=== PATIENT | male | born 1965 | race Hispanic/Latino ===

== ENCOUNTER 2016-12-24 18:19 | Emergency (ER) | payer MEDICAID, OTHER ==
[2016-12-24 19:23] VITALS: BP 129/66; PULSE 84; RESP 18; TEMP 97.8; O2SAT 99
--- NOTE | 2016-12-24 19:33 | ED PDOC ---
Lower Extremity Pain/Injury Time Seen by Provider: 12/24/16 19:28 Chief Complaint (Nursing): Lower Extremity Problem/Injury Chief Complaint (Provider): Lower Extremity Problem/Injury History Per: Patient History/Exam Limitations: no limitations Onset/Duration Of Symptoms: Mins (prior to arrival) Current Symptoms Are (Timing): Still Present Additional Complaint(s): Hernesto Mauricio is a 51 year old male who presents to the emergency department for an evaluation after he fell down a set of stairs injuring right hip and knee. Patient denies dizziness or syncope prior to fall. He denies head injury or loss of consciousness. Patient is able to walk and bear weight but has pain when doing so. PMD: none provided Past Medical History Reviewed: Historical Data Vital Signs: Last Vital Signs Temp 97.8 F 12/24/16 19:20 Pulse 84 12/24/16 19:20 Resp 18 12/24/16 19:20 BP 129/66 12/24/16 19:20 Pulse Ox 99 12/24/16 19:20 - Medical History PMH: Hepatitis (C) Denies: Diabetes, HIV, HTN, Chronic Kidney Disease, Seizures, Sexually Transmitted Disease - Surgical History Surgical History: Hernia Repair - Family History Family History: States: No Known Family Hx - Living Arrangements Living Arrangements: With Family - Social History Current smoker - smoking cessation education provided: Yes Alcohol: Occasional Drugs: Opiates - Home Medications Home Medications: Ambulatory Orders Medication Instructions Recorded Cyclobenzaprine [Cyclobenzaprine 10 mg PO TID PRN #15 tab 12/24/16 HCl] Ibuprofen [Motrin] 600 mg PO Q6 PRN #15 tab 12/24/16 - Allergies Allergies/Adverse Reactions: Allergies Allergy/AdvReac Type Severity Reaction Status Date / Time No Known Allergies Allergy Verified 09/23/16 18:33 Wells Criteria for PE - Wells Criteria for Pulmonary Embolism Clinical Signs and Symptoms of DVT: No P.E is #1 Diagnosis, or Equally Likely: No Heart Rate >100: No Immobilization at least 3 days;Surgery previous 4 weeks: No Previous, objectively diagnosed PE or DVT: No Hemoptysis: No Malignancy w/treatment within 6 months, or palliative: No Total Score: 0 Review of Systems ROS Statement: Except As Marked, All Systems Reviewed And Found Negative Musculoskeletal: Positive for: Other (right hip pain and knee pain s/p fall) Neurological: Positive for: Other (denies head injury or LOC) Physical Exam - Reviewed Nursing Documentation Reviewed: Yes Vital Signs Reviewed: Yes - Physical Exam Appears: Positive for: Well, Non-toxic, No Acute Distress Head Exam: Positive for: ATRAUMATIC, NORMAL INSPECTION, NORMOCEPHALIC Skin: Negative for: Rash Eye Exam: Positive for: Normal appearance Cardiovascular/Chest: Positive for: Regular Rate, Rhythm Respiratory: Positive for: Normal Breath Sounds Gastrointestinal/Abdominal: Positive for: Soft. Negative for: Tenderness Back: Negative for: L CVA Tenderness, R CVA Tenderness, Vertebral Tenderness Extremity: Positive for: Other (Ecchymosis and tenderness to right lateral hip noted, full range of motion noted with pain, diffuse tenderness to right femur region and anterior right knee, full range of motion right knee, normal distal sensation right lower extremity) Neurologic/Psych: Positive for: Alert, Oriented - ECG O2 Sat by Pulse Oximetry: 99 (RA) Pulse Ox Interpretation: Normal - Other Rad Pelvis, right hip, femur and knee X-Ray: Interpreted by Me, Viewed By Me X-Ray Interpretation: no fx, no dis Medical Decision Making Medical Decision Making: Initial Impression: 51 year old with right leg injury s/p trip and fall Initial Plan: * Flexion 10mg PO * Toradol 30mg IM * Xray femur (right) * Xray hip with pelvis (right) * Xray knee (right) Patient reports improvement to pain s/p meds given in ED. Patient aware of x-ray results, crutches declined. Prescription given for Motrin and Flexeril. Patient was advised to follow up with orthopedist, referral provided. Scribe Attestation: Documented by Piper Banks, acting as a scribe for Josephine Desouza PA-C. Provider Scribe Attestation: All medical record entries made by the Scribe were at my direction and personally dictated by me. I have reviewed the chart and agree that the record accurately reflects my personal performance of the history, physical exam, medical decision making, and the department course for this patient. I have also personally directed, reviewed, and agree with the discharge instructions and disposition. Disposition - Clinical Impression Clinical Impression: Contusion, hip, Knee sprain - Patient ED Disposition Is Patient to be Admitted: No Counseled Patient/Family Regarding: Studies Performed, Diagnosis, Need For Followup, Rx Given - Disposition Referrals: Schuyler Kramer MD [Staff Provider] - Disposition: Routine/Home Disposition Time: 20:35 Condition: STABLE Additional Instructions: Ice, rest and elevate affected area. Take prescription meds as directed as needed for pain. Follow-up with orthopedist or primary doctor for any persistent symptoms. Prescriptions: Cyclobenzaprine [Cyclobenzaprine HCl] 10 mg PO TID PRN #15 tab PRN Reason: Muscle Pain Ibuprofen [Motrin] 600 mg PO Q6 PRN #15 tab PRN Reason: Pain, Moderate (4-7) Instructions: Hip Contusion (ED), Knee Sprain (ED)
--- NOTE | 2016-12-25 12:49 | RAD ---
PROCEDURE: Right Femur Radiographs. HISTORY: trauma COMPARISON: None. TECHNIQUE: AP and Lateral Radiographs of the right femur. FINDINGS: FEMUR: Normal. No fracture. SOFT TISSUES: Normal. OTHER FINDINGS: None. IMPRESSION: Unremarkable radiographs of the right femur.
--- NOTE | 2016-12-25 13:11 | RAD ---
PROCEDURE: Right Hip Radiographs. HISTORY: trauma COMPARISON: None. FINDINGS: BONES: Normal. No fracture. JOINTS: Normal. SOFT TISSUES: Normal. OTHER FINDINGS: None. IMPRESSION: Normal radiographs of right hip.
--- NOTE | 2016-12-25 13:20 | RAD ---
PROCEDURE: Right Knee Radiographs. HISTORY: trauma COMPARISON: None. FINDINGS: BONES: Normal. No fracture. JOINTS: Narrowed medial joint compartment consistent with osteoarthritis. Lateral and patellofemoral compartments are preserved. No articular erosion. JOINT EFFUSION: None. OTHER FINDINGS: None. IMPRESSION: Medial osteoarthritis. No acute fracture.
== END 2016-12-24 20:48 | disposition home or self-care (01) ==
LOC: H.ER 18:19
DX: S70.01XA Contusion of right hip, initial encounter (principal); S83.91XA Sprain of unspecified site of right knee, initial encounter; W10.9XXA Fall (on) (from) unspecified stairs and steps, initial encounter; Y92.89 Other specified places as the place of occurrence of the external cause; M17.11 Unilateral primary osteoarthritis, right knee
CPT/HCPCS: 73502; 73551; 73562; 96372; 99283; J1885

== ENCOUNTER 2017-01-06 20:19 | Emergency (ER) | payer SELFPAY ==
[2017-01-06 21:00] VITALS: BP 116/65; PULSE 89; RESP 17; TEMP 98.3; O2SAT 100
--- NOTE | 2017-01-06 22:55 | ED PDOC ---
Arrival/HPI - General Chief Complaint: Hip Pain Time Seen by Provider: 01/06/17 22:25 Past Medical History - Infectious Disease Hx of Infectious Diseases: None - Cardiac Hx Hypertension: No - Pulmonary Hx Tuberculosis: No - Neurological Hx Seizures: No - HEENT Hx HEENT Disorder: No - Renal Hx Renal Disorder: No - Endocrine/Metabolic Hx Endocrine Disorders: No - Hematological/Oncological Hx Cancer: No - Integumentary Hx Dermatological Disorder: No - Musculoskeletal/Rheumatological Hx Musculoskeletal Disorders: No Hx Falls: No - Gastrointestinal Hx Gastrointestinal Disorders: No - Genitourinary/Gynecological Hx Sexually Transmitted Diseases: No - Psychiatric Hx Psychophysiologic Disorder: Yes Hx Substance Use: Yes (IVDU Heroin) - Anesthesia Hx Anesthesia: Yes Hx Anesthesia Reactions: No Hx Malignant Hyperthermia: No Family/Social History Smoking Status: Heavy Smoker > 10 Cigarettes Daily Hx Alcohol Use: No Hx Substance Use: Yes (IVDU Heroin) Substance used: HEROIN AND COCAINE Allergies/Home Meds Allergies/Adverse Reactions: Allergies No Known Allergies Allergy (Verified 09/23/16 18:33) Physical Exam Vital Signs Temp Pulse Resp BP Pulse Ox 01/06/17 20:56 98.3 F 89 17 116/65 100 Medical Decision Making - Medication Orders Current Medication Orders: Discontinued Medications Ketorolac Tromethamine (Toradol) Confirm Administered Dose 15 mg .ROUTE .STK- MED ONE Stop: 01/06/17 22:52 Disposition/Present on Arrival - Present on Arrival History of DVT/PE: No History of Uncontrolled Diabetes: No Urinary Catheter: No History Surgical Site Infection Following: None - Disposition
--- NOTE | 2017-01-06 22:58 | ED PDOC ---
HPI: General Adult Time Seen by Provider: 01/06/17 22:25 Chief Complaint (Nursing): Hip Pain History Per: Patient Additional Complaint(s): Pt. states last week he was in ED s/p fall and injury to R hip. Pt. states he's been taking Motrin without any relief. Reports that he was informed that x-rays were normal. Denies new trauma, numbness, tingling, incontinence, dysuria, abdominal pain. Past Medical History Vital Signs: Last Vital Signs Temp 98.3 F 01/06/17 20:56 Pulse 89 01/06/17 20:56 Resp 17 01/06/17 20:56 BP 116/65 01/06/17 20:56 Pulse Ox 100 01/06/17 23:00 - Medical History PMH: Hepatitis (C) Denies: Diabetes, HIV, HTN, Chronic Kidney Disease, Seizures, Sexually Transmitted Disease - Surgical History Surgical History: Hernia Repair - Family History Family History: States: No Known Family Hx - Immunization History Hx Tetanus Toxoid Vaccination: No Hx Influenza Vaccination: No Hx Pneumococcal Vaccination: No - Home Medications Home Medications: Ambulatory Orders Medication Instructions Recorded Cyclobenzaprine [Cyclobenzaprine 10 mg PO TID PRN #15 tab 12/24/16 HCl] Ibuprofen [Motrin] 600 mg PO Q6 PRN #15 tab 12/24/16 - Allergies Allergies/Adverse Reactions: Allergies Allergy/AdvReac Type Severity Reaction Status Date / Time No Known Allergies Allergy Verified 09/23/16 18:33 Review of Systems ROS Statement: Except As Marked, All Systems Reviewed And Found Negative Physical Exam - Physical Exam Appears: Positive for: Well, Non-toxic, No Acute Distress Skin: Positive for: Normal Color, Warm. Negative for: Rash Extremity: Positive for: Other (Minimal R hip tenderness without deformity; no pelvic tenderness). Negative for: Calf Tenderness (b/l) Neurologic/Psych: Positive for: Alert, Oriented - ECG O2 Sat by Pulse Oximetry: 100 - Progress ED Course And Treament: Toradol 15mg IM given. CT pelvis w/o contrast: 1. Mild subcutaneous induration lateral to the right hip. 2. Question of minimal subcapital impaction fracture of the right femoral neck posteriorly. Case d/w Dr. Callahan who recommends ordering repeat CT to confirm fx as pt. has been walking on hip. CT R hip w/o contrast ordered. Disposition - Clinical Impression Clinical Impression: Hip injury - Patient ED Disposition Is Patient to be Admitted: Transfer of Care (Signed out to Karuna PULIDO pending CT ) - Disposition Disposition Time: 00:00 Condition: STABLE
--- NOTE | 2017-01-07 00:23 | ED PDOC ---
- ECG O2 Sat by Pulse Oximetry: 100 - Progress ED Course And Treament: Case endorsed to screenplay writer from Tika PULIDO pending CT hip without contrast EXAM: CT Right Lower Extremity Without Intravenous Contrast, Hip CLINICAL HISTORY: 51 years old, male; Injury or trauma; Fall; Initial encounter; Blunt trauma; Hip ; Right; Prior surgery; Surgery date: 6+ months; Surgery type: Rt hernia repair; Additional info: Attention r hip; S/P fall on 12/24/16 TECHNIQUE: Axial computed tomography images of the right hip without intravenous contrast. This CT exam was performed using one or more of the following dose reduction techniques: automated exposure control, adjustment of the mA and/or kV according to patient size, and/or use of iterative reconstruction technique. Coronal and sagittal reformatted images were created and reviewed. EXAM DATE/TIME: Exam ordered 01/06/2017 11:50 PM COMPARISON: CR - FEMUR 1 VIEW RT 12/24/2016 7:56:05 PM FINDINGS: Bones/joints: Minimal subcapital femoral neck fracture, greatest posteriorly and laterally. No dislocation. Soft tissues: Mild subcutaneous edema lateral to the right hip. IMPRESSION: 1. Mild subcutaneous induration lateral to the right hip. 2. Probable minimal subcapital femoral neck fracture, greatest posteriorly and laterally. MR may be of benefit for confirmation. Case discussed with Dr. Parmar, Ortho on-call; recommends admission to hospital for AM MRI and possible surgery. Patient educated on these findings, agreeable with admission and surgery but states he has something in the morning he has to attend to, or else he will face legal trouble. Patient advised he will need to sign out against medical advice, and risks of doing so. Patient demonstrates full understanding. Crutches given for nonweight bearing. Advised to return to ED in am. Dr. Wallace Maher aware of AMA. Disposition - Clinical Impression Clinical Impression: Hip fracture, Left against medical advice - POA Present On Arrival: Falls Or Trauma - Disposition Referrals: [facility] [Outside] Schuyler Kramer MD [Staff Provider] - Disposition: AGAINST MEDICAL ADVICE Disposition Time: 00:52 Condition: STABLE Instructions: Against Medical Advice (ED)
--- NOTE | 2017-01-07 10:38 | CT ---
PROCEDURE: CT Pelvis without contrast HISTORY: trauma COMPARISON: Right hip and pelvis x-ray 12/24/2016. TECHNIQUE: Contiguous axial images of the pelvis . No intravenous or oral contrast given. Coronal and sagittal reformats generated. Radiation dose: Total exam DLP = 391 mGy-cm. This CT exam was performed using one or more of the following dose reduction techniques: Automated exposure control, adjustment of the mA and/or kV according to patient size, and/or use of iterative reconstruction technique. FINDINGS: BLADDER: Decompressed but poorly evaluated turns of the wall thickness. Cystitis not completely excluded. REPRODUCTIVE ORGANS: Unremarkable. VISUALIZED BOWEL: Unremarkable. PERITONEUM: Unremarkable, as visualized. No free fluid. No free air. LYMPH NODES: Unremarkable. No enlarged lymph nodes. BONES: Cortical discontinuity seen in the right femoral neck at its junction with the head at the mid to posterior margins suspicious for impacted fracture though minimal. No dislocation subluxation appreciated. Degenerative cortical sclerosis appreciate the acetabulum. VASCULATURE: Unremarkable. OTHER FINDINGS: None. IMPRESSION: 1. An impacted fracture of the mid to posterior segment of the right femoral neck is in question. No dislocation. No suspicious lytic or blastic change. 2. Mild to moderate hip joint osteoarthritis.
--- NOTE | 2017-01-07 10:47 | CT ---
PROCEDURE: CT right hip HISTORY: attention R hip; s/p fall on 12/24/16 COMPARISON: Right hip radiographs 12/24/2016 TECHNIQUE: 2.5 mm contiguous axial sections were acquired through the right hip. Sagittal and coronal images were reformatted from the axial scan. FINDINGS: There is probable subtle subcapital fracture of the right hip. Thin sclerotic line traverses the subcapital portion of the right hip with minimal cortical offset seen posteromedially. Confirmation with magnetic resonance imaging should be considered. No other fracture is identified. The joint spaces and articular surfaces are preserved. No hematoma seen about the right hip. Minimal contusion of the subcutaneous soft tissues adjacent to greater trochanter. Incidentally noted small right inguinal hernia containing only mesenteric fat. This protrudes only into the proximal aspect of the inguinal canal. IMPRESSION: Possible nondisplaced subcapital fracture of the right proximal femur. Consider correlation with magnetic resonance imaging. Incidental small right inguinal hernia containing only mesenteric fat. No additional abnormality. Preliminary interpretation of this examination was reported by [facility] at 12:21 a.m. on 01/07/2017. There is concurrence of this report with the preliminary interpretation.
== END 2017-01-07 01:34 | disposition left against medical advice (07) ==
LOC: H.ER 20:19
DX: S72.001A Fracture of unspecified part of neck of right femur, initial encounter for closed fracture (principal); W19.XXXA Unspecified fall, initial encounter
CPT/HCPCS: 72192; 73700; 96372; 99284; J1885

== ENCOUNTER 2017-01-21 18:56 | Emergency (ER) | payer MEDICAID, OTHER ==
[2017-01-21 19:05] VITALS: BP 133/76; PULSE 96; RESP 16; TEMP 97.8; O2SAT 98
--- NOTE | 2017-01-21 19:47 | ED PDOC ---
Arrival/HPI - General Chief Complaint: Hip Pain Time Seen by Provider: 01/21/17 19:23 Past Medical History - Infectious Disease Hx of Infectious Diseases: None - Tetanus Immunization Tetanus Immunization: Unknown - Cardiac Hx Hypertension: No - Pulmonary Hx Tuberculosis: No - Neurological Hx Seizures: No - HEENT Hx HEENT Disorder: No - Renal Hx Renal Disorder: No - Endocrine/Metabolic Hx Endocrine Disorders: No - Hematological/Oncological Hx Blood Disorders: Yes Hx Hepatitis C: Yes - Integumentary Hx Dermatological Disorder: No - Musculoskeletal/Rheumatological Hx Fractures: Yes - Gastrointestinal Hx Gastrointestinal Disorders: No - Genitourinary/Gynecological Hx Sexually Transmitted Diseases: No - Psychiatric Hx Psychophysiologic Disorder: Yes Hx Substance Use: Yes (IVDU Heroin) - Anesthesia Hx Anesthesia: Yes Hx Anesthesia Reactions: No Hx Malignant Hyperthermia: No Family/Social History Smoking Status: Heavy Smoker > 10 Cigarettes Daily Hx Alcohol Use: No Hx Substance Use: Yes (IVDU Heroin) Substance used: HEROIN AND COCAINE Allergies/Home Meds Allergies/Adverse Reactions: Allergies No Known Allergies Allergy (Verified 09/23/16 18:33) Physical Exam Vital Signs Temp Pulse Resp BP Pulse Ox 01/21/17 19:00 97.8 F 96 H 16 133/76 98 Medical Decision Making - RAD Interpretation Radiology Orders: 01/21/17 19:29 Femur Right [FEMUR MIN 2 VIEWS RT] [RAD] Stat - Medication Orders Current Medication Orders: Discontinued Medications Ketorolac Tromethamine (Toradol) 30 mg IVP STAT STA Stop: 01/21/17 19:31 Disposition/Present on Arrival - Present on Arrival History of DVT/PE: No History of Uncontrolled Diabetes: No Urinary Catheter: No History Surgical Site Infection Following: None - Disposition Forms: [employer] (Hungarian)
[2017-01-21 20:01] LABS: BASO # 0.2 K/uL (0.0-0.2); BASO % 3.3 % (0.0-2.0); EOS % 0.2 % (0.0-4.0); HEMATOCRIT 31.1 % (35.0-51.0); LYMPH # 1.7 K/uL (1.0-4.3); MEAN CELL VOLUME 89.6 fl (80.0-94.0); MEAN CORPUSCULAR HEMOGLOBIN 30.2 pg (27.0-31.0); MEAN CORPUSCULAR HGB CONC 33.7 g/dL (33.0-37.0); MEAN PLATELET VOLUME 7.1 fl (7.2-11.7); MONO # 0.7 K/uL (0.0-0.8); MONO % 12.5 % (0.0-10.0); NEUT # 3.3 K/uL (1.8-7.0); NRBC % 0.1 % (0.0-0.0); PLATELET COUNT 184 K/uL (130-400); RED CELL DISTRIBUTION WIDTH 13.5 % (11.5-14.5)
--- NOTE | 2017-01-21 20:29 | ED PDOC ---
Lower Extremity Pain/Injury Time Seen by Provider: 01/21/17 19:23 Chief Complaint (Nursing): Hip Pain Chief Complaint (Provider): hip pain History Per: Patient History/Exam Limitations: no limitations Additional Complaint(s): 51yo M in ED for eval of hip pain-pt was d/c for hip surgery 01/12 (ORIF hip fracture) and to f.u with natty this week. states that he is having redness at staple site with increased redness denies drainage fever swelling. Past Medical History Reviewed: Historical Data, Nursing Documentation, Vital Signs Vital Signs: Last Vital Signs Temp 97.8 F 01/21/17 19:00 Pulse 96 H 01/21/17 19:00 Resp 16 01/21/17 19:00 BP 133/76 01/21/17 19:00 Pulse Ox 98 01/21/17 19:00 - Medical History PMH: Fractures, Hepatitis (C) Denies: Diabetes, HIV, HTN, Chronic Kidney Disease, Seizures, Sexually Transmitted Disease - Surgical History Surgical History: Hernia Repair - Family History Family History: States: Unknown Family Hx - Immunization History Hx Tetanus Toxoid Vaccination: No Hx Influenza Vaccination: No Hx Pneumococcal Vaccination: No - Home Medications Home Medications: Ambulatory Orders Medication Instructions Recorded Aspirin [Aspirin EC] 325 mg PO DAILY #14 ect 01/12/17 LORazepam [Ativan] 1 mg PO BID PRN #14 tab 01/12/17 oxyCODONE/Acetaminophen [Percocet 1 ea PO Q4 PRN #30 tab 01/12/17 5/325 mg Tab] Cephalexin [cephalexin] 500 mg PO BID #20 cap 01/21/17 - Allergies Allergies/Adverse Reactions: Allergies Allergy/AdvReac Type Severity Reaction Status Date / Time No Known Allergies Allergy Verified 09/23/16 18:33 Wells Criteria for PE - Wells Criteria for Pulmonary Embolism Clinical Signs and Symptoms of DVT: No P.E is #1 Diagnosis, or Equally Likely: No Heart Rate >100: No Immobilization at least 3 days;Surgery previous 4 weeks: No Previous, objectively diagnosed PE or DVT: No Hemoptysis: No Malignancy w/treatment within 6 months, or palliative: No Total Score: 0 Review of Systems ROS Statement: Except As Marked, All Systems Reviewed And Found Negative Constitutional: Negative for: Fever, Chills Musculoskeletal: Positive for: Leg Pain Physical Exam - Reviewed Nursing Documentation Reviewed: Yes Vital Signs Reviewed: Yes - Physical Exam Appears: Positive for: Well, Non-toxic, No Acute Distress Skin: Positive for: Normal Color, Warm, DRY Cardiovascular/Chest: Positive for: Regular Rate, Rhythm Respiratory: Positive for: CNT, Normal Breath Sounds Extremity: Positive for: Other (right leg: laterla side staple in place mild ertyhema noted around no induration no streaking no warmth FROM of leg. good pulses. no drainage. ) Neurologic/Psych: Positive for: Alert, Oriented - Laboratory Results Result Diagrams: 01/21/17 19:57 01/21/17 19:57 - ECG O2 Sat by Pulse Oximetry: 98 - Radiology X-Ray: Interpreted by Or X-Ray Interpretation: No Acute Disease - Progress ED Course And Treament: cbc/cmp/xray r/o infection Medical Decision Making Medical Decision Making: dx: cellulites tx with Rx for keflex and f.u with [facility] this week for staple removal. Disposition - Clinical Impression Clinical Impression: Cellulitis - Patient ED Disposition Is Patient to be Admitted: No Counseled Patient/Family Regarding: Studies Performed, Diagnosis, Need For Followup, Rx Given - Disposition Referrals: Schuyler Kramer MD [Staff Provider] - Disposition: Routine/Home Disposition Time: 20:27 Condition: STABLE Prescriptions: Cephalexin [cephalexin] 500 mg PO BID #20 cap Instructions: Cellulitis (ED) Forms: [employer] (Frisian)
[2017-01-21 20:32] LABS: ALB/GLOB RATIO 0.9 (1.0-2.1); BILIRUBIN,TOTAL 0.7 mg/dl (0.2-1.3); CALCIUM 9.2 mg/dL (8.4-10.2); POTASSIUM 4.9 MMOL/L (3.6-5.0); TOTAL PROTEIN 7.6 G/DL (6.3-8.2)
[2017-01-21 20:49] LABS: BASOPHIL 2 % (0-2); EOSINOPHIL 2 % (0-7); NEUTROPHIL 56 % (42-75); TOTAL CELLS COUNTED 100
--- NOTE | 2017-01-22 12:08 | RAD ---
PROCEDURE: Right femur HISTORY: hip pain COMPARISON: 01/10/2017. TECHNIQUE: Standard protocol for this study/examination. FINDINGS: Stable position of 3 partially fenestrated orthopedic screws. No evidence of hardware failure, loosening or migration. No abnormalities with respect to the remaining/distal femur. IMPRESSION: Stable satisfactory postoperative status.
== END 2017-01-21 20:36 | disposition home or self-care (01) ==
LOC: H.ER 18:56
DX: T81.4XXA Infection following a procedure, initial encounter (principal)
CPT/HCPCS: 73552; 80053; 85025; 87040; 96374; 99283; J1885

== ENCOUNTER 2017-01-23 11:27 | Emergency (ER) | payer OTHER ==
[2017-01-23 11:32] VITALS: BP 156/92; PULSE 78; RESP 20; TEMP 98.5; O2SAT 99
[2017-01-23] MEDS ORDERED: Oxycodone/Acetaminophen 5/325 mg Tab PO STA (11:53)
--- NOTE | 2017-01-23 11:53 | ED PDOC ---
Lower Extremity Pain/Injury Time Seen by Provider: 01/23/17 11:44 Chief Complaint (Nursing): Lower Extremity Problem/Injury Chief Complaint (Provider): Leg pain History Per: Patient Additional Complaint(s): Pt. is a 51 to male, PMH of hepatitis, presents to ED with complaints of "constant right hip pain worsened last night, ran out of Percocet since last week". Pt. admits right hip surgery done November [address] Parmar. Pt reports that he missed his appointment with Agata this week and was supposed to get maureen out. Past Medical History Reviewed: Nursing Documentation, Vital Signs Vital Signs: Last Vital Signs Temp 98.5 F 01/23/17 11:31 Pulse 78 01/23/17 11:31 Resp 20 01/23/17 11:31 BP 156/92 H 01/23/17 11:31 Pulse Ox 99 01/23/17 11:31 - Medical History PMH: Fractures, Hepatitis (C) Denies: Diabetes, HIV, HTN, Chronic Kidney Disease, Seizures, Sexually Transmitted Disease - Surgical History Surgical History: Hernia Repair - Family History Family History: States: Unknown Family Hx - Living Arrangements Living Arrangements: With Family - Social History Current smoker - smoking cessation education provided: No Alcohol: Social Drugs: Denies - Immunization History Hx Tetanus Toxoid Vaccination: No Hx Influenza Vaccination: No Hx Pneumococcal Vaccination: No - Home Medications Home Medications: Ambulatory Orders Medication Instructions Recorded Aspirin [Aspirin EC] 325 mg PO DAILY #14 ect 01/12/17 LORazepam [Ativan] 1 mg PO BID PRN #14 tab 01/12/17 oxyCODONE/Acetaminophen [Percocet 1 ea PO Q4 PRN #30 tab 01/12/17 5/325 mg Tab] Cephalexin [cephalexin] 500 mg PO BID #20 cap 01/21/17 - Allergies Allergies/Adverse Reactions: Allergies Allergy/AdvReac Type Severity Reaction Status Date / Time No Known Allergies Allergy Verified 09/23/16 18:33 Review of Systems ROS Statement: Except As Marked, All Systems Reviewed And Found Negative Physical Exam - Reviewed Nursing Documentation Reviewed: Yes Vital Signs Reviewed: Yes - Physical Exam Appears: Positive for: Well, Non-toxic, No Acute Distress Head Exam: Positive for: ATRAUMATIC, NORMAL INSPECTION, NORMOCEPHALIC Skin: Positive for: Normal Color, Warm, DRY Eye Exam: Positive for: EOMI, Normal appearance, PERRL ENT: Positive for: Normal ENT Inspection Neck: Positive for: Normal, Painless ROM Cardiovascular/Chest: Positive for: Regular Rate, Rhythm Respiratory: Positive for: CNT, Normal Breath Sounds Gastrointestinal/Abdominal: Positive for: Normal Exam, Bowel Sounds, Soft Back: Positive for: Normal Inspection Extremity: Positive for: Tenderness (over incision site, maureen intact, no surroung kim and erythema. no drianage ) Neurologic/Psych: Positive for: Alert, Oriented - ECG O2 Sat by Pulse Oximetry: 99 Medical Decision Making Medical Decision Making: Pt medicated with Percocet PO Case discussed with Dr. Parmar who advised Pt to follow up in office on Friday at 8 am. Do not remove maureen at this time Disposition - Clinical Impression Clinical Impression: Hip pain - Patient ED Disposition Is Patient to be Admitted: No - Disposition Disposition: Routine/Home Disposition Time: 13:38 Condition: STABLE Additional Instructions: Follow up with Dr. Parmar on Friday at 8am! Instructions: Hip Pain (ED) Forms: [facility] (Vietnamese)
[2017-01-23] MEDS ORDERED: Oxycodone/Acetaminophen 5/325 mg Tab ONE (12:02)
== END 2017-01-23 13:55 | disposition home or self-care (01) ==
LOC: H.ER 11:27
DX: M25.551 Pain in right hip (principal); Z98.890 Other specified postprocedural states

== ENCOUNTER 2017-03-20 17:42 | Emergency (ER) | payer OTHER ==
[2017-03-20 18:14] VITALS: BP 118/76; PULSE 76; RESP 16; TEMP 98.7; O2SAT 100
[2017-03-20] MEDS ORDERED: Oxycodone/Acetaminophen 5/325 mg Tab PO STA (18:49)
[2017-03-20] MEDS ORDERED: Oxycodone/Acetaminophen 5/325 mg Tab ONE (18:51)
--- NOTE | 2017-03-20 19:38 | ED PDOC ---
HPI: General Adult Time Seen by Provider: 03/20/17 18:24 Chief Complaint (Nursing): Groin Pain History Per: Patient Additional Complaint(s): Pt. states for the past week he's had atraumatic R groin pain and swelling. States swelling is intermittent and seems to arise when he is straining and he is able to reduce the swelling. Denies dysuria, hematuria, abdominal pain, fever , trauma, testicular pain. Past Medical History Reviewed: Historical Data, Nursing Documentation, Vital Signs Vital Signs: Last Vital Signs Temp 98.7 F 03/20/17 18:11 Pulse 76 03/20/17 18:11 Resp 16 03/20/17 18:11 BP 118/76 03/20/17 18:11 Pulse Ox 100 03/20/17 19:41 - Medical History PMH: Fractures, Hepatitis (C) Denies: Diabetes, HIV, HTN, Chronic Kidney Disease, Seizures, Sexually Transmitted Disease - Surgical History Surgical History: Hernia Repair Other surgeries: R hip fx - Family History Family History: States: No Known Family Hx - Immunization History Hx Tetanus Toxoid Vaccination: No Hx Influenza Vaccination: No Hx Pneumococcal Vaccination: No - Home Medications Home Medications: Ambulatory Orders Medication Instructions Recorded Aspirin [Aspirin EC] 325 mg PO DAILY #14 ect 01/12/17 LORazepam [Ativan] 1 mg PO BID PRN #14 tab 01/12/17 oxyCODONE/Acetaminophen [Percocet 1 ea PO Q4 PRN #30 tab 01/12/17 5/325 mg Tab] Cephalexin [cephalexin] 500 mg PO BID #20 cap 01/21/17 Naproxen [Naprosyn] 500 mg PO BID PRN #14 tab 03/20/17 - Allergies Allergies/Adverse Reactions: Allergies Allergy/AdvReac Type Severity Reaction Status Date / Time No Known Allergies Allergy Verified 03/20/17 18:11 Review of Systems ROS Statement: Except As Marked, All Systems Reviewed And Found Negative Physical Exam - Physical Exam Appears: Positive for: Well, Non-toxic, No Acute Distress Skin: Positive for: Normal Color, Warm. Negative for: Rash Pulses-Dorsalis Pedis (L): 2+ Pulses-Dorsalis Pedis (R): 2+ Gastrointestinal/Abdominal: Positive for: Normal Exam, Soft, Hernia (R sided small reducible inguinal hernia), Other. Negative for: Tenderness, Mass Male Genital Exam: Positive for: normal genitalia. Negative for: scrotum tenderness (R), scrotum tenderness (L), testicular tenderness (R), testicular tenderness (L) Back: Positive for: Normal Inspection. Negative for: L CVA Tenderness, R CVA Tenderness Extremity: Positive for: Normal ROM. Negative for: Deformity (b/l hip) Neurologic/Psych: Positive for: Alert, Oriented, Gait (steady, unassisted) - ECG O2 Sat by Pulse Oximetry: 100 - Radiology X-Ray: Interpreted by Me (R hip x-rays) X-Ray Interpretation: No Acute Disease - Progress ED Course And Treament: Advised to f/u with Dr. Haq, surgery, for further evaluation and to return to ED if he pain becomes worse. Disposition - Clinical Impression Clinical Impression: Inguinal hernia - Patient ED Disposition Is Patient to be Admitted: No - Disposition Referrals: Wesley Haq MD [Staff Provider] - [facility] [Outside] Disposition: Routine/Home Disposition Time: 19:41 Condition: STABLE Prescriptions: Naproxen [Naprosyn] 500 mg PO BID PRN #14 tab PRN Reason: Pain Instructions: Inguinal Hernia (ED) Forms: [facility] (Latvian)
--- NOTE | 2017-03-21 19:49 | RAD ---
PROCEDURE: Right Hip Radiographs. HISTORY: Comparison made with prior radiographs dated 02/02/2017 COMPARISON: None. FINDINGS: BONES: Current study re- demonstrates 3 in situ partially threaded cannulated fixation screw traversing the right femoral neck and head. Hardware appears intact without evidence of loosening or infection. No evidence of acute displaced fracture nor dislocation Right femoral head is appropriately located within the right acetabulum. JOINTS: Joint spaces preserved as above. SOFT TISSUES: Grossly unremarkable aside from calcified pelvic phleboliths. OTHER FINDINGS: None. IMPRESSION: No evidence of acute displaced fracture nor dislocation. Three partially threaded cannulated fixation screws traversing the right femoral neck and head unchanged. No evidence of hardware failure.
== END 2017-03-20 19:50 | disposition home or self-care (01) ==
LOC: H.ER 17:42
DX: K40.90 Unilateral inguinal hernia, without obstruction or gangrene, not specified as recurrent (principal)

== ENCOUNTER 2017-04-10 13:32 | Emergency (ER) | payer MEDICAID, OTHER, SELFPAY ==
[2017-04-10 13:39] VITALS: BP 138/89; PULSE 70; RESP 20; TEMP 97; O2SAT 98
[2017-04-10] MEDS ORDERED: Sodium Chloride 0.9% 1,000 ML IV STA (13:47)
[2017-04-10] MEDS ORDERED: Iohexol 240 (50 ml) PO ONE (13:49)
--- NOTE | 2017-04-10 14:36 | ED PDOC ---
HPI: Male Pain Time Seen by Provider: 04/10/17 13:42 Chief Complaint (Nursing): Male Genitourinary Chief Complaint (Provider): Right Groin Pain History Per: Patient History/Exam Limitations: no limitations Onset/Duration Of Symptoms: Days Current Symptoms Are (Timing): Still Present Additional Complaint(s): Hernesto Mauricio is a 52 year old male that presents to the ED with a chief complaint of right groin pain that he states has been ongoing and worsening for the past several days. Patient reports that prior to his constant pain he had experienced intermittent pain in the area for several weeks. Patient was sent to ED by clinic for incarcerated right inguinal hernia. He denies any vomiting or diarrhea. Of Note: Patient admits to having hernia repair in the same area many years ago. Past Medical History Reviewed: Historical Data, Nursing Documentation, Vital Signs Vital Signs: Last Vital Signs Temp 97 F L 04/10/17 13:35 Pulse 70 04/10/17 13:35 Resp 20 04/10/17 13:35 BP 138/89 04/10/17 13:35 Pulse Ox 98 04/10/17 13:35 - Medical History PMH: Fractures, Hepatitis (C) Denies: Diabetes, HIV, HTN, Chronic Kidney Disease, Seizures, Sexually Transmitted Disease - Surgical History Surgical History: Hernia Repair Other surgeries: Right hip surgery - Family History Family History: States: Unknown Family Hx - Social History Current smoker - smoking cessation education provided: Yes - Immunization History Hx Tetanus Toxoid Vaccination: No Hx Influenza Vaccination: No Hx Pneumococcal Vaccination: No - Home Medications Home Medications: Ambulatory Orders Medication Instructions Recorded oxyCODONE/Acetaminophen [Percocet 1 ea PO BID PRN #6 tab 04/10/17 5/325 mg Tab] - Allergies Allergies/Adverse Reactions: Allergies Allergy/AdvReac Type Severity Reaction Status Date / Time No Known Allergies Allergy Verified 04/14/17 23:15 Review of Systems Gastrointestinal: Positive for: Abdominal Pain. Negative for: Vomiting, Diarrhea Genitourinary Male: Positive for: Other (Groin pain) Physical Exam - Reviewed Nursing Documentation Reviewed: Yes Vital Signs Reviewed: Yes - Physical Exam Appears: Positive for: Non-toxic, No Acute Distress Head Exam: Positive for: ATRAUMATIC, NORMOCEPHALIC Skin: Positive for: Normal Color, Warm Eye Exam: Positive for: EOMI, Normal appearance, PERRL Cardiovascular/Chest: Positive for: Regular Rate, Rhythm. Negative for: Murmur Respiratory: Positive for: Normal Breath Sounds. Negative for: Wheezing Gastrointestinal/Abdominal: Positive for: Tenderness (TTP right inguinal canal) , Guarding (Right inguinal canal). Negative for: Normal Exam Male Genital Exam: Positive for: other (Bulge into superior scrotum) Back: Positive for: Normal Inspection. Negative for: L CVA Tenderness, R CVA Tenderness Extremity: Positive for: Normal ROM. Negative for: Pedal Edema, Deformity Neurologic/Psych: Positive for: Alert, Oriented. Negative for: Motor/Sensory Deficits - Laboratory Results Result Diagrams: 04/10/17 14:35 04/10/17 14:35 - ECG O2 Sat by Pulse Oximetry: 98 (RA) Pulse Ox Interpretation: Normal Medical Decision Making Medical Decision Making: Impression: Incarcerated Hernia Plan: * CT Abd/Pelvis * VBG * CMP * CBC * PTT * PT * Urinalysis * Urine Drug Screen * Diluadid 0.5 mg IV * Iohexol 50 mL PO * NaCl 1000 mLs at 1000 mLs/hr * Reevaluation 14:00 Surgery consulted, discussed case with resident. 17:20 Surgery examined patient in ED, able to reduce hernia, imaging report reviewed and labs reviewed, per surgery can be discharged to followup with Dr Chan for scheduling of hernia repair in next week. Patient understood plan, need for followup and indications for return to ER if symptoms return. Scribe Attestation: Documented by Palak Tracy, acting as a scribe for Jerry Blankenship III, DO. Provider Scribe Attestation: All medical record entries made by the Scribe were at my direction and personally dictated by me. I have reviewed the chart and agree that the record accurately reflects my personal performance of the history, physical exam, medical decision making, and the department course for this patient. I have also personally directed, reviewed, and agree with the discharge instructions and disposition. Disposition - Clinical Impression Clinical Impression: Inguinal hernia - Patient ED Disposition Is Patient to be Admitted: No Counseled Patient/Family Regarding: Studies Performed, Diagnosis, Need For Followup, Rx Given - Disposition Referrals: Candelario Chan MD [Staff Provider] - Disposition: Routine/Home Disposition Time: 17:40 Condition: STABLE Additional Instructions: Followup with surgeon to have scheduling of your hernia repair Return to ER for any return of pain, vomiting, diarrhea or any concern. Prescriptions: oxyCODONE/Acetaminophen [Percocet 5/325 mg Tab] 1 ea PO BID PRN #6 tab PRN Reason: Pain, Severe (8-10) Instructions: Inguinal Hernia (ED) Forms: [facility] (Puerto Rican)
[2017-04-10 14:39] LABS: VENOUS BLOOD GAS BASE EXCESS 3.4 mmol/L (0.0-2.0); VENOUS BLOOD GAS PCO2 50 mmHg (40-60); VENOUS BLOOD PH 7.38 (7.32-7.43)
[2017-04-10] MEDS ORDERED: HYDROmorphone 0.5 mg/0.5 ml ISec ONE (14:43)
[2017-04-10] MEDS ORDERED: Iohexol 240 (50 ml) ONE (14:43)
[2017-04-10 15:13] LABS: ALB/GLOB RATIO 0.9 (1.0-2.1); ALKALINE PHOSPHATASE 69 U/L (38-126); ALT/SGPT 122 U/L (21-72); AST/SGOT 99 U/L (17-59); BILIRUBIN,TOTAL 0.5 mg/dl (0.2-1.3); BLOOD UREA NITROGEN 27 mg/dl (9-20); CALCIUM 8.9 mg/dL (8.4-10.2); CARBON DIOXIDE 27 mmol/L (22-30); CHLORIDE 105 mmol/L (98-107); GFR AFRICAN-AMERICAN > 60; GLUCOSE,RANDOM 129 mg/dL (75-110); SODIUM 142 mmol/l (132-148); TOTAL PROTEIN 7.2 G/DL (6.3-8.2)
[2017-04-10 15:18] LABS: BASO % 0.5 % (0.0-2.0); EOS % 0.4 % (0.0-4.0); HEMATOCRIT 33.3 % (35.0-51.0); LYMPH # 0.6 K/uL (1.0-4.3); LYMPH % 12.7 % (20.0-40.0); MEAN CELL VOLUME 86.7 fl (80.0-94.0); MEAN CORPUSCULAR HEMOGLOBIN 29.1 pg (27.0-31.0); MEAN CORPUSCULAR HGB CONC 33.6 g/dL (33.0-37.0); MEAN PLATELET VOLUME 8.1 fl (7.2-11.7); MONO # 0.3 K/uL (0.0-0.8); NEUT # 3.9 K/uL (1.8-7.0); NEUT % 80.4 % (50.0-75.0); RED CELL DISTRIBUTION WIDTH 14.2 % (11.5-14.5); WHITE BLOOD COUNT 4.9 K/uL (4.8-10.8)
[2017-04-10 15:25] LABS: PARTIAL THROMBOPLASTIN TIME 34.5 Seconds (25.6-37.1)
[2017-04-10 16:02] LABS: RBC URINE 1 /hpf (0-3); URINE BILIRUBIN NEGATIVE (NEGATIVE); URINE BLOOD NEGATIVE (NEGATIVE); URINE COLOR YELLOW (YELLOW); URINE GLUCOSE (UA) NEG (Normal); URINE KETONE NEGATIVE (NEGATIVE); URINE LEUKOCYTE ESTERASE NEG Leu/uL (Negative); URINE PROTEIN 30 mg/dL (NEGATIVE); URINE UROBILINOGEN 0.2-1.0 mg/dL (0.2-1.0); WBC URINE 2 /hpf (0-5)
[2017-04-10 16:04] LABS: GRANULAR CAST 1 /lpf (0-1); URINE BACTERIA OCC (<OCC)
[2017-04-10] MEDS ORDERED: Iohexol 300 100 ML IJ ONE (16:26)
[2017-04-10] MEDS ORDERED: Sodium Chloride 0.9% 50 ML IV ONE (16:26)
--- NOTE | 2017-04-10 17:26 | CT ---
PROCEDURE: CT Abdomen and Pelvis with contrast HISTORY: R groin pain hernia r/o strangulated hernia COMPARISON: None. TECHNIQUE: Contrast dose: 95 mL Omnipaque 300. Axial and reformatted coronal and sagittal CT images of the abdomen and pelvis were obtained after IV and oral contrast administration. Radiation dose: Total exam DLP = 747.96 mGy-cm. This CT exam was performed using one or more of the following dose reduction techniques: Automated exposure control, adjustment of the mA and/or kV according to patient size, and/or use of iterative reconstruction technique. FINDINGS: LOWER THORAX: No evidence of pneumonia or pleural effusion. LIVER: Hepatomegaly is noted. There is periportal edema noted of uncertain etiology. GALLBLADDER AND BILE DUCTS: The gallbladder is contracted. PANCREAS: Unremarkable. No gross lesion or ductal dilatation. SPLEEN: The spleen is mildly enlarged measures up to 15 centimeter in the longitudinal diameter. ADRENALS: Unremarkable. No mass. KIDNEYS AND URETERS: Mildly dilated bilateral renal pelvic noted. The ureters are not dilated. The kidneys enhance symmetrically. No CT evidence of obstructing stone. VASCULATURE: Unremarkable. No aortic aneurysm. BOWEL: The stomach is mildly to moderately distended demonstrate mild to moderate diffuse wall thickening. There is diffuse small bowel wall thickening suspicious for enteritis. No evidence of bowel obstruction dilated large bowel loops and mild constipation noted. The sigmoid and rectal wall thickening versus incomplete distention noted. APPENDIX: No evidence of appendicitis. PERITONEUM: Unremarkable. No free fluid. No free air. LYMPH NODES: Unremarkable. No enlarged lymph nodes. BLADDER: Mild urinary bladder wall thickening is noted. REPRODUCTIVE: The prostate is mildly enlarged. BONES: No acute fracture. Fixation screws are noted at the right femoral neck. OTHER FINDINGS: There is small fat containing right inguinal hernia. No evidence of herniated bowel or incarcerated bowel at this region. IMPRESSION: No evidence of high-grade bowel obstruction. Diffuse gastric and small bowel wall thickening. Correlate clinically for gastritis enteritis. Mild splenomegaly of uncertain etiology. Mild periportal edema seen in the liver. Mild constipation. Sigmoid and rectal wall thickening versus incomplete distention. Small fat containing right inguinal hernia.
--- NOTE | 2017-04-10 17:36 | CP.PCM.CON ---
History of Present Illness - History of Present Illness History of Present Illness: General Surgery consult for Dr. Chan Consulted for: 52M with PMH of right undescended testicle and BL inguinal hernias as a child, s /p right orchiopexy and BL inguinal hernia repair >40 years ago. He was referred from the clinic with a non-reducible right inguinal hernia. Patient states that 2 months ago he noticed swelling and tenderness in his right groin that has been worsening in frequency over the past two weeks. It was worse with coughing, auto-reduced at night while lying down. Patient went to the medical clinic today and was referred to the ER because he hernia was tender and non- reducible. Patient also reports a few episodes of nausea and vomiting over the past 2 months with one episode of vomiting non-bloody, non-bilious emesis yesterday. No nausea or vomiting today. Denies any swelling in his testicle, dysuria, hematuria, diarrhea, constipation, melena, hematochezia, fevers, chills , Review of Systems - Review of Systems Review of Systems: 12 point ROS taken, no other contributory findings in addition to the HPI - Constitutional Constitutional: As Per HPI Past Patient History - Infectious Disease Hx of Infectious Diseases: None - Tetanus Immunizations Tetanus Immunization: Unknown - Past Medical History & Family History Past Medical History?: No - Past Social History Smoking Status: Heavy Smoker > 10 Cigarettes Daily Alcohol: Other (former heavy drinker, quit 15 years ago) Drugs: Cocaine, Opiates Home Situation {Lives}: Homeless - CARDIAC Hx Hypertension: No - PULMONARY Hx Tuberculosis: No - NEUROLOGICAL Hx Seizures: No - HEENT Hx HEENT Problems: No - RENAL Hx Chronic Kidney Disease: No - ENDOCRINE/METABOLIC Hx Endocrine Disorders: No - HEMATOLOGICAL/ONCOLOGICAL Hx Hepatitis C: Yes Hx Human Immunodeficiency Virus (HIV): No - INTEGUMENTARY Hx Dermatological Problems: No - MUSCULOSKELETAL/RHEUMATOLOGICAL Hx Fractures: Yes (right hip) - GASTROINTESTINAL Hx Gastrointestinal Disorders: Yes Hx Hemorrhoids: Yes Other/Comment: HERNIA - GENITOURINARY/GYNECOLOGICAL Hx Incontinence: Yes Hx Sexually Transmitted Disorders: No - PSYCHIATRIC Hx Psychophysiologic Disorder: Yes Hx Substance Use: Yes (IVDU Heroin, inhaled cocaine) - SURGICAL HISTORY Hx Surgeries: Yes Hx Herniorrhaphy: Yes (khushi inguinal hernia repair) Other/Comment: Right Hip (srews placed due to fracture s/p fall) -November 2016, right orchiopexy for undescended testicle - ANESTHESIA Hx Anesthesia: Yes Hx Anesthesia Reactions: No Hx Malignant Hyperthermia: No Meds Allergies/Adverse Reactions: Allergies Allergy/AdvReac Type Severity Reaction Status Date / Time No Known Allergies Allergy Verified 03/20/17 18:11 Physical Exam - Constitutional Appears: Non-toxic, No Acute Distress, Unkempt, Older Than Stated Age - Head Exam Head Exam: ATRAUMATIC, NORMOCEPHALIC - Eye Exam Eye Exam: Normal appearance. absent: Conjunctival injection, Scleral icterus - ENT Exam ENT Exam: Mucous Membranes Moist, Normal Oropharynx - Respiratory Exam Respiratory Exam: NORMAL BREATHING PATTERN. absent: Accessory Muscle Use, Respiratory Distress - Cardiovascular Exam Cardiovascular Exam: RRR - GI/Abdominal Exam GI & Abdominal Exam: Soft, Tenderness (moder RLQ nd LUQ tenderness). absent: Distended, Rebound, Rigid - Extremities Exam Extremities exam: Positive for: pedal pulses present. Negative for: calf tenderness, pedal edema - Back Exam Back exam: CVA tenderness (R). absent: CVA tenderness (L) - Neurological Exam Neurological exam: Alert, Oriented x3 - Psychiatric Exam Psychiatric exam: Normal Affect, Normal Mood - Skin Skin Exam: Dry, Normal Color, Warm - Additional Findings Additional findings: right inguinal canal palpated with no hernia present, moderate tenderness to palpation in the canal, moderate tenderness in the right testicle without testicular mass or swelling. Results - Vital Signs Recent Vital Signs: Last Vital Signs Temp 97 F L 04/10/17 13:35 Pulse 70 04/10/17 13:35 Resp 20 04/10/17 13:35 BP 138/89 04/10/17 13:35 Pulse Ox 98 04/10/17 14:58 - Labs Result Diagrams: 04/10/17 14:35 04/10/17 14:35 Labs: Laboratory Results - last 24 hr 04/10/17 04/10/17 04/10/17 14:33 14:35 14:35 WBC 4.9 RBC 3.84 L Hgb 11.2 L Hct 33.3 L MCV 86.7 D MCH 29.1 MCHC 33.6 RDW 14.2 Plt Count 109 L D MPV 8.1 Neut % (Auto) 80.4 H Lymph % (Auto) 12.7 L Waldo % (Auto) 6.0 Eos % (Auto) 0.4 Baso % (Auto) 0.5 Neut # 3.9 Lymph # 0.6 L Waldo # 0.3 Eos # 0.0 Baso # 0.0 PT INR APTT pO2 29 L VBG pH 7.38 VBG pCO2 50 VBG HCO3 26.4 VBG Total CO2 31.1 H VBG O2 Sat (Calc) 71.7 H VBG Base Excess 3.4 H VBG Potassium 4.0 Sodium 138.0 142 Chloride 107.0 105 Glucose 136 H Lactate 1.3 FiO2 21.0 Potassium 4.0 Carbon Dioxide 27 Anion Gap 14 BUN 27 H Creatinine 1.2 Est GFR ( Amer) > 60 Est GFR (Non-Af Amer) > 60 Random Glucose 129 H Calcium 8.9 Total Bilirubin 0.5 AST 99 H ALT 122 H Alkaline Phosphatase 69 Total Protein 7.2 Albumin 3.4 L Globulin 3.9 Albumin/Globulin Ratio 0.9 L Venous Blood Potassium 4.0 Urine Color Urine Clarity Urine pH Ur Specific Pattison Urine Protein Urine Glucose (UA) Urine Ketones Urine Blood Urine Nitrate Urine Bilirubin Urine Urobilinogen Ur Leukocyte Esterase Urine RBC (Auto) Urine Microscopic WBC Ur Squamous Epith Cells Urine Bacteria Granular Casts (Auto) Urine Opiates Screen Urine Methadone Screen Ur Barbiturates Screen Ur Phencyclidine Scrn Ur Amphetamines Screen U Benzodiazepines Scrn U Oth Cocaine Metabols U Cannabinoids Screen 04/10/17 04/10/17 04/10/17 14:35 15:15 15:15 WBC RBC Hgb Hct MCV MCH MCHC RDW Plt Count MPV Neut % (Auto) Lymph % (Auto) Waldo % (Auto) Eos % (Auto) Baso % (Auto) Neut # Lymph # Waldo # Eos # Baso # PT 12.9 INR 1.1 APTT 34.5 pO2 VBG pH VBG pCO2 VBG HCO3 VBG Total CO2 VBG O2 Sat (Calc) VBG Base Excess VBG Potassium Sodium Chloride Glucose Lactate FiO2 Potassium Carbon Dioxide Anion Gap BUN Creatinine Est GFR ( Amer) Est GFR (Non-Af Amer) Random Glucose Calcium Total Bilirubin AST ALT Alkaline Phosphatase Total Protein Albumin Globulin Albumin/Globulin Ratio Venous Blood Potassium Urine Color Yellow Urine Clarity Clear Urine pH 5.0 Ur Specific Pattison 1.020 Urine Protein 30 Urine Glucose (UA) Neg Urine Ketones Negative Urine Blood Negative Urine Nitrate Negative Urine Bilirubin Negative Urine Urobilinogen 0.2-1.0 Ur Leukocyte Esterase Neg Urine RBC (Auto) 1 Urine Microscopic WBC 2 Ur Squamous Epith Cells 2 Urine Bacteria Occ H Granular Casts (Auto) 1 Urine Opiates Screen Positive H Urine Methadone Screen Negative Ur Barbiturates Screen Negative Ur Phencyclidine Scrn Negative Ur Amphetamines Screen Negative U Benzodiazepines Scrn Negative U Oth Cocaine Metabols Positive H U Cannabinoids Screen Positive H Assessment & Plan - Assessment and Plan (Free Text) Assessment: 52M with reducible right inguinal hernia. Plan: -Patient's hernia was reduced, CT showed a right inguinal hernia without bowel contents and no sign of ischemic injury to the bowel. Temperature, WBC, and lactate are within normal limits. He should follow up with Dr. Chan in his office in 1-2 weeks for elective surgery planning, or earlier if symptoms recur -Would also recommend a daily stool softener for constipation (noted on CT scan ) to prevent straining during bowel movements -Counseled patient to quit smoking and ingesting illicit substances. Thank you for involving us in the care of this patient Discussed with Dr. Dustin Jordan PGY2
== END 2017-04-10 18:03 | disposition home or self-care (01) ==
LOC: H.ER 13:32
DX: K40.90 Unilateral inguinal hernia, without obstruction or gangrene, not specified as recurrent (principal); B19.20 Unspecified viral hepatitis C without hepatic coma; Z59.0 Homelessness; F17.210 Nicotine dependence, cigarettes, uncomplicated
CPT/HCPCS: 74177; 80053; 80324; 80345; 80346; 80349; 80353; 80358; 80361; 81003; 82803; 83992; 85025; 85610; 85730; 96365; 99283; J1170; J7040; Q9966; Q9967

== ENCOUNTER 2017-04-14 23:13 | Emergency (ER) | payer OTHER ==
[2017-04-14 23:17] VITALS: BP 114/75; PULSE 85; RESP 16; TEMP 98.5; O2SAT 100
[2017-04-15] MEDS ORDERED: Albuterol 0.083% Inhal Sol (2.5 mg/3 mL) UD INH ONE (00:43)
--- NOTE | 2017-04-15 00:46 | ED PDOC ---
HPI: Male Pain Time Seen by Provider: 04/14/17 23:15 Chief Complaint (Nursing): Groin Pain Chief Complaint (Provider): Hernia History Per: Patient History/Exam Limitations: no limitations Onset/Duration Of Symptoms: Persistent (persistent since December 2016) Current Symptoms Are (Timing): Still Present Additional Complaint(s): 52 year old male presents to ED with complaints of a hernia status post hip surgery in December 2016 and has a past medical history of chronic hernias. Patient states that he feels it "popping in and out". Notes that he presented to [facility] x5 days ago for the same complaint and had an outpatient follow up with Dr. Haq (surgeon) the following day. Confirms he has an appointment with her tomorrow/ PCP: Clinic Past Medical History Reviewed: Historical Data, Nursing Documentation, Vital Signs Vital Signs: Last Vital Signs Temp 98.5 F 04/14/17 23:15 Pulse 85 04/14/17 23:15 Resp 16 04/14/17 23:15 BP 114/75 04/14/17 23:15 Pulse Ox 100 04/14/17 23:15 - Medical History PMH: Fractures (right hip), Hepatitis (C) Denies: Diabetes, HIV, HTN, Chronic Kidney Disease, Seizures, Sexually Transmitted Disease - Surgical History Surgical History: Hernia Repair - Family History Family History: States: Unknown Family Hx - Social History Current smoker - smoking cessation education provided: Yes SMOKER/PACKS PER DAY:: 1 Ex-Smoker (has not smoked in the last 12 months): No Alcohol: Occasional Drugs: Opiates (Heroin QD) - Immunization History Hx Tetanus Toxoid Vaccination: No Hx Influenza Vaccination: No Hx Pneumococcal Vaccination: No - Home Medications Home Medications: Ambulatory Orders Medication Instructions Recorded oxyCODONE/Acetaminophen [Percocet 1 ea PO BID PRN #6 tab 04/10/17 5/325 mg Tab] - Allergies Allergies/Adverse Reactions: Allergies Allergy/AdvReac Type Severity Reaction Status Date / Time No Known Allergies Allergy Verified 04/14/17 23:15 Review of Systems ROS Statement: Except As Marked, All Systems Reviewed And Found Negative Respiratory: Positive for: Shortness of Breath Genitourinary Male: Positive for: Other ((+) hernia) Physical Exam - Reviewed Nursing Documentation Reviewed: Yes Vital Signs Reviewed: Yes - Physical Exam Appears: Positive for: Non-toxic, No Acute Distress Skin: Positive for: Normal Color, Warm, Dry Cardiovascular/Chest: Positive for: Regular Rate, Rhythm. Negative for: Bradycardia Respiratory: Positive for: Rhonchi (slight rhonchi). Negative for: Normal Breath Sounds, Respiratory Distress Gastrointestinal/Abdominal: Positive for: Soft. Negative for: Tenderness Male Genital Exam: Positive for: normal genitalia, no hernia (no swelling or tenderness), other (bilateral old surgical scars on groin. Chaperoned by Debra Jones (Scribe)) Extremity: Positive for: Normal ROM. Negative for: Deformity Neurologic/Psych: Positive for: Alert, Oriented. Negative for: Motor/Sensory Deficits - ECG O2 Sat by Pulse Oximetry: 100 (NC) Pulse Ox Interpretation: Normal Medical Decision Making Medical Decision Makin Initial impression: chronic hernia Initial plan: * Albuterol 0.083% 2.5mg INH * Ibuprofen 600mg PO * Peak flow pre/post Tx * Re-eval 0220 Upon re-evaluation, patient is feeling much better. Patient already has a follow up appointment with Dr. Haq tomorrow for hernia. Patient is stable for discharge home. Scribe Attestation: Documented by Debra Jones acting as a scribe for Baltazar Braun MD. Scribe Attestation: All medical record entries made by the Scribe were at my direction and personally dictated by me. I have reviewed the chart and agree that the record accurately reflects my personal performance of the history, physical exam, medical decision making, and the department course for this patient. I have also personally directed, reviewed, and agree with the discharge instructions and disposition. Disposition - Clinical Impression Clinical Impression: Inguinal hernia - Patient ED Disposition Is Patient to be Admitted: No Counseled Patient/Family Regarding: Studies Performed, Diagnosis, Need For Followup - Disposition Disposition: Routine/Home Disposition Time: 02:20 Condition: STABLE Additional Instructions: follow up with Dr Haq tomorrow as scheduled return to the ED with any worsening or concerning symptoms Instructions: Inguinal Hernia (ED) Forms: [employer] (Kinyarwanda)
[2017-04-15] MEDS ORDERED: Albuterol 0.083% Inhal Sol (2.5 mg/3 mL) UD ONE (00:50)
== END 2017-04-15 02:49 | disposition home or self-care (01) ==
LOC: H.ER 23:13
DX: K40.90 Unilateral inguinal hernia, without obstruction or gangrene, not specified as recurrent (principal)

== ENCOUNTER 2017-05-16 10:46 | Emergency (ER) | payer OTHER, SELFPAY ==
[2017-05-16 11:12] VITALS: RESP 18; O2SAT 97
--- NOTE | 2017-05-16 11:33 | ED PDOC ---
HPI: Abdomen Time Seen by Provider: 05/16/17 11:07 Chief Complaint (Nursing): Groin Pain Chief Complaint (Provider): right sided groin pain History Per: Patient History/Exam Limitations: no limitations Onset/Duration Of Symptoms: Days Outside of [place] travel?: No Current Symptoms Are (Timing): Still Present Additional Complaint(s): 52yo male, history of right inguinal hernia, presents to ED for evaluation of right groin pain, present for the past 2 days. Patient states he had a bowel movement yesterday but there was a decreased amount of stool. He states he has not been able to follow up with his PMD Dr. Haq due to insurance issues. He has no other medical complaints. Against Medical Advice - AMA Patient Left Against Medical Advice: The patient declines admission to the hospital and wishes to leave the Emergency Department. This action is against my medical advice. This decision was made with informed refusal. The patient was told that admission to the hospital is necessary. Explanation of the reasons why were discussed. The risks of leaving were explained to the patient and include, but are not limited to, worsening of known or currently unknown conditions, permanent disability and from undiagnosed or untreated conditions. The patient has the capacity to make this informed decision and understands my explanation of the current medical problem and risks of leaving. The patient voluntarily accepts these risks and signed an AMA form documenting our conversation. The patient was given the opportunity to ask questions and reconsider. The patient was encouraged to return to the Emergency Department at any time for further care. Past Medical History Reviewed: Historical Data, Nursing Documentation, Vital Signs Vital Signs: Last Vital Signs Temp 98.4 F 05/16/17 13:58 Pulse 78 05/16/17 13:58 Resp 18 05/16/17 13:58 BP 128/78 05/16/17 13:58 Pulse Ox 97 05/16/17 13:58 - Medical History PMH: Fractures (right hip), Hepatitis (C) Denies: Diabetes, HIV, HTN, Chronic Kidney Disease, Seizures, Sexually Transmitted Disease - Surgical History Surgical History: Hernia Repair - Family History Family History: States: No Known Family Hx, Unknown Family Hx - Immunization History Hx Tetanus Toxoid Vaccination: No Hx Influenza Vaccination: No Hx Pneumococcal Vaccination: No - Home Medications Home Medications: Ambulatory Orders Medication Instructions Recorded oxyCODONE/Acetaminophen [Percocet 1 ea PO BID PRN #6 tab 10/26/17 5/325 mg Tab] - Allergies Allergies/Adverse Reactions: Allergies Allergy/AdvReac Type Severity Reaction Status Date / Time No Known Allergies Allergy Verified 04/14/17 23:15 Review of Systems ROS Statement: Except As Marked, All Systems Reviewed And Found Negative Genitourinary Male: Positive for: Other (right groin pain) Physical Exam - Reviewed Nursing Documentation Reviewed: Yes Vital Signs Reviewed: Yes - Physical Exam Appears: Positive for: Non-toxic, Uncomfortable Head Exam: Positive for: ATRAUMATIC, NORMAL INSPECTION, NORMOCEPHALIC Skin: Positive for: Normal Color Eye Exam: Positive for: Normal appearance Cardiovascular/Chest: Positive for: Regular Rate, Rhythm Respiratory: Positive for: Normal Breath Sounds. Negative for: Respiratory Distress Male Genital Exam: Positive for: inguinal tenderness (right sided inguinal mass with tenderness to palpation) - Laboratory Results Result Diagrams: 05/16/17 11:39 05/16/17 11:39 - ECG O2 Sat by Pulse Oximetry: 97 (RA) Pulse Ox Interpretation: Normal Medical Decision Making Medical Decision Making: Time: 1127 Impression: Inguinal hernia, incarcerated hernia Plan: -- CT Abdomen/Pelvis -- Labs -- Morphine 2mg IV Reassess Time: 1320 CT Abdomen FINDINGS: LOWER THORAX: Unremarkable. LIVER: Unremarkable. No gross lesion. Stable mild central ductal dilatation. GALLBLADDER AND BILE DUCTS: Collapsed. PANCREAS: Unremarkable. No gross lesion. Mild ductal prominence. SPLEEN: Stably enlarged. ADRENALS: Unremarkable. No mass. KIDNEYS AND URETERS: Unremarkable. Bilateral extrarenal pelvises. No hydronephrosis. No solid mass. VASCULATURE: Unremarkable. No aortic aneurysm. BOWEL: Marked gastric and proximal duodenal dilatation with abrupt caliber change where there is irregular wall thickening of the 2nd portion of the duodenum. Relatively collapsed small bowel distally to mild rectal wall thickening, nonspecific colonic diverticulosis without diverticulitis. APPENDIX: Normal appendix. PERITONEUM: Stable nonspecific hazy change involving the mesentery and omentum. Bilateral fat containing inguinal hernias. No free fluid. No free air. LYMPH NODES: Unremarkable. No enlarged lymph nodes. BLADDER: Unremarkable. REPRODUCTIVE: Unremarkable. BONES: Right femoral hardware intact. Spinal degenerative changes. No acute fracture. OTHER FINDINGS: None. IMPRESSION: Irregular wall thickening of the 2nd portion the duodenum suspicious for malignancy. This causes secondary gastric outlet obstruction with marked did gastric and proximal duodenal dilatation. Direct endoscopic visualization is recommended. Nonspecific hazy change involving the mesentery and omentum. Bilateral fat containing inguinal hernias. Additional stable findings as above. Time: 1357 Patient has elected to sign out AMA at this time. Risks of leaving AMA discussed with patient who expresses understanding and is still electing to leave AMA. Scribe Attestation: Documented by Uzma Rod acting as a scribe for Marie Newsome MD. Provider Attestation: All medical record entries made by the Scribe were at my direction and personally dictated by me. I have reviewed the chart and agree that the record accurately reflects my personal performance of the history, physical exam, medical decision making, and the department course for this patient. I have also personally directed, reviewed, and agree with the discharge instructions and disposition. Disposition - Clinical Impression Clinical Impression: Gastric outlet obstruction, Duodenal mass - Disposition Disposition: Against Medical Advice Disposition Time: 13:58 Condition: UNKNOWN Forms: [employer] (Chinese)
[2017-05-16] MEDS ORDERED: Morphine 4 MG/ML VIAL ONE (11:43)
[2017-05-16 11:46] LABS: BASO # 0.1 K/uL (0.0-0.2); BASO % 1.2 % (0.0-2.0); EOS # 0.1 K/uL (0.0-0.7); EOS % 1.7 % (0.0-4.0); HEMATOCRIT 37.6 % (35.0-51.0); LYMPH # 1.3 K/uL (1.0-4.3); LYMPH % 20.9 % (20.0-40.0); MEAN CELL VOLUME 86.6 fl (80.0-94.0); MEAN CORPUSCULAR HGB CONC 32.3 g/dL (33.0-37.0); MONO # 0.6 K/uL (0.0-0.8); MONO % 9.6 % (0.0-10.0); NEUT # 4.2 K/uL (1.8-7.0); NEUT % 66.6 % (50.0-75.0); RED CELL DISTRIBUTION WIDTH 14.8 % (11.5-14.5); WHITE BLOOD COUNT 6.3 K/uL (4.8-10.8)
[2017-05-16 11:54] LABS: ALKALINE PHOSPHATASE 77 U/L (38-126); ALT/SGPT 105 U/L (21-72); AST/SGOT 85 U/L (17-59); BILIRUBIN,TOTAL 0.6 mg/dl (0.2-1.3); BLOOD UREA NITROGEN 29 mg/dl (9-20); CALCIUM 8.9 mg/dL (8.4-10.2); CARBON DIOXIDE 28 mmol/L (22-30); CHLORIDE 106 mmol/L (98-107); GFR AFRICAN-AMERICAN > 60; GLUCOSE,RANDOM 134 mg/dL (75-110); POTASSIUM 4.5 MMOL/L (3.6-5.0); SODIUM 143 mmol/l (132-148); TOTAL PROTEIN 8.1 G/DL (6.3-8.2)
[2017-05-16 12:00] LABS: PARTIAL THROMBOPLASTIN TIME 34.8 Seconds (25.6-37.1)
[2017-05-16 12:24] LABS: RBC URINE 4 /hpf (0-3); URINE BILIRUBIN NEGATIVE (NEGATIVE); URINE BLOOD NEGATIVE (NEGATIVE); URINE COLOR YELLOW (YELLOW); URINE GLUCOSE (UA) NEG (Normal); URINE KETONE NEGATIVE (NEGATIVE); URINE LEUKOCYTE ESTERASE NEG Leu/uL (Negative); URINE PROTEIN NEGATIVE (NEGATIVE); URINE UROBILINOGEN 0.2-1.0 mg/dL (0.2-1.0); WBC URINE < 1 /hpf (0-5)
[2017-05-16] MEDS ORDERED: Iohexol 300 100 ML IJ ONE (12:24)
[2017-05-16] MEDS ORDERED: Sodium Chloride 0.9% 50 ML IV ONE (12:25)
--- NOTE | 2017-05-16 13:26 | CT ---
PROCEDURE: CT Abdomen and Pelvis with contrast HISTORY: R inguinal hernia COMPARISON: None. TECHNIQUE: Contrast dose: 95 mL Omnipaque 300 Radiation dose: Total exam DLP = 844.5 mGy-cm. This CT exam was performed using one or more of the following dose reduction techniques: Automated exposure control, adjustment of the mA and/or kV according to patient size, and/or use of iterative reconstruction technique. FINDINGS: LOWER THORAX: Unremarkable. LIVER: Unremarkable. No gross lesion. Stable mild central ductal dilatation. GALLBLADDER AND BILE DUCTS: Collapsed. PANCREAS: Unremarkable. No gross lesion. Mild ductal prominence. SPLEEN: Stably enlarged. ADRENALS: Unremarkable. No mass. KIDNEYS AND URETERS: Unremarkable. Bilateral extrarenal pelvises. No hydronephrosis. No solid mass. VASCULATURE: Unremarkable. No aortic aneurysm. BOWEL: Marked gastric and proximal duodenal dilatation with abrupt caliber change where there is irregular wall thickening of the 2nd portion of the duodenum. Relatively collapsed small bowel distally to mild rectal wall thickening, nonspecific colonic diverticulosis without diverticulitis. APPENDIX: Normal appendix. PERITONEUM: Stable nonspecific hazy change involving the mesentery and omentum. Bilateral fat containing inguinal hernias. No free fluid. No free air. LYMPH NODES: Unremarkable. No enlarged lymph nodes. BLADDER: Unremarkable. REPRODUCTIVE: Unremarkable. BONES: Right femoral hardware intact. Spinal degenerative changes. No acute fracture. OTHER FINDINGS: None. IMPRESSION: Irregular wall thickening of the 2nd portion the duodenum suspicious for malignancy. This causes secondary gastric outlet obstruction with marked did gastric and proximal duodenal dilatation. Direct endoscopic visualization is recommended. Nonspecific hazy change involving the mesentery and omentum. Bilateral fat containing inguinal hernias. Additional stable findings as above. Findings conveyed to Dr. Newsome by Dr. Martínez at 1:20 p.m. on 05/16/2017.
[2017-05-16 14:07] VITALS: BP 128/78; PULSE 78; TEMP 98.4
== END 2017-05-16 14:08 | disposition left against medical advice (07) ==
LOC: H.ER 10:46
DX: K31.1 Adult hypertrophic pyloric stenosis (principal); K40.20 Bilateral inguinal hernia, without obstruction or gangrene, not specified as recurrent; K31.89 Other diseases of stomach and duodenum
CPT/HCPCS: 74177; 80053; 81003; 85025; 85610; 85730; 99284; J2270; Q9967

== ENCOUNTER 2017-05-16 18:31 | Inpatient (IN) | payer MEDICAID, SELFPAY ==
--- NOTE | 2017-05-16 18:46 | ED PDOC ---
HPI: Abdomen Time Seen by Provider: 05/16/17 18:38 Chief Complaint (Nursing): Abdominal Pain Chief Complaint (Provider): Abdominal Pain History Per: Patient Additional Complaint(s): Patient was previously seen today. He is aware of results, but left against medical advice. 52yo male, history of right inguinal hernia, presents to ED for evaluation of right groin pain, present for the past 2 days. Patient states he had a bowel movement yesterday but there was a decreased amount of stool. He states he has not been able to follow up with his PMD Dr. Haq due to insurance issues. Past Medical History Reviewed: Historical Data, Nursing Documentation, Vital Signs Vital Signs: Last Vital Signs Temp 97.8 F 05/20/17 08:28 Pulse 72 05/20/17 08:28 Resp 18 05/20/17 08:28 BP 108/65 05/20/17 08:28 Pulse Ox 98 05/20/17 08:28 - Medical History PMH: Fractures (right hip), Hepatitis (C) Denies: Diabetes, HIV, HTN, Chronic Kidney Disease, Seizures, Sexually Transmitted Disease - Surgical History Surgical History: Hernia Repair - Family History Family History: States: Unknown Family Hx - Immunization History Hx Tetanus Toxoid Vaccination: No Hx Influenza Vaccination: No Hx Pneumococcal Vaccination: No - Home Medications Home Medications: Ambulatory Orders Medication Instructions Recorded No Known Home Med 05/16/17 - Allergies Allergies/Adverse Reactions: Allergies Allergy/AdvReac Type Severity Reaction Status Date / Time No Known Allergies Allergy Verified 04/14/17 23:15 Review of Systems ROS Statement: Except As Marked, All Systems Reviewed And Found Negative Physical Exam - Reviewed Nursing Documentation Reviewed: Yes Vital Signs Reviewed: Yes - Physical Exam Appears: Positive for: Non-toxic, No Acute Distress Head Exam: Positive for: ATRAUMATIC, NORMAL INSPECTION, NORMOCEPHALIC Skin: Positive for: Normal Color, Warm, DRY Eye Exam: Positive for: Normal appearance, PERRL Male Genital Exam: Positive for: inguinal tenderness (right sided inguinal mass with tenderness to palpation) Neurologic/Psych: Positive for: Alert, Oriented - Laboratory Results Result Diagrams: 05/20/17 05:40 05/20/17 05:40 - ECG O2 Sat by Pulse Oximetry: 98 (RA) Pulse Ox Interpretation: Normal Medical Decision Making Medical Decision Making: Patient was seen and diagnosed before leaving against medical advice. Findings from imaging done earlier today are listed below. Time: 13:20 CT Abdomen FINDINGS: LOWER THORAX: Unremarkable. LIVER: Unremarkable. No gross lesion. Stable mild central ductal dilatation. GALLBLADDER AND BILE DUCTS: Collapsed. PANCREAS: Unremarkable. No gross lesion. Mild ductal prominence. SPLEEN: Stably enlarged. ADRENALS: Unremarkable. No mass. KIDNEYS AND URETERS: Unremarkable. Bilateral extrarenal pelvises. No hydronephrosis. No solid mass. VASCULATURE: Unremarkable. No aortic aneurysm. BOWEL: Marked gastric and proximal duodenal dilatation with abrupt caliber change where there is irregular wall thickening of the 2nd portion of the duodenum. Relatively collapsed small bowel distally to mild rectal wall thickening, nonspecific colonic diverticulosis without diverticulitis. APPENDIX: Normal appendix. PERITONEUM: Stable nonspecific hazy change involving the mesentery and omentum. Bilateral fat containing inguinal hernias. No free fluid. No free air. LYMPH NODES: Unremarkable. No enlarged lymph nodes. BLADDER: Unremarkable. REPRODUCTIVE: Unremarkable. BONES: Right femoral hardware intact. Spinal degenerative changes. No acute fracture. OTHER FINDINGS: None. IMPRESSION: Irregular wall thickening of the 2nd portion the duodenum suspicious for malignancy. This causes secondary gastric outlet obstruction with marked did gastric and proximal duodenal dilatation. Direct endoscopic visualization is recommended. Nonspecific hazy change involving the mesentery and omentum. Bilateral fat containing inguinal hernias. Additional stable findings as above. Scribe Attestation: Documented by Teagan Le, acting as a scribe for Marie Newsome MD. Provider Scribe Attestation: All medical record entries made by the Scribe were at my direction and personally dictated by me. I have reviewed the chart and agree that the record accurately reflects my personal performance of the history, physical exam, medical decision making, and the department course for this patient. I have also personally directed, reviewed, and agree with the discharge instructions and disposition. Disposition - Clinical Impression Clinical Impression: Gastric outlet obstruction, Duodenal mass - Patient ED Disposition Is Patient to be Admitted: Yes - Disposition Disposition Time: 18:39 Condition: STABLE - Pt Status Changed To: Hospital Disposition Of: Inpatient - Admit Certification Admit to Inpatient:: After my assessment, the patient will require hospitalization for at least two midnights. This is because of the severity of symptoms shown, intensity of services needed, and/or the medical risk in this patient being treated as an outpatient. - POA Present On Arrival: None
[2017-05-16] MEDS ORDERED: Morphine 4 MG/ML VIAL ONE (20:41)
[2017-05-16] MEDS ORDERED: Morphine 4 MG/ML VIAL IVP PRN (21:15)
[2017-05-16] MEDS: Lactated Ringer's 1,000 ML IV SCH (21:25)
--- NOTE | 2017-05-16 21:26 | RAD ---
EXAM: XR Chest, 1 View CLINICAL HISTORY: 52 years old, male; Signs and symptoms; Other: Ng tube placement TECHNIQUE: Frontal view of the chest. COMPARISON: No relevant prior studies available. FINDINGS: A single frontal view of the lower chest and upper abdomen was performed. A nasogastric tube extends to the level of the ailyn. Soft tissue acquisition technique precludes further evaluation, regardless of windowing. IMPRESSION: Nasogastric tube likely within the mid esophagus. Repeat examination to highlight the tube placement is recommended for further evaluation.
[2017-05-17] MEDS ORDERED: HYDROmorphone 0.5 mg/0.5 ml ISec IVP PRN (00:32)
--- NOTE | 2017-05-17 00:35 | CP.PCM.HP ---
History of Present Illness - History of Present Illness History of Present Illness: 52 year old male presented with 2 week history of worsening right groin pain and bulging. He reports intermittent bulging of area exacerbated by standing, alleviated by lying supine. There is associated nausea with this pain, he self medicates with heroin but the pain was still too much. No testicular or penile pain, no dysuria. No new sexual partners. He has been having difficulty with erections lately, as well as nocturia and urinary dribbling. Long hx of constipation, typically moves bowels ever 2-3 days, recently its been every 3-4, with straining. He sustained right hip impacted subcapital femoral neck fracture after fall in December 2016, s/p closed reduction and internal fixation with 3 screws 01/10/17. He had right side orchipexy as a child. Unsure why he has scars on bilateral inguinal regions. Feeling mildly dyspneic while talking to the commercial lines underwriter, otherwise no complaints. He is 1/2 pack to 1 pack per day smoker. No history of COPD or Asthma. He uses 'a lot' of heroin and is scared of going through withdrawals. He last used around 12:00. PMD: [facility] PMH: Hepatitis C, polysubstance abuse Medications: none Allergies: NKDA Social: heroin use, tobacco use Surgical: right orchipexy, right hip closed reduction and internal fixation 01/10 Present on Admission - Present on Admission Any Indicators Present on Admission: No Review of Systems - Constitutional Constitutional: absent: Fever - EENT Eyes: absent: Blurred Vision, Discharge Nose/Mouth/Throat: absent: Nasal Congestion, Neck Pain - Cardiovascular Cardiovascular: absent: Chest Pain, Leg Edema, Palpitations - Respiratory Respiratory: absent: Cough, Dyspnea on Exertion - Gastrointestinal Gastrointestinal: Abdominal Pain, Constipation, Nausea. absent: Diarrhea, Vomiting - Genitourinary Genitourinary: Nocturia. absent: Change in Urinary Stream, Dysuria - Musculoskeletal Musculoskeletal: absent: Myalgias Past Patient History - Infectious Disease Hx of Infectious Diseases: None - Tetanus Immunizations Tetanus Immunization: Unknown - Past Medical History & Family History Past Medical History?: No - Past Social History Smoking Status: Heavy Smoker > 10 Cigarettes Daily Drugs: Opiates Home Situation {Lives}: Homeless - CARDIAC Hx Hypertension: No - PULMONARY Hx Tuberculosis: No - NEUROLOGICAL Hx Seizures: No - HEENT Hx HEENT Problems: No - RENAL Hx Chronic Kidney Disease: Yes (Renal Insufficiency) - ENDOCRINE/METABOLIC Hx Endocrine Disorders: No - HEMATOLOGICAL/ONCOLOGICAL Hx Blood Disorders: Yes (Hep C) - INTEGUMENTARY Hx Dermatological Problems: No - MUSCULOSKELETAL/RHEUMATOLOGICAL Hx Fractures: Yes (right hip) - GASTROINTESTINAL Hx Gastrointestinal Disorders: Yes Hx Hemorrhoids: Yes Other/Comment: HERNIA - GENITOURINARY/GYNECOLOGICAL Hx Sexually Transmitted Disorders: No - PSYCHIATRIC Hx Psychophysiologic Disorder: Yes (Heroine abuse) - SURGICAL HISTORY Hx Surgeries: Yes Hx Herniorrhaphy: Yes (khushi inguinal hernia repair) Other/Comment: Right Hip (srews placed due to fracture s/p fall) -November 2016, right orchiopexy for undescended testicle - ANESTHESIA Hx Anesthesia: Yes Hx Anesthesia Reactions: No Hx Malignant Hyperthermia: No Meds Allergies/Adverse Reactions: Allergies Allergy/AdvReac Type Severity Reaction Status Date / Time No Known Allergies Allergy Verified 04/14/17 23:15 Physical Exam - Constitutional Appears: Non-toxic (appears uncomfortable) - Head Exam Head Exam: NORMOCEPHALIC - Eye Exam Eye Exam: Normal appearance - ENT Exam ENT Exam: Mucous Membranes Moist - Respiratory Exam Respiratory Exam: Decreased Breath Sounds, Clear to Auscultation Bilateral, NORMAL BREATHING PATTERN. absent: Rales, Rhonchi, Wheezes, Respiratory Distress - Cardiovascular Exam Cardiovascular Exam: REGULAR RHYTHM, +S1, +S2. absent: Bradycardia, Tachycardia - GI/Abdominal Exam GI & Abdominal Exam: Diminished Bowel Sounds, Hernia (right inguinal bulge, tender), Soft. absent: Distended - Rectal Exam Rectal Exam: Deferred - Extremities Exam Extremities exam: Positive for: normal inspection. Negative for: pedal edema - Neurological Exam Neurological exam: Alert, CN II-XII Intact, Oriented x3 - Psychiatric Exam Psychiatric exam: Normal Affect, Normal Mood - Skin Skin Exam: Dry, Intact, Normal Color, Warm Results - Vital Signs Recent Vital Signs: Last Vital Signs Temp 97.9 F 05/16/17 21:45 Pulse 66 05/16/17 21:45 Resp 20 05/16/17 21:45 BP 132/87 05/16/17 21:45 Pulse Ox 96 05/16/17 21:45 - Imaging and Cardiology CT scan - abdomen Status: Report reviewed by me Additional comment: FINDINGS: LOWER THORAX: Unremarkable. LIVER: Unremarkable. No gross lesion. Stable mild central ductal dilatation. GALLBLADDER AND BILE DUCTS: Collapsed. PANCREAS: Unremarkable. No gross lesion. Mild ductal prominence. SPLEEN: Stably enlarged. ADRENALS: Unremarkable. No mass. KIDNEYS AND URETERS: Unremarkable. Bilateral extrarenal pelvises. No hydronephrosis. No solid mass. VASCULATURE: Unremarkable. No aortic aneurysm. BOWEL: Marked gastric and proximal duodenal dilatation with abrupt caliber change where there is irregular wall thickening of the 2nd portion of the duodenum. Relatively collapsed small bowel distally to mild rectal wall thickening, nonspecific colonic diverticulosis without diverticulitis. APPENDIX: Normal appendix. PERITONEUM: Stable nonspecific hazy change involving the mesentery and omentum. Bilateral fat containing inguinal hernias. No free fluid. No free air. LYMPH NODES: Unremarkable. No enlarged lymph nodes. BLADDER: Unremarkable. REPRODUCTIVE: Unremarkable. BONES: Right femoral hardware intact. Spinal degenerative changes. No acute fracture. OTHER FINDINGS: None. IMPRESSION: Irregular wall thickening of the 2nd portion the duodenum suspicious for malignancy. This causes secondary gastric outlet obstruction with marked did gastric and proximal duodenal dilatation. Direct endoscopic visualization is recommended. Nonspecific hazy change involving the mesentery and omentum. Bilateral fat containing inguinal hernias. Additional stable findings as above Assessment & Plan (1) Gastric outlet obstruction Assessment and Plan: 52 year old male with hx of heroin use, presented with complaint of right sided groin pain, admitted for gastric outlet obstruction, imaging concerning for mass or malignancy. Patient made NPO. He had NG tube placed in ED. CXR report revealed NG tube terminated in mid esophagus. Tube was advanced by the commercial lines underwriter, +sounds in midepigastrium. Repeat CXR reviewed by me: NG tube appears to terminate in the stomach, final report pending. He has symptomatic right inguinal hernia, no evidence of bowel protrusion through hernia, will need surgical evaluation outpatient. Patient started on dilaudid for pain he declined ativan for withdrawal prevention as ativan, 'makes him sick' He is NPO therefore protocol for opiate withdrawal was not ordered, will continue to monitor for signs of withdrawal. Status: Acute (2) Transaminitis Assessment and Plan: likely secondary to hepatitis C he has not been treated but is aware of his diagnosis last hepatitis B screen was 02/2016 and was negative at that time Status: Chronic (3) Right inguinal hernia Assessment and Plan: present in imaging from december 2016 Status: Chronic (4) Hepatitis C antibody test positive Status: Chronic (5) Heroin use Assessment and Plan: admits hx of heroin use. after chart review has had utox+ for cocaine and cannabis in the past Status: Chronic (6) DVT prophylaxis Assessment and Plan: lovenox Status: Acute
[2017-05-17] MEDS ORDERED: HYDROmorphone 0.5 mg/0.5 ml ISec IVP SCH (01:00)
[2017-05-17] MEDS: Lactated Ringer's 1,000 ML IV SCH ×2 (05:39→20:14)
[2017-05-17 07:12] LABS: POTASSIUM 3.8 MMOL/L (3.6-5.0)
[2017-05-17 07:15] LABS: HEMATOCRIT 33.9 % (35.0-51.0); MEAN CELL VOLUME 87.7 fl (80.0-94.0); MEAN CORPUSCULAR HEMOGLOBIN 28.6 pg (27.0-31.0); MEAN CORPUSCULAR HGB CONC 32.6 g/dL (33.0-37.0); RED CELL DISTRIBUTION WIDTH 15.1 % (11.5-14.5); WHITE BLOOD COUNT 4.2 K/uL (4.8-10.8)
[2017-05-17 07:21] LABS: ALB/GLOB RATIO 0.9 (1.0-2.1); ALKALINE PHOSPHATASE 70 U/L (38-126); ALT/SGPT 100 U/L (21-72); AST/SGOT 85 U/L (17-59); BILIRUBIN,TOTAL 0.6 mg/dl (0.2-1.3); BLOOD UREA NITROGEN 21 mg/dl (9-20); CALCIUM 8.6 mg/dL (8.4-10.2); CARBON DIOXIDE 26 mmol/L (22-30); CHLORIDE 107 mmol/L (98-107); GFR AFRICAN-AMERICAN > 60; GLUCOSE,RANDOM 89 mg/dL (75-110); SODIUM 140 mmol/l (132-148); TOTAL PROTEIN 7.3 G/DL (6.3-8.2)
[2017-05-17] MEDS: Enoxaparin 40 mg Syringe SC SCH (09:15)
--- NOTE | 2017-05-17 12:14 | RAD ---
PROCEDURE: CHEST RADIOGRAPH, 1 VIEW HISTORY: NGT placement COMPARISON: Comparison chest dated the 05/16/2017. FINDINGS: NGT tip overlies left upper quadrant of the abdomen, expected location in the region of the fundus of the stomach. LUNGS: No focal consolidation. PLEURA: No pneumothorax or pleural fluid seen. CARDIOVASCULAR: Normal. OSSEOUS STRUCTURES: No significant abnormalities. VISUALIZED UPPER ABDOMEN: Normal. OTHER FINDINGS: None. IMPRESSION: NGT tip lies overlies left upper quadrant of the abdomen. No acute infiltrates.
--- NOTE | 2017-05-17 15:51 | CP.PCM.PN ---
Subjective - Date & Time of Evaluation Date of Evaluation: 05/17/17 Time of Evaluation: 08:00 - Subjective Subjective: - Patient was seen at bedside this morning resting comfortably. States he is hungry and NG tube is uncomfortable. - Surgery and GI was consulted. Surgery states, they do not believe NG tube is needed, will remove it and have advanced patient to liquid diet. - Patient otherwise is doing well. Has no complaints currently. Objective - Vital Signs/Intake and Output Vital Signs (last 24 hours): Temp Pulse Resp BP Pulse Ox 98.2 F 66 20 153/87 H 98 05/17/17 08:17 05/17/17 08:17 05/17/17 08:17 05/17/17 08:17 05/17/17 08:17 - Medications Medications: Current Medications Docusate Sodium (Colace) 100 mg PO BID [facility] Enoxaparin Sodium (Lovenox) 40 mg SC DAILY [facility] PRN Reason: Protocol Last Admin: 05/17/17 09:15 Dose: 40 mg Famotidine (Pepcid) 20 mg IVP Q12 [facility] Last Admin: 05/17/17 09:13 Dose: 20 mg Hydromorphone HCl (Dilaudid) 1 mg IVP Q4 PRN PRN Reason: Pain, severe (8-10) Last Admin: 05/17/17 11:39 Dose: 1 mg Hydromorphone HCl (Dilaudid) 0.5 mg IVP Q4 PRN PRN Reason: Pain, moderate (4-7) Stop: 05/18/17 23:03 Lactated Ringer's (Lactated Ringer's) 1,000 mls @ 125 mls/hr IV .Q8H [facility] Last Admin: 05/17/17 05:39 Dose: 125 mls/hr Ciprofloxacin (Cipro 400mg/200ml Dsw) 400 mg in 200 mls @ 200 mls/hr IVPB Q8 [facility] PRN Reason: Protocol Metronidazole (Flagyl 500mg/100ml Ns) 100 mls @ 100 mls/hr IVPB Q8 [facility] PRN Reason: Protocol Nicotine (Nicoderm Cq) 1 patch TD DAILY [facility] Last Admin: 05/17/17 09:15 Dose: 1 patch Ondansetron HCl (Zofran Inj) 4 mg IVP Q6 PRN PRN Reason: Nausea/Vomiting - Labs Labs: 12/02/17 05:25 05/17/17 05:25 - Constitutional Appears: No Acute Distress - Head Exam Head Exam: NORMAL INSPECTION - Respiratory Exam Respiratory Exam: Clear to Ausculation Bilateral. absent: Rhonchi, Wheezes - Cardiovascular Exam Cardiovascular Exam: REGULAR RHYTHM, +S1, +S2 - GI/Abdominal Exam GI & Abdominal Exam: Soft, Hernia ( Right inguinal bulge, tender. ). absent: Tenderness, Normal Bowel Sounds (decreased bowl sounds. ) - Extremities Exam Extremities Exam: Normal Inspection - Neurological Exam Neurological Exam: Alert, CN II-XII Intact, Oriented x3 - Skin Skin Exam: Normal Color, Warm Assessment and Plan - Assessment and Plan (Free Text) Assessment: (1) Gastric outlet obstruction - admitted for gastric outlet obstruction, imaging concerning for mass or malignancy. - Patient was initially made NPO and had NG tube placed in the ER. After being evaluated by surgery, NG tube was removed, and liquid diet was started - GI consulted - Surgery Consulted - Dilaudid for pain - Will discuss with GI. As per CT results: Endoscopy is recommended to rule out malignancy. - Abd CT: Irregular wall thickening of the 2nd portion the duodenum suspicious for malignancy. This causes secondary gastric outlet obstruction with marked did gastric and proximal duodenal dilatation. Direct endoscopic visualization is recommended. (2) Transaminitis Assessment and Plan: likely secondary to hepatitis C he has not been treated but is aware of his diagnosis last hepatitis B screen was 02/2016 and was negative at that time (3) Right inguinal hernia Assessment and Plan: present in imaging from december 2016 Status: Chronic (4) Hepatitis C antibody test positive Status: Chronic (5) Heroin use Assessment and Plan: admits hx of heroin use. after chart review has had utox+ for cocaine and cannabis in the past Status: Chronic (6) DVT prophylaxis Assessment and Plan: lovenox Status: Acute
[2017-05-17] MEDS: metroNIDAZOLE 500mg/100ml NS 100 ML IVPB SCH (16:46)
[2017-05-17] MEDS ORDERED: Ciprofloxacin 400mg/200ml D5W 400 MG/200 ML BAG IVPB SCH (17:00)
--- NOTE | 2017-05-17 19:21 | CP.PCM.CON ---
<Jon Stone - Last Filed: 05/18/17 01:42> History of Present Illness - History of Present Illness History of Present Illness: General Surgery Consult note. Dr. Goldberg 52yo M with PMHx of Hep C, polysubstance abuse here for evaluation of abdominal pain. Pain is located in the right groin, has been waxing and waning for the past 2 months, worse over the past 2 weeks. States that he has been feeling a buldge at the right groin which spontaneously reduces when he sits down or lays down, worse when he stands up. Denies any Nausea, no vomiting. No diarrhea. Denies any fevers or chills. No headaches. no CP/SOB. CT scan in the ED shows possible gastric outlet obstruction and duodenal thickening. PMHx: Hepatitis C, Drug abuse PSHx: Right Hip ORIF, Bilateral inguinal hernia repair as child/adolescent ("2 inguinal hernia repairs on right, 1 inguinal hernia repair on left") Social Hx: Admits to current daily heroin use, weekly cocaine use. Denies ETOH, does report previous ETOH dependence, sober for 13 years. Current 1 pack / 2days tobacco use for 40 years. Currently homeless and lives in long-term NKDA Review of Systems - Review of Systems All systems: reviewed and no additional remarkable complaints except - Constitutional Constitutional: absent: Chills, Fever - Cardiovascular Cardiovascular: absent: Chest Pain, Dyspnea - Gastrointestinal Gastrointestinal: As Per HPI Past Patient History - Infectious Disease Hx of Infectious Diseases: None - Tetanus Immunizations Tetanus Immunization: Unknown - Past Medical History & Family History Past Medical History?: No - Past Social History Smoking Status: Heavy Smoker > 10 Cigarettes Daily Drugs: Opiates Home Situation {Lives}: Homeless - CARDIAC Hx Hypertension: No - PULMONARY Hx Tuberculosis: No - NEUROLOGICAL Hx Seizures: No - HEENT Hx HEENT Problems: No - RENAL Hx Chronic Kidney Disease: Yes (Renal Insufficiency) - ENDOCRINE/METABOLIC Hx Endocrine Disorders: No - HEMATOLOGICAL/ONCOLOGICAL Hx Blood Disorders: Yes (Hep C) - INTEGUMENTARY Hx Dermatological Problems: No - MUSCULOSKELETAL/RHEUMATOLOGICAL Hx Fractures: Yes (right hip) - GASTROINTESTINAL Hx Gastrointestinal Disorders: Yes Hx Hemorrhoids: Yes Other/Comment: HERNIA - GENITOURINARY/GYNECOLOGICAL Hx Sexually Transmitted Disorders: No - PSYCHIATRIC Hx Psychophysiologic Disorder: Yes (Heroine abuse) - SURGICAL HISTORY Hx Surgeries: Yes Hx Herniorrhaphy: Yes (khushi inguinal hernia repair) Other/Comment: Right Hip (srews placed due to fracture s/p fall) -November 2016, right orchiopexy for undescended testicle - ANESTHESIA Hx Anesthesia: Yes Hx Anesthesia Reactions: No Hx Malignant Hyperthermia: No Meds Allergies/Adverse Reactions: Allergies Allergy/AdvReac Type Severity Reaction Status Date / Time No Known Allergies Allergy Verified 04/14/17 23:15 - Medications Medications: Current Medications Docusate Sodium (Colace) 100 mg PO BID [facility] Enoxaparin Sodium (Lovenox) 40 mg SC DAILY [facility] PRN Reason: Protocol Last Admin: 05/17/17 09:15 Dose: 40 mg Famotidine (Pepcid) 20 mg IVP Q12 [facility] Last Admin: 05/17/17 09:13 Dose: 20 mg Hydromorphone HCl (Dilaudid) 1 mg IVP Q4 PRN PRN Reason: Pain, severe (8-10) Last Admin: 05/17/17 16:15 Dose: 1 mg Hydromorphone HCl (Dilaudid) 0.5 mg IVP Q4 PRN PRN Reason: Pain, moderate (4-7) Stop: 05/18/17 23:03 Lactated Ringer's (Lactated Ringer's) 1,000 mls @ 125 mls/hr IV .Q8H [facility] Last Admin: 05/17/17 05:39 Dose: 125 mls/hr Metronidazole (Flagyl 500mg/100ml Ns) 100 mls @ 100 mls/hr IVPB Q8 [facility] PRN Reason: Protocol Last Admin: 05/17/17 16:46 Dose: 100 mls/hr Ciprofloxacin (Cipro 400mg/200ml Dsw) 400 mg in 200 mls @ 200 mls/hr IVPB Q12 [facility] PRN Reason: Protocol Nicotine (Nicoderm Cq) 1 patch TD DAILY [facility] Last Admin: 05/17/17 09:15 Dose: 1 patch Ondansetron HCl (Zofran Inj) 4 mg IVP Q6 PRN PRN Reason: Nausea/Vomiting Physical Exam - Constitutional Appears: Well, Non-toxic, No Acute Distress, Unkempt - Head Exam Head Exam: ATRAUMATIC, NORMAL INSPECTION, NORMOCEPHALIC - Eye Exam Eye Exam: EOMI, Normal appearance - ENT Exam ENT Exam: Mucous Membranes Moist - Cardiovascular Exam Cardiovascular Exam: RRR, +S1, +S2. absent: JVD - GI/Abdominal Exam GI & Abdominal Exam: Soft. absent: Distended, Firm, Guarding, Mass, Rigid Additional comments: right inguinal hernia, easily reducible. Tender to palpation at the right inguinal fold. - Extremities Exam Extremities exam: Positive for: normal inspection. Negative for: calf tenderness - Neurological Exam Neurological exam: Alert, Normal Gait, Oriented x3 - Psychiatric Exam Psychiatric exam: Normal Affect, Normal Mood - Skin Skin Exam: Dry, Intact, Normal Color, Warm Results - Vital Signs Recent Vital Signs: Last Vital Signs Temp 98.1 F 05/17/17 16:07 Pulse 59 L 05/17/17 16:07 Resp 20 05/17/17 16:07 BP 136/81 05/17/17 16:07 Pulse Ox 98 05/17/17 16:07 - Labs Result Diagrams: 05/17/17 05:25 05/17/17 05:25 Labs: Laboratory Results - last 24 hr 05/17/17 05/17/17 05:25 05:25 WBC 4.2 L RBC 3.86 L Hgb 11.1 L Hct 33.9 L MCV 87.7 MCH 28.6 MCHC 32.6 L RDW 15.1 H Plt Count 128 L Sodium 140 Potassium 3.8 Chloride 107 Carbon Dioxide 26 Anion Gap 11 BUN 21 H Creatinine 1.1 Est GFR ( Amer) > 60 Est GFR (Non-Af Amer) > 60 Random Glucose 89 Calcium 8.6 Total Bilirubin 0.6 AST 85 H ALT 100 H Alkaline Phosphatase 70 Total Protein 7.3 Albumin 3.4 L Globulin 3.9 Albumin/Globulin Ratio 0.9 L Assessment & Plan - Assessment and Plan (Free Text) Assessment: 52yo M with reducible right inguinal hernia. - CT A/P - questionable gastric outlet obstruction, duodenal thickening - low suspicion for gastric outlet obstruction - OK to discontinue NG tube - Recommend GI consult for possible EGD - IV abx - IVF - Pain control - will eval for right inguinal hernia repair after GI clearance Further recs as per Dr. Yusuf Stone PGY1 surgery pager: [phone] <David Goldberg - Last Filed: 05/18/17 22:27> Meds - Medications Medications: Current Medications Diphenhydramine HCl (Benadryl) 25 mg PO HS PRN PRN Reason: Insomnia Docusate Sodium (Colace) 100 mg PO BID [facility] Last Admin: 05/18/17 16:53 Dose: Not Given Enoxaparin Sodium (Lovenox) 40 mg SC DAILY [facility] PRN Reason: Protocol Last Admin: 05/18/17 09:28 Dose: 40 mg Famotidine (Pepcid) 20 mg IVP Q12 [facility] Last Admin: 05/18/17 21:31 Dose: 20 mg Hydromorphone HCl (Dilaudid) 1 mg IVP Q4 PRN PRN Reason: Pain, severe (8-10) Last Admin: 05/18/17 19:18 Dose: 1 mg Hydromorphone HCl (Dilaudid) 0.5 mg IVP Q4 PRN PRN Reason: Pain, moderate (4-7) Stop: 05/18/17 23:03 Lactated Ringer's (Lactated Ringer's) 1,000 mls @ 125 mls/hr IV .Q8H [facility] Last Admin: 05/18/17 21:37 Dose: 125 mls/hr Metronidazole (Flagyl 500mg/100ml Ns) 100 mls @ 100 mls/hr IVPB Q8 [facility] PRN Reason: Protocol Last Admin: 05/18/17 16:54 Dose: 100 mls/hr Ciprofloxacin (Cipro 400mg/200ml Dsw) 400 mg in 200 mls @ 200 mls/hr IVPB Q12 [facility] PRN Reason: Protocol Last Admin: 05/18/17 21:31 Dose: 200 mls/hr Nicotine (Nicoderm Cq) 1 patch TD DAILY [facility] Last Admin: 05/18/17 09:29 Dose: 1 patch Ondansetron HCl (Zofran Inj) 4 mg IVP Q6 PRN PRN Reason: Nausea/Vomiting Results - Vital Signs Recent Vital Signs: Last Vital Signs Temp 98.5 F 05/18/17 16:50 Pulse 81 05/18/17 16:50 Resp 20 05/18/17 16:50 BP 114/72 05/18/17 16:50 Pulse Ox 97 05/18/17 16:50 - Labs Result Diagrams: 05/17/17 05:25 05/17/17 05:25 Labs: Laboratory Results - last 24 hr 05/18/17 10:40 PT 12.0 INR 1.1 APTT 40.4 H D Attending/Attestation - Attestation I have personally seen and examined this patient.: Yes I have fully participated in the care of the patient.: Yes I have reviewed all pertinent clinical information: Yes Notes (Text): Pt was seen and examined at bedside Agree with above note and assessment Pt with Right inguinal region pain and CT scan finding of GOO No c/o upper abdominal pain Tenderness present in inguinal region Labs and radiology reviewed. Clinically less likely Gastric Outlet obstruction. GI consult for EGD IV antibiotics DC NG tube Clear liquid diet. c.w current mx Plan d.w pt in detail. Risk and benefit explained in detail.
[2017-05-17] MEDS: Ciprofloxacin 400mg/200ml D5W 400 MG/200 ML BAG IVPB SCH (20:14)
--- NOTE | 2017-05-17 23:15 | CP.PCM.CON ---
History of Present Illness - History of Present Illness History of Present Illness: 52 yo male presenting to the ER for right groin pain and nausea. Had CT abdomen showing gastric outlet obstruction and thickening of the duodenal wall. Has h/o HCv. Current user of heroin. Review of Systems - Constitutional Constitutional: absent: Chills - EENT Eyes: absent: Blurred Vision Ears: absent: Decreased Hearing Nose/Mouth/Throat: absent: Epistaxis - Cardiovascular Cardiovascular: absent: Chest Pain - Respiratory Respiratory: absent: Cough - Gastrointestinal Gastrointestinal: As Per HPI - Musculoskeletal Musculoskeletal: absent: Back Pain Past Patient History - Infectious Disease Hx of Infectious Diseases: None - Tetanus Immunizations Tetanus Immunization: Unknown - Past Medical History & Family History Past Medical History?: No - Past Social History Smoking Status: Heavy Smoker > 10 Cigarettes Daily Drugs: Opiates Home Situation {Lives}: Homeless - CARDIAC Hx Hypertension: No - PULMONARY Hx Tuberculosis: No - NEUROLOGICAL Hx Seizures: No - HEENT Hx HEENT Problems: No - RENAL Hx Chronic Kidney Disease: Yes (Renal Insufficiency) - ENDOCRINE/METABOLIC Hx Endocrine Disorders: No - HEMATOLOGICAL/ONCOLOGICAL Hx Blood Disorders: Yes (Hep C) - INTEGUMENTARY Hx Dermatological Problems: No - MUSCULOSKELETAL/RHEUMATOLOGICAL Hx Fractures: Yes (right hip) - GASTROINTESTINAL Hx Gastrointestinal Disorders: Yes Hx Hemorrhoids: Yes Other/Comment: HERNIA - GENITOURINARY/GYNECOLOGICAL Hx Sexually Transmitted Disorders: No - PSYCHIATRIC Hx Psychophysiologic Disorder: Yes (Heroine abuse) - SURGICAL HISTORY Hx Surgeries: Yes Hx Herniorrhaphy: Yes (khushi inguinal hernia repair) Other/Comment: Right Hip (srews placed due to fracture s/p fall) -November 2016, right orchiopexy for undescended testicle - ANESTHESIA Hx Anesthesia: Yes Hx Anesthesia Reactions: No Hx Malignant Hyperthermia: No Meds Allergies/Adverse Reactions: Allergies Allergy/AdvReac Type Severity Reaction Status Date / Time No Known Allergies Allergy Verified 04/14/17 23:15 - Medications Medications: Current Medications Diphenhydramine HCl (Benadryl) 25 mg PO HS PRN PRN Reason: Insomnia Docusate Sodium (Colace) 100 mg PO BID [facility] Last Admin: 05/17/17 19:21 Dose: 100 mg Enoxaparin Sodium (Lovenox) 40 mg SC DAILY [facility] PRN Reason: Protocol Last Admin: 05/17/17 09:15 Dose: 40 mg Famotidine (Pepcid) 20 mg IVP Q12 [facility] Last Admin: 05/17/17 20:20 Dose: 20 mg Hydromorphone HCl (Dilaudid) 1 mg IVP Q4 PRN PRN Reason: Pain, severe (8-10) Last Admin: 05/17/17 20:13 Dose: 1 mg Hydromorphone HCl (Dilaudid) 0.5 mg IVP Q4 PRN PRN Reason: Pain, moderate (4-7) Stop: 05/18/17 23:03 Lactated Ringer's (Lactated Ringer's) 1,000 mls @ 125 mls/hr IV .Q8H [facility] Last Admin: 05/17/17 20:14 Dose: 125 mls/hr Metronidazole (Flagyl 500mg/100ml Ns) 100 mls @ 100 mls/hr IVPB Q8 [facility] PRN Reason: Protocol Last Admin: 05/17/17 16:46 Dose: 100 mls/hr Ciprofloxacin (Cipro 400mg/200ml Dsw) 400 mg in 200 mls @ 200 mls/hr IVPB Q12 [facility] PRN Reason: Protocol Last Admin: 05/17/17 20:14 Dose: 200 mls/hr Nicotine (Nicoderm Cq) 1 patch TD DAILY [facility] Last Admin: 05/17/17 09:15 Dose: 1 patch Ondansetron HCl (Zofran Inj) 4 mg IVP Q6 PRN PRN Reason: Nausea/Vomiting Physical Exam - Head Exam Head Exam: NORMAL INSPECTION - Eye Exam Eye Exam: Normal appearance - ENT Exam ENT Exam: Normal Exam - Neck Exam Neck exam: Positive for: Normal Inspection - Respiratory Exam Respiratory Exam: Clear to Auscultation Bilateral - Cardiovascular Exam Cardiovascular Exam: REGULAR RHYTHM, +S1, +S2 - GI/Abdominal Exam GI & Abdominal Exam: Normal Bowel Sounds, Soft. absent: Tenderness Results - Vital Signs Recent Vital Signs: Last Vital Signs Temp 98.1 F 05/17/17 16:07 Pulse 59 L 05/17/17 16:07 Resp 20 05/17/17 16:07 BP 136/81 05/17/17 16:07 Pulse Ox 98 05/17/17 16:07 - Labs Result Diagrams: 05/17/17 05:25 05/17/17 05:25 Labs: Laboratory Results - last 24 hr 05/17/17 05/17/17 05:25 05:25 WBC 4.2 L RBC 3.86 L Hgb 11.1 L Hct 33.9 L MCV 87.7 MCH 28.6 MCHC 32.6 L RDW 15.1 H Plt Count 128 L Sodium 140 Potassium 3.8 Chloride 107 Carbon Dioxide 26 Anion Gap 11 BUN 21 H Creatinine 1.1 Est GFR ( Amer) > 60 Est GFR (Non-Af Amer) > 60 Random Glucose 89 Calcium 8.6 Total Bilirubin 0.6 AST 85 H ALT 100 H Alkaline Phosphatase 70 Total Protein 7.3 Albumin 3.4 L Globulin 3.9 Albumin/Globulin Ratio 0.9 L - Imaging and Cardiology CT scan - abdomen Status: Report reviewed by me Assessment & Plan (1) Abdominal pain Assessment and Plan: CT shows marked gastric and duodenal dilation with abnormal wall thickening of wall 2nd portion of duodenum. Will do upper endoscopy Friday to rule out malignancy. NG tube has been removed and so far he is doing well. Status: Acute
[2017-05-18] MEDS: metroNIDAZOLE 500mg/100ml NS 100 ML IVPB SCH ×3 (00:35→16:54)
[2017-05-18] MEDS: Lactated Ringer's 1,000 ML IV SCH ×2 (04:53→21:37)
[2017-05-18] MEDS: Ciprofloxacin 400mg/200ml D5W 400 MG/200 ML BAG IVPB SCH ×2 (09:27→21:31)
[2017-05-18] MEDS: Enoxaparin 40 mg Syringe SC SCH (09:28)
--- NOTE | 2017-05-18 10:26 | CP.PCM.PN ---
Subjective - Date & Time of Evaluation Date of Evaluation: 05/18/17 Time of Evaluation: 09:24 - Subjective Subjective: Patient was seen at bedside this morning resting comfortably. NG tube removed yesterday. Patient has been tolerating liquid diet without complaints. Normal BM. States he is hungry and requests increase in diet. Denies pain at this time. Surgery and GI following. Patient scheduled for EGD friday. To be NPO after midnight tonight. Has no other complaints currently. Objective - Vital Signs/Intake and Output Vital Signs (last 24 hours): Temp Pulse Resp BP Pulse Ox 98.2 F 55 L 20 150/90 100 05/18/17 08:26 05/18/17 08:26 05/18/17 08:26 05/18/17 08:26 05/18/17 08:26 - Medications Medications: Current Medications Diphenhydramine HCl (Benadryl) 25 mg PO HS PRN PRN Reason: Insomnia Docusate Sodium (Colace) 100 mg PO BID [facility] Last Admin: 05/18/17 09:27 Dose: 100 mg Enoxaparin Sodium (Lovenox) 40 mg SC DAILY [facility] PRN Reason: Protocol Last Admin: 05/18/17 09:28 Dose: 40 mg Famotidine (Pepcid) 20 mg IVP Q12 [facility] Last Admin: 05/18/17 09:29 Dose: 20 mg Hydromorphone HCl (Dilaudid) 1 mg IVP Q4 PRN PRN Reason: Pain, severe (8-10) Last Admin: 05/18/17 09:25 Dose: 1 mg Hydromorphone HCl (Dilaudid) 0.5 mg IVP Q4 PRN PRN Reason: Pain, moderate (4-7) Stop: 05/18/17 23:03 Lactated Ringer's (Lactated Ringer's) 1,000 mls @ 125 mls/hr IV .Q8H [facility] Last Admin: 05/18/17 04:53 Dose: Not Given Metronidazole (Flagyl 500mg/100ml Ns) 100 mls @ 100 mls/hr IVPB Q8 [facility] PRN Reason: Protocol Last Admin: 05/18/17 09:28 Dose: 100 mls/hr Ciprofloxacin (Cipro 400mg/200ml Dsw) 400 mg in 200 mls @ 200 mls/hr IVPB Q12 [facility] PRN Reason: Protocol Last Admin: 05/18/17 09:27 Dose: 200 mls/hr Nicotine (Nicoderm Cq) 1 patch TD DAILY [facility] Last Admin: 05/18/17 09:29 Dose: 1 patch Ondansetron HCl (Zofran Inj) 4 mg IVP Q6 PRN PRN Reason: Nausea/Vomiting - Labs Labs: 05/17/17 05:25 05/17/17 05:25 - Constitutional Appears: Well, Non-toxic, No Acute Distress - Head Exam Head Exam: ATRAUMATIC, NORMAL INSPECTION, NORMOCEPHALIC - Eye Exam Eye Exam: Normal appearance - Neck Exam Neck Exam: Normal Inspection - Respiratory Exam Respiratory Exam: Clear to Ausculation Bilateral, NORMAL BREATHING PATTERN - Cardiovascular Exam Cardiovascular Exam: REGULAR RHYTHM, +S1, +S2. absent: Murmur - GI/Abdominal Exam GI & Abdominal Exam: Soft, Normal Bowel Sounds. absent: Tenderness - Extremities Exam Extremities Exam: Full ROM, Normal Inspection - Back Exam Back Exam: NORMAL INSPECTION - Neurological Exam Neurological Exam: Alert, Awake - Psychiatric Exam Psychiatric exam: Normal Affect, Normal Mood - Skin Skin Exam: Dry, Intact, Normal Color, Warm Assessment and Plan - Assessment and Plan (Free Text) Assessment: (1) Gastric outlet obstruction - admitted for gastric outlet obstruction, imaging concerning for mass or malignancy. - Patient was initially made NPO and had NG tube placed in the ER. After being evaluated by surgery, NG tube was removed, and liquid diet was started - Increase diet to regular diet today - GI consulted, will do EGD tomorrow morning, NPO after midnight - Surgery Consulted - Dilaudid for pain - Abd CT: Irregular wall thickening of the 2nd portion the duodenum suspicious for malignancy. This causes secondary gastric outlet obstruction with marked did gastric and proximal duodenal dilatation. Direct endoscopic visualization is recommended. (2) Transaminitis - likely secondary to hepatitis C - he has not been treated but is aware of his diagnosis - last hepatitis B screen was 02/2016 and was negative at that time (3) Right inguinal hernia - present in imaging from december 2016 (4) Heroin use - admits hx of heroin use. after chart review has had utox+ for cocaine and cannabis in the past - No withdrawal symptoms/signs at this time. (5) DVT prophylaxis - lovenox
[2017-05-18 11:20] LABS: PARTIAL THROMBOPLASTIN TIME 40.4 Seconds (25.6-37.1)
--- NOTE | 2017-05-18 12:31 | CP.PCM.PN ---
<Guillermo Vargas - Last Filed: 05/18/17 14:08> Subjective - Date & Time of Evaluation Date of Evaluation: 05/18/17 Time of Evaluation: 12:30 - Subjective Subjective: General Surgery Progress Note for Dr. Goldberg This patient was seen and examined this AM at bedside no acute events overnight. The patient reports pain is more well controlled. He is requesting a diet denies any abdominal pain fevers chills chest pain nausea vomiting or diarrhea. Objective - Vital Signs/Intake and Output Vital Signs (last 24 hours): Temp Pulse Resp BP Pulse Ox 98.2 F 55 L 20 150/90 100 05/18/17 08:26 05/18/17 08:26 05/18/17 08:26 05/18/17 08:26 05/18/17 08:26 - Medications Medications: Current Medications Diphenhydramine HCl (Benadryl) 25 mg PO HS PRN PRN Reason: Insomnia Docusate Sodium (Colace) 100 mg PO BID [facility] Last Admin: 05/18/17 09:27 Dose: 100 mg Enoxaparin Sodium (Lovenox) 40 mg SC DAILY [facility] PRN Reason: Protocol Last Admin: 05/18/17 09:28 Dose: 40 mg Famotidine (Pepcid) 20 mg IVP Q12 [facility] Last Admin: 05/18/17 09:29 Dose: 20 mg Hydromorphone HCl (Dilaudid) 1 mg IVP Q4 PRN PRN Reason: Pain, severe (8-10) Last Admin: 05/18/17 09:25 Dose: 1 mg Hydromorphone HCl (Dilaudid) 0.5 mg IVP Q4 PRN PRN Reason: Pain, moderate (4-7) Stop: 05/18/17 23:03 Lactated Ringer's (Lactated Ringer's) 1,000 mls @ 125 mls/hr IV .Q8H [facility] Last Admin: 05/18/17 04:53 Dose: Not Given Metronidazole (Flagyl 500mg/100ml Ns) 100 mls @ 100 mls/hr IVPB Q8 [facility] PRN Reason: Protocol Last Admin: 05/18/17 09:28 Dose: 100 mls/hr Ciprofloxacin (Cipro 400mg/200ml Dsw) 400 mg in 200 mls @ 200 mls/hr IVPB Q12 [facility] PRN Reason: Protocol Last Admin: 05/18/17 09:27 Dose: 200 mls/hr Nicotine (Nicoderm Cq) 1 patch TD DAILY [facility] Last Admin: 05/18/17 09:29 Dose: 1 patch Ondansetron HCl (Zofran Inj) 4 mg IVP Q6 PRN PRN Reason: Nausea/Vomiting - Labs Labs: 05/17/17 05:25 05/17/17 05:25 PT 12.0 Seconds (9.8-13.1) 05/18/17 10:40 INR 1.1 (0.9-1.2) 05/18/17 10:40 APTT 40.4 Seconds (25.6-37.1) H D 05/18/17 10:40 - Constitutional Appears: Non-toxic, No Acute Distress - Head Exam Head Exam: ATRAUMATIC, NORMOCEPHALIC - Eye Exam Eye Exam: EOMI - ENT Exam ENT Exam: Mucous Membranes Moist - Respiratory Exam Respiratory Exam: NORMAL BREATHING PATTERN - Cardiovascular Exam Cardiovascular Exam: REGULAR RHYTHM - GI/Abdominal Exam GI & Abdominal Exam: Soft. absent: Distended, Firm, Guarding, Rigid Additional comments: Tender RLQ proximal to previous hernia scar - Neurological Exam Neurological Exam: Alert, Awake - Psychiatric Exam Psychiatric exam: Normal Affect, Normal Mood - Skin Skin Exam: Dry, Intact Assessment and Plan - Assessment and Plan (Free Text) Assessment: This is a 52M witha reccurent right inguinal hernia andenteritis Followup EGD Possible definitive hernia repair this admission possible outpatient monitor abdominal exam Discuss with Dr. Yusuf Vargas PGY2 <David Goldberg - Last Filed: 05/18/17 22:32> Objective - Vital Signs/Intake and Output Vital Signs (last 24 hours): Temp Pulse Resp BP Pulse Ox 98.5 F 81 20 114/72 97 05/18/17 16:50 05/18/17 16:50 05/18/17 16:50 05/18/17 16:50 05/18/17 16:50 - Medications Medications: Current Medications Diphenhydramine HCl (Benadryl) 25 mg PO HS PRN PRN Reason: Insomnia Docusate Sodium (Colace) 100 mg PO BID [facility] Last Admin: 05/18/17 16:53 Dose: Not Given Enoxaparin Sodium (Lovenox) 40 mg SC DAILY [facility] PRN Reason: Protocol Last Admin: 05/18/17 09:28 Dose: 40 mg Famotidine (Pepcid) 20 mg IVP Q12 [facility] Last Admin: 05/18/17 21:31 Dose: 20 mg Hydromorphone HCl (Dilaudid) 1 mg IVP Q4 PRN PRN Reason: Pain, severe (8-10) Last Admin: 05/18/17 19:18 Dose: 1 mg Hydromorphone HCl (Dilaudid) 0.5 mg IVP Q4 PRN PRN Reason: Pain, moderate (4-7) Stop: 05/18/17 23:03 Lactated Ringer's (Lactated Ringer's) 1,000 mls @ 125 mls/hr IV .Q8H [facility] Last Admin: 05/18/17 21:37 Dose: 125 mls/hr Metronidazole (Flagyl 500mg/100ml Ns) 100 mls @ 100 mls/hr IVPB Q8 [facility] PRN Reason: Protocol Last Admin: 05/18/17 16:54 Dose: 100 mls/hr Ciprofloxacin (Cipro 400mg/200ml Dsw) 400 mg in 200 mls @ 200 mls/hr IVPB Q12 [facility] PRN Reason: Protocol Last Admin: 05/18/17 21:31 Dose: 200 mls/hr Nicotine (Nicoderm Cq) 1 patch TD DAILY [facility] Last Admin: 05/18/17 09:29 Dose: 1 patch Ondansetron HCl (Zofran Inj) 4 mg IVP Q6 PRN PRN Reason: Nausea/Vomiting - Labs Labs: 05/17/17 05:25 05/17/17 05:25 PT 12.0 Seconds (9.8-13.1) 05/18/17 10:40 INR 1.1 (0.9-1.2) 05/18/17 10:40 APTT 40.4 Seconds (25.6-37.1) H D 05/18/17 10:40 Attending/Attestation - Attestation I have personally seen and examined this patient.: Yes I have fully participated in the care of the patient.: Yes I have reviewed all pertinent clinical information, including history, physical exam and plan: Yes Notes (Text): Pt was seen and examined at bedside Agree with above note and assessment Pt with Right inguinal hernia Clinically less likely Gastric Outlet obstruction. EGD tomorrow C/w IV antibiotics Clear liquid diet. c.w current mx Plan d.w pt in detail. Risk and benefit explained in detail.
[2017-05-19] MEDS: metroNIDAZOLE 500mg/100ml NS 100 ML IVPB SCH ×3 (00:04→17:01)
[2017-05-19] MEDS: Lactated Ringer's 1,000 ML IV SCH ×3 (05:16→23:17)
[2017-05-19 06:15] LABS: HEMATOCRIT 37.4 % (35.0-51.0); MEAN CELL VOLUME 87.1 fl (80.0-94.0); MEAN CORPUSCULAR HEMOGLOBIN 28.3 pg (27.0-31.0); MEAN CORPUSCULAR HGB CONC 32.5 g/dL (33.0-37.0); WHITE BLOOD COUNT 4.9 K/uL (4.8-10.8)
[2017-05-19 06:20] LABS: CALCIUM 8.6 mg/dL (8.4-10.2); POTASSIUM 3.8 MMOL/L (3.6-5.0)
--- NOTE | 2017-05-19 08:30 | CP.PCM.PN ---
<Dorota Chan - Last Filed: 05/19/17 09:22> Subjective - Date & Time of Evaluation Date of Evaluation: 05/19/17 Time of Evaluation: 08:28 - Subjective Subjective: General surgery progress note for Dr. Goldberg-Dorota Chan, PGY-1 Pt S & E at bedside. Pt reports continued pain with palpation over right groin area. Reports flatus , BM x 2 yesterday-tolerated regular diet. For EGD today. Denies N & V, F & C , other complaints. Objective - Vital Signs/Intake and Output Vital Signs (last 24 hours): Temp Pulse Resp BP Pulse Ox 97.8 F 67 20 123/83 98 05/19/17 08:05 05/19/17 08:05 05/19/17 08:05 05/19/17 08:05 05/19/17 08:05 - Medications Medications: Current Medications Diphenhydramine HCl (Benadryl) 25 mg PO HS PRN PRN Reason: Insomnia Docusate Sodium (Colace) 100 mg PO BID [facility] Last Admin: 05/18/17 16:53 Dose: Not Given Enoxaparin Sodium (Lovenox) 40 mg SC DAILY [facility] PRN Reason: Protocol Last Admin: 05/18/17 09:28 Dose: 40 mg Famotidine (Pepcid) 20 mg IVP Q12 [facility] Last Admin: 05/18/17 21:31 Dose: 20 mg Hydromorphone HCl (Dilaudid) 1 mg IVP Q4 PRN PRN Reason: Pain, severe (8-10) Last Admin: 05/19/17 04:17 Dose: 1 mg Lactated Ringer's (Lactated Ringer's) 1,000 mls @ 125 mls/hr IV .Q8H [facility] Last Admin: 05/19/17 05:16 Dose: Not Given Metronidazole (Flagyl 500mg/100ml Ns) 100 mls @ 100 mls/hr IVPB Q8 [facility] PRN Reason: Protocol Last Admin: 05/19/17 00:04 Dose: 100 mls/hr Ciprofloxacin (Cipro 400mg/200ml Dsw) 400 mg in 200 mls @ 200 mls/hr IVPB Q12 [facility] PRN Reason: Protocol Last Admin: 05/18/17 21:31 Dose: 200 mls/hr Nicotine (Nicoderm Cq) 1 patch TD DAILY [facility] Last Admin: 05/18/17 09:29 Dose: 1 patch Ondansetron HCl (Zofran Inj) 4 mg IVP Q6 PRN PRN Reason: Nausea/Vomiting - Labs Labs: 05/19/17 05:40 05/19/17 05:40 PT 12.0 Seconds (9.8-13.1) 05/18/17 10:40 INR 1.1 (0.9-1.2) 05/18/17 10:40 APTT 40.4 Seconds (25.6-37.1) H D 05/18/17 10:40 - Constitutional Appears: Non-toxic, No Acute Distress - Head Exam Head Exam: ATRAUMATIC, NORMAL INSPECTION, NORMOCEPHALIC - Eye Exam Eye Exam: EOMI, Normal appearance - ENT Exam ENT Exam: Mucous Membranes Moist, Normal Exam - Neck Exam Neck Exam: Full ROM, Normal Inspection - Respiratory Exam Respiratory Exam: Clear to Ausculation Bilateral, NORMAL BREATHING PATTERN - Cardiovascular Exam Cardiovascular Exam: REGULAR RHYTHM, +S1, +S2 - GI/Abdominal Exam GI & Abdominal Exam: Soft, Hernia (Right inguinal hernia with tenderness upon palpation- reducible), Normal Bowel Sounds. absent: Distended, Firm, Guarding, Rigid, Tenderness, Mass - Extremities Exam Extremities Exam: Normal Inspection. absent: Pedal Edema - Neurological Exam Neurological Exam: Alert, Awake, CN II-XII Intact, Oriented x3 - Psychiatric Exam Psychiatric exam: Normal Affect, Normal Mood - Skin Skin Exam: Dry, Intact, Normal Color, Warm Additional comments: Bilateral linear well healed scars over inguinal areas Assessment and Plan - Assessment and Plan (Free Text) Assessment: 52M w/recurrent R inguinal hernia Plan: FU EGD Cont pain control Plan for OR Wed Consent in chart DW attending Rocio, PGY-1 <David Goldberg B - Last Filed: 05/20/17 16:31> Objective - Vital Signs/Intake and Output Vital Signs (last 24 hours): Temp Pulse Resp BP Pulse Ox 97.8 F 72 18 108/65 98 05/20/17 08:28 05/20/17 08:28 05/20/17 08:28 05/20/17 08:28 05/20/17 14:54 - Medications Medications: Current Medications Acetaminophen (Tylenol 325mg Tab) 650 mg PO Q4 PRN PRN Reason: Pain, Mild (1-3) Diphenhydramine HCl (Benadryl) 50 mg PO HS PRN PRN Reason: Insomnia Last Admin: 05/19/17 22:00 Dose: 50 mg Docusate Sodium (Colace) 100 mg PO BID [facility] Last Admin: 05/20/17 08:55 Dose: 100 mg Enoxaparin Sodium (Lovenox) 40 mg SC DAILY [facility] PRN Reason: Protocol Last Admin: 05/18/17 09:28 Dose: 40 mg Famotidine (Pepcid) 20 mg IVP Q12 [facility] Last Admin: 05/20/17 08:54 Dose: Not Given Hydromorphone HCl (Dilaudid) 1 mg IVP Q4 PRN PRN Reason: Pain, severe (8-10) Last Admin: 05/20/17 15:27 Dose: 1 mg Lactated Ringer's (Lactated Ringer's) 1,000 mls @ 125 mls/hr IV .Q8H [facility] Last Admin: 05/20/17 13:43 Dose: 125 mls/hr Metronidazole (Flagyl 500mg/100ml Ns) 100 mls @ 100 mls/hr IVPB Q8 [facility] PRN Reason: Protocol Last Admin: 05/20/17 09:01 Dose: 100 mls/hr Ciprofloxacin (Cipro 400mg/200ml Dsw) 400 mg in 200 mls @ 200 mls/hr IVPB Q12 [facility] PRN Reason: Protocol Last Admin: 05/20/17 09:00 Dose: 200 mls/hr Nicotine (Nicoderm Cq) 1 patch TD DAILY [facility] Last Admin: 05/20/17 09:01 Dose: 1 patch Ondansetron HCl (Zofran Inj) 4 mg IVP Q6 PRN PRN Reason: Nausea/Vomiting Oxycodone HCl (Oxycodone Immediate Release Tab) 5 mg PO Q6 PRN PRN Reason: Pain, moderate (4-7) - Labs Labs: 05/20/17 05:40 05/20/17 05:40 PT 11.7 Seconds (9.8-13.1) 05/20/17 05:40 INR 1.1 (0.9-1.2) 05/20/17 05:40 APTT 40.4 Seconds (25.6-37.1) H D 05/18/17 10:40 Attending/Attestation - Attestation I have personally seen and examined this patient.: Yes I have fully participated in the care of the patient.: Yes I have reviewed all pertinent clinical information, including history, physical exam and plan: Yes Notes (Text): Pt was seen and examined at bedside Agree with above note and assessment Pt with GOO and Right inguinal hernia EGD with dilatation done today C/w Mild abdominal pain, tenderness c/w IV antibiotics c.w current mx Plan d.w pt in detail Risk and benefit explained in detail
[2017-05-19] MEDS: Ciprofloxacin 400mg/200ml D5W 400 MG/200 ML BAG IVPB SCH ×2 (08:36→21:13)
--- NOTE | 2017-05-19 10:20 | CP.PCM.PN ---
Subjective - Date & Time of Evaluation Date of Evaluation: 05/19/17 Time of Evaluation: 07:20 - Subjective Subjective: - Patient is seen and examined at bedside. Appears to be doing well. Pain is controlled with medication. Patient denies any overnight activities. - EGD was done today. Patient tolerated it well. No concerning abnormalities were noted. Objective - Vital Signs/Intake and Output Vital Signs (last 24 hours): Temp Pulse Resp BP Pulse Ox 97.8 F 67 20 123/83 98 05/19/17 08:05 05/19/17 08:05 05/19/17 08:05 05/19/17 08:05 05/19/17 08:05 - Medications Medications: Current Medications Acetaminophen (Tylenol 325mg Tab) 650 mg PO Q4 PRN PRN Reason: Pain, Mild (1-3) Diphenhydramine HCl (Benadryl) 25 mg PO HS PRN PRN Reason: Insomnia Docusate Sodium (Colace) 100 mg PO BID [facility] Last Admin: 05/19/17 08:36 Dose: Not Given Enoxaparin Sodium (Lovenox) 40 mg SC DAILY [facility] PRN Reason: Protocol Last Admin: 05/18/17 09:28 Dose: 40 mg Famotidine (Pepcid) 20 mg IVP Q12 [facility] Last Admin: 05/19/17 10:13 Dose: Not Given Hydromorphone HCl (Dilaudid) 1 mg IVP Q4 PRN PRN Reason: Pain, severe (8-10) Last Admin: 05/19/17 08:39 Dose: 1 mg Lactated Ringer's (Lactated Ringer's) 1,000 mls @ 125 mls/hr IV .Q8H [facility] Last Admin: 05/19/17 05:16 Dose: Not Given Metronidazole (Flagyl 500mg/100ml Ns) 100 mls @ 100 mls/hr IVPB Q8 [facility] PRN Reason: Protocol Last Admin: 05/19/17 08:37 Dose: 100 mls/hr Ciprofloxacin (Cipro 400mg/200ml Dsw) 400 mg in 200 mls @ 200 mls/hr IVPB Q12 [facility] PRN Reason: Protocol Last Admin: 05/19/17 08:36 Dose: 200 mls/hr Morphine Sulfate (Morphine) 4 mg IVP Q4 PRN PRN Reason: Pain, moderate (4-7) Nicotine (Nicoderm Cq) 1 patch TD DAILY [facility] Last Admin: 05/19/17 08:37 Dose: 1 patch Ondansetron HCl (Zofran Inj) 4 mg IVP Q6 PRN PRN Reason: Nausea/Vomiting - Labs Labs: 05/19/17 05:40 05/19/17 05:40 PT 12.0 Seconds (9.8-13.1) 05/18/17 10:40 INR 1.1 (0.9-1.2) 05/18/17 10:40 APTT 40.4 Seconds (25.6-37.1) H D 05/18/17 10:40 - Constitutional Appears: No Acute Distress - Head Exam Head Exam: NORMAL INSPECTION - Respiratory Exam Respiratory Exam: Clear to Ausculation Bilateral, NORMAL BREATHING PATTERN. absent: Rhonchi, Wheezes - Cardiovascular Exam Cardiovascular Exam: REGULAR RHYTHM, +S1, +S2 - GI/Abdominal Exam GI & Abdominal Exam: Soft, Normal Bowel Sounds - Extremities Exam Extremities Exam: Normal Inspection. absent: Calf Tenderness - Neurological Exam Neurological Exam: Alert, Awake, CN II-XII Intact, Oriented x3 - Skin Skin Exam: Normal Color, Warm Assessment and Plan - Assessment and Plan (Free Text) Assessment: (1) Gastric outlet obstruction - admitted for gastric outlet obstruction, imaging concerning for mass or malignancy. - Increase diet to regular diet today - GI consulted appreciated - Surgery Consulted - Dilaudid for pain - Abd CT: Irregular wall thickening of the 2nd portion the duodenum suspicious for malignancy. This causes secondary gastric outlet obstruction with marked did gastric and proximal duodenal dilatation. Direct endoscopic visualization is recommended. - Patient had an EGD today: A deformity was found at the pylorus. No specimens were collected. No acute concerning abnormality noted. (2) Transaminitis - likely secondary to hepatitis C - he has not been treated but is aware of his diagnosis - last hepatitis B screen was 02/2016 and was negative at that time (3) Right inguinal hernia - present in imaging from december 2016 - Surgery is scheduled for Friday - Pre op labs ordered for AM (4) Heroin use - admits hx of heroin use. after chart review has had utox+ for cocaine and cannabis in the past - No withdrawal symptoms/signs at this time. (5) DVT prophylaxis - lovenox
[2017-05-19] MEDS ORDERED: Lactated Ringer's 1,000 ML IV ONE ×2 (11:28→11:59)
[2017-05-19] MEDS ORDERED: Propofol 10 mg/ml Inj (20 ML) ONE ×2 (12:08→12:36)
[2017-05-19] MEDS ORDERED: Lidocaine 2% MPF (5 ml) Inj ONE (12:08)
--- NOTE | 2017-05-19 13:35 | CARD ---
APPROVED REPORT EKG Measurement Heart [id number] <Conclusion> Sinus bradycardia Otherwise normal ECG
[2017-05-20] MEDS: metroNIDAZOLE 500mg/100ml NS 100 ML IVPB SCH ×3 (01:06→17:07)
[2017-05-20 03:31] LABS: TOTAL PROTEIN, SERUM 6.8 g/dL (6.1-8.1)
[2017-05-20] MEDS: Lactated Ringer's 1,000 ML IV SCH ×3 (05:20→13:43)
[2017-05-20 06:11] LABS: EOS # 0.1 K/uL (0.0-0.7); EOS % 3.3 % (0.0-4.0); HEMATOCRIT 36.9 % (35.0-51.0); LYMPH # 1.6 K/uL (1.0-4.3); LYMPH % 36.9 % (20.0-40.0); MEAN CELL VOLUME 86.6 fl (80.0-94.0); MEAN CORPUSCULAR HEMOGLOBIN 28.1 pg (27.0-31.0); MEAN CORPUSCULAR HGB CONC 32.5 g/dL (33.0-37.0); MEAN PLATELET VOLUME 8.1 fl (7.2-11.7); MONO # 0.6 K/uL (0.0-0.8); MONO % 13.8 % (0.0-10.0); NEUT # 1.9 K/uL (1.8-7.0); NRBC % 0.1 % (0.0-0.0); RED CELL DISTRIBUTION WIDTH 15.5 % (11.5-14.5); WHITE BLOOD COUNT 4.3 K/uL (4.8-10.8)
[2017-05-20 06:19] LABS: ALB/GLOB RATIO 0.9 (1.0-2.1); BILIRUBIN,TOTAL 0.3 mg/dl (0.2-1.3); CALCIUM 8.4 mg/dL (8.4-10.2); POTASSIUM 4.1 MMOL/L (3.6-5.0); TOTAL PROTEIN 6.8 G/DL (6.3-8.2)
[2017-05-20 06:21] LABS: RBC URINE 1 /hpf (0-3); URINE BACTERIA RARE (<OCC); URINE BILIRUBIN NEGATIVE (NEGATIVE); URINE BLOOD NEGATIVE (NEGATIVE); URINE COLOR YELLOW (YELLOW); URINE GLUCOSE (UA) NEG (Normal); URINE KETONE NEGATIVE (NEGATIVE); URINE LEUKOCYTE ESTERASE NEG Leu/uL (Negative); URINE PROTEIN NEGATIVE (NEGATIVE); URINE UROBILINOGEN 0.2-1.0 mg/dL (0.2-1.0); WBC URINE < 1 /hpf (0-5)
--- NOTE | 2017-05-20 08:49 | CP.PCM.PN ---
Subjective - Date & Time of Evaluation Date of Evaluation: 05/20/17 Time of Evaluation: 08:46 - Subjective Subjective: Family Medicine Progress Note - Dr. Bowden 52 y/o male admitted for gastric outlet obstruction and painful inguinal hernia seen at bedside this morning sitting comfortably in bed. Pt is 1 day s/p EGD. Pt is tolerating PO diet well at this time. Pt reports having regular bowel movements and passing gas. Pt denies F/C/N/V/CP/SOB. Pt denies any pain or discomfort in his stomach. Pt states his only complaint is the persistent pain in his hernia. Pt admits it is painful to lie flat or on his side, so he has slept slightly upright. Pt reports he is able to walk despite the pain and has been ambulating on the hospital floors. Pt is aware that he will be going for surgery to repair his hernia tomorrow. Objective - Vital Signs/Intake and Output Vital Signs (last 24 hours): Temp Pulse Resp BP Pulse Ox 97.8 F 72 18 108/65 98 05/20/17 08:28 05/20/17 08:28 05/20/17 08:28 05/20/17 08:28 05/20/17 08:28 - Medications Medications: Current Medications Acetaminophen (Tylenol 325mg Tab) 650 mg PO Q4 PRN PRN Reason: Pain, Mild (1-3) Diphenhydramine HCl (Benadryl) 50 mg PO HS PRN PRN Reason: Insomnia Last Admin: 05/19/17 22:00 Dose: 50 mg Docusate Sodium (Colace) 100 mg PO BID [facility] Last Admin: 05/19/17 17:01 Dose: 100 mg Enoxaparin Sodium (Lovenox) 40 mg SC DAILY [facility] PRN Reason: Protocol Last Admin: 05/18/17 09:28 Dose: 40 mg Famotidine (Pepcid) 20 mg IVP Q12 [facility] Last Admin: 05/19/17 21:13 Dose: 20 mg Hydromorphone HCl (Dilaudid) 1 mg IVP Q4 PRN PRN Reason: Pain, severe (8-10) Last Admin: 05/20/17 06:31 Dose: 1 mg Lactated Ringer's (Lactated Ringer's) 1,000 mls @ 125 mls/hr IV .Q8H [facility] Last Admin: 05/20/17 05:20 Dose: Not Given Metronidazole (Flagyl 500mg/100ml Ns) 100 mls @ 100 mls/hr IVPB Q8 [facility] PRN Reason: Protocol Last Admin: 05/20/17 01:06 Dose: 100 mls/hr Ciprofloxacin (Cipro 400mg/200ml Dsw) 400 mg in 200 mls @ 200 mls/hr IVPB Q12 [facility] PRN Reason: Protocol Last Admin: 05/19/17 21:13 Dose: 200 mls/hr Morphine Sulfate (Morphine) 4 mg IVP Q4 PRN PRN Reason: Pain, moderate (4-7) Nicotine (Nicoderm Cq) 1 patch TD DAILY [facility] Last Admin: 05/19/17 08:37 Dose: 1 patch Ondansetron HCl (Zofran Inj) 4 mg IVP Q6 PRN PRN Reason: Nausea/Vomiting - Labs Labs: 05/20/17 05:40 05/20/17 05:40 PT 11.7 Seconds (9.8-13.1) 05/20/17 05:40 INR 1.1 (0.9-1.2) 05/20/17 05:40 APTT 40.4 Seconds (25.6-37.1) H D 05/18/17 10:40 - Constitutional Appears: Well, Non-toxic, No Acute Distress - Head Exam Head Exam: ATRAUMATIC, NORMOCEPHALIC - Eye Exam Eye Exam: EOMI, Normal appearance Pupil Exam: NORMAL ACCOMODATION, PERRL - Neck Exam Neck Exam: Full ROM, Normal Inspection - Respiratory Exam Respiratory Exam: Clear to Ausculation Bilateral, NORMAL BREATHING PATTERN. absent: Rhonchi, Wheezes - Cardiovascular Exam Cardiovascular Exam: REGULAR RHYTHM, +S1, +S2. absent: Gallop, JVD - GI/Abdominal Exam GI & Abdominal Exam: Soft, Normal Bowel Sounds Additional comments: tenderness to palpation of RLQ near hernia site - Rectal Exam Rectal Exam: Deferred - Extremities Exam Extremities Exam: Full ROM, Normal Capillary Refill, Normal Inspection. absent : Calf Tenderness - Neurological Exam Neurological Exam: Alert, Awake, Oriented x3 - Psychiatric Exam Psychiatric exam: Normal Affect, Normal Mood - Skin Skin Exam: Dry, Intact, Normal Color, Warm Assessment and Plan - Assessment and Plan (Free Text) Assessment: 52 y/o male with PMHx of Hepatitis C and polysubstance abuse 1 day s/p EGD with right sided inguinal hernia, to go to OR tomorrow for inguinal hernia repair Plan: (1) Gastric outlet obstruction - admitted for gastric outlet obstruction, imaging concerning for mass or malignancy. - Continue PO diet - Currently on IV Flagyl and Ciprofloxacin - GI consult appreciated - Surgery on consult - Abd CT: Irregular wall thickening of the 2nd portion the duodenum suspicious for malignancy. This causes secondary gastric outlet obstruction with marked did gastric and proximal duodenal dilatation. Direct endoscopic visualization is recommended. - Patient is 1 day s/p EGD - deformity was found at the pylorus. No specimens were collected. No acute concerning abnormality noted - Continue Dilaudid for pain control (2) Transaminitis - likely secondary to hepatitis C - he has not been treated but is aware of his diagnosis - last hepatitis B screen was 02/2016 and was negative at that time (3) Right inguinal hernia - Seen in previous imaging from December 2016 - Pt to go to OR tomorrow for laparascopic inguinal hernia repair - Patient is medically optimized for surgery - Pre op labs in chart - NPO order in place (4) Heroin use - Admits hx of heroin use - review of chart shows utox+ for cocaine and cannabis in previous visits - No withdrawal symptoms/signs at this time (5) DVT prophylaxis - Lovenox held at this time prior to surgery tomorrow - Continue ambulation (6) Code status -full code
[2017-05-20] MEDS: Ciprofloxacin 400mg/200ml D5W 400 MG/200 ML BAG IVPB SCH ×2 (09:00→20:54)
--- NOTE | 2017-05-20 09:19 | CP.PCM.PN ---
<Guillermo Vargas - Last Filed: 05/20/17 09:25> Subjective - Date & Time of Evaluation Date of Evaluation: 05/20/17 Time of Evaluation: 09:15 - Subjective Subjective: General Surgery Progress Note for Dr. Goldberg This patient was seen and examined this AM at bedside. He reports no acute events overnight however he does report continued pain at his hernia site. He denies nausea vomiting chest pain diarrhea. Objective - Vital Signs/Intake and Output Vital Signs (last 24 hours): Temp Pulse Resp BP Pulse Ox 97.8 F 72 18 108/65 98 05/20/17 08:28 05/20/17 08:28 05/20/17 08:28 05/20/17 08:28 05/20/17 08:28 - Medications Medications: Current Medications Acetaminophen (Tylenol 325mg Tab) 650 mg PO Q4 PRN PRN Reason: Pain, Mild (1-3) Diphenhydramine HCl (Benadryl) 50 mg PO HS PRN PRN Reason: Insomnia Last Admin: 05/19/17 22:00 Dose: 50 mg Docusate Sodium (Colace) 100 mg PO BID [facility] Last Admin: 05/20/17 08:55 Dose: 100 mg Enoxaparin Sodium (Lovenox) 40 mg SC DAILY [facility] PRN Reason: Protocol Last Admin: 05/18/17 09:28 Dose: 40 mg Famotidine (Pepcid) 20 mg IVP Q12 [facility] Last Admin: 05/20/17 08:54 Dose: Not Given Hydromorphone HCl (Dilaudid) 1 mg IVP Q4 PRN PRN Reason: Pain, severe (8-10) Last Admin: 05/20/17 06:31 Dose: 1 mg Lactated Ringer's (Lactated Ringer's) 1,000 mls @ 125 mls/hr IV .Q8H [facility] Last Admin: 05/20/17 09:01 Dose: 125 mls/hr Metronidazole (Flagyl 500mg/100ml Ns) 100 mls @ 100 mls/hr IVPB Q8 [facility] PRN Reason: Protocol Last Admin: 05/20/17 09:01 Dose: 100 mls/hr Ciprofloxacin (Cipro 400mg/200ml Dsw) 400 mg in 200 mls @ 200 mls/hr IVPB Q12 [facility] PRN Reason: Protocol Last Admin: 05/20/17 09:00 Dose: 200 mls/hr Morphine Sulfate (Morphine) 4 mg IVP Q4 PRN PRN Reason: Pain, moderate (4-7) Nicotine (Nicoderm Cq) 1 patch TD DAILY [facility] Last Admin: 05/20/17 09:01 Dose: 1 patch Ondansetron HCl (Zofran Inj) 4 mg IVP Q6 PRN PRN Reason: Nausea/Vomiting - Labs Labs: 05/20/17 05:40 05/20/17 05:40 PT 11.7 Seconds (9.8-13.1) 05/20/17 05:40 INR 1.1 (0.9-1.2) 05/20/17 05:40 APTT 40.4 Seconds (25.6-37.1) H D 05/18/17 10:40 - Constitutional Appears: Non-toxic, No Acute Distress - Head Exam Head Exam: ATRAUMATIC, NORMOCEPHALIC - Eye Exam Eye Exam: EOMI - ENT Exam ENT Exam: Mucous Membranes Moist - Respiratory Exam Respiratory Exam: NORMAL BREATHING PATTERN - Cardiovascular Exam Cardiovascular Exam: REGULAR RHYTHM, +S1, +S2 - GI/Abdominal Exam GI & Abdominal Exam: Soft, Tenderness. absent: Guarding, Rigid Additional comments: Abdomen globallly non tender however tenderness noted over the hernia - Neurological Exam Neurological Exam: Alert, Awake - Psychiatric Exam Psychiatric exam: Normal Affect, Normal Mood - Skin Skin Exam: Dry, Intact Assessment and Plan - Assessment and Plan (Free Text) Assessment: This is a 52M with a PMH of HCV, and polysubstance abuse with a reccurent inguinal hernia Plan: NPO past midnight AM CBC, BMP OR tomorrow for lap inguinal hernia repair Continue ABX Continue pain control D/W Dr. Yusuf Vargas PGY2 <David Goldberg - Last Filed: 05/20/17 17:07> Objective - Vital Signs/Intake and Output Vital Signs (last 24 hours): Temp Pulse Resp BP Pulse Ox 98.6 F 62 20 124/74 98 05/20/17 16:35 05/20/17 16:35 05/20/17 16:35 05/20/17 16:35 05/20/17 16:35 - Medications Medications: Current Medications Acetaminophen (Tylenol 325mg Tab) 650 mg PO Q4 PRN PRN Reason: Pain, Mild (1-3) Diphenhydramine HCl (Benadryl) 50 mg PO HS PRN PRN Reason: Insomnia Last Admin: 05/19/17 22:00 Dose: 50 mg Docusate Sodium (Colace) 100 mg PO BID [facility] Last Admin: 05/20/17 08:55 Dose: 100 mg Enoxaparin Sodium (Lovenox) 40 mg SC DAILY [facility] PRN Reason: Protocol Last Admin: 05/18/17 09:28 Dose: 40 mg Famotidine (Pepcid) 20 mg IVP Q12 [facility] Last Admin: 05/20/17 08:54 Dose: Not Given Hydromorphone HCl (Dilaudid) 1 mg IVP Q4 PRN PRN Reason: Pain, severe (8-10) Last Admin: 05/20/17 15:27 Dose: 1 mg Lactated Ringer's (Lactated Ringer's) 1,000 mls @ 125 mls/hr IV .Q8H [facility] Last Admin: 05/20/17 13:43 Dose: 125 mls/hr Metronidazole (Flagyl 500mg/100ml Ns) 100 mls @ 100 mls/hr IVPB Q8 [facility] PRN Reason: Protocol Last Admin: 05/20/17 09:01 Dose: 100 mls/hr Ciprofloxacin (Cipro 400mg/200ml Dsw) 400 mg in 200 mls @ 200 mls/hr IVPB Q12 [facility] PRN Reason: Protocol Last Admin: 05/20/17 09:00 Dose: 200 mls/hr Nicotine (Nicoderm Cq) 1 patch TD DAILY [facility] Last Admin: 05/20/17 09:01 Dose: 1 patch Ondansetron HCl (Zofran Inj) 4 mg IVP Q6 PRN PRN Reason: Nausea/Vomiting Oxycodone HCl (Oxycodone Immediate Release Tab) 5 mg PO Q6 PRN PRN Reason: Pain, moderate (4-7) - Labs Labs: 05/20/17 05:40 05/20/17 05:40 PT 11.7 Seconds (9.8-13.1) 05/20/17 05:40 INR 1.1 (0.9-1.2) 05/20/17 05:40 APTT 40.4 Seconds (25.6-37.1) H D 05/18/17 10:40 Attending/Attestation - Attestation I have personally seen and examined this patient.: Yes I have fully participated in the care of the patient.: Yes I have reviewed all pertinent clinical information, including history, physical exam and plan: Yes Notes (Text): Pt was seen and examined at bedside Agree with above note and assessment Pt with GOO and right inguinal hernia Pt is tolerating liquid diet OR tomorrow for Lap inguinal hernia NPO, IVF consent c/w IV antibiotics c.w current mx Plan d.w pt in detail Risk and benefit explained in detail.
[2017-05-20] MEDS ORDERED: oxyCODONE 5 mg Immediate Release Tab PO PRN (09:33)
[2017-05-20 11:49] LABS: BETA 1 GLOBULIN 0.4 g/dL (0.4-0.6); BETA 2 GLOBULIN 0.4 g/dL (0.2-0.5); GAMMA GLOBULIN 1.9 g/dL (0.8-1.7)
[2017-05-21] MEDS: metroNIDAZOLE 500mg/100ml NS 100 ML IVPB SCH ×2 (00:13→08:04)
[2017-05-21 00:36] VITALS: TEMP 98
[2017-05-21] MEDS: Lactated Ringer's 1,000 ML IV SCH (04:45)
[2017-05-21 07:34] LABS: HEMATOCRIT 38.8 % (35.0-51.0); MEAN CELL VOLUME 88.8 fl (80.0-94.0); MEAN CORPUSCULAR HEMOGLOBIN 28.3 pg (27.0-31.0); MEAN CORPUSCULAR HGB CONC 31.9 g/dL (33.0-37.0); RED CELL DISTRIBUTION WIDTH 15.5 % (11.5-14.5); WHITE BLOOD COUNT 5.5 K/uL (4.8-10.8)
[2017-05-21 07:51] LABS: ALB/GLOB RATIO 0.9 (1.0-2.1); ALKALINE PHOSPHATASE 75 U/L (38-126); ALT/SGPT 130 U/L (21-72); AST/SGOT 123 U/L (17-59); BILIRUBIN,TOTAL 0.5 mg/dl (0.2-1.3); BLOOD UREA NITROGEN 26 mg/dl (9-20); CALCIUM 8.9 mg/dL (8.4-10.2); CARBON DIOXIDE 24 mmol/L (22-30); CHLORIDE 108 mmol/L (98-107); GFR AFRICAN-AMERICAN > 60; GLUCOSE,RANDOM 89 mg/dL (75-110); PARTIAL THROMBOPLASTIN TIME 33.6 Seconds (25.6-37.1); POTASSIUM 4.5 MMOL/L (3.6-5.0); SODIUM 142 mmol/l (132-148); TOTAL PROTEIN 7.5 G/DL (6.3-8.2)
[2017-05-21] MEDS: Ciprofloxacin 400mg/200ml D5W 400 MG/200 ML BAG IVPB SCH (08:04)
[2017-05-21 08:39] VITALS: BP 130/82; PULSE 58; RESP 18; O2SAT 97
--- NOTE | 2017-05-21 09:49 | CP.PCM.PN ---
Subjective - Date & Time of Evaluation Date of Evaluation: 05/21/17 Time of Evaluation: 09:47 - Subjective Subjective: Family Medicine Progress Note - Dr. Bowden 52 y/o male seen at bedside this morning prior to laparascopic inguinal hernia repair with general surgery (Dr. Goldberg). Patient confirms NPO status after midnight last night. Patient says he feels a general soreness overall, mainly at the site of his previous hip fracture and in his hernia. Patient is curious to know when he will go home and if he will get pain medication. Patient denies any abdominal pain, diarrhea or constipation, and reports normal and regular bowel movements with normal flatus. Patient denies F/C/N/V/CP/SOB. Objective - Vital Signs/Intake and Output Vital Signs (last 24 hours): Temp Pulse Resp BP Pulse Ox 98 F 58 L 18 130/82 97 05/21/17 08:38 05/21/17 08:38 05/21/17 08:38 05/21/17 08:38 05/21/17 08:38 - Medications Medications: Current Medications Acetaminophen (Tylenol 325mg Tab) 650 mg PO Q4 PRN PRN Reason: Pain, Mild (1-3) Diphenhydramine HCl (Benadryl) 50 mg PO HS PRN PRN Reason: Insomnia Last Admin: 05/20/17 23:06 Dose: 50 mg Docusate Sodium (Colace) 100 mg PO BID [facility] Last Admin: 05/21/17 08:14 Dose: Not Given Enoxaparin Sodium (Lovenox) 40 mg SC DAILY [facility] PRN Reason: Protocol Last Admin: 05/18/17 09:28 Dose: 40 mg Famotidine (Pepcid) 20 mg IVP Q12 [facility] Last Admin: 05/21/17 08:13 Dose: 20 mg Hydromorphone HCl (Dilaudid) 1 mg IVP Q4 PRN PRN Reason: Pain, severe (8-10) Last Admin: 05/21/17 08:00 Dose: 1 mg Lactated Ringer's (Lactated Ringer's) 1,000 mls @ 125 mls/hr IV .Q8H [facility] Last Admin: 05/21/17 04:45 Dose: Not Given Metronidazole (Flagyl 500mg/100ml Ns) 100 mls @ 100 mls/hr IVPB Q8 [facility] PRN Reason: Protocol Last Admin: 05/21/17 08:04 Dose: 100 mls/hr Ciprofloxacin (Cipro 400mg/200ml Dsw) 400 mg in 200 mls @ 200 mls/hr IVPB Q12 [facility] PRN Reason: Protocol Last Admin: 05/21/17 08:04 Dose: 200 mls/hr Nicotine (Nicoderm Cq) 1 patch TD DAILY [facility] Last Admin: 05/21/17 08:12 Dose: 1 patch Ondansetron HCl (Zofran Inj) 4 mg IVP Q6 PRN PRN Reason: Nausea/Vomiting Oxycodone HCl (Oxycodone Immediate Release Tab) 5 mg PO Q6 PRN PRN Reason: Pain, moderate (4-7) - Labs Labs: 05/21/17 07:00 05/21/17 07:00 PT 11.9 Seconds (9.8-13.1) 05/21/17 07:00 INR 1.1 (0.9-1.2) 05/21/17 07:00 APTT 33.6 Seconds (25.6-37.1) D 05/21/17 07:00 - Constitutional Appears: Well, Non-toxic, No Acute Distress - Head Exam Head Exam: ATRAUMATIC, NORMOCEPHALIC - Eye Exam Eye Exam: EOMI, Normal appearance Pupil Exam: PERRL - ENT Exam ENT Exam: Mucous Membranes Moist, Normal Exam - Neck Exam Neck Exam: Full ROM, Normal Inspection. absent: Lymphadenopathy, Tenderness - Respiratory Exam Respiratory Exam: Clear to Ausculation Bilateral, NORMAL BREATHING PATTERN - Cardiovascular Exam Cardiovascular Exam: REGULAR RHYTHM, +S1, +S2 - GI/Abdominal Exam GI & Abdominal Exam: Soft, Hernia, Normal Bowel Sounds. absent: Distended Additional comments: tenderness to palpation of RLQ at hernia site - Rectal Exam Rectal Exam: Deferred - Extremities Exam Extremities Exam: Normal Capillary Refill, Normal Inspection. absent: Calf Tenderness, Pedal Edema - Neurological Exam Neurological Exam: Alert, Awake, Oriented x3 - Psychiatric Exam Psychiatric exam: Normal Affect, Normal Mood Assessment and Plan - Assessment and Plan (Free Text) Assessment: 52 y/o male with PMHx of Hepatitis C and polysubstance abuse with right side inguinal hernia, to go to OR today for laparoscopic hernia repair Plan: (1) Right inguinal hernia - Pt to go to OR today at 12:30pm for laparascopic inguinal hernia repair - Patient is medically optimized for surgery - Pre op labs in chart - NPO order in place, confirmed NPO status with patient after midnight - Continue Dilaudid for pain control (2) Transaminitis - likely secondary to hepatitis C - AST/ALT enzymes increasing since admission - per chart review, levels fall within normal range for patient - patient confirms he has not been treated but is aware of his diagnosis - last hepatitis B screen was 02/2016 and was negative at that time (3) Gastric outlet obstruction, resolved - admitted for gastric outlet obstruction, imaging concerning for mass or malignancy - Currently on IV Flagyl and Ciprofloxacin - GI consult appreciated - Surgery on consult - Abd CT: Irregular wall thickening of the 2nd portion the duodenum suspicious for malignancy. This causes secondary gastric outlet obstruction with marked did gastric and proximal duodenal dilatation. Direct endoscopic visualization is recommended. - 2 days s/p EGD - deformity was found at the pylorus. No specimens were collected. No acute concerning abnormality noted - tolerating PO diet (4) Heroin use - Admits hx of heroin use - review of chart shows utox+ for cocaine and cannabis in previous visits - No withdrawal symptoms/signs at this time (5) DVT prophylaxis - Lovenox held at this time prior to surgery - Continue ambulation (6) Code status -full code
--- NOTE | 2017-05-21 12:47 | CP.PCM.DIS ---
Provider - Provider Date of Admission: 05/16/17 18:39 Attending physician: Arlene Bowden MD Time Spent in preparation of Discharge (in minutes): 30 Diagnosis - Discharge Diagnosis (1) Gastric outlet obstruction Status: Acute Priority: Medium Comment: resolved (2) Right inguinal hernia Status: Chronic Comment: pain decreased. f/u Dr. Goldberg to schedule outpatient surgery Hospital Course - Lab Results Lab Results: Most Recent Lab Values WBC 5.5 K/uL (4.8-10.8) 05/21/17 07:00 RBC 4.37 Mil/uL (4.40-5.90) L 05/21/17 07:00 Hgb 12.4 g/dL (12.0-18.0) 05/21/17 07:00 Hct 38.8 % (35.0-51.0) 05/21/17 07:00 MCV 88.8 fl (80.0-94.0) D 05/21/17 07:00 MCH 28.3 pg (27.0-31.0) 05/21/17 07:00 MCHC 31.9 g/dL (33.0-37.0) L 05/21/17 07:00 RDW 15.5 % (11.5-14.5) H 05/21/17 07:00 Plt Count 142 K/uL (130-400) 05/21/17 07:00 MPV 8.1 fl (7.2-11.7) 05/20/17 05:40 Neut % (Auto) 45.0 % (50.0-75.0) L 05/20/17 05:40 Lymph % (Auto) 36.9 % (20.0-40.0) 05/20/17 05:40 [place] % (Auto) 13.8 % (0.0-10.0) H 05/20/17 05:40 Eos % (Auto) 3.3 % (0.0-4.0) 05/20/17 05:40 Baso % (Auto) 1.0 % (0.0-2.0) 05/20/17 05:40 Neut # 1.9 K/uL (1.8-7.0) 05/20/17 05:40 Lymph # 1.6 K/uL (1.0-4.3) 05/20/17 05:40 [place] # 0.6 K/uL (0.0-0.8) 05/20/17 05:40 Eos # 0.1 K/uL (0.0-0.7) 05/20/17 05:40 Baso # 0.0 K/uL (0.0-0.2) 05/20/17 05:40 PT 11.9 Seconds (9.8-13.1) 05/21/17 07:00 INR 1.1 (0.9-1.2) 05/21/17 07:00 APTT 33.6 Seconds (25.6-37.1) D 05/21/17 07:00 Sodium 142 mmol/l (132-148) 05/21/17 07:00 Potassium 4.5 MMOL/L (3.6-5.0) 05/21/17 07:00 Chloride 108 mmol/L (98-107) H 05/21/17 07:00 Carbon Dioxide 24 mmol/L (22-30) 05/21/17 07:00 Anion Gap 15 (10-20) 05/21/17 07:00 BUN 26 mg/dl (9-20) H 05/21/17 07:00 Creatinine 1.3 mg/dl (0.8-1.5) 05/21/17 07:00 Est GFR ( Amer) > 60 05/21/17 07:00 Est GFR (Non-Af Amer) 58 05/21/17 07:00 Random Glucose 89 mg/dL (75-110) 05/21/17 07:00 Calcium 8.9 mg/dL (8.4-10.2) 05/21/17 07:00 Total Bilirubin 0.5 mg/dl (0.2-1.3) 05/21/17 07:00 AST 123 U/L (17-59) H D 05/21/17 07:00 ALT 130 U/L (21-72) H 05/21/17 07:00 Alkaline Phosphatase 75 U/L (38-126) 05/21/17 07:00 Ammonia < 9 umo/L (16-60) L 05/20/17 05:40 Total Protein 7.5 G/DL (6.3-8.2) 05/21/17 07:00 Total Protein (PEP) 6.8 g/dL (6.1-8.1) 05/19/17 14:13 Albumin 3.6 g/dL (3.5-5.0) 05/21/17 07:00 Albumin (PEP) 3.1 g/dL (3.8-4.8) L 05/19/17 14:13 Globulin 3.9 gm/dL (2.2-3.9) 05/21/17 07:00 Albumin/Globulin Ratio 0.9 (1.0-2.1) L 05/21/17 07:00 Hmxph-6-Bomgzqylj 0.2 g/dL (0.2-0.3) 05/19/17 14:13 Djjwb-6-Oogtwjbae 0.7 g/dL (0.5-0.9) 05/19/17 14:13 Ztnq-2-Iiapqfjk 0.4 g/dL (0.4-0.6) 05/19/17 14:13 Djow-8-Tqwbqopi 0.4 g/dL (0.2-0.5) 05/19/17 14:13 Gamma Globulins 1.9 g/dL (0.8-1.7) H 05/19/17 14:13 Abnorm Protein Band 1 TEST NOT PERFORMED 05/19/17 14:13 Abnorm Protein Band 2 TEST NOT PERFORMED 05/19/17 14:13 Abnorm Protein Band 3 TEST NOT PERFORMED 05/19/17 14:13 Alpha Fetoprotein 1.7 IU/mL (0.0-7.22) 05/20/17 05:40 Urine Color Yellow (YELLOW) 05/20/17 06:10 Urine Clarity Clear (Clear) 05/20/17 06:10 Urine pH 7.0 (5.0-8.0) 05/20/17 06:10 Ur Specific [place] 1.011 (1.003-1.030) 05/20/17 06:10 Urine Protein Negative mg/dL (NEGATIVE) 05/20/17 06:10 Urine Glucose (UA) Neg mg/dL (Normal) 05/20/17 06:10 Urine Ketones Negative mg/dL (NEGATIVE) 05/20/17 06:10 Urine Blood Negative (NEGATIVE) 05/20/17 06:10 Urine Nitrate Negative (NEGATIVE) 05/20/17 06:10 Urine Bilirubin Negative (NEGATIVE) 05/20/17 06:10 Urine Urobilinogen 0.2-1.0 mg/dL (0.2-1.0) 05/20/17 06:10 Ur Leukocyte Esterase Neg Day/uL (Negative) 05/20/17 06:10 Urine RBC (Auto) 1 /hpf (0-3) 05/20/17 06:10 Urine Microscopic WBC < 1 /hpf (0-5) 05/20/17 06:10 Urine Bacteria Rare (<OCC) 05/20/17 06:10 JAKE & SPEP Interp See note 05/19/17 14:13 HIV-1 Ab Rapid Screen Non reactive (NON REAC) 05/19/17 14:13 - Hospital Course Hospital Course: 52 y/o male with PMHx of Hepatitis C and polysubstance abuse admitted for lower adbominal pain and gastric outlet obstruction. Patient was given an NGT and evaluated by GI and general surgery. Patient was treated empirically with Ciprofloxacin and Flagyl and had an EGD performed. Patient resumed regular bowel movements and flatus while in house. Patient's abdominal pain was well- controlled with Dilaudid and his hernia remains reducible. Patient will be discharged in stable condition and is to follow up as outpatient with Dr. Goldberg to address his inguinal hernia. Discharge Exam - Head Exam Head Exam: ATRAUMATIC, NORMOCEPHALIC - Eye Exam Eye Exam: EOMI, Normal appearance Pupil Exam: NORMAL ACCOMODATION, PERRL - ENT Exam ENT Exam: Mucous Membranes Moist, Normal Exam - Neck Exam Neck exam: Full Rom, Normal Inspection - Respiratory Exam Respiratory Exam: NORMAL BREATHING PATTERN, UNREMARKABLE. absent: Rales, Wheezes - Cardiovascular Exam Cardiovascular Exam: REGULAR RHYTHM, +S1, +S2. absent: JVD - GI/Abdominal Exam GI & Abdominal Exam: Hernia, Normal Bowel Sounds, Tenderness Additional comments: tenderness to palpation of RLQ at hernia site - Rectal Exam Rectal Exam: Deferred - Extremities Exam Extremities exam: normal capillary refill, normal inspection, pedal pulses present - Neurological Exam Neurological exam: Alert, Oriented x3 - Psychiatric Exam Psychiatric exam: Normal Affect, Normal Mood - Skin Skin Exam: Dry, Intact, Normal Color, Warm Discharge Plan - Discharge Medications Prescriptions: Ciprofloxacin [Cipro] 500 mg PO Q12 4 Days #8 tab Metronidazole [Flagyl] 500 mg PO Q8 4 Days #12 tab - Follow Up Plan Condition: STABLE Disposition: HOME/ ROUTINE Instructions: Inguinal Hernia (DC) Additional Instructions: follow up with PMD and Dr Goldberg Referrals: David Goldberg MD [Staff Provider] - Jason Capellan MD [Staff Provider] -
--- NOTE | 2017-05-21 14:17 | CP.PCM.PN ---
Subjective - Date & Time of Evaluation Date of Evaluation: 05/21/17 Time of Evaluation: 10:30 - Subjective Subjective: General surgery progress note for Dr. Goldberg-Dorota Chan, PGY-1 Pt S & E at bedside this AM. Pt reports continued, but improved R groin pain, states that the hernia continues to be reducible. Denies N & V, F & C, other complaints. Was tolerating a diet prior to EGD on 05/20. Objective - Vital Signs/Intake and Output Vital Signs (last 24 hours): Temp Pulse Resp BP Pulse Ox 98 F 58 L 18 130/82 97 05/21/17 08:38 05/21/17 08:38 05/21/17 08:38 05/21/17 08:38 05/21/17 08:38 - Labs Labs: 05/21/17 07:00 05/21/17 07:00 PT 11.9 Seconds (9.8-13.1) 05/21/17 07:00 INR 1.1 (0.9-1.2) 05/21/17 07:00 APTT 33.6 Seconds (25.6-37.1) D 05/21/17 07:00 - Constitutional Appears: Non-toxic, No Acute Distress - Head Exam Head Exam: ATRAUMATIC, NORMAL INSPECTION, NORMOCEPHALIC - Eye Exam Eye Exam: EOMI, Normal appearance - ENT Exam ENT Exam: Mucous Membranes Moist, Normal Exam - Neck Exam Neck Exam: Full ROM, Normal Inspection - Respiratory Exam Respiratory Exam: Clear to Ausculation Bilateral, NORMAL BREATHING PATTERN - Cardiovascular Exam Cardiovascular Exam: REGULAR RHYTHM, +S1, +S2 - GI/Abdominal Exam GI & Abdominal Exam: Soft, Tenderness (over right groin), Normal Bowel Sounds. absent: Distended, Firm, Guarding - Extremities Exam Extremities Exam: Full ROM, Normal Inspection. absent: Pedal Edema - Neurological Exam Neurological Exam: Alert, Awake, CN II-XII Intact, Normal Gait, Oriented x3 - Psychiatric Exam Psychiatric exam: Normal Affect, Normal Mood - Skin Skin Exam: Dry, Intact, Normal Color, Warm Assessment and Plan - Assessment and Plan (Free Text) Assessment: 52M w/recurrent R inguinal hernia Plan: Pt ok to d/c from surgical stand point if tolerating diet Pt instructed to return for elective hernia repair DW attending Rocio, PGY-1
== END 2017-05-21 12:51 | disposition home or self-care (01) | DRG 394 ==
LOC: H.ER 18:31 → H.ERHOLD 18:39 → H.MEDSURG1 21:34
PROVIDERS: ADMIT Family Medicine Geriatric Medicine; ATTEND Family Medicine Geriatric Medicine
PROC: 0D768ZZ Dilation of Stomach, Via Natural or Artificial Opening Endoscopic (ICD-10-PCS; 2017-05-19)
PROC: 0D798ZZ Dilation of Duodenum, Via Natural or Artificial Opening Endoscopic (ICD-10-PCS; principal; 2017-05-19 13:00)
DX: K40.01 Bilateral inguinal hernia, with obstruction, without gangrene, recurrent (principal); K31.1 Adult hypertrophic pyloric stenosis; B18.2 Chronic viral hepatitis C; K57.30 Diverticulosis of large intestine without perforation or abscess without bleeding; F11.90 Opioid use, unspecified, uncomplicated; F14.90 Cocaine use, unspecified, uncomplicated; F17.210 Nicotine dependence, cigarettes, uncomplicated; Z59.0 Homelessness; Z87.81 Personal history of (healed) traumatic fracture; Z91.81 History of falling

== ENCOUNTER 2017-05-22 21:35 | Inpatient (IN) | payer MEDICAID, SELFPAY ==
[2017-05-22 21:35] VITALS: BMI 22.8
[2017-05-22 23:04] LABS: BASO # 0.1 K/uL (0.0-0.2); EOS # 0.1 K/uL (0.0-0.7); EOS % 1.4 % (0.0-4.0); HEMATOCRIT 38.7 % (35.0-51.0); LYMPH # 1.7 K/uL (1.0-4.3); LYMPH % 18.6 % (20.0-40.0); MEAN CELL VOLUME 86.9 fl (80.0-94.0); MEAN CORPUSCULAR HGB CONC 32.2 g/dL (33.0-37.0); MEAN PLATELET VOLUME 8.3 fl (7.2-11.7); MONO # 0.9 K/uL (0.0-0.8); MONO % 9.8 % (0.0-10.0); NEUT # 6.5 K/uL (1.8-7.0); NEUT % 69.2 % (50.0-75.0); NRBC % 0.1 % (0.0-0.0); RED CELL DISTRIBUTION WIDTH 14.9 % (11.5-14.5); WHITE BLOOD COUNT 9.4 K/uL (4.8-10.8)
--- NOTE | 2017-05-22 23:07 | ED PDOC ---
Syncope/Near Syncope/Dizziness Time Seen by Provider: 05/22/17 22:28 Chief Complaint (Nursing): Syncope Chief Complaint (Provider): Syncope History Per: Patient History/Exam Limitations: no limitations Onset/Duration Of Symptoms: Hrs Additional Complaint(s): Patient is a 52 y/o male with a past medical history of Hepatitis C and a hernia presenting to the emergency department for two syncopal episodes tonight. Reports that the first episode occurred earlier and he afterwards went to the ER but signed out AMA. While he was here, a chest CT was done to rule out a pulmonary embolism, as his D-dimer levels were found to be elevated. Denies any other complaints. PCP: none provided. Past Medical History Reviewed: Historical Data, Nursing Documentation, Vital Signs Vital Signs: Last Vital Signs Temp 98.8 F 05/22/17 21:39 Pulse 118 H 05/22/17 21:39 Resp 16 05/22/17 21:39 BP 134/85 05/22/17 21:39 Pulse Ox 100 05/22/17 21:39 - Medical History PMH: Fractures (right hip), Hepatitis (C) Denies: Diabetes, HIV, HTN, Chronic Kidney Disease, Seizures, Sexually Transmitted Disease - Surgical History Surgical History: Hernia Repair - Family History Family History: States: Unknown Family Hx - Social History Current smoker - smoking cessation education provided: Yes (one pack per day) Ex-Smoker (has not smoked in the last 12 months): No Alcohol: None Drugs: Opiates (heroin) - Immunization History Hx Tetanus Toxoid Vaccination: No Hx Influenza Vaccination: No Hx Pneumococcal Vaccination: No - Home Medications Home Medications: Ambulatory Orders Medication Instructions Recorded Ciprofloxacin [Cipro] 500 mg PO Q12 4 Days #8 tab 05/21/17 Metronidazole [Flagyl] 500 mg PO Q8 4 Days #12 tab 05/21/17 - Allergies Allergies/Adverse Reactions: Allergies Allergy/AdvReac Type Severity Reaction Status Date / Time No Known Allergies Allergy Verified 05/22/17 21:39 Review of Systems ROS Statement: Except As Marked, All Systems Reviewed And Found Negative Neurological: Positive for: Other (syncope) Physical Exam - Reviewed Nursing Documentation Reviewed: Yes Vital Signs Reviewed: Yes - Physical Exam Appears: Positive for: Well, Non-toxic, No Acute Distress Head Exam: Positive for: ATRAUMATIC, NORMAL INSPECTION, NORMOCEPHALIC Skin: Positive for: Normal Color, Warm, Dry Eye Exam: Positive for: Normal appearance Neck: Positive for: Normal Cardiovascular/Chest: Positive for: Regular Rate, Rhythm. Negative for: Murmur Respiratory: Positive for: Normal Breath Sounds. Negative for: Accessory Muscle Use, Respiratory Distress Gastrointestinal/Abdominal: Positive for: Normal Exam, Soft. Negative for: Tenderness Extremity: Positive for: Normal ROM Neurologic/Psych: Positive for: Alert, Oriented (x3) - Laboratory Results Result Diagrams: 05/22/17 22:59 - ECG O2 Sat by Pulse Oximetry: 100 (RA) Pulse Ox Interpretation: Normal Medical Decision Making Medical Decision Making: Time: 22:46 Initial impression: Syncope Initial plan: CMP and Troponin Urine C&S Urinalysis Reevaluation Scribe Attestation: Documented by Amena Ovalle, acting as a scribe for Baltazar Braun MD. Provider Scribe Attestation: All medical record entries made by the Scribe were at my direction and personally dictated by me. I have reviewed the chart and agree that the record accurately reflects my personal performance of the history, physical exam, medical decision making, and the department course for this patient. I have also personally directed, reviewed, and agree with the discharge instructions and disposition. Disposition - Disposition Forms: [employer] ([place])
[2017-05-22 23:17] LABS: BILIRUBIN,TOTAL 0.6 mg/dl (0.2-1.3); CALCIUM 9.2 mg/dL (8.4-10.2); POTASSIUM 4.3 MMOL/L (3.6-5.0); TOTAL PROTEIN 8.4 G/DL (6.3-8.2)
[2017-05-22 23:28] LABS: TROPONIN I 0.013 ng/mL (0.00-0.120)
[2017-05-22] MEDS ORDERED: Sodium Chloride 0.9% 1,000 ML IV STA (23:54)
[2017-05-23] MEDS ORDERED: Oxycodone/Acetaminophen 5/325 mg Tab PO PRN (00:04)
[2017-05-23] MEDS ORDERED: Alum-Mag Hydrox-Simethicone Susp (30 mL) PO PRN (00:04)
[2017-05-23 00:21] LABS: RBC URINE 1 /hpf (0-3); URINE BILIRUBIN NEGATIVE (NEGATIVE); URINE BLOOD NEGATIVE (NEGATIVE); URINE COLOR YELLOW (YELLOW); URINE GLUCOSE (UA) NEG (Normal); URINE KETONE NEGATIVE (NEGATIVE); URINE LEUKOCYTE ESTERASE NEG Leu/uL (Negative); URINE PROTEIN NEGATIVE (NEGATIVE); URINE UROBILINOGEN 0.2-1.0 mg/dL (0.2-1.0); WBC URINE < 1 /hpf (0-5)
--- NOTE | 2017-05-23 00:27 | CP.PCM.HP ---
History of Present Illness - History of Present Illness History of Present Illness: 52 year old male presents to ED for second time today with complaint of syncope. Earlier today patient was seen after having syncopal episode while out walking on [address], he does not remember anything other than walking down the street and denies palpitations, dizziness or weakness at that time. He was seen in [facility] ED, CT head was negative, CTA chest was negative for PE. Upon review of labs: Ddimer elevated: 640. Just prior to arrival this evening, the patient was at a friend's house, having dinner, seated when, as per friend, patient passed out into his plate of food. When patient woke up he had food in his mercado, no recollection of what happened. Presently he is complaining of mild headache, no dizziness, palpitations, weakness, changes in vision. No urinary/bowel incontinence. Reports he has been having palpitations occasionally, with no other associated symptoms. He denies any history of heart disease, syncopal episodes or seizures. He last used heroin yesterday, in his attempt to stop using daily, he took suboxone today. Suboxone was taken early this morning. He states he was clean for 18 months, he then relapsed in December of 2016 after his hip fracture when he was given dilaudid and morphine for his pain control. After his discharge he began using heroin again. He is interested in joining a detox program as soon as his insurance has been reinstated. PMH: Hepatitis C, polysubstance abuse, right inguinal hernia Medications: none Allergies: NKDA Social: heroin use, tobacco use, cannabis use Surgical: right orchipexy, right hip closed reduction and internal fixation 01/10 Present on Admission - Present on Admission Any Indicators Present on Admission: No Review of Systems - Constitutional Constitutional: Headache. absent: Chills, Weakness - EENT Eyes: absent: Change in Vision - Cardiovascular Cardiovascular: Palpitations, Syncope. absent: Chest Pain, Dyspnea - Respiratory Respiratory: absent: Cough, Dyspnea, Hemoptysis - Gastrointestinal Gastrointestinal: absent: Abdominal Pain, Constipation, Diarrhea, Nausea, Vomiting - Genitourinary Genitourinary: absent: Dysuria, Urinary Frequency - Musculoskeletal Musculoskeletal: absent: Muscle Weakness - Neurological Neurological: Disequilibrium, Headaches, Syncope. absent: Dizziness, Numbness, Focal Weakness Past Patient History - Infectious Disease Hx of Infectious Diseases: None - Tetanus Immunizations Tetanus Immunization: Unknown - Past Medical History & Family History Past Medical History?: No - Past Social History Alcohol: None Drugs: Cannabis, Opiates (heroin) Home Situation {Lives}: [place] ([place]) - CARDIAC Hx Hypertension: No - PULMONARY Hx Tuberculosis: No - NEUROLOGICAL Hx Seizures: No - HEENT Hx HEENT Problems: No - RENAL Hx Chronic Kidney Disease: No - ENDOCRINE/METABOLIC Hx Endocrine Disorders: No - HEMATOLOGICAL/ONCOLOGICAL Hx Human Immunodeficiency Virus (HIV): No - INTEGUMENTARY Hx Dermatological Problems: No - MUSCULOSKELETAL/RHEUMATOLOGICAL Hx Fractures: Yes (right hip) - GASTROINTESTINAL Hx Gastrointestinal Disorders: Yes Hx Hemorrhoids: Yes Other/Comment: HERNIA - GENITOURINARY/GYNECOLOGICAL Hx Sexually Transmitted Disorders: No - PSYCHIATRIC Hx Psychophysiologic Disorder: Yes (Heroine abuse) Hx Substance Use: Yes (Heroine abuse) - SURGICAL HISTORY Hx Surgeries: Yes Hx Herniorrhaphy: Yes (khushi inguinal hernia repair) Other/Comment: Right Hip (srews placed due to fracture s/p fall) -November 2016, right orchiopexy for undescended testicle - ANESTHESIA Hx Anesthesia: Yes Hx Anesthesia Reactions: No Hx Malignant Hyperthermia: No Meds Allergies/Adverse Reactions: Allergies Allergy/AdvReac Type Severity Reaction Status Date / Time No Known Allergies Allergy Verified 05/22/17 21:39 Physical Exam - Constitutional Appears: Non-toxic, No Acute Distress - Head Exam Head Exam: ATRAUMATIC, NORMAL INSPECTION, NORMOCEPHALIC - Eye Exam Eye Exam: EOMI, PERRL. absent: Conjunctival injection, Nystagmus Pupil Exam: absent: Miosis - ENT Exam ENT Exam: Mucous Membranes Moist Additional comments: poor dentition - Respiratory Exam Respiratory Exam: Clear to Auscultation Bilateral, NORMAL BREATHING PATTERN. absent: Rales, Rhonchi, Wheezes, Respiratory Distress - Cardiovascular Exam Cardiovascular Exam: REGULAR RHYTHM, +S1, +S2. absent: Bradycardia, Tachycardia , Diastolic murmur, Systolic Murmur - GI/Abdominal Exam GI & Abdominal Exam: Normal Bowel Sounds, Soft. absent: Distended, Guarding, Tenderness - Extremities Exam Extremities exam: Negative for: pedal edema - Neurological Exam Neurological exam: Alert, CN II-XII Intact, Oriented x3 Additional comments: no motor sensory deficity - Psychiatric Exam Psychiatric exam: Normal Affect, Normal Mood - Skin Skin Exam: Dry, Intact, Normal Color, Warm Results - Vital Signs Recent Vital Signs: Last Vital Signs Temp 98.8 F 05/22/17 21:39 Pulse 118 H 05/22/17 21:39 Resp 16 05/22/17 21:39 BP 134/85 05/22/17 21:39 Pulse Ox 100 05/22/17 23:11 - Labs Result Diagrams: 05/23/17 05:20 05/23/17 05:20 Labs: Laboratory Results - last 24 hr 05/22/17 05/22/17 05/22/17 22:59 22:59 23:40 WBC 9.4 D RBC 4.45 Hgb 12.5 Hct 38.7 MCV 86.9 MCH 28.0 MCHC 32.2 L RDW 14.9 H Plt Count 147 MPV 8.3 Neut % (Auto) 69.2 Lymph % (Auto) 18.6 L Summers % (Auto) 9.8 Eos % (Auto) 1.4 Baso % (Auto) 1.0 Neut # 6.5 Lymph # 1.7 Summers # 0.9 H Eos # 0.1 Baso # 0.1 Sodium 140 Potassium 4.3 Chloride 103 Carbon Dioxide 26 Anion Gap 15 BUN 38 H Creatinine 1.7 H Est GFR ( Amer) 51 Est GFR (Non-Af Amer) 42 Random Glucose 99 Calcium 9.2 Total Bilirubin 0.6 AST 130 H ALT 149 H Alkaline Phosphatase 87 Troponin I 0.0130 Total Protein 8.4 H Albumin 4.1 Globulin 4.2 H Albumin/Globulin Ratio 1.0 Urine Opiates Screen Positive H Urine Methadone Screen Negative Ur Barbiturates Screen Negative Ur Phencyclidine Scrn Negative Ur Amphetamines Screen Negative U Benzodiazepines Scrn Positive U Oth Cocaine Metabols Positive H U Cannabinoids Screen Negative - Imaging and Cardiology CT scan - chest Status: Image reviewed by me, Report reviewed by me Additional comment: FINDINGS: PULMONARY ARTERIES: Evaluation limited. Cannot adequately evaluate subsegmental pulmonary artery branches on the basis of this examination due to limited differential enhancement of pulmonary artery and branches. No pulmonary arterial filling defect appreciated to the level of segmental pulmonary artery branches. AORTA: No acute findings. No thoracic aortic aneurysm. LUNGS: Unremarkable. No nodule, mass or pulmonary consolidation. PLEURAL SPACES: Unremarkable. No effusion or pneuomothorax. HEART: Unremarkable. No cardiomegaly. No significant pericardial effusion. LYMPH NODES: No lymphadenopathy. BONES, CHEST WALL: Unremarkable. No fracture or destructive lesion OTHER FINDINGS: Mild splenomegaly. The spleen measures 14.3 cm in greatest dimension. IMPRESSION: No evidence of pulmonary embolism. Examination limited for evaluation of subsegmental pulmonary artery branches. Mild splenomegaly. No additional abnormality. CT scan - head Status: Image reviewed by me, Report reviewed by me Additional comment: FINDINGS: HEMORRHAGE: No intracranial hemorrhage. BRAIN: No mass effect or edema. Minimal periventricular white matter lucency adjacent to frontal horns of the lateral ventricles, consistent with age related microvascular ischemic change. No evidence of acute infarct. VENTRICLES: Unremarkable. No hydrocephalus. CALVARIUM: Unremarkable. PARANASAL SINUSES: Unremarkable as visualized. No significant inflammatory changes. MASTOID AIR CELLS: Unremarkable as visualized. No inflammatory changes. OTHER FINDINGS: None. IMPRESSION: No intracranial mass, hemorrhage or evidence of acute infarct. Chest x-ray Status: Image reviewed by me, Report reviewed by me Additional comment: FINDINGS: LUNGS: No active pulmonary disease. PLEURA: No significant pleural effusion identified, no pneumothorax apparent. CARDIOVASCULAR: Normal. OSSEOUS STRUCTURES: No significant abnormalities. VISUALIZED UPPER ABDOMEN: Normal. OTHER FINDINGS: None. IMPRESSION: No interval acute cardiopulmonary disease appreciated. Assessment & Plan (1) Syncope Assessment and Plan: 52 year old male admitted after two syncopal episodes. No hx of heart disease or seizures. pt did not have urinary or bowel incontinence, no biting of tongue. Patients ekg was normal sinus rhythm. ct head was negative. admit to telemetry for cardiac monitoring. Possibly related to suboxone use, seizure vs vasovagal syncope repeat ekg in AM, f/u labs heroin dependence protocol ordered Neurology consult Cardiology consult Status: Acute (2) Renal insufficiency Assessment and Plan: CKD stage 3b stable Status: Chronic (3) Heroin use Assessment and Plan: heroin dependence protocol ordered monitor for withdrawal Status: Chronic (4) Transaminitis Assessment and Plan: pt has hep C, untreated also heroin user stable needs treatment for hepatitis C as outpatient Status: Chronic
[2017-05-23 06:14] LABS: BASO % 0.7 % (0.0-2.0); EOS # 0.2 K/uL (0.0-0.7); EOS % 3.4 % (0.0-4.0); HEMATOCRIT 34.2 % (35.0-51.0); LYMPH # 1.8 K/uL (1.0-4.3); LYMPH % 30.3 % (20.0-40.0); MEAN CELL VOLUME 87.2 fl (80.0-94.0); MEAN CORPUSCULAR HEMOGLOBIN 28.2 pg (27.0-31.0); MEAN CORPUSCULAR HGB CONC 32.3 g/dL (33.0-37.0); MEAN PLATELET VOLUME 8.3 fl (7.2-11.7); MONO # 0.8 K/uL (0.0-0.8); MONO % 12.9 % (0.0-10.0); NEUT # 3.2 K/uL (1.8-7.0); NEUT % 52.7 % (50.0-75.0); RED CELL DISTRIBUTION WIDTH 15.4 % (11.5-14.5)
[2017-05-23 06:48] LABS: ALB/GLOB RATIO 0.9 (1.0-2.1); ALKALINE PHOSPHATASE 68 U/L (38-126); ALT/SGPT 117 U/L (21-72); AST/SGOT 106 U/L (17-59); BILIRUBIN,TOTAL 0.4 mg/dl (0.2-1.3); BLOOD UREA NITROGEN 36 mg/dl (9-20); CALCIUM 8.5 mg/dL (8.4-10.2); CARBON DIOXIDE 28 mmol/L (22-30); CHLORIDE 104 mmol/L (98-107); GFR AFRICAN-AMERICAN 59; GLUCOSE,RANDOM 102 mg/dL (75-110); POTASSIUM 3.8 MMOL/L (3.6-5.0); SODIUM 141 mmol/l (132-148); TOTAL PROTEIN 7.1 G/DL (6.3-8.2)
[2017-05-23 06:54] LABS: THYROID STIMULATING HORMONE 1.29 mIU/ML (0.46-4.68)
[2017-05-23] MEDS: Multivitamin With Minerals Tab PO SCH (08:24)
[2017-05-23 10:22] LABS: PHOSPHOROUS 4.3 mg/dl (2.5-4.5)
--- NOTE | 2017-05-23 14:11 | CARD ---
APPROVED REPORT EXAM: Two-dimensional and M-mode echocardiogram with Doppler and color Doppler. Other Information Quality : GoodRhythm : NSR INDICATION Pulmonary Hypertention Syncope 2D DIMENSIONS IVSd1.25 (0.7-1.1cm)LVDd5.04 (3.9-5.9cm) LVOT Diameter2.55 (1.8-2.4cm)PWd1.26 (0.7-1.1cm) IVSs1.80 (0.8-1.2cm)LVDs2.94 (2.5-4.0cm) FS (%) 41.5 %PWs1.66 (0.8-1.2cm) M-Mode DIMENSIONS Left Atrium (MM)4.21 (2.5-4.0cm)IVSd1.35 (0.7-1.1cm) Aortic Root3.53 (2.2-3.7cm)LVDd5.09 (4.0-5.6cm) Aortic Cusp Exc.2.53 (1.5-2.0cm)PWd1.12 (0.7-1.1cm) IVSs1.74 cmFS (%) 42 % LVDs2.94 (2.0-3.8cm)PWs1.88 cm Mitral Valve MV E Gwxqptem22.7cm/sMV DECEL [id number] A Meoxhnvw20.7cm/s MV [id number]/A ratio1.3MVA (PHT)2.36cm2 TDI Lateral E' Peak V13.12cm/sMedial E' Peak V9.45cm/sE/Lateral E'4.4 E/Medial E'6.1 LEFT VENTRICLE The left ventricle is normal in size. There is normal left ventricular wall thickness. The left ventricular function is normal. The left ventricular ejection fraction is - 65%. There is normal LV segmental wall motion. The left ventricular diastolic function is normal. No left ventricle thrombus noted on this study. There is no ventricular septal defect visualized. There is no left ventricular aneurysm. There is no mass noted in the left ventricle. RIGHT VENTRICLE The right ventricle is normal size. There is normal right ventricular wall thickness. The right ventricular systolic function is normal. ATRIA The left atrium is mildly dilated. There is no thrombus suspected in the left atrium. The right atrium size is normal. The interatrial septum is intact with no evidence for an atrial septal defect. AORTIC VALVE The aortic valve is normal in structure. No aortic regurgitation is present. There is no aortic valvular stenosis. MITRAL VALVE The mitral valve is normal in structure. There is no evidence of mitral valve prolapse. There is no mitral valve stenosis. Mitral regurgitation is trace. TRICUSPID VALVE The tricuspid valve is normal in structure. There is trace tricuspid regurgitation. There is no tricuspid valve prolapse or vegetation. There is no tricuspid valve stenosis. PULMONIC VALVE The pulmonic valve is not well visualized. There is no pulmonic valvular regurgitation. GREAT VESSELS The aortic root is normal in size. The IVC is normal in size and collapses >50% with inspiration. PERICARDIAL EFFUSION The pericardium appears normal. There is no pleural effusion. <Conclusion> The left ventricle is normal in size and wall thickness. The left ventricular function is normal. The left ventricular ejection fraction is - 65%. The left atrium is mildly dilated. The mitral, aortic and tricuspid valves are normal. There is trace mitral regurgitation and trace tricuspid regurgitation.
--- NOTE | 2017-05-23 14:41 | CON ---
CARDIOLOGY CONSULTATION REASON FOR CONSULTATION: Recurrent syncope. HISTORY OF PRESENT ILLNESS: The patient is 52 years old white male who presents because of recurrent syncopal episode. Apparently, the patient signed against medical advice after the first episode; however, a CT scan of the chest was done to rule out pulmonary embolism before he signed AMA. The patient denies any chest pain and is unaware of any prior history of heart attack or stroke in the past. The patient has a history of hepatitis C. MEDICATIONS: Ativan 2 mg IM q. 4 hours p.r.n. for agitation, Imodium 2 mg p.o. q. 4 hours p.r.n. for diarrhea, Lovenox 40 mg subcutaneously once a day, Restoril 30 mg at bedtime. REVIEW OF SYSTEMS: No fever or chills. The patient did report diarrhea. No palpitation. PHYSICAL EXAMINATION: GENERAL: The patient is a middle-aged male, who appears much older than his stated age. VITAL SIGNS: Blood pressure 116/75, heart rate 63, temperature 97.2, respirations 18. HEENT: No icterus. NECK: No JVD. CHEST: Clear. HEART: S1 and S2 regular. ABDOMEN: Soft. EXTREMITIES: There is no edema. LABORATORY DATA: Today's SMA-7 is within normal limit except for BUN of 36. Two sets of troponins are not elevated. TSH level is within normal limit. Hemoglobin and hematocrit 11.1 and 34.2. White count and platelet count are within normal limit. Urine drug screen is positive for opiates and cocaine. EKG revealed normal sinus rhythm. ASSESSMENT: 1. Recurrent syncope. 2. Cocaine abuse. 3. Rule out seizure disorder. RECOMMENDATIONS: I did review the head CT scan that was performed while the patient was in the emergency room and it revealed no acute findings. I did review the chest CT angio, which revealed no evidence of pulmonary embolism. There was mild splenomegaly. Continue current telemetry monitoring. I will follow the echocardiography study as well as EEG. Shahzad Morales MD
--- NOTE | 2017-05-23 15:11 | US ---
PROCEDURE: Duplex ultrasound of the carotid and vertebral arteries. HISTORY: syncope COMPARISON: None available. TECHNIQUE: Grayscale and duplex Doppler evaluation of the cervical carotid and vertebral arteries were performed. The common carotid, carotid bifurcations and cervical ICA and proximal ECA were evaluated. The vertebral arteries were evaluated for gross patency and direction. FINDINGS: RIGHT CAROTID ARTERIES: Common Carotid Artery: Normal. Maximal flow velocity of 89.5 cm/s. Carotid Bifurcation: Normal. Internal Carotid Artery:Normal. Maximal flow velocity of 120.5 cm/s. External Carotid Artery (proximal branches): Normal. Maximal flow velocity of 106.4 cm/s. ICA/CCA Ratio: 1.3 LEFT CAROTID ARTERIES: Common Carotid Artery: Normal. Maximal flow velocity of 109.7 cm/s. Carotid Bifurcation: Normal. Internal Carotid Artery:Normal. Maximal flow velocity of 90.3 cm/s. External Carotid Artery (proximal branches): Normal. Maximal flow velocity of 103.2 cm/s. ICA/CCA Ratio: 0.9 VERTEBRAL ARTERIES: Right Vertebral Artery: Patent. Antegrade flow. Left Vertebral Artery: Patent. Antegrade flow. OTHER FINDINGS: None. IMPRESSION: No significant stenosis of the bilateral common and internal carotid arteries as delineated above.
--- NOTE | 2017-05-23 15:48 | MRI ---
PROCEDURE: MRI BRAIN WITHOUT CONTRAST HISTORY: syncope COMPARISON: Correlation made with concurrent MRA brain as well as prior CT scan of the brain dated 05/22/2017. TECHNIQUE: Multiplanar, multisequence MR images of the brain were obtained without intravenous contrast enhancement. FINDINGS: HEMORRHAGE: No acute parenchymal, subarachnoid or extra-axial hemorrhage. . No evidence of hemosiderin deposition identified on gradient echo weighted sequence. DWI: No evidence of an acute or early subacute infarction seen on diffusion imaging. BRAIN PARENCHYMA: Mild diffuse/ confluent chronic white matter ischemic changes seen extending peripherally into the deep white matter both cerebral hemispheres. Additionally, there are a few small chronic appearing lacunar type infarcts scattered about the deep and subcortical white matter both cerebral hemispheres. Probable tiny chronic bilateral pontine lacunar type infarcts also present. None of these changes exhibit restricted diffusion. Mild age-appropriate volume loss. VENTRICLES: No obstructive hydrocephalus. CRANIUM: No obvious calvarial abnormalities ORBITS: Orbits and contents appear grossly unremarkable. PARANASAL SINUSES/MASTOIDS: Clear VASCULAR SYSTEM: Skull base flow voids intact. OTHER FINDINGS: None. IMPRESSION: No acute intracranial hemorrhage or infarct. 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
--- NOTE | 2017-05-23 16:01 | MRI ---
PROCEDURE: MRA brain dated 05/23/2017 HISTORY: Syncope COMPARISON: Correlation made with concurrent MRA brain TECHNIQUE: 3D time of flight MR angiography of the intracranial arteries was performed. Rotating maximum intensity projection images were generated. FINDINGS: INTERNAL CAROTID ARTERIES: Unremarkable. The skull base, petrous, cavernous and supraclinoid segments are bilaterally widely patient. ANTERIOR CEREBRAL ARTERIES: Unremarkable. A1 and A2 segments are widely patent. Smaller distal branches unremarkable, as visualized. MIDDLE CEREBRAL ARTERIES: Unremarkable. M1 and M2 segments are widely patent. Perisylvian branches grossly symmetric. POSTERIOR CIRCULATION: There is mild asymmetry of the vertebral arteries, with the left vertebral artery is larger in caliber/ more dominant than the right ANEURYSM/ VASCULAR MALFORMATIONS: No evidence of large aneurysm nor vascular malformation. OTHER FINDINGS: None. IMPRESSION: No evidence of occlusion nor significant stenosis. No evidence of large aneurysm nor vascular malformation.
--- NOTE | 2017-05-23 16:06 | PCM.EEG ---
Electroencephalogram Report - Electroencephalogram Report Procedure Date: 05/23/17 Interpretation: Indication: Syncope. Medications were reviewed. Technical: This is a digitally recorded electroencephalogram. The international 10-20 electrode placement system is used for scalp electrode placement. Another channel was used for for ECG. The data are stored digitally and reviewed in reformatted montages for optimal display. Background: 9 to 10 hertz alpha activity was seen. Maximal over the posterior head region. These activities are symmetric on both sides. They attenuated with eye opening. Description: No focal slowing was seen. Patient entered into periods of drowsiness and light sleep. Of note, there were two distinct right temporal lobe sharp wave discharges noted. Impression: This is a probably normal EEG. Although two sharp wave discharges may not justify a seizure disorder in some cases, in the right clinical setting , the patient may have a possible seizure focus.
--- NOTE | 2017-05-23 16:31 | CP.PCM.CON ---
History of Present Illness - History of Present Illness History of Present Illness: Mr. Mauricio is a 52-year-old man with a past medical history of hep C, polysubstance abuse, inguinal hernia, who had two episodes in the same day of syncope. The first episode happened while he was walking. He did not have any premonition or feeling that anything was wrong and simply "blacked out". Afterward, there was a brief confusion and grogginess, no urinary/bowel incontinence or tongue biting. The second episode was when he was at his friend 's hour, sitting at the dinner table an he "passed out". Similar to the first episode, there were no significant associated symptoms. Review of Systems - Review of Systems All systems: reviewed and no additional remarkable complaints except Past Patient History - Infectious Disease Hx of Infectious Diseases: None - Tetanus Immunizations Tetanus Immunization: Unknown - Past Medical History & Family History Past Medical History?: No - Past Social History Alcohol: None Drugs: Cannabis, Opiates (heroin) Home Situation {Lives}: Homeless (lives in snf) - CARDIAC Hx Hypertension: No - PULMONARY Hx Tuberculosis: No - NEUROLOGICAL Hx Seizures: No - HEENT Hx HEENT Problems: No - RENAL Hx Chronic Kidney Disease: No - ENDOCRINE/METABOLIC Hx Endocrine Disorders: No - HEMATOLOGICAL/ONCOLOGICAL Hx Human Immunodeficiency Virus (HIV): No - INTEGUMENTARY Hx Dermatological Problems: No - MUSCULOSKELETAL/RHEUMATOLOGICAL Hx Fractures: Yes (right hip) - GASTROINTESTINAL Hx Gastrointestinal Disorders: Yes Hx Hemorrhoids: Yes Other/Comment: HERNIA - GENITOURINARY/GYNECOLOGICAL Hx Sexually Transmitted Disorders: No - PSYCHIATRIC Hx Psychophysiologic Disorder: Yes (Heroine abuse) Hx Substance Use: Yes (Heroine abuse) - SURGICAL HISTORY Hx Surgeries: Yes Hx Herniorrhaphy: Yes (khushi inguinal hernia repair) Other/Comment: Right Hip (srews placed due to fracture s/p fall) -November 2016, right orchiopexy for undescended testicle - ANESTHESIA Hx Anesthesia: Yes Hx Anesthesia Reactions: No Hx Malignant Hyperthermia: No Meds Allergies/Adverse Reactions: Allergies Allergy/AdvReac Type Severity Reaction Status Date / Time No Known Allergies Allergy Verified 05/22/17 21:39 - Medications Medications: Current Medications Acetaminophen (Tylenol 325mg Tab) 650 mg PO Q6 PRN PRN Reason: Pain, Mild (1-3) Al Hydrox/Mg Hydrox/Simethicone (Maalox Plus 30 Ml) 30 ml PO QID PRN PRN Reason: Abdominal Discomfort Enoxaparin Sodium (Lovenox) 40 mg SC DAILY ALYSE PRN Reason: Protocol Ibuprofen (Motrin Tab) 800 mg PO Q6 PRN PRN Reason: Pain, Mild (1-3) Stop: 05/26/17 00:06 Loperamide HCl (Imodium) 2 mg PO Q4 PRN PRN Reason: After Loose Bowel Movement Lorazepam (Ativan) 2 mg IM Q4 PRN PRN Reason: Agitation,Unable to Take Oral Morphine Sulfate (Morphine) 2 mg IVP Q4 PRN PRN Reason: Pain, severe (8-10) Multivitamins/Minerals (Therapeutic-M Tab) 1 tab PO DAILY [facility] Last Admin: 05/23/17 08:24 Dose: 1 tab Oxycodone/Acetaminophen (Percocet 5/325 Mg Tab) 1 tab PO Q4 PRN PRN Reason: Pain, moderate (4-7) Stop: 05/26/17 00:05 Temazepam (Restoril) 30 mg PO HS PRN PRN Reason: Insomnia Physical Exam - Constitutional Appears: Older Than Stated Age - Head Exam Head Exam: ATRAUMATIC, NORMAL INSPECTION, NORMOCEPHALIC - Eye Exam Eye Exam: EOMI, Normal appearance, PERRL - ENT Exam ENT Exam: Mucous Membranes Moist, Normal Exam - Neck Exam Neck exam: Positive for: Normal Inspection - Respiratory Exam Respiratory Exam: Clear to Auscultation Bilateral, NORMAL BREATHING PATTERN - Cardiovascular Exam Cardiovascular Exam: REGULAR RHYTHM, +S1, +S2 - GI/Abdominal Exam GI & Abdominal Exam: Normal Bowel Sounds, Soft. absent: Tenderness - Rectal Exam Rectal Exam: Deferred - Extremities Exam Extremities exam: Positive for: normal inspection - Back Exam Back exam: NORMAL INSPECTION - Neurological Exam Neurological exam: Alert, CN II-XII Intact, Normal Gait, Oriented x3, Reflexes Normal - Psychiatric Exam Psychiatric exam: Normal Affect, Normal Mood - Skin Skin Exam: Abrasion, Dry, Warm Results - Vital Signs Recent Vital Signs: Last Vital Signs Temp 97.2 F L 05/23/17 12:00 Pulse 63 05/23/17 12:00 Resp 18 05/23/17 12:00 BP 116/75 05/23/17 12:00 Pulse Ox 98 05/23/17 12:00 - Labs Result Diagrams: 05/23/17 05:20 05/23/17 05:20 Labs: Laboratory Results - last 24 hr 05/22/17 05/22/17 05/22/17 22:59 22:59 23:40 WBC 9.4 D RBC 4.45 Hgb 12.5 Hct 38.7 MCV 86.9 MCH 28.0 MCHC 32.2 L RDW 14.9 H Plt Count 147 MPV 8.3 Neut % (Auto) 69.2 Lymph % (Auto) 18.6 L Lamb % (Auto) 9.8 Eos % (Auto) 1.4 Baso % (Auto) 1.0 Neut # 6.5 Lymph # 1.7 Lamb # 0.9 H Eos # 0.1 Baso # 0.1 ESR Sodium 140 Potassium 4.3 Chloride 103 Carbon Dioxide 26 Anion Gap 15 BUN 38 H Creatinine 1.7 H Est GFR ( Amer) 51 Est GFR (Non-Af Amer) 42 Random Glucose 99 Calcium 9.2 Phosphorus Magnesium Total Bilirubin 0.6 AST 130 H ALT 149 H Alkaline Phosphatase 87 Total Creatine Kinase Troponin I 0.0130 Total Protein 8.4 H Albumin 4.1 Globulin 4.2 H Albumin/Globulin Ratio 1.0 Vitamin B12 TSH 3rd Generation Urine Color Yellow Urine Clarity Slighty-cloudy Urine pH 5.0 Ur Specific [place] 1.035 H Urine Protein Negative Urine Glucose (UA) Neg Urine Ketones Negative Urine Blood Negative Urine Nitrate Negative Urine Bilirubin Negative Urine Urobilinogen 0.2-1.0 Ur Leukocyte Esterase Neg Urine RBC (Auto) 1 Urine Microscopic WBC < 1 Urine Opiates Screen Urine Methadone Screen Ur Barbiturates Screen Ur Phencyclidine Scrn Ur Amphetamines Screen U Benzodiazepines Scrn U Oth Cocaine Metabols U Cannabinoids Screen 05/22/17 05/23/17 05/23/17 23:40 05:20 05:20 WBC 6.0 RBC 3.93 L Hgb 11.1 L Hct 34.2 L MCV 87.2 MCH 28.2 MCHC 32.3 L RDW 15.4 H Plt Count 136 MPV 8.3 Neut % (Auto) 52.7 Lymph % (Auto) 30.3 Lamb % (Auto) 12.9 H Eos % (Auto) 3.4 Baso % (Auto) 0.7 Neut # 3.2 Lymph # 1.8 Lamb # 0.8 Eos # 0.2 Baso # 0.0 ESR Sodium 141 Potassium 3.8 Chloride 104 Carbon Dioxide 28 Anion Gap 13 BUN 36 H Creatinine 1.5 Est GFR ( Amer) 59 Est GFR (Non-Af Amer) 49 Random Glucose 102 Calcium 8.5 Phosphorus Magnesium Total Bilirubin 0.4 AST 106 H ALT 117 H D Alkaline Phosphatase 68 Total Creatine Kinase 79 Troponin I < 0.0120 Total Protein 7.1 Albumin 3.3 L Globulin 3.7 Albumin/Globulin Ratio 0.9 L Vitamin B12 TSH 3rd Generation 1.29 Urine Color Urine Clarity Urine pH Ur Specific [place] Urine Protein Urine Glucose (UA) Urine Ketones Urine Blood Urine Nitrate Urine Bilirubin Urine Urobilinogen Ur Leukocyte Esterase Urine RBC (Auto) Urine Microscopic WBC Urine Opiates Screen Positive H Urine Methadone Screen Negative Ur Barbiturates Screen Negative Ur Phencyclidine Scrn Negative Ur Amphetamines Screen Negative U Benzodiazepines Scrn Positive U Oth Cocaine Metabols Positive H U Cannabinoids Screen Negative 05/23/17 05/23/17 05/23/17 07:44 07:44 10:12 WBC RBC Hgb Hct MCV MCH MCHC RDW Plt Count MPV Neut % (Auto) Lymph % (Auto) Lamb % (Auto) Eos % (Auto) Baso % (Auto) Neut # Lymph # Lamb # Eos # Baso # ESR 21 H Sodium Potassium Chloride Carbon Dioxide Anion Gap BUN Creatinine Est GFR ( Amer) Est GFR (Non-Af Amer) Random Glucose Calcium Phosphorus 4.3 Magnesium 2.0 Total Bilirubin AST ALT Alkaline Phosphatase Total Creatine Kinase Troponin I Total Protein Albumin Globulin Albumin/Globulin Ratio Vitamin B12 397 TSH 3rd Generation Urine Color Urine Clarity Urine pH Ur Specific [place] Urine Protein Urine Glucose (UA) Urine Ketones Urine Blood Urine Nitrate Urine Bilirubin Urine Urobilinogen Ur Leukocyte Esterase Urine RBC (Auto) Urine Microscopic WBC Urine Opiates Screen Urine Methadone Screen Ur Barbiturates Screen Ur Phencyclidine Scrn Ur Amphetamines Screen U Benzodiazepines Scrn U Oth Cocaine Metabols U Cannabinoids Screen - Imaging and Cardiology MRI - head Status: Image reviewed by me, Report reviewed by me (No significant abnormalities on MRI brain and MRA head. ) Assessment & Plan (1) Syncope Assessment and Plan: The EEG showed a few sharp wave discharges, which could be consistent with an epileptogenic focus. However, the MRI was basically normal and the patient's cardiac work-up should be followed. The episodes he had do not seem to be consistent with a seizure and are more likely neurocardiogenic in origin. The patient refused the neck MRA, we can obtain a carotid doppler. We will discuss possibly starting an anti-seizure medication if the cardiac work-up is normal. Thank you. Status: Acute Priority: High
[2017-05-23 22:21] LABS: FOLATE > 20.0 ng/mL
[2017-05-24 06:26] VITALS: RESP 20; TEMP 97.9
[2017-05-24 07:41] LABS: HEMATOCRIT 39.7 % (35.0-51.0); MEAN CELL VOLUME 87.6 fl (80.0-94.0); MEAN CORPUSCULAR HEMOGLOBIN 28.3 pg (27.0-31.0); MEAN CORPUSCULAR HGB CONC 32.4 g/dL (33.0-37.0); RED CELL DISTRIBUTION WIDTH 15.3 % (11.5-14.5); WHITE BLOOD COUNT 5.3 K/uL (4.8-10.8)
[2017-05-24 07:56] LABS: ALB/GLOB RATIO 0.9 (1.0-2.1); BILIRUBIN,TOTAL 0.6 mg/dl (0.2-1.3); CALCIUM 8.8 mg/dL (8.4-10.2); POTASSIUM 4.6 MMOL/L (3.6-5.0); TOTAL PROTEIN 7.8 G/DL (6.3-8.2)
[2017-05-24 08:20] VITALS: BP 136/84; PULSE 76; O2SAT 98
[2017-05-24] MEDS: Multivitamin With Minerals Tab PO SCH (08:37)
[2017-05-24] MEDS ORDERED: Enoxaparin 40 mg Syringe SC SCH (09:00)
--- NOTE | 2017-05-24 13:08 | CP.PCM.DIS ---
Provider - Provider Date of Admission: 05/23/17 14:05 Attending physician: Arlene Bowden MD Time Spent in preparation of Discharge (in minutes): 30 Diagnosis - Discharge Diagnosis (1) Syncope Status: Acute Priority: High Hospital Course - Lab Results Lab Results: Micro Results 05/22/17 23:40 Urine Urine Culture - Final No Growth (<1,000 CFU/ML) Most Recent Lab Values WBC 5.3 K/uL (4.8-10.8) 05/24/17 05:30 RBC 4.54 Mil/uL (4.40-5.90) 05/24/17 05:30 Hgb 12.9 g/dL (12.0-18.0) 05/24/17 05:30 Hct 39.7 % (35.0-51.0) 05/24/17 05:30 MCV 87.6 fl (80.0-94.0) 05/24/17 05:30 MCH 28.3 pg (27.0-31.0) 05/24/17 05:30 MCHC 32.4 g/dL (33.0-37.0) L 05/24/17 05:30 RDW 15.3 % (11.5-14.5) H 05/24/17 05:30 Plt Count 151 K/uL (130-400) 05/24/17 05:30 MPV 8.3 fl (7.2-11.7) 05/23/17 05:20 Neut % (Auto) 52.7 % (50.0-75.0) 05/23/17 05:20 Lymph % (Auto) 30.3 % (20.0-40.0) 05/23/17 05:20 [place] % (Auto) 12.9 % (0.0-10.0) H 05/23/17 05:20 Eos % (Auto) 3.4 % (0.0-4.0) 05/23/17 05:20 Baso % (Auto) 0.7 % (0.0-2.0) 05/23/17 05:20 Neut # 3.2 K/uL (1.8-7.0) 05/23/17 05:20 Lymph # 1.8 K/uL (1.0-4.3) 05/23/17 05:20 [place] # 0.8 K/uL (0.0-0.8) 05/23/17 05:20 Eos # 0.2 K/uL (0.0-0.7) 05/23/17 05:20 Baso # 0.0 K/uL (0.0-0.2) 05/23/17 05:20 ESR 21 mm/hr (0-20) H 05/23/17 07:44 Sodium 143 mmol/l (132-148) 05/24/17 05:30 Potassium 4.6 MMOL/L (3.6-5.0) 05/24/17 05:30 Chloride 107 mmol/L (98-107) 05/24/17 05:30 Carbon Dioxide 28 mmol/L (22-30) 05/24/17 05:30 Anion Gap 13 (10-20) 05/24/17 05:30 BUN 27 mg/dl (9-20) H 05/24/17 05:30 Creatinine 1.5 mg/dl (0.8-1.5) 05/24/17 05:30 Est GFR ( Amer) 59 05/24/17 05:30 Est GFR (Non-Af Amer) 49 05/24/17 05:30 Random Glucose 98 mg/dL (75-110) 05/24/17 05:30 Calcium 8.8 mg/dL (8.4-10.2) 05/24/17 05:30 Phosphorus 4.3 mg/dl (2.5-4.5) 05/23/17 10:12 Magnesium 2.0 MG/DL (1.6-2.3) 05/23/17 10:12 Total Bilirubin 0.6 mg/dl (0.2-1.3) 05/24/17 05:30 AST 133 U/L (17-59) H D 05/24/17 05:30 ALT 151 U/L (21-72) H D 05/24/17 05:30 Alkaline Phosphatase 75 U/L (38-126) 05/24/17 05:30 Total Creatine Kinase 79 U/L (55-170) 05/23/17 05:20 Troponin I < 0.0120 ng/mL (0.00-0.120) 05/23/17 05:20 Total Protein 7.8 G/DL (6.3-8.2) 05/24/17 05:30 Albumin 3.7 g/dL (3.5-5.0) 05/24/17 05:30 Globulin 4.1 gm/dL (2.2-3.9) H 05/24/17 05:30 Albumin/Globulin Ratio 0.9 (1.0-2.1) L 05/24/17 05:30 Vitamin B12 397 pg/mL (239-931) 05/23/17 07:44 25-OH Vitamin D Total 34.7 NG/ML (30.0-100.0) 05/23/17 07:44 Folate > 20.0 ng/mL 05/23/17 07:44 TSH 3rd Generation 1.29 mIU/ML (0.46-4.68) 05/23/17 05:20 Urine Color Yellow (YELLOW) 05/22/17 23:40 Urine Clarity Slighty-cloudy (Clear) 05/22/17 23:40 Urine pH 5.0 (5.0-8.0) 05/22/17 23:40 Ur Specific [place] 1.035 (1.003-1.030) H 05/22/17 23:40 Urine Protein Negative mg/dL (NEGATIVE) 05/22/17 23:40 Urine Glucose (UA) Neg mg/dL (Normal) 05/22/17 23:40 Urine Ketones Negative mg/dL (NEGATIVE) 05/22/17 23:40 Urine Blood Negative (NEGATIVE) 05/22/17 23:40 Urine Nitrate Negative (NEGATIVE) 05/22/17 23:40 Urine Bilirubin Negative (NEGATIVE) 05/22/17 23:40 Urine Urobilinogen 0.2-1.0 mg/dL (0.2-1.0) 05/22/17 23:40 Ur Leukocyte Esterase Neg Day/uL (Negative) 05/22/17 23:40 Urine RBC (Auto) 1 /hpf (0-3) 05/22/17 23:40 Urine Microscopic WBC < 1 /hpf (0-5) 05/22/17 23:40 Urine Opiates Screen Positive (NEGATIVE) H 05/22/17 23:40 Urine Methadone Screen Negative (NEGATIVE) 05/22/17 23:40 Ur Barbiturates Screen Negative (NEGATIVE) 05/22/17 23:40 Ur Phencyclidine Scrn Negative (NEGATIVE) 05/22/17 23:40 Ur Amphetamines Screen Negative (NEGATIVE) 05/22/17 23:40 U Benzodiazepines Scrn Positive (NEGATIVE) 05/22/17 23:40 U Oth Cocaine Metabols Positive (NEGATIVE) H 05/22/17 23:40 U Cannabinoids Screen Negative (NEGATIVE) 05/22/17 23:40 - Hospital Course Hospital Course: 52 YO M was admitted for 2 eppisodes of syncope. Neuro and cardio were consulted. Patient was monitored in Tele. Patient was thoroughly. - Patient had Echo, Brain MRI, Head MRA, EEG. Only significant finding seen was an abnormal activity noted on temporal region, but patient was not noted to have any type of seizure like activity. Patient is adamant on being discharged. He was advised to wait untill further recommendations are given by neuro and cardio. Patient states he would like to sign out AMA. - PATIENT SIGNED OUT AGAINST MEDICAL ADVISE: Has been explained risks of signing out. Patient states he understands and would still like to leave. Discharge Exam - Head Exam Head Exam: ATRAUMATIC, NORMAL INSPECTION, NORMOCEPHALIC - Respiratory Exam Respiratory Exam: Clear to PA & Lateral, NORMAL BREATHING PATTERN - Cardiovascular Exam Cardiovascular Exam: REGULAR RHYTHM, +S1, +S2 - GI/Abdominal Exam GI & Abdominal Exam: Normal Bowel Sounds - Skin Skin Exam: Normal Color, Warm Discharge Plan - Follow Up Plan Condition: STABLE Disposition: AGAINST MEDICAL ADVICE Additional Instructions: ER precausions given - Has been explained the risks of signing out against medical advice. Referrals: Milton Bowens MD [Resident] - Shahriar Eisenberg MD [Medical Doctor] -
== END 2017-05-24 10:17 | disposition left against medical advice (07) | DRG 141 ==
LOC: H.ER 21:35 → H.ERHOLD 23:11 → H.TEL 05-23 01:26 → OBSVTOIN 05-23 14:05
PROVIDERS: ADMIT Family Medicine Geriatric Medicine; ATTEND Family Medicine Geriatric Medicine
DX: R55 Syncope and collapse (principal); B19.20 Unspecified viral hepatitis C without hepatic coma; R16.1 Splenomegaly, not elsewhere classified; F11.90 Opioid use, unspecified, uncomplicated; F14.10 Cocaine abuse, uncomplicated; N18.9 Chronic kidney disease, unspecified; F12.90 Cannabis use, unspecified, uncomplicated; F17.210 Nicotine dependence, cigarettes, uncomplicated; Z59.0 Homelessness; F45.9 Somatoform disorder, unspecified; K64.9 Unspecified hemorrhoids; R74.0 Nonspecific elevation of levels of transaminase and lactic acid dehydrogenase [LDH]

== ENCOUNTER 2017-07-02 02:42 | Emergency (ER) | payer MEDICAID ==
[2017-07-02 02:58] VITALS: BP 130/79; PULSE 87; RESP 20; TEMP 97.6; O2SAT 98; BMI 23.0
--- NOTE | 2017-07-02 04:09 | ED PDOC ---
HPI: Chest Pain Time Seen by Provider: 07/02/17 03:11 Chief Complaint (Nursing): Chest Pain Chief Complaint (Provider): chest pain Additional Complaint(s): 52 y/o nondomiciled male presents complaining of nonspecific chest pain. Patient states pain started after being asked to leave the ED waiting room. Denies fever, nausea/vomiting, cough, congestion, shortness of breath, palpitations, leg pain/swelling. Of note, patient sleeping in stretcher upon technical writer and editor entering exam room. Past Medical History Reviewed: Historical Data, Nursing Documentation, Vital Signs Vital Signs: Last Vital Signs Temp 97.6 F 07/02/17 02:58 Pulse 87 07/02/17 02:58 Resp 20 07/02/17 02:58 BP 130/79 07/02/17 02:58 Pulse Ox 98 07/09/17 02:37 - Medical History PMH: Fractures (right hip), Hepatitis (C) Denies: Diabetes, HIV, HTN, Chronic Kidney Disease, Seizures, Sexually Transmitted Disease - Surgical History Surgical History: Hernia Repair - Family History Family History: States: Unknown Family Hx - Immunization History Hx Tetanus Toxoid Vaccination: No Hx Influenza Vaccination: No Hx Pneumococcal Vaccination: No - Home Medications Home Medications: Ambulatory Orders Medication Instructions Recorded No Known Home Med 07/04/17 - Allergies Allergies/Adverse Reactions: Allergies Allergy/AdvReac Type Severity Reaction Status Date / Time No Known Allergies Allergy Verified 07/02/17 03:06 Review of Systems ROS Statement: Except As Marked, All Systems Reviewed And Found Negative Cardiovascular: Positive for: Chest Pain Physical Exam - Reviewed Nursing Documentation Reviewed: Yes Vital Signs Reviewed: Yes - Physical Exam Appears: Positive for: Well, Non-toxic, No Acute Distress Head Exam: Positive for: ATRAUMATIC, NORMAL INSPECTION, NORMOCEPHALIC Skin: Positive for: Normal Color Eye Exam: Positive for: Normal appearance ENT: Positive for: Normal ENT Inspection Cardiovascular/Chest: Positive for: Regular Rate, Rhythm Respiratory: Positive for: Normal Breath Sounds Gastrointestinal/Abdominal: Positive for: Normal Exam Back: Positive for: Normal Inspection Extremity: Positive for: Normal ROM Neurologic/Psych: Positive for: Alert, Oriented - ECG ECG: Positive for: Viewed By Me (reviewed by ED attending) ECG Rhythm: Positive for: Sinus Rhythm O2 Sat by Pulse Oximetry: 98 - Progress ED Course And Treament: 52 y/o male registered to be seen for chest pain after asked by security to leave ED waiting room. Patient known to ED with multiple ED visits/bed seeking behavior EKG shows no acute changes Patient has appt with PMD in 2 days. Patient is stable for discharge. Disposition - Clinical Impression Clinical Impression: Atypical chest pain - Patient ED Disposition Is Patient to be Admitted: No Counseled Patient/Family Regarding: Studies Performed, Diagnosis, Need For Followup - Disposition Disposition: Routine/Home Disposition Time: 03:45 Condition: STABLE Instructions: Chest Pain (ED) Forms: [employer] ([place]olan)
== END 2017-07-02 04:00 | disposition home or self-care (01) ==
LOC: H.ER 02:42
DX: R07.89 Other chest pain (principal)

== ENCOUNTER 2017-07-14 17:44 | Emergency (ER) | payer MEDICAID ==
[2017-07-14 17:44] VITALS: BMI 23.0
[2017-07-14 18:21] VITALS: BP 170/104; PULSE 80; RESP 20; TEMP 98; O2SAT 98
== END 2017-07-14 20:00 | disposition left against medical advice (07) ==
LOC: H.ER 17:44
DX: Z02.89 Encounter for other administrative examinations (principal)

== ENCOUNTER 2017-07-17 11:38 | Inpatient (IN) | payer MEDICAID, SELFPAY ==
[2017-07-17 11:39] VITALS: BMI 23.0
[2017-07-17] MEDS ORDERED: Morphine 5 MG/ML SYRINGE IVP STA (12:47)
[2017-07-17] MEDS ORDERED: HYDROmorphone 0.5 mg/0.5 ml ISec IVP STA (13:07)
[2017-07-17 13:47] LABS: HEMOGLOBIN 12.3 g/dL (12.0-18.0); MEAN CELL VOLUME 89.4 fl (80.0-94.0); MEAN CORPUSCULAR HEMOGLOBIN 29.7 pg (27.0-31.0); MEAN CORPUSCULAR HGB CONC 33.2 g/dL (33.0-37.0); RBC 4.14 Mil/uL (4.40-5.90); RED CELL DISTRIBUTION WIDTH 16.2 % (11.5-14.5); WHITE BLOOD COUNT 6.1 K/uL (4.8-10.8)
[2017-07-17 13:51] LABS: BLOOD UREA NITROGEN 25 mg/dl (9-20); GFR AFRICAN-AMERICAN > 60; GFR NON-AFRICAN AMERICAN > 60
[2017-07-17 13:52] LABS: CALCIUM 8.9 mg/dL (8.4-10.2)
--- NOTE | 2017-07-17 14:03 | ED PDOC ---
HPI: Male Pain Time Seen by Provider: 07/17/17 12:07 Chief Complaint (Nursing): Abdominal Pain Chief Complaint (Provider): Inguinal hernia History Per: Patient History/Exam Limitations: no limitations Onset/Duration Of Symptoms: Days (x4), Intermittent Episodes Current Symptoms Are (Timing): Still Present Quality Of Discomfort: "Pain" Associated Symptoms: denies: Vomiting, Diarrhea, Urinary Symptoms Additional Complaint(s): Hernesto Mauricio is a 52 year old male, with a history of right hip surgery on December 30, who presents to the emergency department complaining of a worsening intermittent right groin pain secondary to hernia onset for x4 days. Patient went to the surgical clinic today, the hernia is non reducible. He was complaining of nausea x3 days ago but has now resolved. Surgeon, Dr. Baird, came to the ER to discuss the case and recommends admission to Dr. Haq's service. Patient denies any diarrhea, vomiting or urinary symptoms. No further medical complaints. PMD: None provided. Past Medical History Reviewed: Historical Data, Nursing Documentation Vital Signs: Last Vital Signs Temp 98 F 07/17/17 12:02 Pulse 73 07/17/17 12:02 Resp 18 07/17/17 12:02 BP 142/82 07/17/17 12:02 Pulse Ox 100 07/17/17 12:02 - Medical History PMH: Fractures (right hip), Hepatitis (C) Denies: Diabetes, HIV, HTN, Chronic Kidney Disease, Seizures, Sexually Transmitted Disease - Surgical History Surgical History: Hernia Repair - Family History Family History: States: Unknown Family Hx - Social History Current smoker - smoking cessation education provided: Yes (Heavy smoker >10 cigarettes daily) Alcohol: None - Immunization History Hx Tetanus Toxoid Vaccination: No Hx Influenza Vaccination: No Hx Pneumococcal Vaccination: No - Home Medications Home Medications: Ambulatory Orders Medication Instructions Recorded QUEtiapine [Seroquel] 100 mg PO HS #30 tab 07/09/17 Nicotine [Nicoderm Cq] 14 mg TD DAILY 07/17/17 Oxycodone HCl/Acetaminophen 1 each PO Q4 PRN #20 tablet 07/19/17 [Percocet 10-325 mg Tablet] - Allergies Allergies/Adverse Reactions: Allergies Allergy/AdvReac Type Severity Reaction Status Date / Time No Known Allergies Allergy Verified 07/02/17 03:06 Review of Systems ROS Statement: Except As Marked, All Systems Reviewed And Found Negative Gastrointestinal: Negative for: Vomiting, Diarrhea Genitourinary Male: Positive for: Other (right groin pain secondary to hernia). Negative for: Dysuria, Frequency, Incontinence Physical Exam - Reviewed Nursing Documentation Reviewed: Yes Vital Signs Reviewed: Yes - Physical Exam Appears: Positive for: Non-toxic Head Exam: Positive for: ATRAUMATIC, NORMAL INSPECTION, NORMOCEPHALIC Skin: Positive for: Normal Color, Warm, Dry Eye Exam: Positive for: Normal appearance, EOMI, PERRL Neck: Positive for: Painless ROM, Supple Cardiovascular/Chest: Positive for: Regular Rate, Rhythm. Negative for: Murmur Respiratory: Positive for: Normal Breath Sounds. Negative for: Respiratory Distress Gastrointestinal/Abdominal: Positive for: Normal Exam, Soft. Negative for: Tenderness, Guarding, Rebound Male Genital Exam: Positive for: hernia mass (right inguinal. Non reducible) Back: Positive for: Normal Inspection. Negative for: L CVA Tenderness, R CVA Tenderness, Vertebral Tenderness Extremity: Positive for: Normal ROM. Negative for: Deformity, Swelling Neurologic/Psych: Positive for: Alert, Oriented - Laboratory Results Result Diagrams: 07/17/17 13:23 07/18/17 09:10 - ECG ECG Rhythm: Positive for: Sinus Rhythm (normal) Rate: 68 O2 Sat by Pulse Oximetry: 100 (RA) Pulse Ox Interpretation: Normal Medical Decision Making Medical Decision Making: Initial Impression: right inguinal hernia rule out incarceration Initial Plan: --Type and screen --EKG --Urine drug screen --PTT --PT --Chest portable [RAD] --Dilaudid 0.5mg IVP --Admit to hospital --reevaluation --Will admit to Dr. Haq Scribe Attestation: Documented by Esau Vigil, acting as a scribe for Nato Coughlin MD Provider Scribe Attestation: All medical record entries made by the Scribe were at my direction and personally dictated by me. I have reviewed the chart and agree that the record accurately reflects my personal performance of the history, physical exam, medical decision making, and the department course for this patient. I have also personally directed, reviewed, and agree with the discharge instructions and disposition. Disposition - Clinical Impression Clinical Impression: Inguinal hernia - Patient ED Disposition Is Patient to be Admitted: Yes Discussed With DrDonya: Richard Baird Doctor Will See Patient In The: ED - Disposition Disposition Time: 12:46 Condition: FAIR - Pt Status Changed To: Hospital Disposition Of: Inpatient - Admit Certification Admit to Inpatient:: After my assessment, the patient will require hospitalization for at least two midnights. This is because of the severity of symptoms shown, intensity of services needed, and/or the medical risk in this patient being treated as an outpatient.
[2017-07-17 14:07] LABS: BARBITURATES, UR NEGATIVE (NEGATIVE); BENZODIAZEPINES, UR NEGATIVE (NEGATIVE); PHENCYCLIDINE, UR NEGATIVE (NEGATIVE)
[2017-07-17 14:13] LABS: OPIATES, UR POSITIVE (NEGATIVE)
--- NOTE | 2017-07-17 14:16 | CP.PCM.HP ---
History of Present Illness - History of Present Illness History of Present Illness: General Surgery: Dr Haq Pt is a 52M who was seen earlier today in the surgical clinic for [facility]. Pt was sent to ED as hernia is incarcerated. Pt reports a 2 year history of hernia, previously reducible (but with significant difficulty) now unreducible. Pt has had intermittent obstructive symptoms, typically 1-2 per months, which include vomiting and nausea. Currently hernia has been protruding for 3 days, is extremely tender, and will not reduce, despite positioning and various maneuvers. Present on Admission - Present on Admission Any Indicators Present on Admission: No Review of Systems - Constitutional Constitutional: absent: Chills - Cardiovascular Cardiovascular: absent: Chest Pain - Respiratory Respiratory: absent: Cough, Dyspnea - Gastrointestinal Gastrointestinal: Abdominal Pain, Bloating, Nausea, Vomiting. absent: Constipation, Excessive Flatus Past Patient History - Infectious Disease Hx of Infectious Diseases: None - Tetanus Immunizations Tetanus Immunization: Unknown - Past Medical History & Family History Past Medical History?: No - Past Social History Smoking Status: Heavy Smoker > 10 Cigarettes Daily - CARDIAC Hx Hypertension: No - PULMONARY Hx Tuberculosis: No - NEUROLOGICAL Hx Seizures: No - HEENT Hx HEENT Problems: No - RENAL Hx Chronic Kidney Disease: No - ENDOCRINE/METABOLIC Hx Endocrine Disorders: No - HEMATOLOGICAL/ONCOLOGICAL Hx Human Immunodeficiency Virus (HIV): No - INTEGUMENTARY Hx Dermatological Problems: No - MUSCULOSKELETAL/RHEUMATOLOGICAL Hx Fractures: Yes (right hip) - GASTROINTESTINAL Hx Gastrointestinal Disorders: Yes Hx Colitis: Yes Hx Hemorrhoids: Yes Other/Comment: HERNIA - GENITOURINARY/GYNECOLOGICAL Hx Sexually Transmitted Disorders: No - PSYCHIATRIC Hx Psychophysiologic Disorder: Yes (Heroine abuse) Hx Substance Use: Yes - SURGICAL HISTORY Hx Surgeries: Yes Hx Herniorrhaphy: Yes (khushi inguinal hernia repair) Other/Comment: Right Hip (srews placed due to fracture s/p fall) -November 2016, right orchiopexy for undescended testicle - ANESTHESIA Hx Anesthesia: Yes Hx Anesthesia Reactions: No Hx Malignant Hyperthermia: No Meds Allergies/Adverse Reactions: Allergies Allergy/AdvReac Type Severity Reaction Status Date / Time No Known Allergies Allergy Verified 07/02/17 03:06 Physical Exam - Constitutional Appears: Non-toxic - Head Exam Head Exam: NORMAL INSPECTION - ENT Exam ENT Exam: Mucous Membranes Moist - Respiratory Exam Respiratory Exam: absent: Accessory Muscle Use, Respiratory Distress - Cardiovascular Exam Cardiovascular Exam: REGULAR RHYTHM - GI/Abdominal Exam GI & Abdominal Exam: Hernia (RIH), Soft, Tenderness (RIH). absent: Distended, Firm, Mass - Neurological Exam Neurological exam: Alert, Oriented x3 - Psychiatric Exam Psychiatric exam: Normal Affect, Normal Mood - Skin Skin Exam: Normal Color Results - Vital Signs Recent Vital Signs: Last Vital Signs Temp 98 F 07/17/17 12:02 Pulse 73 07/17/17 12:02 Resp 18 07/17/17 12:02 BP 142/82 07/17/17 12:02 Pulse Ox 100 07/17/17 14:05 - Labs Result Diagrams: 07/17/17 13:23 07/17/17 13:30 Labs: Laboratory Results - last 24 hr 07/17/17 07/17/17 07/17/17 13:02 13:23 13:30 WBC 6.1 RBC 4.14 L Hgb 12.3 Hct 37.0 MCV 89.4 D MCH 29.7 MCHC 33.2 RDW 16.2 H Plt Count 136 Sodium 142 Potassium 5.2 H Chloride 107 Carbon Dioxide 27 Anion Gap 13 BUN 25 H Creatinine 1.2 Est GFR ( Amer) > 60 Est GFR (Non-Af Amer) > 60 Random Glucose 98 Calcium 8.9 Urine Methadone Screen Negative Ur Barbiturates Screen Negative Ur Phencyclidine Scrn Negative Ur Amphetamines Screen Negative U Benzodiazepines Scrn Negative U Cannabinoids Screen Negative Assessment & Plan - Assessment and Plan (Free Text) Assessment: 52M with incarcerated [facility] Plan: admit to med/surg NPO IVF cbc, bmp, pt/ptt CXR will plan for OR this afternoon for hernia repair d/w Dr Haq who has evaluated the pt already Brie, PGY3
[2017-07-17] MEDS ORDERED: Sod Polystyrene Sulf 15 gm/60 ml Susp PO ONE (14:39)
[2017-07-17 14:40] LABS: PROTHROMBIN TIME 10.9 Seconds (9.8-13.1)
[2017-07-17] MEDS: Sodium Chloride 0.9% 1,000 ML IV SCH ×2 (14:50→23:29)
--- NOTE | 2017-07-17 14:56 | RAD ---
HISTORY: preop COMPARISON: Chest radiograph dated 05/22/2017. FINDINGS: LUNGS: No active pulmonary disease. PLEURA: No significant pleural effusion identified, no pneumothorax apparent. CARDIOVASCULAR: Normal. OSSEOUS STRUCTURES: No significant abnormalities. VISUALIZED UPPER ABDOMEN: Normal. OTHER FINDINGS: None. IMPRESSION: No active disease.
[2017-07-17] MEDS ORDERED: Pneumococcal 23-Valent Vaccine IM ONE (16:38)
[2017-07-18] MEDS: Sodium Chloride 0.9% 1,000 ML IV SCH (04:52)
[2017-07-18 09:38] LABS: BLOOD UREA NITROGEN 20 mg/dl (9-20); CALCIUM 8.9 mg/dL (8.4-10.2); GFR AFRICAN-AMERICAN > 60; GFR NON-AFRICAN AMERICAN > 60
[2017-07-18] MEDS ORDERED: Midazolam 2 MG/2 ML VIAL ONE (11:03)
[2017-07-18] MEDS ORDERED: Propofol 10 mg/ml Inj (20 ML) ONE (11:03)
[2017-07-18] MEDS ORDERED: Lidocaine 2% Jelly (5 ml) TOP ONE (11:03)
[2017-07-18] MEDS ORDERED: Lidocaine 2% MPF (5 ml) Inj ONE (11:03)
--- NOTE | 2017-07-18 11:26 | CARD ---
APPROVED REPORT EKG Measurement Heart [id number] <Conclusion> Normal sinus rhythm Normal ECG
[2017-07-18] MEDS ORDERED: Succinylcholine 200 mg/10 ml Inj IV ONE (11:33)
[2017-07-18] MEDS ORDERED: Rocuronium 10 mg/ml (5 ml) ONE (11:34)
[2017-07-18] MEDS: Bupivacaine 0.5% Inj(30mL) ONE ×2 (12:00→12:45)
[2017-07-18] MEDS ORDERED: Lactated Ringer's 1,000 ML IV ONE ×3 (12:24→14:15)
[2017-07-18] MEDS ORDERED: Edrophonium Chloride 10 MG/ML IJ ONE (12:25)
--- NOTE | 2017-07-18 13:20 | PCM.SURG1 ---
Surgeon's Initial Post Op Note - Surgeon's Notes Surgeon: Dr. Haq Panelbeater: Dr. Baird PGY3, Dr. Davies PGY2 Type of Anesthesia: General Endo Pre-Operative Diagnosis: recurrent, incarcerated right inguinal hernia Operative Findings: see dictation Post-Operative Diagnosis: same Operation Performed: right inguinal hernia repair w/ mesh Specimen/Specimens Removed: hernia sac Estimated Blood Loss: EBL {In ML}: 5 Drains Used: No Drains Post-Op Condition: Good Date of Surgery/Procedure: 07/18/17 Time of Surgery/Procedure: 11:40
[2017-07-18] MEDS ORDERED: Lactated Ringer's 1,000 ML IV SCH (14:15)
[2017-07-18] MEDS: Oxycodone/Acetaminophen 5/325 mg Tab PO PRN (18:25)
[2017-07-18] MEDS: Lactated Ringer's 1,000 ML IV SCH (19:05)
--- NOTE | 2017-07-19 02:40 | OP ---
PROCEDURE DATE: 07/18/2017 SURGEON: Wesley Haq MD ASSISTANTS: Dr. Baird and Dr. Davies. ANESTHESIA: General. PREOPERATIVE DIAGNOSIS: Recurrent incarcerated right inguinal hernia. POSTOPERATIVE DIAGNOSIS: Recurrent incarcerated right inguinal hernia. PROCEDURE: Right inguinal hernia repair with mesh. DESCRIPTION OF OPERATION: With the patient in the supine position under adequate general anesthesia, the right groin was prepped and draped in usual sterile manner. The skin was opened via a previous scar and taken down through the subcutaneous tissue and the external oblique fascia was exposed and incised and then opened from the external inguinal ring to the internal inguinal ring. The spermatic cord was identified and dissected at the level of the pubic tubercle and elevated over a [place] drain. There was noted to be moderate weakness of the inguinal floor and a dissection of the spermatic cord revealed a moderately-sized lipoma, which was dissected back to the area of the internal inguinal ring where it was suture ligated with Vicryl suture and excised. Further dissection revealed a hernia indirect sac, which was also dissected off the underlying cord structures and opened noticing it contain a small amount of fluid, but no incarcerated bowel content, and this was dissected back to the area of the internal inguinal ring where it was suture ligated with a 0 Vicryl suture and the excess was removed. The transversalis fascia was developed creating a plane between the external oblique and the transversalis and a well-formed inguinal ligament was also identified. A moderately enlarged internal inguinal ring was identified and a size large of a ProLoop hernia plug was positioned well up beneath the spermatic cord and sutured beneath the transversalis layer with a 2-0 Prolene suture. When this had been completed, the patch portion of the ProLoop Hernia System was trimmed slightly to approximate the length of the inguinal canal and the inguinal floor and sutured medially to the area of the pubic tubercle using 2-0 Prolene suture. The mesh was positioned beneath the spermatic cord and sutured superiorly to the transversalis fascia and inferiorly to the inguinal ligament using the 2-0 Prolene sutures and additional sutures were positioned laterally to the internal ring to complete the repair. At this point, the external oblique was reapproximated over the spermatic cord using running suture of 0 Vicryl. Subcutaneous tissues were approximated with interrupted sutures of 2-0 Vicryl and closure was performed with running subcuticular suture of 4-0 Monocryl and Dermabond. Dry sterile dressing was applied. The patient tolerated the procedure well and transferred to recovery room in stable condition. Estimated blood loss for the procedure was 5 mL. Wesley Haq MD
[2017-07-19] MEDS: Lactated Ringer's 1,000 ML IV SCH (07:00)
[2017-07-19] MEDS: Oxycodone/Acetaminophen 5/325 mg Tab PO PRN ×2 (08:03→12:44)
[2017-07-19 08:32] VITALS: BP 143/77; RESP 19; TEMP 98.3
--- NOTE | 2017-07-19 13:19 | CP.PCM.DIS ---
Provider - Provider Date of Admission: 07/17/17 12:46 Attending physician: Wesley Haq MD Time Spent in preparation of Discharge (in minutes): 25 Diagnosis - Discharge Diagnosis (1) Incarcerated right inguinal hernia Status: Acute Priority: High Hospital Course - Lab Results Lab Results: Most Recent Lab Values WBC 6.1 K/uL (4.8-10.8) 07/17/17 13:23 RBC 4.14 Mil/uL (4.40-5.90) L 07/17/17 13:23 Hgb 12.3 g/dL (12.0-18.0) 07/17/17 13:23 Hct 37.0 % (35.0-51.0) 07/17/17 13:23 MCV 89.4 fl (80.0-94.0) D 07/17/17 13:23 MCH 29.7 pg (27.0-31.0) 07/17/17 13:23 MCHC 33.2 g/dL (33.0-37.0) 07/17/17 13:23 RDW 16.2 % (11.5-14.5) H 07/17/17 13:23 Plt Count 136 K/uL (130-400) 07/17/17 13:23 PT 10.9 Seconds (9.8-13.1) 07/17/17 13:30 INR 1.0 (0.9-1.2) 07/17/17 13:30 APTT 34.0 Seconds (25.6-37.1) 07/17/17 13:30 Sodium 142 mmol/l (132-148) 07/18/17 09:10 Potassium 5.0 MMOL/L (3.6-5.0) 07/18/17 09:10 Chloride 108 mmol/L (98-107) H 07/18/17 09:10 Carbon Dioxide 28 mmol/L (22-30) 07/18/17 09:10 Anion Gap 11 (10-20) 07/18/17 09:10 BUN 20 mg/dl (9-20) 07/18/17 09:10 Creatinine 1.2 mg/dl (0.8-1.5) 07/18/17 09:10 Est GFR ( Amer) > 60 07/18/17 09:10 Est GFR (Non-Af Amer) > 60 07/18/17 09:10 Random Glucose 103 mg/dL (75-110) 07/18/17 09:10 Calcium 8.9 mg/dL (8.4-10.2) 07/18/17 09:10 Urine Opiates Screen Positive (NEGATIVE) H 07/17/17 13:02 Urine Methadone Screen Negative (NEGATIVE) 07/17/17 13:02 Ur Barbiturates Screen Negative (NEGATIVE) 07/17/17 13:02 Ur Phencyclidine Scrn Negative (NEGATIVE) 07/17/17 13:02 Ur Amphetamines Screen Negative (NEGATIVE) 07/17/17 13:02 U Benzodiazepines Scrn Negative (NEGATIVE) 07/17/17 13:02 U Oth Cocaine Metabols Positive (NEGATIVE) H 07/17/17 13:02 U Cannabinoids Screen Negative (NEGATIVE) 07/17/17 13:02 Blood Type O NEGATIVE 07/17/17 13:30 Antibody Screen Negative 07/17/17 13:30 BBK History Checked Patient has bt 07/17/17 13:30 - Hospital Course Hospital Course: 52 y/o M presented to surgery clinic for evaluation of Right inguinal hernia. On presentation, pt was in significant pain and hernia was non-reducible. Pt admitted through the ED for incarcerated Right inguinal hernia. Pt underwent open right inguinal hernia repair with mesh. Pt tolerated the procedure well with no complications. Pt was kept overnight for pain control and UOP. This morning, pt S&E. NAEO. pain controlled w/ PO medication. Pt denies F/C, N/ V. Pt tolerating regular diet and voiding w/o difficulty. Pt is cleared for discharge w/ instructions to follow up in clinic in 1-2 weeks. Discharge Exam - Head Exam Head Exam: NORMAL INSPECTION - Eye Exam Eye Exam: Normal appearance - ENT Exam ENT Exam: Mucous Membranes Moist - Respiratory Exam Respiratory Exam: NORMAL BREATHING PATTERN. absent: Accessory Muscle Use, Respiratory Distress - Cardiovascular Exam Cardiovascular Exam: absent: Bradycardia, Tachycardia - GI/Abdominal Exam GI & Abdominal Exam: Soft. absent: Distended, Tenderness Additional comments: pressure dressing intact TTP myesha-incisional - Extremities Exam Extremities exam: normal inspection - Neurological Exam Neurological exam: Alert, Oriented x3 - Psychiatric Exam Psychiatric exam: Normal Affect, Normal Mood - Skin Skin Exam: Dry, Normal Color, Warm Discharge Plan - Discharge Medications Prescriptions: Oxycodone HCl/Acetaminophen [Percocet 10-325 mg Tablet] 1 each PO Q4 PRN #20 tablet PRN Reason: Pain, Moderate (4-7) - Follow Up Plan Condition: GOOD Disposition: HOME/ ROUTINE Instructions: Open Herniorrhaphy (DC), Inguinal Hernia (DC), Care For Your Absorbable Stitches (DC) Additional Instructions: Follow up in clinic in 1-2 weeks No heavy lifting for 4-6 weeks Take all medication as prescribed Pt may take over the counter pain medication Pt may shower Do not scrub at incision, do not soak incisions No pools, tubs, baths Please call Dr. Haq & return to the ED if fever >100.4, redness, drainage, rupture of incisions Referrals: Wesley Haq MD [Staff Provider] -
[2017-07-20 18:58] VITALS: PULSE 68; O2SAT 100
== END 2017-07-19 14:00 | disposition home or self-care (01) | DRG 161 ==
LOC: H.ER 11:38 → H.ERHOLD 12:46 → H.MEDSURG1 15:15
PROVIDERS: ADMIT Specialist; ATTEND Specialist
PROC: 0YU50JZ Supplement Right Inguinal Region with Synthetic Substitute, Open Approach (ICD-10-PCS; principal; 2017-07-18 11:30)
DX: K40.31 Unilateral inguinal hernia, with obstruction, without gangrene, recurrent (principal); B19.20 Unspecified viral hepatitis C without hepatic coma; F17.210 Nicotine dependence, cigarettes, uncomplicated

== ENCOUNTER 2017-07-24 19:06 | Observation (INO) | payer MEDICAID ==
[2017-07-24 19:07] VITALS: BMI 23.0
--- NOTE | 2017-07-24 21:36 | ED PDOC ---
HPI: Trauma/Fall - HPI Time Seen by Provider: 07/24/17 20:25 Chief Complaint (Nursing): Back Pain Chief Complaint (Provider): Fall History Per: Patient History/Exam Limitations: no limitations Onset/Duration Of Symptoms: Mins Injury Occurred (Timing): Just Before Arrival Location Of Injury: Right: Chest, Hip, Left: Wrist Additional History Per: Patient Additional Complaint(s): 52yo male, presents to ED for evaluation after he fell earlier today. Patient states he tripped over wires and injured his left wrist, right chest and right hip area. He states the chest pain worsens with deep inspiration. He denies any head injury or loss of consciousness. Of note, patient had a hernia repair last month and states there is no bleed from the wound. He denies any numbness or tingling. No other complaints. - Fall Fall:Prior To Injury: Slipped Past Medical History Reviewed: Historical Data, Nursing Documentation, Vital Signs Vital Signs: Last Vital Signs Temp 97.9 F 07/24/17 20:06 Pulse 100 H 07/24/17 20:06 Resp 18 07/24/17 20:06 BP 148/100 H 07/24/17 20:06 Pulse Ox 97 07/24/17 21:39 - Medical History PMH: Fractures (right hip), Hepatitis (C) Denies: Diabetes, HIV, HTN, Chronic Kidney Disease, Seizures, Sexually Transmitted Disease - Surgical History Surgical History: Hernia Repair - Family History Family History: States: Unknown Family Hx - Immunization History Hx Tetanus Toxoid Vaccination: No Hx Influenza Vaccination: No Hx Pneumococcal Vaccination: No - Home Medications Home Medications: Ambulatory Orders Medication Instructions Recorded QUEtiapine [Seroquel] 100 mg PO HS #30 tab 07/09/17 Nicotine [Nicoderm Cq] 14 mg TD DAILY 07/17/17 Oxycodone HCl/Acetaminophen 1 each PO Q4 PRN #20 tablet 07/19/17 [Percocet 10-325 mg Tablet] - Allergies Allergies/Adverse Reactions: Allergies Allergy/AdvReac Type Severity Reaction Status Date / Time No Known Allergies Allergy Verified 07/24/17 20:09 Review of Systems ROS Statement: Except As Marked, All Systems Reviewed And Found Negative Cardiovascular: Positive for: Chest Pain (right sided) Musculoskeletal: Positive for: Arm Pain (left wrist pain), Other (right hip pain ) Neurological: Negative for: Weakness, Numbness, Headache, Other (loss of consciousness) Physical Exam - Reviewed Nursing Documentation Reviewed: Yes Vital Signs Reviewed: Yes - Physical Exam Appears: Positive for: Non-toxic Head Exam: Positive for: ATRAUMATIC, NORMAL INSPECTION, NORMOCEPHALIC Skin: Positive for: Normal Color Eye Exam: Positive for: EOMI, PERRL Neck: Positive for: Painless ROM, Supple Cardiovascular/Chest: Positive for: Regular Rate, Rhythm. Negative for: Chest Non Tender (mild tenderness to anterior right chest) Respiratory: Positive for: Normal Breath Sounds. Negative for: Wheezing Pulses-Radial (R): 2+ Male Genital Exam: Positive for: other (right inguinal area with healing wound, no bleed noted.) Back: Positive for: Normal Inspection Extremity: Positive for: Tenderness (right hip tenderness, no deformity. tenderness and swelling to left dorsal wrist. ). Negative for: Deformity Neurologic/Psych: Positive for: Alert, Oriented. Negative for: Motor/Sensory Deficits - Laboratory Results Result Diagrams: 07/24/17 21:25 07/24/17 21:25 - ECG O2 Sat by Pulse Oximetry: 97 (RA) Pulse Ox Interpretation: Normal - Radiology X-Ray: Interpreted by Me (R hip/pelvis, L wrist, CXR) X-Ray Interpretation: No Acute Disease - Progress ED Course And Treament: Upon further questioning pt. states he is uncertain if he did injure his head. States he did not lose consciousness but did feel dizzy. Medical Decision Making Medical Decision Making: Impression: Multiple injuries due to mechanical fall Plan: -- Chest/Abd/Pelvis with IV contrast -- CXR -- XR Right hip -- XR Left wrist -- Labs -- Dilaudid 1mg IV -- Zofran 4mg IV Reassess Scribe Attestation: Documented by Uzma Rod acting as a scribe for MISHEL Koch Provider Attestation: All medical record entries made by the Scribe were at my direction and personally dictated by me. I have reviewed the chart and agree that the record accurately reflects my personal performance of the history, physical exam, medical decision making, and the department course for this patient. I have also personally directed, reviewed, and agree with the discharge instructions and disposition. Disposition - Clinical Impression Clinical Impression: Wrist sprain, Chest wall contusion, Head injury - Patient ED Disposition Is Patient to be Admitted: Transfer of Care (Signed out to Herbie PULIDO pending CT report and final disposition.) - Disposition Disposition Time: 00:00 Condition: STABLE Forms: [employer] (Romansh)
[2017-07-24 21:58] LABS: BASO # 0.1 K/uL (0.0-0.2); BASO % 1.5 % (0.0-2.0); EOS # 0.2 K/uL (0.0-0.7); EOS % 2.1 % (0.0-4.0); HEMOGLOBIN 12.6 g/dL (12.0-18.0); LYMPH # 2.2 K/uL (1.0-4.3); MEAN CELL VOLUME 88.4 fl (80.0-94.0); MEAN CORPUSCULAR HGB CONC 32.8 g/dL (33.0-37.0); MEAN PLATELET VOLUME 7.5 fl (7.2-11.7); MONO # 0.8 K/uL (0.0-0.8); MONO % 10.4 % (0.0-10.0); NEUT # 4.5 K/uL (1.8-7.0); RBC 4.35 Mil/uL (4.40-5.90); WHITE BLOOD COUNT 7.8 K/uL (4.8-10.8)
[2017-07-24 22:18] LABS: ALT/SGPT 137 U/L (21-72); AST/SGOT 99 U/L (17-59); BLOOD UREA NITROGEN 34 mg/dl (9-20); CALCIUM 9.5 mg/dL (8.4-10.2); GFR AFRICAN-AMERICAN > 60; GFR NON-AFRICAN AMERICAN 53
[2017-07-24] MEDS ORDERED: Iohexol 300 100 ML IJ ONE (22:44)
[2017-07-24] MEDS ORDERED: Sodium Chloride 0.9% 50 ML IV ONE (22:44)
--- NOTE | 2017-07-25 00:42 | CT ---
EXAM: CT Abdomen and Pelvis With Intravenous Contrast CLINICAL HISTORY: 52 years old, male; Injury or trauma; Fall; Initial encounter; Blunt; Rlq; Blunt trauma (contusions or hematomas); Prior surgery; Surgery date: 6+ months; Surgery type: Hernia repair TECHNIQUE: Axial computed tomography images of the abdomen and pelvis with intravenous contrast. All CT scans at this facility use one or more dose reduction techniques, viz.: automated exposure control; ma/kV adjustment per patient size (including targeted exams where dose is matched to indication; i.e. head); or iterative reconstruction technique. Coronal and sagittal reformatted images were created and reviewed. CONTRAST: 50 mL of omnipaque administered intravenously. COMPARISON: No relevant prior studies available. FINDINGS: There are no abnormal areas of decreased attenuation in the liver, spleen, pancreas or kidneys to suggest organ injury. No free fluid. The spleen is again seen to be enlarged. There is mild intrahepatic biliary duct dilation.Recommend correlation with laboratory values. No evidence of bowel injury.No free air. A normal appendix is identified coronal series 604 image 46, series 7 images 116-140. The stomach is dilated with a large amount of fluid similar to prior study. There is distention of the small bowel with fluid along with several stool-filled bowel loops. This finding is similar to prior however enteritis and/or ileus cannot be excluded. There is a right inguinal hernia with increased stranding from prior study suggestive of incarceration. There is swirling and twisting surrounding a fluid-filled small bowel loop just proximal to the right inguinal hernia on series images 158 are 172. It is not clear if the loop extends into the canal. There is ill-defined soft tissue density in this region similar to prior study. The lack of oral contrast is limited in differentiating unopacified bowel from the ill-defined soft tissue density. The small bowel caliber is similar to prior and the distal/terminal ileal loops are not decompressed thus I do not suspect obstruction. There is artifact secondary to right femoral hardware. IMPRESSION: Right inguinal hernia with increased stranding since prior concerning for incarceration/strangulation. Gastric dilation and diffuse small bowel distention with fluid similar to prior possible enteritis or ileus not excluded. Intrahepatic biliary duct dilation stable however recommend correlation with laboratory values. EXAM: CT Chest With Intravenous Contrast EXAM DATE/TIME: 07/24/2017 8:52 PM CLINICAL HISTORY: 52 years old, male; Injury or trauma; Fall; Initial encounter; Blunt; Rlq; Blunt trauma (contusions or hematomas); Prior surgery; Surgery date: 6+ months; Surgery type: Hernia repair TECHNIQUE: Axial computed tomography images of the chest with intravenous contrast. All CT scans at this facility use one or more dose reduction techniques, viz.: automated exposure control; ma/kV adjustment per patient size (including targeted exams where dose is matched to indication; i.e. head); or iterative reconstruction technique. Coronal and sagittal reformatted images were created and reviewed. CONTRAST: 50 mL of omnipaque administered intravenously. COMPARISON: CT - ABD PELVIS PO IV CONTRAST 2017-06-13 02:14 FINDINGS: There are scattered areas of consolidation in the left upper and lower lungs. No evidence of vascular injury. No pneumothorax. No effusions. No fractures. IMPRESSION: Consolidation in the left lung that could represent small contusions given history of trauma. Alternatively, developing infectious/inflammatory process, chronic atelectasis, and underlying developing lesions would all be within the differential diagnosis. Clinical correlation and followup recommended. If prior chest CT images are provided, I would be happy to correlate.
--- NOTE | 2017-07-25 01:41 | CT ---
EXAM: CT Head Without Intravenous Contrast EXAM DATE/TIME: 07/24/2017 11:30 PM CLINICAL HISTORY: 52 years old, male; Injury or trauma; Fall TECHNIQUE: Axial computed tomography images of the head/brain without intravenous contrast. All CT scans at this facility use one or more dose reduction techniques, viz.: automated exposure control; ma/kV adjustment per patient size (including targeted exams where dose is matched to indication; i.e. head); or iterative reconstruction technique. Coronal and sagittal reformatted images were created and reviewed. COMPARISON: CT - HEAD W/O CONTRAST 2017-05-22 11:48 FINDINGS: The tentorium, falx, and vascular structures are increased in density secondary to the patient being scanned with contrast for CT chest abdomen and pelvis prior to this exam. It would be difficult to completely exclude concurrent hyperdense blood in these regions although not felt likely. There is no intraparenchymal hemorrhage. No intracranial edema. Partial opacification of the right maxillary sinus incompletely imaged. Trace mucosal thickening right ethmoid sinus.. No depressed fractures. IMPRESSION: No acute intracranial injury identified however please note there is some degree of residual contrast from prior study.
[2017-07-25] MEDS ORDERED: Azithromycin 500 MG in Sodium Chloride 0.9% 250 ML IVPB STA (01:42)
--- NOTE | 2017-07-25 01:49 | ED PDOC ---
- Laboratory Results Result Diagrams: 07/24/17 21:25 07/24/17 21:25 - ECG O2 Sat by Pulse Oximetry: 97 (RA) Medical Decision Making Medical Decision Makin CTA A/P FINDINGS: There are no abnormal areas of decreased attenuation in the liver, spleen, pancreas or kidneys to suggest organ injury. No free fluid. The spleen is again seen to be enlarged. There is mild intrahepatic biliary duct dilation.Recommend correlation with laboratory values. No evidence of bowel injury.No free air. A normal appendix is identified coronal series 604 image 46, series 7 images 116 -140. The stomach is dilated with a large amount of fluid similar to prior study. There is distention of the small bowel with fluid along with several stool- filled bowel loops. This finding is similar to prior however enteritis and/or ileus cannot be excluded. There is a right inguinal hernia with increased stranding from prior study suggestive of incarceration. There is swirling and twisting surrounding a fluid-filled small bowel loop just proximal to the right inguinal hernia on series images 158 are 172. It is not clear if the loop extends into the canal. There is ill-defined soft tissue density in this region similar to prior study. The lack of oral contrast is limited in differentiating unopacified bowel from the ill-defined soft tissue density. The small bowel caliber is similar to prior and the distal/terminal ileal loops are not decompressed thus I do not suspect obstruction. There is artifact secondary to right femoral hardware. IMPRESSION: Right inguinal hernia with increased stranding since prior concerning for incarceration/strangulation. Gastric dilation and diffuse small bowel distention with fluid similar to prior possible enteritis or ileus not excluded. Intrahepatic biliary duct dilation stable however recommend correlation with laboratory values. CT CHEST FINDINGS There are scattered areas of consolidation in the left upper and lower lungs. No evidence of vascular injury. No pneumothorax. No effusions. No fractures. IMPRESSION: Consolidation in the left lung that could represent small contusions given history of trauma. Alternatively, developing infectious/inflammatory process, chronic atelectasis, and underlying developing lesions would all be within the differential diagnosis. Clinical correlation and followup recommended. If prior chest CT images are provided, I would be happy to correlate. 0141 CT HEAD FINDINGS The tentorium, falx, and vascular structures are increased in density secondary to the patient being scanned with contrast for CT chest abdomen and pelvis prior to this exam. It would be difficult to completely exclude concurrent hyperdense blood in these regions although not felt likely. There is no intraparenchymal hemorrhage. No intracranial edema. Partial opacification of the right maxillary sinus incompletely imaged. Trace mucosal thickening right ethmoid sinus.. No depressed fractures. IMPRESSION: No acute intracranial injury identified however please note there is some degree of residual contrast from prior study Case endorsed to me from MISHEL Yeung at 0000. CT A/P reviewed, which shows a consolidation in the L lung. Lab results reviewed. On re-evaluation, patient states that he has had a cold and cough for several days, adds that he feels weak with dizziness, reports no chest pain, SOB at this time. He is c/o pain in the R shoulder and arm. XRs reviewed and shows no fracture or dislocation. XR and CT results d/w the patient. Patient medicated with dilaudid 1 mg IV, zofran 4 mg IV, rocephin 1 g IV and zithromax 500 mg IV for suspected pneumonia. Based on history, exam and diagnostic results, plan will be for outpatient follow up inpatient observation. Case d/w Dr. Alicea, who will evaluate the patient. Patient seen and evaluated by Dr. Alicea. Arrangements made for inpt obs. Patient states he fully agrees with and understands further plan of care. I have given the patient opportunity to ask any additional questions. Scribe Attestation: Documented by Debra Jones acting as a scribe for Joyce Stoner PA-C. Scribe Attestation: All medical record entries made by the Scribe were at my direction and personally dictated by me. I have reviewed the chart and agree that the record accurately reflects my personal performance of the history, physical exam, medical decision making, and the department course for this patient. I have also personally directed, reviewed, and agree with the discharge instructions and disposition. Disposition Doctor Will See Patient In The: ED (Case d/w Dr Alicea, agrees with plan for inpt observation.) Counseled Patient/Family Regarding: Studies Performed, Diagnosis - Clinical Impression Clinical Impression: Pneumonia, Dizziness, Weakness - POA Present On Arrival: Falls Or Trauma - Disposition Disposition: Hospitalized as Observation Patient Disposition Time: 01:30 Condition: STABLE Instructions: Weakness (ED) Forms: [employer] ([place]) - PA / IT SUPPORT CONSULTANT / Resident Statement MD/DO has reviewed & agrees with the documentation as recorded.
--- NOTE | 2017-07-25 03:00 | CP.PCM.HP ---
Addendum entered and electronically signed by Caio Chan MD 07/25/17 13:40: Pt seen and examined at bedside. He reports chest discomfort 2/2 trauma to R lateral chest wall. Ordered repeat EKG, troponin. 60 pack year history, likely symptomatic 2/2 COPD exacerbation. Duonebs started. Ordered lactic acid, procalcitonin, blood culture. Per Radiology Dr. Martínez, reviewed ct chest: no large occlusion observed in main pulmonary arteries. Pt to be further evaluated. Original Note: <Bo Alicea - Last Filed: 07/25/17 04:33> History of Present Illness - History of Present Illness History of Present Illness: 52 yo ,m, PMhx/o HepC, IVDA (heroin), Right hip fracture, S/p right inguinal hernia repair 1 weeks ago present to ED for evaluation after a fall yesterday. Patient reports that he was walking on the street and he tripped with a wire on the sidewalk and he fell down and landed over his right side, resulted in contusion of his left wrist, right chest wall, right hip, right knee. He denies head trauma after the fall, no confusion, headache or dizziness. He reports he was able to stand up and walk with difficulty. Patient reports dry cough and nasal congestion started 2 weeks and reports he had a right inguinal hernia repair last week and after that he noticed productive cough with green and brown expectoration. He also reports episodes of weakness and positional dizziness during the last week when he tries to stand up in 4 occasions. He denies fever, SOB, chest pain, palpitation. Last time he used heroin yesterday. PMD: [facility]. Dr Frankel PMH: Hepatitis C, polysubstance abuse, right inguinal hernia Medications: Seroquen 100 mg HS, Oxycodone 10 mg Q6h Allergies: NKDA Social: heroin use, tobacco use 1 PPD x 40 years Surgical: right orchipexy, right hip closed reduction and internal fixation 01/10. Right inguinal hernia 07/17/17 ED course VS: BP: 148/100, afebrile Labs:CBC: 7.8>12.6<188 CMP: Bun/Cr 34/1.4 GFR 53 AST/ALT:137/160 AlkPH: 160 Imaging: Consolidation in the left lung that could represent small contusions given history of trauma. Alternatively, developing infectious/inflammatory process, chronic atelectasis, and underlying developing lesions would all be within the differential diagnosis. Clinical correlation and followup recommended. If prior chest CT images are provided, I would be happy to correlate. CT Head: No acute intracranial injury identified however please note there is some degree of residual contrast from prior study XR Right hip: no fracture. Pending final report XR Left wrist; no fracture. Pending final report Meds: Dilaudid 1mg IV, Zofran 4mg IV Present on Admission - Present on Admission Any Indicators Present on Admission: No History of DVT/PE: No History of Uncontrolled Diabetes: No Review of Systems - Cardiovascular Cardiovascular: As Per HPI, Chest Pain - Respiratory Respiratory: As Per HPI - Gastrointestinal Gastrointestinal: As Per HPI - Musculoskeletal Musculoskeletal: As Per HPI - Neurological Neurological: As Per HPI Past Patient History - Infectious Disease Hx of Infectious Diseases: None - Tetanus Immunizations Tetanus Immunization: Unknown - Past Medical History & Family History Past Medical History?: No - Past Social History Smoking Status: Smoker Currrent Status Unknown - CARDIAC Hx Hypertension: No - PULMONARY Hx Tuberculosis: No - NEUROLOGICAL Hx Seizures: No - HEENT Hx HEENT Problems: No - RENAL Hx Chronic Kidney Disease: No - ENDOCRINE/METABOLIC Hx Endocrine Disorders: No - HEMATOLOGICAL/ONCOLOGICAL Hx Human Immunodeficiency Virus (HIV): No - INTEGUMENTARY Hx Dermatological Problems: No - MUSCULOSKELETAL/RHEUMATOLOGICAL Hx Fractures: Yes (right hip) - GASTROINTESTINAL Hx Gastrointestinal Disorders: Yes Hx Colitis: Yes Hx Hemorrhoids: Yes Other/Comment: HERNIA - GENITOURINARY/GYNECOLOGICAL Hx Sexually Transmitted Disorders: No - PSYCHIATRIC Hx Psychophysiologic Disorder: Yes (Heroine abuse) Hx Substance Use: Yes (heroine,coccaine; claims he's in Detox program, last used drug 2 weeks ago) - SURGICAL HISTORY Hx Surgeries: Yes Hx Herniorrhaphy: Yes (khushi inguinal hernia repair) Other/Comment: Right Hip (srews placed due to fracture s/p fall) -November 2016, right orchiopexy for undescended testicle. Hx of L ing. repair once and R ing hernia twice - ANESTHESIA Hx Anesthesia: Yes Hx Anesthesia Reactions: No Hx Malignant Hyperthermia: No Meds Allergies/Adverse Reactions: Allergies Allergy/AdvReac Type Severity Reaction Status Date / Time No Known Allergies Allergy Verified 07/24/17 20:09 Physical Exam - Constitutional Appears: No Acute Distress - Head Exam Head Exam: ATRAUMATIC, NORMOCEPHALIC - Eye Exam Eye Exam: Normal appearance, PERRL. absent: Nystagmus - ENT Exam ENT Exam: Mucous Membranes Moist - Neck Exam Neck exam: Positive for: Normal Inspection - Respiratory Exam Respiratory Exam: Chest Wall Tenderness, Clear to Auscultation Bilateral. absent: Rales, Rhonchi, Wheezes Additional comments: Right anterior upper chest wall TD around right nipple - Cardiovascular Exam Cardiovascular Exam: REGULAR RHYTHM, +S1, +S2 - GI/Abdominal Exam GI & Abdominal Exam: Normal Bowel Sounds, Soft. absent: Guarding, Tenderness - Extremities Exam Extremities exam: Negative for: pedal edema Additional comments: Left wrist small abrassion dorsal area of wrist. mild limited ROM, Milt Td to palpation Mild Td to palpation over right knee, no hematoma, effusion - Neurological Exam Neurological exam: Alert, Oriented x3 - Expanded Neurological Exam Expanded Speech: Fluid Speech Cranial nerves: EOM's Intact: Normal, Nystagmus: Normal Neuro motor strength exam: Left Upper Extremity: 5, Right Upper Extremity: 5, Left Lower Extremity: 5, Right Lower Extremity: 5 DTR: Patellar Left: 2+, Patellar Right: 2+ - Psychiatric Exam Psychiatric exam: Normal Affect, Normal Mood - Skin Skin Exam: Abrasion Results - Vital Signs Recent Vital Signs: Last Vital Signs Temp 97.9 F 07/24/17 20:06 Pulse 100 H 07/24/17 20:06 Resp 18 07/24/17 20:06 BP 148/100 H 07/24/17 20:06 Pulse Ox 97 07/25/17 02:55 - Labs Result Diagrams: 07/24/17 21:25 07/24/17 21:25 Labs: Laboratory Results - last 24 hr 07/24/17 07/24/17 21:25 21:25 WBC 7.8 RBC 4.35 L Hgb 12.6 Hct 38.4 MCV 88.4 MCH 29.0 MCHC 32.8 L RDW 16.0 H Plt Count 188 MPV 7.5 Neut % (Auto) 58.0 Lymph % (Auto) 28.0 [place] % (Auto) 10.4 H Eos % (Auto) 2.1 Baso % (Auto) 1.5 Neut # (Auto) 4.5 Lymph # (Auto) 2.2 [place] # (Auto) 0.8 Eos # (Auto) 0.2 Baso # (Auto) 0.1 Sodium 142 Potassium 4.7 Chloride 106 Carbon Dioxide 26 Anion Gap 15 BUN 34 H Creatinine 1.4 Est GFR ( Amer) > 60 Est GFR (Non-Af Amer) 53 Random Glucose 101 Calcium 9.5 Total Bilirubin 0.6 AST 99 H ALT 137 H Alkaline Phosphatase 160 H D Total Protein 8.2 Albumin 4.0 Globulin 4.2 H Albumin/Globulin Ratio 1.0 Assessment & Plan - Assessment and Plan (Free Text) Plan: 52 yo ,m, PMhx/o HepC, IVDA (heroin), Right hip fracture, S/p right inguinal hernia repair 1 weeks ago admitted for Observation for PNA, Dizziness. Assessment/Plan 1) CAP -Ct chest: infiltrates left lung upper and lower lobe. -CBC normal, afebrile -s/p Ceftriaxone, Azythromycin ED,c/w same medications -f/u CBC, CMP -f/u influenza test 2) Chest wall contusion right side -s/p fall in the street -CXR, CT Chest: no fracture, infiltrates left lung reported as could be small contusions vs infection but chest trauma is right side -Morphine mod pain, Dilaudid sev pain 3) Left wrist sprain -s/p fall -controlled with pain medication -Left wrist XR no fracture. Pending final report 4) Dizziness -reported as positional at home -may be secondary to orthostatic hypotension and dehydration -Orthostatic vitals sign -BUN /Cr 34/1.4 -Hydration IV fluids 125 ml/h -CT Head: no intracranial hemorrhage. 5) CKD stage 3 -BUN/Cr 34/1.4 GFR: 53 6) Heroin Abuser -Intravenous drug user. Last use yesterday. -reports he was in a detox program at [facility] 7) Hep C -uncontrolled -no under treatment -AST/ALT 137/160 AlkPh: 160 8) DVT Prophylaxis -Lovenox 40 mg sc daily <Falguni Rey - Last Filed: 07/26/17 09:33> History of Present Illness - History of Present Illness History of Present Illness: ATTESTATION ATTENDING NOTE PATIENT SEEN AND EXAMINED. CASE DISCUSSED WITH RESIDENT. AGREE WITH FINDINGS AND PLAN. Results - Vital Signs Recent Vital Signs: Last Vital Signs Temp 97.7 F 07/26/17 08:26 Pulse 75 07/26/17 08:26 Resp 20 07/26/17 08:26 BP 121/76 07/26/17 08:26 Pulse Ox 97 07/26/17 08:26 - Labs Result Diagrams: 07/24/17 21:25 07/25/17 06:12 Labs: Laboratory Results - last 24 hr 07/25/17 07/25/17 07/25/17 12:00 12:00 12:00 Lactic Acid 0.8 Troponin I < 0.0120 Procalcitonin 0.08 L Urine Opiates Screen Urine Methadone Screen Ur Barbiturates Screen Ur Phencyclidine Scrn Ur Amphetamines Screen U Benzodiazepines Scrn U Oth Cocaine Metabols U Cannabinoids Screen 07/25/17 12:00 Lactic Acid Troponin I Procalcitonin Urine Opiates Screen Positive H Urine Methadone Screen Negative Ur Barbiturates Screen Negative Ur Phencyclidine Scrn Negative Ur Amphetamines Screen Negative U Benzodiazepines Scrn Negative U Oth Cocaine Metabols Positive H U Cannabinoids Screen Negative
[2017-07-25 05:13] LABS: PROTHROMBIN TIME 11.1 Seconds (9.8-13.1)
[2017-07-25] MEDS: Sodium Chloride 0.9% 1,000 ML IV SCH ×3 (06:50→21:58)
[2017-07-25 08:20] LABS: ALB/GLOB RATIO 0.9 (1.0-2.1); ALBUMIN 3.4 g/dL (3.5-5.0); ALT/SGPT 122 U/L (21-72); AST/SGOT 88 U/L (17-59); BLOOD UREA NITROGEN 28 mg/dl (9-20); CALCIUM 9.1 mg/dL (8.4-10.2); GFR AFRICAN-AMERICAN > 60; GFR NON-AFRICAN AMERICAN > 60
[2017-07-25] MEDS: Enoxaparin 40 mg Syringe SC SCH (09:36)
--- NOTE | 2017-07-25 10:13 | RAD ---
PROCEDURE: Right Hip Radiographs. HISTORY: trauma COMPARISON: Pelvis radiographs dated 06/26/2017. FINDINGS: BONES: Orthopedic screws transfixing the right femoral neck redemonstrated. No acute fracture. JOINTS: Degenerative changes of the symphysis pubis. SOFT TISSUES: Normal. OTHER FINDINGS: None. IMPRESSION: Right hip orthopedic hardware intact. No acute fracture.
--- NOTE | 2017-07-25 10:13 | RAD ---
PROCEDURE: Left Wrist Radiographs. HISTORY: trauma COMPARISON: None. FINDINGS: BONES: No acute fracture. JOINTS: Unremarkable. SOFT TISSUES: Normal. OTHER FINDINGS: None. IMPRESSION: No demonstrated fracture or dislocation.
--- NOTE | 2017-07-25 10:17 | RAD ---
PROCEDURE: CHEST RADIOGRAPH, 1 VIEW HISTORY: chest pain COMPARISON: Chest radiograph dated 07/17/2017. FINDINGS: LUNGS: Focal patchy lingular infiltrate. PLEURA: No pneumothorax or pleural fluid seen. CARDIOVASCULAR: Normal. OSSEOUS STRUCTURES: No significant abnormalities. VISUALIZED UPPER ABDOMEN: Normal. OTHER FINDINGS: None. IMPRESSION: Focal patchy lingular infiltrate.
--- NOTE | 2017-07-25 10:20 | RAD ---
PROCEDURE: Radiographs of the Right Shoulder HISTORY: pain COMPARISON: No prior. FINDINGS: BONES: No acute fracture. JOINTS: Unremarkable. SOFT TISSUES: Normal. OTHER FINDINGS: None. IMPRESSION: No demonstrated fracture or dislocation.
[2017-07-25] MEDS ORDERED: Albuterol-Ipratrop 3 mg / 0.5 (3 ml) UD INH PRN (11:33)
--- NOTE | 2017-07-25 11:33 | CARD ---
APPROVED REPORT EKG Measurement Heart [id number] FL 142P54 [id number] <Conclusion> Normal sinus rhythm Possible Left atrial enlargement Septal infarct, age undetermined Abnormal ECG
[2017-07-25 12:33] LABS: BARBITURATES, UR NEGATIVE (NEGATIVE); BENZODIAZEPINES, UR NEGATIVE (NEGATIVE); PHENCYCLIDINE, UR NEGATIVE (NEGATIVE)
[2017-07-25 12:36] LABS: OPIATES, UR POSITIVE (NEGATIVE)
[2017-07-26] MEDS: Sodium Chloride 0.9% 1,000 ML IV SCH ×2 (04:56→12:35)
--- NOTE | 2017-07-26 07:58 | CP.PCM.PN ---
Objective - Vital Signs/Intake and Output Vital Signs (last 24 hours): Temp Pulse Resp BP Pulse Ox 97.8 F 72 19 131/77 96 07/26/17 00:00 07/26/17 00:00 07/26/17 00:00 07/26/17 00:00 07/26/17 00:00 - Medications Medications: Current Medications Acetaminophen (Tylenol 325mg Tab) 650 mg PO Q6 PRN PRN Reason: Pain, Mild (1-3) Albuterol/Ipratropium (Duoneb 3 Mg/0.5 Mg (3 Ml) Ud) 3 ml INH RQ6 PRN PRN Reason: Shortness of Breath Enoxaparin Sodium (Lovenox) 40 mg SC DAILY [facility] PRN Reason: Protocol Last Admin: 07/25/17 09:36 Dose: 40 mg Hydromorphone HCl (Dilaudid) 0.5 mg IVP Q6 PRN PRN Reason: Pain, severe (8-10) Last Admin: 07/26/17 06:19 Dose: 0.5 mg Sodium Chloride (Sodium Chloride 0.9%) 1,000 mls @ 125 mls/hr IV .Q8H [facility] Last Admin: 07/26/17 04:56 Dose: Not Given Ceftriaxone Sodium 1 gm/ (Sodium Chloride) 100 mls @ 100 mls/hr IVPB DAILY [facility] PRN Reason: Protocol Azithromycin 500 mg/ Sodium (Chloride) 250 mls @ 250 mls/hr IVPB DAILY [facility] PRN Reason: Protocol Morphine Sulfate (Morphine) 2 mg IVP Q4 PRN PRN Reason: Pain, moderate (4-7) Last Admin: 07/25/17 20:28 Dose: 2 mg Nicotine (Nicoderm Cq) 1 patch TD DAILY [facility] Last Admin: 07/25/17 09:36 Dose: 1 patch Ondansetron HCl (Zofran Inj) 4 mg IVP Q6 PRN PRN Reason: Nausea/Vomiting Quetiapine Fumarate (Seroquel) 100 mg PO HS [facility] Last Admin: 07/25/17 22:07 Dose: 100 mg - Labs Labs: 07/24/17 21:25 07/25/17 06:12 PT 11.1 Seconds (9.8-13.1) 07/25/17 04:35 INR 1.0 (0.9-1.2) 07/25/17 04:35 APTT 34.6 Seconds (25.6-37.1) 07/25/17 04:35
[2017-07-26] MEDS: Enoxaparin 40 mg Syringe SC SCH (08:20)
[2017-07-26 08:26] VITALS: BP 121/76; PULSE 75; RESP 20; TEMP 97.7; O2SAT 97
[2017-07-26] MEDS ORDERED: Azithromycin 500 MG in Sodium Chloride 0.9% 250 ML IVPB SCH (09:00)
[2017-07-26 09:43] LABS: HEMOGLOBIN 12.8 g/dL (12.0-18.0); MEAN CELL VOLUME 88.7 fl (80.0-94.0); MEAN CORPUSCULAR HEMOGLOBIN 29.3 pg (27.0-31.0); MEAN CORPUSCULAR HGB CONC 33.1 g/dL (33.0-37.0); RBC 4.38 Mil/uL (4.40-5.90); WHITE BLOOD COUNT 4.9 K/uL (4.8-10.8)
[2017-07-26 10:03] LABS: BLOOD UREA NITROGEN 23 mg/dl (9-20); CALCIUM 9.3 mg/dL (8.4-10.2); GFR AFRICAN-AMERICAN > 60; GFR NON-AFRICAN AMERICAN 58
--- NOTE | 2017-07-26 10:27 | CARD ---
APPROVED REPORT EKG Measurement Heart [id number] HI 146P31 [id number] <Conclusion> Sinus bradycardia Otherwise normal ECG
--- NOTE | 2017-07-26 11:40 | CP.PCM.DIS ---
<Joseph Banda T - Last Filed: 07/26/17 11:36> Provider - Provider Date of Admission: 07/25/17 02:52 Attending physician: Falguni Rey MD Time Spent in preparation of Discharge (in minutes): 25 Diagnosis - Discharge Diagnosis (1) Accident due to mechanical fall without injury Status: Acute Hospital Course - Lab Results Lab Results: Most Recent Lab Values WBC 4.9 K/uL (4.8-10.8) 07/26/17 09:14 RBC 4.38 Mil/uL (4.40-5.90) L 07/26/17 09:14 Hgb 12.8 g/dL (12.0-18.0) 07/26/17 09:14 Hct 38.8 % (35.0-51.0) 07/26/17 09:14 MCV 88.7 fl (80.0-94.0) 07/26/17 09:14 MCH 29.3 pg (27.0-31.0) 07/26/17 09:14 MCHC 33.1 g/dL (33.0-37.0) 07/26/17 09:14 RDW 16.0 % (11.5-14.5) H 07/26/17 09:14 Plt Count 142 K/uL (130-400) 07/26/17 09:14 MPV 7.5 fl (7.2-11.7) 07/24/17 21:25 Neut % (Auto) 58.0 % (50.0-75.0) 07/24/17 21:25 Lymph % (Auto) 28.0 % (20.0-40.0) 07/24/17 21:25 [place] % (Auto) 10.4 % (0.0-10.0) H 07/24/17 21:25 Eos % (Auto) 2.1 % (0.0-4.0) 07/24/17 21:25 Baso % (Auto) 1.5 % (0.0-2.0) 07/24/17 21:25 Neut # (Auto) 4.5 K/uL (1.8-7.0) 07/24/17 21:25 Lymph # (Auto) 2.2 K/uL (1.0-4.3) 07/24/17 21:25 [place] # (Auto) 0.8 K/uL (0.0-0.8) 07/24/17 21:25 Eos # (Auto) 0.2 K/uL (0.0-0.7) 07/24/17 21:25 Baso # (Auto) 0.1 K/uL (0.0-0.2) 07/24/17 21:25 PT 11.1 Seconds (9.8-13.1) 07/25/17 04:35 INR 1.0 (0.9-1.2) 07/25/17 04:35 APTT 34.6 Seconds (25.6-37.1) 07/25/17 04:35 Sodium 146 mmol/l (132-148) 07/26/17 09:14 Potassium 4.2 MMOL/L (3.6-5.0) 07/26/17 09:14 Chloride 110 mmol/L (98-107) H 07/26/17 09:14 Carbon Dioxide 27 mmol/L (22-30) 07/26/17 09:14 Anion Gap 13 (10-20) 07/26/17 09:14 BUN 23 mg/dl (9-20) H 07/26/17 09:14 Creatinine 1.3 mg/dl (0.8-1.5) 07/26/17 09:14 Est GFR ( Amer) > 60 07/26/17 09:14 Est GFR (Non-Af Amer) 58 07/26/17 09:14 Random Glucose 102 mg/dL (75-110) 07/26/17 09:14 Lactic Acid 0.8 MMOL/L (0.7-2.1) 07/25/17 12:00 Calcium 9.3 mg/dL (8.4-10.2) 07/26/17 09:14 Total Bilirubin 0.5 mg/dl (0.2-1.3) 07/25/17 06:12 AST 88 U/L (17-59) H 07/25/17 06:12 ALT 122 U/L (21-72) H 07/25/17 06:12 Alkaline Phosphatase 137 U/L (38-126) H 07/25/17 06:12 Troponin I < 0.0120 ng/mL (0.00-0.120) 07/25/17 12:00 Total Protein 7.4 G/DL (6.3-8.2) 07/25/17 06:12 Albumin 3.4 g/dL (3.5-5.0) L 07/25/17 06:12 Globulin 4.0 gm/dL (2.2-3.9) H 07/25/17 06:12 Albumin/Globulin Ratio 0.9 (1.0-2.1) L 07/25/17 06:12 Procalcitonin 0.08 NG/ML (0.19-0.49) L 07/25/17 12:00 Urine Opiates Screen Positive (NEGATIVE) H 07/25/17 12:00 Urine Methadone Screen Negative (NEGATIVE) 07/25/17 12:00 Ur Barbiturates Screen Negative (NEGATIVE) 07/25/17 12:00 Ur Phencyclidine Scrn Negative (NEGATIVE) 07/25/17 12:00 Ur Amphetamines Screen Negative (NEGATIVE) 07/25/17 12:00 U Benzodiazepines Scrn Negative (NEGATIVE) 07/25/17 12:00 U Oth Cocaine Metabols Positive (NEGATIVE) H 07/25/17 12:00 U Cannabinoids Screen Negative (NEGATIVE) 07/25/17 12:00 Influenza Typ A,B (EIA) Negative for flu a/b (NEGATIVE) 07/25/17 04:35 - Hospital Course Hospital Course: 52 yo M w PMHx of HepC, IVDA (heroin), Right hip fracture, and s/p right inguinal hernia repair 1 week ago was admitted for evaluation of fall. Resulted in contusion of his left wrist, right chest wall, right hip, right knee. Chest/Abdomen/Pelvis CT showed no fractures s/p fall but possible left lung inflammatory process. No elevated WBCs. No fevers. Procalcitonin normal. Head CT showed no acute intracranial hemorrhage. Instructed to follow up w [facility] within next five (5) days. Discharge Exam - Additional Findings Additional findings: - Constitutional Appears: No Acute Distress - Head Exam Head Exam: ATRAUMATIC, NORMOCEPHALIC - Eye Exam Eye Exam: Normal appearance, PERRL - ENT Exam ENT Exam: Mucous Membranes Moist - Neck Exam Neck exam: Positive for: Normal Inspection - Respiratory Exam Respiratory Exam: Chest Wall Tenderness (Right), Clear to Auscultation Bilateral. absent: Rales, Rhonchi, Wheezes - Cardiovascular Exam Cardiovascular Exam: REGULAR RHYTHM, +S1, +S2 - GI/Abdominal Exam GI & Abdominal Exam: Normal Bowel Sounds, Soft. absent: Guarding, Tenderness - Extremities Exam Extremities exam: Negative for: pedal edema Additional comments: Limb strength 5/5 throughout. Left wrist small abrasion of dorsal area. Mild tenderness. Right knee mild tenderness, no hematoma, effusion - Neurological Exam Neurological exam: Alert, Oriented x3 - Psychiatric Exam Psychiatric exam: Normal Affect, Normal Mood Discharge Plan - Discharge Medications Prescriptions: Ibuprofen [Motrin] 400 mg PO Q6H #20 tab - Follow Up Plan Condition: STABLE Disposition: HOME/ ROUTINE Instructions: Weakness (ED), Pneumonia (DC), Pneumonia (GEN) Additional Instructions: Need to be seen by [facility] within next 5 days for appropriate follow up. Prescribed Ibuprofen 400mg every 6 hours as needed for pain; MUST take with food and water. Return to ER if chest pain, shortness of breath, of painful breathing worsens. <Falguni Rey - Last Filed: 07/27/17 08:33> Provider - Provider Date of Admission: 07/25/17 02:52 Attending physician: Falguni Rey MD Primary care physician: ATTESTATION ATTENDING NOTE PATIENT SEEN AND EXAMINED. CASE DISCUSSED WITH RESIDENT. AGREE WITH FINDINGS AND PLAN. Hospital Course - Lab Results Lab Results: Micro Results 07/25/17 12:00 Blood-Venous Blood Culture - Preliminary NO GROWTH AFTER 24 HOURS Most Recent Lab Values WBC 4.9 K/uL (4.8-10.8) 07/26/17 09:14 RBC 4.38 Mil/uL (4.40-5.90) L 07/26/17 09:14 Hgb 12.8 g/dL (12.0-18.0) 07/26/17 09:14 Hct 38.8 % (35.0-51.0) 07/26/17 09:14 MCV 88.7 fl (80.0-94.0) 07/26/17 09:14 MCH 29.3 pg (27.0-31.0) 07/26/17 09:14 MCHC 33.1 g/dL (33.0-37.0) 07/26/17 09:14 RDW 16.0 % (11.5-14.5) H 07/26/17 09:14 Plt Count 142 K/uL (130-400) 07/26/17 09:14 MPV 7.5 fl (7.2-11.7) 07/24/17 21:25 Neut % (Auto) 58.0 % (50.0-75.0) 07/24/17 21:25 Lymph % (Auto) 28.0 % (20.0-40.0) 07/24/17 21:25 [place] % (Auto) 10.4 % (0.0-10.0) H 07/24/17 21:25 Eos % (Auto) 2.1 % (0.0-4.0) 07/24/17 21:25 Baso % (Auto) 1.5 % (0.0-2.0) 07/24/17: Neut # (Auto) 4.5 K/uL (1.8-7.0) 07/24/17 21:25 Lymph # (Auto) 2.2 K/uL (1.0-4.3) 07/24/17 21:25 [place] # (Auto) 0.8 K/uL (0.0-0.8) 07/24/17 21:25 Eos # (Auto) 0.2 K/uL (0.0-0.7) 07/24/17 21:25 Baso # (Auto) 0.1 K/uL (0.0-0.2) 07/24/17 21:25 PT 11.1 Seconds (9.8-13.1) 07/25/17 04:35 INR 1.0 (0.9-1.2) 07/25/17 04:35 APTT 34.6 Seconds (25.6-37.1) 07/25/17 04:35 Sodium 146 mmol/l (132-148) 07/26/17 09:14 Potassium 4.2 MMOL/L (3.6-5.0) 07/26/17 09:14 Chloride 110 mmol/L (98-107) H 07/26/17 09:14 Carbon Dioxide 27 mmol/L (22-30) 07/26/17 09:14 Anion Gap 13 (10-20) 07/26/17 09:14 BUN 23 mg/dl (9-20) H 07/26/17 09:14 Creatinine 1.3 mg/dl (0.8-1.5) 07/26/17 09:14 Est GFR ( Amer) > 60 07/26/17 09:14 Est GFR (Non-Af Amer) 58 07/26/17 09:14 Random Glucose 102 mg/dL (75-110) 07/26/17 09:14 Lactic Acid 0.8 MMOL/L (0.7-2.1) 07/25/17 12:00 Calcium 9.3 mg/dL (8.4-10.2) 07/26/17 09:14 Total Bilirubin 0.5 mg/dl (0.2-1.3) 07/25/17 06:12 AST 88 U/L (17-59) H 07/25/17 06:12 ALT 122 U/L (21-72) H 07/25/17 06:12 Alkaline Phosphatase 137 U/L (38-126) H 07/25/17 06:12 Troponin I < 0.0120 ng/mL (0.00-0.120) 07/25/17 12:00 Total Protein 7.4 G/DL (6.3-8.2) 07/25/17 06:12 Albumin 3.4 g/dL (3.5-5.0) L 07/25/17 06:12 Globulin 4.0 gm/dL (2.2-3.9) H 07/25/17 06:12 Albumin/Globulin Ratio 0.9 (1.0-2.1) L 07/25/17 06:12 Procalcitonin 0.08 NG/ML (0.19-0.49) L 07/25/17 12:00 Urine Opiates Screen Positive (NEGATIVE) H 07/25/17 12:00 Urine Methadone Screen Negative (NEGATIVE) 07/25/17 12:00 Ur Barbiturates Screen Negative (NEGATIVE) 07/25/17 12:00 Ur Phencyclidine Scrn Negative (NEGATIVE) 07/25/17 12:00 Ur Amphetamines Screen Negative (NEGATIVE) 07/25/17 12:00 U Benzodiazepines Scrn Negative (NEGATIVE) 07/25/17 12:00 U Oth Cocaine Metabols Positive (NEGATIVE) H 07/25/17 12:00 U Cannabinoids Screen Negative (NEGATIVE) 07/25/17 12:00 Influenza Typ A,B (EIA) Negative for flu a/b (NEGATIVE) 07/25/17 04:35
[2017-07-26] MEDS ORDERED: Albuterol-Ipratrop 3 mg / 0.5 (3 ml) UD INH SCH (14:00)
== END 2017-07-26 13:10 | disposition home or self-care (01) ==
LOC: H.ER 19:06 → H.ERHOLD 07-25 02:52 → H.MEDSURG1 07-25 14:22
PROVIDERS: ADMIT Emergency Medicine; ATTEND Emergency Medicine
DX: J18.9 Pneumonia, unspecified organism (principal); B19.20 Unspecified viral hepatitis C without hepatic coma; S60.212A Contusion of left wrist, initial encounter; W01.0XXA Fall on same level from slipping, tripping and stumbling without subsequent striking against object, initial encounter; Y92.9 Unspecified place or not applicable; S20.211A Contusion of right front wall of thorax, initial encounter; N18.3 Chronic kidney disease, stage 3 (moderate); K40.90 Unilateral inguinal hernia, without obstruction or gangrene, not specified as recurrent; F11.10 Opioid abuse, uncomplicated; F17.200 Nicotine dependence, unspecified, uncomplicated; M25.511 Pain in right shoulder; R42 Dizziness and giddiness
CPT/HCPCS: 36415; 70450; 71045; 71260; 73030; 73110; 73501; 74177; 80048; 80053; 80324; 80345; 80346; 80349; 80353; 80358; 80361; 83605; 83992; 84145; 84484; 85025; 85027; 85610; 85730; 87040; 87804; 93005; 94640; 96365; 96367; 96372; 96375; 96376; 99285; G0378; J0456; J0696; J1170; J1650; J2270; J2405; J7040; J7050; Q9967

== ENCOUNTER 2017-08-02 15:16 | Inpatient (IN) | payer MEDICAID ==
[2017-08-02 15:16] VITALS: BMI 23.0
--- NOTE | 2017-08-02 16:05 | ED PDOC ---
Syncope/Near Syncope/Dizziness Time Seen by Provider: 08/02/17 15:28 Chief Complaint (Nursing): Syncope Chief Complaint (Provider): "Blacking out" History Per: Patient History/Exam Limitations: no limitations Onset/Duration Of Symptoms: Intermittent Episodes Number Of Syncopal Episodes: 3 Activity At Onset Of Symptoms: Walking Associated Symptoms Preceding Syncopal Episode: No Predromal Symptoms (Sudden Onset) Seizure Or Post-ictal Symptoms: None Additional Complaint(s): 52 yo male with histyory of COPD presents after "blacking out". Pt states once yesterday and twice today he was walking and woke up on the floor. PT reports right sided pain from fall last week. PT has history of heroine abuse and reports last injecting 2 days ago. Past Medical History Reviewed: Historical Data, Nursing Documentation, Vital Signs Vital Signs: Last Vital Signs Temp 98.0 F 08/02/17 15:19 Pulse 77 08/02/17 15:19 Resp 16 08/02/17 15:19 BP 157/78 H 08/02/17 15:19 Pulse Ox 100 08/02/17 15:19 - Medical History PMH: Fractures (right hip), Hepatitis (C) Denies: Diabetes, HIV, HTN, Chronic Kidney Disease, Seizures, Sexually Transmitted Disease - Surgical History Surgical History: Hernia Repair - Family History Family History: States: Unknown Family Hx - Living Arrangements Living Arrangements: With Family - Social History Current smoker - smoking cessation education provided: Yes - Immunization History Hx Tetanus Toxoid Vaccination: No Hx Influenza Vaccination: No Hx Pneumococcal Vaccination: No - Home Medications Home Medications: Ambulatory Orders Medication Instructions Recorded QUEtiapine [Seroquel] 100 mg PO HS #30 tab 07/09/17 Oxycodone HCl/Acetaminophen 1 each PO Q4 PRN #20 tablet 07/19/17 [Percocet 10-325 mg Tablet] Ibuprofen [Motrin] 400 mg PO Q6H #20 tab 07/26/17 - Allergies Allergies/Adverse Reactions: Allergies Allergy/AdvReac Type Severity Reaction Status Date / Time No Known Allergies Allergy Verified 07/24/17 20:09 Review of Systems ROS Statement: Except As Marked, All Systems Reviewed And Found Negative Constitutional: Positive for: Fever, Chills Cardiovascular: Negative for: Chest Pain Respiratory: Negative for: Cough, Shortness of Breath Gastrointestinal: Negative for: Nausea, Vomiting, Abdominal Pain Musculoskeletal: Positive for: Shoulder Pain (right), Arm Pain (right), Leg Pain (Right) Physical Exam - Reviewed Nursing Documentation Reviewed: Yes Vital Signs Reviewed: Yes - Physical Exam Appears: Positive for: Well, Non-toxic, No Acute Distress Head Exam: Positive for: ATRAUMATIC, NORMAL INSPECTION, NORMOCEPHALIC Skin: Positive for: Normal Color, Warm, DRY Eye Exam: Positive for: Normal appearance ENT: Positive for: Normal ENT Inspection Neck: Positive for: Normal, Painless ROM Cardiovascular/Chest: Positive for: Regular Rate, Rhythm Respiratory: Positive for: Normal Breath Sounds. Negative for: Accessory Muscle Use, Respiratory Distress Gastrointestinal/Abdominal: Positive for: Normal Exam, Bowel Sounds, Soft. Negative for: Tenderness Back: Positive for: Normal Inspection Extremity: Positive for: Normal ROM Neurologic/Psych: Positive for: Alert, Oriented - Laboratory Results Result Diagrams: 08/02/17 15:58 08/02/17 15:58 - ECG O2 Sat by Pulse Oximetry: 100 Pulse Ox Interpretation: Normal Disposition - Clinical Impression Clinical Impression: Syncope - Patient ED Disposition Is Patient to be Admitted: Yes - Disposition Disposition Time: 17:46 Condition: STABLE Forms: AIT (Maori) - Pt Status Changed To: Hospital Disposition Of: Observation - Admit Certification Admit to Inpatient:: Telemetry - POA Present On Arrival: None
[2017-08-02 16:12] LABS: BASO % 0.8 % (0.0-2.0); EOS # 0.2 K/uL (0.0-0.7); EOS % 3.2 % (0.0-4.0); HEMOGLOBIN 11.5 g/dL (12.0-18.0); LYMPH # 1.6 K/uL (1.0-4.3); MEAN CELL VOLUME 88.4 fl (80.0-94.0); MEAN CORPUSCULAR HEMOGLOBIN 29.4 pg (27.0-31.0); MEAN CORPUSCULAR HGB CONC 33.3 g/dL (33.0-37.0); MEAN PLATELET VOLUME 8.2 fl (7.2-11.7); MONO # 0.7 K/uL (0.0-0.8); MONO % 11.4 % (0.0-10.0); NEUT # 3.3 K/uL (1.8-7.0); NEUT % 57.6 % (50.0-75.0); NRBC % 0.1 % (0.0-0.0); RBC 3.92 Mil/uL (4.40-5.90); RED CELL DISTRIBUTION WIDTH 15.5 % (11.5-14.5); WHITE BLOOD COUNT 5.8 K/uL (4.8-10.8)
[2017-08-02 16:22] LABS: PARTIAL THROMBOPLASTIN TIME 35.3 Seconds (25.6-37.1); PROTHROMBIN TIME 10.9 Seconds (9.8-13.1)
[2017-08-02 16:32] LABS: ALB/GLOB RATIO 0.9 (1.0-2.1); ALBUMIN 3.5 g/dL (3.5-5.0); ALT/SGPT 85 U/L (21-72); AST/SGOT 69 U/L (17-59); BLOOD UREA NITROGEN 32 mg/dl (9-20); CALCIUM 8.8 mg/dL (8.4-10.2); GFR AFRICAN-AMERICAN > 60; GFR NON-AFRICAN AMERICAN 58
--- NOTE | 2017-08-02 17:04 | CT ---
PROCEDURE: CT HEAD WITHOUT CONTRAST. HISTORY: syncope COMPARISON: None available. TECHNIQUE: Axial computed tomography images were obtained through the head/brain without intravenous contrast. Radiation dose: Total exam DLP = mGy-cm. This CT exam was performed using one or more of the following dose reduction techniques: Automated exposure control, adjustment of the mA and/or kV according to patient size, and/or use of iterative reconstruction technique. FINDINGS: HEMORRHAGE: No intracranial hemorrhage. BRAIN: No mass effect or edema. No atrophy or chronic microvascular ischemic changes. VENTRICLES: Unremarkable. No hydrocephalus. CALVARIUM: Unremarkable. PARANASAL SINUSES: Unremarkable as visualized. No significant inflammatory changes. MASTOID AIR CELLS: Unremarkable as visualized. No inflammatory changes. OTHER FINDINGS: None. IMPRESSION: Normal CT of the Head.
[2017-08-02 17:35] LABS: URINE BILIRUBIN NEGATIVE (NEGATIVE); URINE BLOOD NEGATIVE (NEGATIVE); URINE CLARITY CLEAR (Clear); URINE COLOR YELLOW (YELLOW); URINE GLUCOSE (UA) NEG (Normal); URINE LEUKOCYTE ESTERASE NEG Leu/uL (Negative); URINE NITRATE NEGATIVE (NEGATIVE); URINE PROTEIN NEGATIVE (NEGATIVE); URINE UROBILINOGEN 0.2-1.0 mg/dL (0.2-1.0)
[2017-08-02 17:51] LABS: BARBITURATES, UR NEGATIVE (NEGATIVE); BENZODIAZEPINES, UR NEGATIVE (NEGATIVE); OPIATES, UR POSITIVE (NEGATIVE); PHENCYCLIDINE, UR NEGATIVE (NEGATIVE)
--- NOTE | 2017-08-02 18:44 | CP.PCM.HP ---
History of Present Illness - History of Present Illness History of Present Illness: CC: fall HPI: The patient is a 52 y/o man w/ pmh of HepC, IVDA (heroin), Right hip fracture, s/p right inguinal hernia repair 2 weeks ago presents to ED for evaluation after a fall. The patient reports 3 unwitnessed falls of similar nature in the past 24 hours. The first was when the patient was walking on the street yesterday and the next thing he knew he was waking up from the ground and being helped up by a passerby. The next 2 occurred today also out in public and similarly waking up from the ground being helped up. The patient is unsure of head trauma or new injury, had fall last week resulting in right sided axillary pain. The patient reports lightheadedness prior to falls but denies chest pain or palpitations. The patient also reports intermittent tinnitus and chronic tension headache originating at the forehead and radiating towards the back of his head. The patient reports x2 episodes of non-bilious/ non-bloody vomit today and 1 week of soft non-bloody stool. The patient also reports treatment for pneumonia when he was admitted 1 week ago. The patient reports recent heroin use 2 days ago. The patient denies urinary/bowel incontinence, tongue biting, dysuria, or fever. PMD: [facility] (last seen by Dr. Frankel) PMH: Hepatitis C, polysubstance abuse, right inguinal hernia Medications: Seroquen 100 mg HS, Oxycodone 10 mg Q6h Allergies: NKDA FamHx: mother 78 y/o has HTN, patient did not know father Surgical: right orchipexy, right hip closed reduction and internal fixation , Right inguinal hernia 07/17/2017 Social: heroin use, tobacco use 1 PPD x 40 years, denies alcohol ROS: 12 points assessed and negative unless otherwise reported in HPI ED course: vitals: 98.0 F, 77 beats/min, 157/78 mm Hg, resp 16, O2 100% RA CBC: 5.8>11.5/34.7<157 CMP: 142/4.9, 103/29, 32/1.3, glucose 100, AST 69, ALT 85, alk phos 104 troponin: <0.0120 INR: 1.0 PT: 10.9 PTT: 35.3 urine drug screen: positive for opiates and cocaine UA: clear, negative for protein, glucose, ketones, blood, nitrates, bilirubin, and leukocyte esterase urine culture: head CT w/o contrast: normal head CT, no intracranial hemorrhage EKG: NSR, no acute ST elevation/depression, no prolonged QTc, QRS, RI, CXR: (preliminary) similar to previous study Present on Admission - Present on Admission Any Indicators Present on Admission: No History of DVT/PE: No History of Uncontrolled Diabetes: No Urinary Catheter: No Decubitus Ulcer Present: No Review of Systems - Review of Systems All systems: reviewed and no additional remarkable complaints except - Constitutional Constitutional: Headache. absent: Chills, Fever - EENT Eyes: absent: Change in Vision - Cardiovascular Cardiovascular: As Per HPI, Syncope. absent: Chest Pain, Leg Edema, Palpitations, Pedal Edema - Respiratory Respiratory: absent: Dyspnea on Exertion, Wheezing - Gastrointestinal Gastrointestinal: As Per HPI, Loose Stools, Vomiting. absent: Abdominal Pain, Hematemesis, Hematochezia, Melena - Genitourinary Genitourinary: absent: Dysuria - Integumentary Integumentary: absent: Rash - Neurological Neurological: As Per HPI, Dizziness, Headaches Past Patient History - Infectious Disease Hx of Infectious Diseases: None - Tetanus Immunizations Tetanus Immunization: Unknown - Past Medical History & Family History Past Medical History?: No - Past Social History Smoking Status: Heavy Smoker > 10 Cigarettes Daily - CARDIAC Hx Hypertension: No - PULMONARY Hx Respiratory Disorders: No - NEUROLOGICAL Hx Seizures: No - HEENT Hx HEENT Problems: No - RENAL Hx Chronic Kidney Disease: No - ENDOCRINE/METABOLIC Hx Endocrine Disorders: No - HEMATOLOGICAL/ONCOLOGICAL Hx Human Immunodeficiency Virus (HIV): No - INTEGUMENTARY Hx Dermatological Problems: No - MUSCULOSKELETAL/RHEUMATOLOGICAL Hx Fractures: Yes (right hip) - GASTROINTESTINAL Hx Gastrointestinal Disorders: Yes Hx Colitis: Yes Hx Hemorrhoids: Yes Other/Comment: HERNIA - GENITOURINARY/GYNECOLOGICAL Hx Sexually Transmitted Disorders: No - PSYCHIATRIC Hx Psychophysiologic Disorder: Yes (Heroine abuse) Hx Substance Use: Yes (heroine,coccaine; claims he's in Detox program, last used drug 2 weeks ago) - SURGICAL HISTORY Hx Surgeries: Yes Hx Herniorrhaphy: Yes (khushi inguinal hernia repair) Other/Comment: Right Hip (srews placed due to fracture s/p fall) -November 2016, right orchiopexy for undescended testicle. Hx of L ing. repair once and R ing hernia twice - ANESTHESIA Hx Anesthesia: Yes Hx Anesthesia Reactions: No Hx Malignant Hyperthermia: No Meds Allergies/Adverse Reactions: Allergies Allergy/AdvReac Type Severity Reaction Status Date / Time No Known Allergies Allergy Verified 07/24/17 20:09 Physical Exam - Constitutional Appears: No Acute Distress - Head Exam Head Exam: ATRAUMATIC, NORMAL INSPECTION, NORMOCEPHALIC - Eye Exam Eye Exam: Normal appearance - ENT Exam ENT Exam: Mucous Membranes Moist - Neck Exam Neck exam: Positive for: Full Rom. Negative for: Tenderness - Respiratory Exam Respiratory Exam: Chest Wall Tenderness, Clear to Auscultation Bilateral. absent: Rales, Rhonchi, Wheezes, Respiratory Distress Additional comments: right axillary tenderness w/ palpation - Cardiovascular Exam Cardiovascular Exam: REGULAR RHYTHM, RRR. absent: Tachycardia - GI/Abdominal Exam GI & Abdominal Exam: Normal Bowel Sounds, Soft. absent: Distended, Guarding, Tenderness - Extremities Exam Extremities exam: Negative for: calf tenderness, pedal edema, tenderness - Neurological Exam Neurological exam: Alert, CN II-XII Intact, Oriented x3 - Skin Skin Exam: Dry, Intact, Normal Color, Warm Results - Vital Signs Recent Vital Signs: Last Vital Signs Temp 98.0 F 08/02/17 15:19 Pulse 77 08/02/17 15:19 Resp 16 08/02/17 15:19 BP 157/78 H 08/02/17 15:19 Pulse Ox 100 08/02/17 17:47 - Labs Result Diagrams: 08/02/17 15:58 08/02/17 15:58 Labs: Laboratory Results - last 24 hr 08/02/17 08/02/17 08/02/17 15:41 15:58 15:58 WBC 5.8 RBC 3.92 L Hgb 11.5 L Hct 34.7 L MCV 88.4 MCH 29.4 MCHC 33.3 RDW 15.5 H Plt Count 157 MPV 8.2 Neut % (Auto) 57.6 Lymph % (Auto) 27.0 [place] % (Auto) 11.4 H Eos % (Auto) 3.2 Baso % (Auto) 0.8 Neut # (Auto) 3.3 Lymph # (Auto) 1.6 [place] # (Auto) 0.7 Eos # (Auto) 0.2 Baso # (Auto) 0.0 PT INR APTT Sodium 142 Potassium 4.9 Chloride 103 Carbon Dioxide 29 Anion Gap 15 BUN 32 H Creatinine 1.3 Est GFR ( Amer) > 60 Est GFR (Non-Af Amer) 58 POC Glucose (mg/dL) 113 H Random Glucose 100 Calcium 8.8 Total Bilirubin 0.5 AST 69 H D ALT 85 H D Alkaline Phosphatase 104 Troponin I < 0.0120 Total Protein 7.4 Albumin 3.5 Globulin 3.9 Albumin/Globulin Ratio 0.9 L Urine Color Urine Clarity Urine pH Ur Specific [place] Urine Protein Urine Glucose (UA) Urine Ketones Urine Blood Urine Nitrate Urine Bilirubin Urine Urobilinogen Ur Leukocyte Esterase Urine RBC (Auto) Urine Microscopic WBC Urine Opiates Screen Urine Methadone Screen Ur Barbiturates Screen Ur Phencyclidine Scrn Ur Amphetamines Screen U Benzodiazepines Scrn U Oth Cocaine Metabols U Cannabinoids Screen 08/02/17 08/02/17 08/02/17 15:58 17:20 17:20 WBC RBC Hgb Hct MCV MCH MCHC RDW Plt Count MPV Neut % (Auto) Lymph % (Auto) [place] % (Auto) Eos % (Auto) Baso % (Auto) Neut # (Auto) Lymph # (Auto) [place] # (Auto) Eos # (Auto) Baso # (Auto) PT 10.9 INR 1.0 APTT 35.3 Sodium Potassium Chloride Carbon Dioxide Anion Gap BUN Creatinine Est GFR ( Amer) Est GFR (Non-Af Amer) POC Glucose (mg/dL) Random Glucose Calcium Total Bilirubin AST ALT Alkaline Phosphatase Troponin I Total Protein Albumin Globulin Albumin/Globulin Ratio Urine Color Yellow Urine Clarity Clear Urine pH 6.0 Ur Specific [place] 1.018 Urine Protein Negative Urine Glucose (UA) Neg Urine Ketones Negative Urine Blood Negative Urine Nitrate Negative Urine Bilirubin Negative Urine Urobilinogen 0.2-1.0 Ur Leukocyte Esterase Neg Urine RBC (Auto) 1 Urine Microscopic WBC < 1 Urine Opiates Screen Positive H Urine Methadone Screen Negative Ur Barbiturates Screen Negative Ur Phencyclidine Scrn Negative Ur Amphetamines Screen Negative U Benzodiazepines Scrn Negative U Oth Cocaine Metabols Positive H U Cannabinoids Screen Negative Assessment & Plan - Assessment and Plan (Free Text) Assessment: The patient is a 52 y/o man w/ pmh of HepC, IVDA (heroin), Right hip fracture, s /p right inguinal hernia repair 2 weeks ago presents to ED for evaluation after a fall Plan: Syncope - 2/2 orthostatic vs. vasovagal vs. drug use vs. dehydration - 3 unwitnessed falls in 24 hours - denies seizure symptoms or history of seizures - vitals: 98.0 F, 77 beats/min, 157/78 mm Hg, resp 16, O2 100% RA - CBC: 5.8>11.5/34.7<157 - CMP: 142/4.9, 103/29, 32/1.3, glucose 100, AST 69, ALT 85, alk phos 104 - head CT w/o contrast: normal head CT, no intracranial hemorrhage - EKG: NSR, no acute ST elevation/depression, no prolonged QTc, QRS, RI - ech 05/23/2017: EF 65%, LV normal size, wall thickness, function; left atrium mildly dilated, normal mitral/aortic/tricuspid valves; trace mitral and tricuspid regurgitation - admit to Tele - IVF NS @ 125mL/hr - f/u orthostatic BP - f/u repeat EKG - f/u carotid dopplers - f/u CBC, CMP, pro-BNP - monitor for acute changes Dizziness - reported as positional at home - may be secondary to orthostatic hypotension and dehydration - f/u orthostatic BP - BUN /Cr 32/1.3 - Hydration IV fluids NS 125 mL/hr - CT Head: no intracranial hemorrhage Headache - forehead to back - squeezing - head CT w/o contrast: normal head CT, no intracranial hemorrhage - tylenol 650 mg PO Q6prn Chest wall contusion right side - s/p fall in the street 1 week ago - discharged 1 week ago - 07/24/2017 CXR, CT Chest: no fracture, infiltrates left lung reported as could be small contusions vs infection but chest trauma is right side - tylenol 650 mg PO prn for mild pain, toradol 30 mg IV Q6 prn for moderate pain , morphine 2 mg IV Q4 prn for severe pain CAP - treated for CAP 1 week ago w/ azithromycin and ceftriaxone - afebrile, no elevated WBC - f/u CXR CKD stage 3 - BUN/Cr 32/1.3 GFR: 58 Heroin Abuser - Intravenous drug user - Last use 2 days ago - urine drug screen: positive for opiates and cocaine - reports he was in a detox program at [facility] Hep C - uncontrolled - Hep C antibody positive (02/23/2016) - not under treatment - AST 69 - ALT 85 - Alk Phos: 104 Prophylactic measures - DVT: Lovenox 40 mg SC daily
[2017-08-02] MEDS: Sodium Chloride 0.9% 1,000 ML IV SCH (20:00)
[2017-08-03] MEDS: Sodium Chloride 0.9% 1,000 ML IV SCH ×2 (04:42→10:39)
[2017-08-03 07:02] LABS: BASO % 0.9 % (0.0-2.0); EOS # 0.2 K/uL (0.0-0.7); EOS % 4.4 % (0.0-4.0); HEMOGLOBIN 11.2 g/dL (12.0-18.0); LYMPH # 1.3 K/uL (1.0-4.3); LYMPH % 30.3 % (20.0-40.0); MEAN CELL VOLUME 89.5 fl (80.0-94.0); MEAN CORPUSCULAR HEMOGLOBIN 29.3 pg (27.0-31.0); MEAN CORPUSCULAR HGB CONC 32.8 g/dL (33.0-37.0); MEAN PLATELET VOLUME 8.2 fl (7.2-11.7); MONO # 0.6 K/uL (0.0-0.8); MONO % 13.7 % (0.0-10.0); NEUT # 2.1 K/uL (1.8-7.0); NEUT % 50.7 % (50.0-75.0); NRBC % 0.1 % (0.0-0.0); RBC 3.82 Mil/uL (4.40-5.90); RED CELL DISTRIBUTION WIDTH 15.5 % (11.5-14.5); WHITE BLOOD COUNT 4.1 K/uL (4.8-10.8)
[2017-08-03 07:19] LABS: ALB/GLOB RATIO 0.8 (1.0-2.1); ALT/SGPT 96 U/L (21-72); AST/SGOT 75 U/L (17-59); BLOOD UREA NITROGEN 26 mg/dl (9-20); CALCIUM 8.7 mg/dL (8.4-10.2); GFR AFRICAN-AMERICAN > 60; GFR NON-AFRICAN AMERICAN > 60
[2017-08-03 07:22] LABS: B-TYPE NATRIURETIC PEPTIDE 292 pg/ml (0-900)
--- NOTE | 2017-08-03 08:42 | RAD ---
HISTORY: pneumonia COMPARISON: No prior. TECHNIQUE: Chest PA and lateral FINDINGS: LUNGS: No active pulmonary disease. PLEURA: No significant pleural effusion identified. No pneumothorax apparent. CARDIOVASCULAR: Normal. OSSEOUS STRUCTURES: No significant abnormalities. VISUALIZED UPPER ABDOMEN: Normal. OTHER FINDINGS: None. IMPRESSION: No active disease.
--- NOTE | 2017-08-03 09:42 | CP.PCM.PN ---
Subjective - Date & Time of Evaluation Date of Evaluation: 08/03/17 Time of Evaluation: 09:40 - Subjective Subjective: Patient was seen and examined this morning, NAD, comfortably laying on his bed. Patient denies any headache or dizziness this morning, admits mild right chest pain which started 1 week ago after chest contusion. Patient ate this morning, denies any SOB on bed, fever, chills, vomiting, diarrhea, Admits mild weakness in body. Objective - Vital Signs/Intake and Output Vital Signs (last 24 hours): Temp Pulse Resp BP Pulse Ox 97.2 F L 56 L 18 152/93 H 99 08/03/17 08:10 08/03/17 08:10 08/03/17 08:10 08/03/17 08:10 08/03/17 08:10 - Medications Medications: Current Medications Acetaminophen (Tylenol 325mg Tab) 650 mg PO Q6 PRN PRN Reason: Pain, Mild (1-3) Last Admin: 08/02/17 20:53 Dose: 650 mg Acetaminophen (Tylenol 325mg Tab) 650 mg PO Q6 PRN PRN Reason: Headache Enoxaparin Sodium (Lovenox) 40 mg SC DAILY ALYSE PRN Reason: Protocol Sodium Chloride (Sodium Chloride 0.9%) 1,000 mls @ 125 mls/hr IV .Q8H [facility] Stop: 08/03/17 19:31 Last Admin: 08/03/17 04:42 Dose: Not Given Ketorolac Tromethamine (Toradol) 30 mg IVP Q6 PRN PRN Reason: Pain, moderate (4-7) Morphine Sulfate (Morphine) 2 mg IVP Q4 PRN PRN Reason: Pain, severe (8-10) - Labs Labs: 08/03/17 06:34 08/03/17 06:34 PT 10.9 Seconds (9.8-13.1) 08/02/17 15:58 INR 1.0 (0.9-1.2) 08/02/17 15:58 APTT 35.3 Seconds (25.6-37.1) 08/02/17 15:58 - Constitutional Appears: No Acute Distress - Head Exam Head Exam: ATRAUMATIC, NORMAL INSPECTION, NORMOCEPHALIC - Eye Exam Eye Exam: EOMI, Normal appearance, PERRL Pupil Exam: NORMAL ACCOMODATION - ENT Exam ENT Exam: Mucous Membranes Moist - Neck Exam Neck Exam: Normal Inspection - Respiratory Exam Respiratory Exam: Clear to Ausculation Bilateral, NORMAL BREATHING PATTERN. absent: Accessory Muscle Use - Cardiovascular Exam Cardiovascular Exam: REGULAR RHYTHM - GI/Abdominal Exam GI & Abdominal Exam: Soft, Normal Bowel Sounds - Extremities Exam Extremities Exam: Full ROM, Normal Capillary Refill, Normal Inspection. absent : Joint Swelling - Back Exam Back Exam: NORMAL INSPECTION - Neurological Exam Neurological Exam: Alert, Awake, Oriented x3 Neuro motor strength exam: Left Upper Extremity: 5, Right Upper Extremity: 5, Left Lower Extremity: 5, Right Lower Extremity: 5 - Psychiatric Exam Psychiatric exam: Normal Affect - Skin Skin Exam: Dry, Intact, Warm Assessment and Plan - Assessment and Plan (Free Text) Assessment: A/P: A 52 y/o man w/ pmh of HepC, IVDA (heroin, Right hip fracture, s/p right inguinal hernia repair 2 weeks ago presents to ED for evaluation after few episodes of falls and lightheadedness Syncope - 2/2 orthostatic vs. vasovagal vs. drug use vs. dehydration - 3 unwitnessed falls in 24 hours - denies seizure symptoms or history of seizures - head CT w/o contrast: normal head CT, no intracranial hemorrhage - EKG: NSR, no acute ST elevation/depression, no prolonged QTc, QRS, MS - ech 05/23/2017: EF 65%, LV normal size, wall thickness, function; left atrium mildly dilated, normal mitral/aortic/tricuspid valves; trace mitral and tricuspid regurgitation - Orthostatic BP, Lying 150/94, Sitting 150/88, Standing 142/96 - f/u carotid dopplers - EEG to follow - Neurology was called - pro-BNP normal - monitor for acute changes Headache - Improved - forehead to back and squeezing - head CT w/o contrast: normal head CT, no intracranial hemorrhage - tylenol 650 mg PO Q6prn Chest wall contusion right side - s/p fall in the street 1 week ago - discharged 1 week ago - 07/24/2017 CXR, CT Chest: no fracture, infiltrates left lung reported as could be small contusions vs infection but chest trauma is right side - tylenol 650 mg PO prn for mild pain, toradol 30 mg IV Q6 prn for moderate pain , morphine 2 mg IV Q4 prn for severe pain CAP - Resolved - treated for CAP 1 week ago w/ azithromycin and ceftriaxone - CXR: No acute changes Elevated Mild Asymptomatic transaminitis - Etiology unknown, will follow - AST/ALT: 75/96 CKD stage 3 - BUN/Cr 26/1.2 GFR: >60 Heroin Abuser - Intravenous drug user - Last use 2 days ago - urine drug screen: positive for opiates and cocaine - reports he was in a detox program at [facility] Hep C - uncontrolled - Hep C antibody positive (02/23/2016) - not under treatment - AST/ALT: 75/96 Prophylactic measures - DVT: Lovenox 40 mg SC daily
[2017-08-03] MEDS: Enoxaparin 40 mg Syringe SC SCH (10:27)
--- NOTE | 2017-08-03 14:44 | CP.PCM.CON ---
History of Present Illness - History of Present Illness History of Present Illness: Mr. Mauricio is a 52-year-old man with a past medical history of Hep C, IVDA ( heroin, last use was 2 days ago), right hip fracture, inguinal hernia repair two weeks ago, who has had 3 recent falls while he has been walking. The falls appear to be preceded by light-headedness/dizziness, without notable palpitations. He was treated for pneumonia one week ago and has had several episodes of vomiting, nausea over the last week. The first episode happened a few weeks ago while he was walking. He became light-headed and fell, lost consciousness and when he woke up, there were people around him. He did not have urinary/bowel incontinence or tongue biting. The other episode was similar , while he was walking, became light-headed, etc... and was about a week ago. The third or fourth episode actually happened while he was at a coffee shop, sitting down, and he then slumped over after feeling light-headed and woke up on the ground. According to the patient, he has had an EEG before that showed "spikes" and he was told by another neurologist that he may need to be on seizure medications. Review of Systems - Review of Systems All systems: reviewed and no additional remarkable complaints except Past Patient History - Infectious Disease Hx of Infectious Diseases: None - Tetanus Immunizations Tetanus Immunization: Unknown - Past Medical History & Family History Past Medical History?: Yes - Past Social History Smoking Status: Light Smoker < 10 Cigarettes Daily - CARDIAC Hx Cardiac Disorders: Yes Hx Hypertension: No - PULMONARY Hx Respiratory Disorders: No - NEUROLOGICAL Hx Neurological Disorder: Yes Hx Seizures: No Hx Syncope: Yes - HEENT Hx HEENT Problems: No - RENAL Hx Chronic Kidney Disease: No - ENDOCRINE/METABOLIC Hx Endocrine Disorders: No - HEMATOLOGICAL/ONCOLOGICAL Hx Blood Disorders: Yes Hx Hepatitis C: Yes Hx Human Immunodeficiency Virus (HIV): No - INTEGUMENTARY Hx Dermatological Problems: No - MUSCULOSKELETAL/RHEUMATOLOGICAL Hx Musculoskeletal Disorders: Yes Hx Falls: Yes Hx Fractures: Yes (right hip) - GASTROINTESTINAL Hx Gastrointestinal Disorders: Yes Hx Colitis: Yes Hx Hemorrhoids: Yes Other/Comment: HERNIA - GENITOURINARY/GYNECOLOGICAL Hx Genitourinary Disorders: No Hx Sexually Transmitted Disorders: No - PSYCHIATRIC Hx Psychophysiologic Disorder: Yes Hx Substance Use: Yes (heroin lat use 2 days ago) - SURGICAL HISTORY Hx Surgeries: Yes Hx Herniorrhaphy: Yes (khushi inguinal hernia repair) Other/Comment: Right Hip (srews placed due to fracture s/p fall) -November 2016, right orchiopexy for undescended testicle. Hx of L ing. repair once and R ing hernia twice - ANESTHESIA Hx Anesthesia: Yes Hx Anesthesia Reactions: No Hx Malignant Hyperthermia: No Meds Allergies/Adverse Reactions: Allergies Allergy/AdvReac Type Severity Reaction Status Date / Time No Known Allergies Allergy Verified 07/24/17 20:09 - Medications Medications: Current Medications Acetaminophen (Tylenol 325mg Tab) 650 mg PO Q6 PRN PRN Reason: Pain, Mild (1-3) Last Admin: 08/02/17 20:53 Dose: 650 mg Acetaminophen (Tylenol 325mg Tab) 650 mg PO Q6 PRN PRN Reason: Headache Enoxaparin Sodium (Lovenox) 40 mg SC DAILY ALYSE PRN Reason: Protocol Last Admin: 08/03/17 10:27 Dose: 40 mg Ketorolac Tromethamine (Toradol) 30 mg IVP Q6 PRN PRN Reason: Pain, moderate (4-7) Morphine Sulfate (Morphine) 2 mg IVP Q4 PRN PRN Reason: Pain, severe (8-10) Nicotine (Nicoderm Cq) 1 patch TD DAILY ALYSE Physical Exam - Constitutional Appears: Well - Head Exam Head Exam: ATRAUMATIC, NORMAL INSPECTION, NORMOCEPHALIC - Eye Exam Eye Exam: EOMI, Normal appearance, PERRL Pupil Exam: NORMAL ACCOMODATION, PERRL - ENT Exam ENT Exam: Mucous Membranes Moist, Normal Exam - Neck Exam Neck exam: Positive for: Normal Inspection - Respiratory Exam Respiratory Exam: Clear to Auscultation Bilateral, NORMAL BREATHING PATTERN - Cardiovascular Exam Cardiovascular Exam: REGULAR RHYTHM, +S1, +S2 - GI/Abdominal Exam GI & Abdominal Exam: Normal Bowel Sounds, Soft. absent: Tenderness - Rectal Exam Rectal Exam: Deferred - Extremities Exam Extremities exam: Positive for: normal inspection - Back Exam Back exam: NORMAL INSPECTION - Neurological Exam Neurological exam: Alert, CN II-XII Intact, Normal Gait, Oriented x3, Reflexes Normal - Psychiatric Exam Psychiatric exam: Normal Affect, Normal Mood - Skin Skin Exam: Dry, Intact, Normal Color, Warm Results - Vital Signs Recent Vital Signs: Last Vital Signs Temp 98.1 F 08/03/17 12:17 Pulse 55 L 08/03/17 12:17 Resp 16 08/03/17 12:17 BP 149/88 08/03/17 12:17 Pulse Ox 97 08/03/17 12:17 - Labs Result Diagrams: 08/03/17 06:34 08/03/17 06:34 Labs: Laboratory Results - last 24 hr 08/02/17 08/02/17 08/02/17 15:41 15:58 15:58 WBC 5.8 RBC 3.92 L Hgb 11.5 L Hct 34.7 L MCV 88.4 MCH 29.4 MCHC 33.3 RDW 15.5 H Plt Count 157 MPV 8.2 Neut % (Auto) 57.6 Lymph % (Auto) 27.0 [place] % (Auto) 11.4 H Eos % (Auto) 3.2 Baso % (Auto) 0.8 Neut # (Auto) 3.3 Lymph # (Auto) 1.6 [place] # (Auto) 0.7 Eos # (Auto) 0.2 Baso # (Auto) 0.0 PT INR APTT Sodium 142 Potassium 4.9 Chloride 103 Carbon Dioxide 29 Anion Gap 15 BUN 32 H Creatinine 1.3 Est GFR ( Amer) > 60 Est GFR (Non-Af Amer) 58 POC Glucose (mg/dL) 113 H Random Glucose 100 Calcium 8.8 Total Bilirubin 0.5 AST 69 H D ALT 85 H D Alkaline Phosphatase 104 Troponin I < 0.0120 NT-Pro-B Natriuret Pep Total Protein 7.4 Albumin 3.5 Globulin 3.9 Albumin/Globulin Ratio 0.9 L Urine Color Urine Clarity Urine pH Ur Specific [place] Urine Protein Urine Glucose (UA) Urine Ketones Urine Blood Urine Nitrate Urine Bilirubin Urine Urobilinogen Ur Leukocyte Esterase Urine RBC (Auto) Urine Microscopic WBC Urine Opiates Screen Urine Methadone Screen Ur Barbiturates Screen Ur Phencyclidine Scrn Ur Amphetamines Screen U Benzodiazepines Scrn U Oth Cocaine Metabols U Cannabinoids Screen 08/02/17 08/02/17 08/02/17 15:58 17:20 17:20 WBC RBC Hgb Hct MCV MCH MCHC RDW Plt Count MPV Neut % (Auto) Lymph % (Auto) [place] % (Auto) Eos % (Auto) Baso % (Auto) Neut # (Auto) Lymph # (Auto) [place] # (Auto) Eos # (Auto) Baso # (Auto) PT 10.9 INR 1.0 APTT 35.3 Sodium Potassium Chloride Carbon Dioxide Anion Gap BUN Creatinine Est GFR ( Amer) Est GFR (Non-Af Amer) POC Glucose (mg/dL) Random Glucose Calcium Total Bilirubin AST ALT Alkaline Phosphatase Troponin I NT-Pro-B Natriuret Pep Total Protein Albumin Globulin Albumin/Globulin Ratio Urine Color Yellow Urine Clarity Clear Urine pH 6.0 Ur Specific [place] 1.018 Urine Protein Negative Urine Glucose (UA) Neg Urine Ketones Negative Urine Blood Negative Urine Nitrate Negative Urine Bilirubin Negative Urine Urobilinogen 0.2-1.0 Ur Leukocyte Esterase Neg Urine RBC (Auto) 1 Urine Microscopic WBC < 1 Urine Opiates Screen Positive H Urine Methadone Screen Negative Ur Barbiturates Screen Negative Ur Phencyclidine Scrn Negative Ur Amphetamines Screen Negative U Benzodiazepines Scrn Negative U Oth Cocaine Metabols Positive H U Cannabinoids Screen Negative 08/03/17 08/03/17 06:34 06:34 WBC 4.1 L RBC 3.82 L Hgb 11.2 L Hct 34.2 L MCV 89.5 MCH 29.3 MCHC 32.8 L RDW 15.5 H Plt Count 131 MPV 8.2 Neut % (Auto) 50.7 Lymph % (Auto) 30.3 [place] % (Auto) 13.7 H Eos % (Auto) 4.4 H Baso % (Auto) 0.9 Neut # (Auto) 2.1 Lymph # (Auto) 1.3 [place] # (Auto) 0.6 Eos # (Auto) 0.2 Baso # (Auto) 0.0 PT INR APTT Sodium 143 Potassium 4.0 Chloride 106 Carbon Dioxide 26 Anion Gap 15 BUN 26 H Creatinine 1.2 Est GFR ( Amer) > 60 Est GFR (Non-Af Amer) > 60 POC Glucose (mg/dL) Random Glucose 92 Calcium 8.7 Total Bilirubin 0.5 AST 75 H ALT 96 H Alkaline Phosphatase 97 Troponin I NT-Pro-B Natriuret Pep 292 Total Protein 6.7 Albumin 3.0 L Globulin 3.7 Albumin/Globulin Ratio 0.8 L Urine Color Urine Clarity Urine pH Ur Specific [place] Urine Protein Urine Glucose (UA) Urine Ketones Urine Blood Urine Nitrate Urine Bilirubin Urine Urobilinogen Ur Leukocyte Esterase Urine RBC (Auto) Urine Microscopic WBC Urine Opiates Screen Urine Methadone Screen Ur Barbiturates Screen Ur Phencyclidine Scrn Ur Amphetamines Screen U Benzodiazepines Scrn U Oth Cocaine Metabols U Cannabinoids Screen - Imaging and Cardiology CT scan - head Status: Image reviewed by me, Report reviewed by me (Normal.) Assessment & Plan (1) Syncope Assessment and Plan: Based on the history, labs, exam and imaging, the patient may be having neuro- cardiogenic syncope, or possibly seizures. I recommend the followin. Telemetry and prolonged cardiac monitoring, consider loop recorder prior to discharge 2. Echocardiogram with bubble study 3. MRI of the brain and MRA of the head/neck without contrast 4. EEG awake and drowsy for 1 hours 5. Fluids with NS at 100 mL/hr 6. Tilt table testing 7. Check orthostatics 8. PT/OT eval and treatment 9. DVT Px 10. Case management consult Thank you for this consultation. Status: Acute Priority: High
[2017-08-04 01:36] VITALS: RESP 18
[2017-08-04] MEDS ORDERED: HYDROmorphone 0.5 mg/0.5 ml ISec IVP ONE (01:50)
--- NOTE | 2017-08-04 09:13 | CARD ---
APPROVED REPORT EKG Measurement Heart [id number] <Conclusion> Normal sinus rhythm Nonspecific ST abnormality Abnormal QRS-T angle, consider primary T wave abnormality Abnormal ECG
[2017-08-04] MEDS ORDERED: Lidocaine 5% Patch TD SCH ×2 (10:15→10:39)
--- NOTE | 2017-08-04 10:15 | CP.PCM.PN ---
Subjective - Date & Time of Evaluation Date of Evaluation: 08/04/17 Time of Evaluation: 10:10 - Subjective Subjective: Patient seen and examined this morning. Patient is c/o opiate withdrawal and would like to get something for his withdrawal. Patient scored 3 on clinical opiate withdrawal scale which is negative for withdrawal. Patient is c/o right side chest pain (radiates all over right side). Patient was given dilaudid last night for withdrawal like symptoms. Patient denies any SOB, leftside chest pain, or vomiting, fever, diarrhea this morning. Patient ate breakfast and EEG was done this morning. Objective - Vital Signs/Intake and Output Vital Signs (last 24 hours): Temp Pulse Resp BP Pulse Ox 97.7 F 59 L 18 146/77 97 08/04/17 07:43 08/04/17 08:39 08/04/17 07:43 08/04/17 07:43 08/04/17 07:43 - Medications Medications: Current Medications Acetaminophen (Tylenol 325mg Tab) 650 mg PO Q6 PRN PRN Reason: Pain, Mild (1-3) Last Admin: 08/02/17 20:53 Dose: 650 mg Acetaminophen (Tylenol 325mg Tab) 650 mg PO Q6 PRN PRN Reason: Headache Enoxaparin Sodium (Lovenox) 40 mg SC DAILY ALYSE PRN Reason: Protocol Last Admin: 08/03/17 10:27 Dose: 40 mg Ketorolac Tromethamine (Toradol) 30 mg IVP Q6 PRN PRN Reason: Pain, moderate (4-7) Lidocaine (Lidoderm) 1 ea TD DAILY ALYSE Nicotine (Nicoderm Cq) 1 patch TD DAILY [facility] Last Admin: 08/03/17 13:38 Dose: 1 patch Quetiapine Fumarate (Seroquel) 100 mg PO HS [facility] Last Admin: 08/03/17 21:30 Dose: 100 mg - Labs Labs: 08/03/17 06:34 08/03/17 06:34 PT 10.9 Seconds (9.8-13.1) 08/02/17 15:58 INR 1.0 (0.9-1.2) 08/02/17 15:58 APTT 35.3 Seconds (25.6-37.1) 08/02/17 15:58 - Constitutional Appears: No Acute Distress - Head Exam Head Exam: ATRAUMATIC, NORMAL INSPECTION, NORMOCEPHALIC - Eye Exam Eye Exam: EOMI, Normal appearance Pupil Exam: NORMAL ACCOMODATION - ENT Exam ENT Exam: Mucous Membranes Moist - Neck Exam Neck Exam: Full ROM - Respiratory Exam Respiratory Exam: Chest Wall Tenderness (right side), Clear to Ausculation Bilateral - Cardiovascular Exam Cardiovascular Exam: REGULAR RHYTHM - GI/Abdominal Exam GI & Abdominal Exam: Soft, Normal Bowel Sounds - Extremities Exam Extremities Exam: Full ROM - Back Exam Back Exam: NORMAL INSPECTION - Neurological Exam Neurological Exam: Alert, Awake, Oriented x3
[2017-08-04] MEDS: Enoxaparin 40 mg Syringe SC SCH (11:47)
--- NOTE | 2017-08-04 11:49 | CP.PCM.PN ---
Subjective - Date & Time of Evaluation Date of Evaluation: 08/04/17 Time of Evaluation: 11:47 - Subjective Subjective: Ms. Mauricio was seen and examined at the bedside. He is alert, oriented in all spheres. He denies dizziness, lightheadedness, blurred vision, nausea, or vomiting. He claims of experiencing very mild headache located in the parietal area, non-radiating, claims of it is a tolerable pain. He is able to follow simple commands. There was no untoward events overnight. Objective - Vital Signs/Intake and Output Vital Signs (last 24 hours): Temp Pulse Resp BP Pulse Ox 97.7 F 59 L 18 146/77 97 08/04/17 07:43 08/04/17 08:39 08/04/17 07:43 08/04/17 07:43 08/04/17 07:43 - Medications Medications: Current Medications Acetaminophen (Tylenol 325mg Tab) 650 mg PO Q6 PRN PRN Reason: Pain, Mild (1-3) Last Admin: 08/02/17 20:53 Dose: 650 mg Acetaminophen (Tylenol 325mg Tab) 650 mg PO Q6 PRN PRN Reason: Headache Clonazepam (Klonopin) 0.5 mg PO Q8H PRN PRN Reason: Excess sedation Enoxaparin Sodium (Lovenox) 40 mg SC DAILY ALYSE PRN Reason: Protocol Last Admin: 08/03/17 10:27 Dose: 40 mg Ketorolac Tromethamine (Toradol) 30 mg IVP Q6 PRN PRN Reason: Pain, moderate (4-7) Lidocaine (Lidoderm) 1 ea TD DAILY [facility] Nicotine (Nicoderm Cq) 1 patch TD DAILY [facility] Last Admin: 08/03/17 13:38 Dose: 1 patch Quetiapine Fumarate (Seroquel) 100 mg PO HS [facility] Last Admin: 08/03/17 21:30 Dose: 100 mg - Labs Labs: 08/03/17 06:34 08/03/17 06:34 PT 10.9 Seconds (9.8-13.1) 08/02/17 15:58 INR 1.0 (0.9-1.2) 08/02/17 15:58 APTT 35.3 Seconds (25.6-37.1) 08/02/17 15:58 - Constitutional Appears: No Acute Distress - Head Exam Head Exam: NORMAL INSPECTION - Neurological Exam Neurological Exam: Alert, Awake, Oriented x3 Neuro motor strength exam: Left Upper Extremity: 5, Right Upper Extremity: 5, Left Lower Extremity: 5, Right Lower Extremity: 5 Additional comments: He is alert, oriented, able to follow simple commands. Sensation remains intact. Assessment and Plan (1) Syncope Assessment & Plan: Case discussed with Anton, continue all current medical, physical, and occupational therapies. Pending EEG, echocardiogram, CTA of the head and neck, MRIof the brain without contrast. Status: Acute
[2017-08-04 12:07] VITALS: BP 149/89; PULSE 58; TEMP 98.2; O2SAT 98
--- NOTE | 2017-08-04 13:45 | US ---
PROCEDURE: Duplex ultrasound of the carotid and vertebral arteries. HISTORY: Syncope COMPARISON: None available. TECHNIQUE: Grayscale and duplex Doppler evaluation of the cervical carotid and vertebral arteries were performed. The common carotid, carotid bifurcations and cervical ICA and proximal ECA were evaluated. The vertebral arteries were evaluated for gross patency and direction. FINDINGS: RIGHT CAROTID ARTERIES: Common Carotid Artery: Normal. Maximal flow velocity of 85.6 cm/s. Carotid Bifurcation: Normal. Internal Carotid Artery:Normal. Maximal flow velocity of 81.6 cm/s. External Carotid Artery (proximal branches): Normal. Maximal flow velocity of 83.0 cm/s. ICA/CCA Ratio: 1.0 LEFT CAROTID ARTERIES: Common Carotid Artery: Normal. Maximal flow velocity of 119.5 cm/s. Carotid Bifurcation: Normal. Internal Carotid Artery:Normal. Maximal flow velocity of 88.2 cm/s. External Carotid Artery (proximal branches): Normal. Maximal flow velocity of 77.7 cm/s. ICA/CCA Ratio: 0.7 VERTEBRAL ARTERIES: Right Vertebral Artery: Patent. Antegrade flow. Left Vertebral Artery: Patent. Antegrade flow. OTHER FINDINGS: None. IMPRESSION: Normal Duplex Doppler of the cervical carotid and vertebral arteries.
--- NOTE | 2017-08-04 13:54 | CP.PCM.DIS ---
Provider - Provider Date of Admission: 08/03/17 19:21 Attending physician: Arlene Bowden MD Consults: Neurology , Dr. Eisenberg Time Spent in preparation of Discharge (in minutes): 40 Diagnosis - Discharge Diagnosis (1) Syncope and collapse Status: Acute (2) Right-sided chest wall pain Status: Acute (3) Elevated transaminase level Status: Acute (4) Hepatitis C antibody test positive Status: Chronic (5) Polysubstance abuse Status: Chronic Hospital Course - Lab Results Lab Results: Micro Results 08/02/17 17:20 Urine,Clean Catch Urine Culture - Final No Growth (<1,000 CFU/ML) Most Recent Lab Values WBC 4.1 K/uL (4.8-10.8) L 08/03/17 06:34 RBC 3.82 Mil/uL (4.40-5.90) L 08/03/17 06:34 Hgb 11.2 g/dL (12.0-18.0) L 08/03/17 06:34 Hct 34.2 % (35.0-51.0) L 08/03/17 06:34 MCV 89.5 fl (80.0-94.0) 08/03/17 06:34 MCH 29.3 pg (27.0-31.0) 08/03/17 06:34 MCHC 32.8 g/dL (33.0-37.0) L 08/03/17 06:34 RDW 15.5 % (11.5-14.5) H 08/03/17 06:34 Plt Count 131 K/uL (130-400) 08/03/17 06:34 MPV 8.2 fl (7.2-11.7) 08/03/17 06:34 Neut % (Auto) 50.7 % (50.0-75.0) 08/03/17 06:34 Lymph % (Auto) 30.3 % (20.0-40.0) 08/03/17 06:34 [place] % (Auto) 13.7 % (0.0-10.0) H 08/03/17 06:34 Eos % (Auto) 4.4 % (0.0-4.0) H 08/03/17 06:34 Baso % (Auto) 0.9 % (0.0-2.0) 08/03/17 06:34 Neut # (Auto) 2.1 K/uL (1.8-7.0) 08/03/17 06:34 Lymph # (Auto) 1.3 K/uL (1.0-4.3) 08/03/17 06:34 [place] # (Auto) 0.6 K/uL (0.0-0.8) 08/03/17 06:34 Eos # (Auto) 0.2 K/uL (0.0-0.7) 08/03/17 06:34 Baso # (Auto) 0.0 K/uL (0.0-0.2) 08/03/17 06:34 PT 10.9 Seconds (9.8-13.1) 08/02/17 15:58 INR 1.0 (0.9-1.2) 08/02/17 15:58 APTT 35.3 Seconds (25.6-37.1) 08/02/17 15:58 Sodium 143 mmol/l (132-148) 08/03/17 06:34 Potassium 4.0 MMOL/L (3.6-5.0) 08/03/17 06:34 Chloride 106 mmol/L (98-107) 08/03/17 06:34 Carbon Dioxide 26 mmol/L (22-30) 08/03/17 06:34 Anion Gap 15 (10-20) 08/03/17 06:34 BUN 26 mg/dl (9-20) H 08/03/17 06:34 Creatinine 1.2 mg/dl (0.8-1.5) 08/03/17 06:34 Est GFR ( Amer) > 60 08/03/17 06:34 Est GFR (Non-Af Amer) > 60 08/03/17 06:34 POC Glucose (mg/dL) 113 mg/dL (65-110) H 08/02/17 15:41 Random Glucose 92 mg/dL (75-110) 08/03/17 06:34 Calcium 8.7 mg/dL (8.4-10.2) 08/03/17 06:34 Total Bilirubin 0.5 mg/dl (0.2-1.3) 08/03/17 06:34 AST 75 U/L (17-59) H 08/03/17 06:34 ALT 96 U/L (21-72) H 08/03/17 06:34 Alkaline Phosphatase 97 U/L (38-126) 08/03/17 06:34 Troponin I < 0.0120 ng/mL (0.00-0.120) 08/02/17 15:58 NT-Pro-B Natriuret Pep 292 pg/ml (0-900) 08/03/17 06:34 Total Protein 6.7 G/DL (6.3-8.2) 08/03/17 06:34 Albumin 3.0 g/dL (3.5-5.0) L 08/03/17 06:34 Globulin 3.7 gm/dL (2.2-3.9) 08/03/17 06:34 Albumin/Globulin Ratio 0.8 (1.0-2.1) L 08/03/17 06:34 Urine Color Yellow (YELLOW) 08/02/17 17:20 Urine Clarity Clear (Clear) 08/02/17 17:20 Urine pH 6.0 (5.0-8.0) 08/02/17 17:20 Ur Specific [place] 1.018 (1.003-1.030) 08/02/17 17:20 Urine Protein Negative mg/dL (NEGATIVE) 08/02/17 17:20 Urine Glucose (UA) Neg mg/dL (Normal) 08/02/17 17:20 Urine Ketones Negative mg/dL (NEGATIVE) 08/02/17 17:20 Urine Blood Negative (NEGATIVE) 08/02/17 17:20 Urine Nitrate Negative (NEGATIVE) 08/02/17 17:20 Urine Bilirubin Negative (NEGATIVE) 08/02/17 17:20 Urine Urobilinogen 0.2-1.0 mg/dL (0.2-1.0) 08/02/17 17:20 Ur Leukocyte Esterase Neg Day/uL (Negative) 08/02/17 17:20 Urine RBC (Auto) 1 /hpf (0-3) 08/02/17 17:20 Urine Microscopic WBC < 1 /hpf (0-5) 08/02/17 17:20 Urine Opiates Screen Positive (NEGATIVE) H 08/02/17 17:20 Urine Methadone Screen Negative (NEGATIVE) 08/02/17 17:20 Ur Barbiturates Screen Negative (NEGATIVE) 08/02/17 17:20 Ur Phencyclidine Scrn Negative (NEGATIVE) 08/02/17 17:20 Ur Amphetamines Screen Negative (NEGATIVE) 08/02/17 17:20 U Benzodiazepines Scrn Negative (NEGATIVE) 08/02/17 17:20 U Oth Cocaine Metabols Positive (NEGATIVE) H 08/02/17 17:20 U Cannabinoids Screen Negative (NEGATIVE) 08/02/17 17:20 - Hospital Course Hospital Course: A 52 y/o homeless male with PMH of Hepc, polysubstains abuse, Right hip fracture , s/p right inguinal hernia repair 2 weeks ago presents to ED for evaluation after a fall. Patient admitted previously for same reason and all the cardiac workup came back negative. This admission, head CT, EKG, and carotid U/S were done which came back negative for any acute changes. Neurology, Dr. Eisenberg was consulted who recommended Echo with bubble study, head MRI, head & neck MRA w/o cont, EEG, Tilt table test and PT/OT eval. This morning, EEG was done but patient refused to do any other tests and requested dilaudid for Opiate withdrawal (patient scored 3 on clinical opiate withdrawal scale, not withdrawing). Patient was offered anxiolytics for MRA but refused. Patient decided to sign AMA, patient was explained risks associated with his diagnosis. Patient fully understands his diagnosis and signs AMA. - Date & Time of H&P Date of H&P: 08/02/17 Time of H&P: 18:22 Discharge Exam - Head Exam Head Exam: NORMAL INSPECTION - Eye Exam Eye Exam: Normal appearance Pupil Exam: NORMAL ACCOMODATION, PERRL - ENT Exam ENT Exam: Mucous Membranes Moist, Normal Exam - Respiratory Exam Respiratory Exam: Chest Wall Tenderness (Right side), Clear to PA & Lateral, NORMAL BREATHING PATTERN. absent: Accessory Muscle Use, Decreased Breath Sounds - Cardiovascular Exam Cardiovascular Exam: REGULAR RHYTHM - GI/Abdominal Exam GI & Abdominal Exam: Normal Bowel Sounds - Extremities Exam Extremities exam: full ROM, normal capillary refill, normal inspection, pedal pulses present - Back Exam Back exam: absent: CVA tenderness (L), CVA tenderness (R) - Neurological Exam Neurological exam: Alert, CN II-XII Intact, Oriented x3 - Psychiatric Exam Psychiatric exam: Normal Affect, Normal Mood - Skin Skin Exam: Dry, Intact, Normal Color Discharge Plan - Follow Up Plan Condition: FAIR Disposition: AGAINST MEDICAL ADVICE Additional Instructions: Please follow up with PMD for further evaluation of his syncope
--- NOTE | 2017-08-05 09:11 | EEG ---
ELECTROENCEPHALOGRAM REPORT DATE: 08/04/2017 TECHNICAL INFORMATION: Electrodes were placed according to the 10-20 International electrode system by apparatus engineering technologist. Total of 23 electrodes (21 EEG and 2 EKG) were placed. EEG activity was digitally recorded referentially to P1/P2 or A1/A2 electrodes. Continuous monitoring with EEG was performed using digital analysis for spike detection. The [employer] spike and seizure detection algorithms were used for digital EEG analysis throughout the monitoring period to screen the EEG in real-time and yulisa the data file with pointers to electrographic seizures and interictal discharges. EEG was screened for electrographic seizures and interictal discharges by a technologist. Physician, epileptologist reviewed detections as well as extensive random samples and whole EEG study in detail. Digital EEG Analysis: Was carried out including FFT (Fast Fourier Transform), R2D2 (Rhythmicity Run Detection and Display), Relative Asymmetry Spectrogram, and voltage plot by the [employer] Software. The qualitative EEG analysis and the voltage plot mapping were used for detection of foci of paroxysmal and abnormal electrical cortical activity. GENERAL DESCRIPTION: Background Rhythm: There is a well-formed, 8-10 Hz posterior dominant rhythm that is reactive, symmetric, and attenuates with eye opening. There was a normal amount of frontal beta noted bilaterally. There is no sleep recorded. ACTIVATION PROCEDURES: Photic stimulation: There is no driving noted. Hyperventilation: There is slowing noted that is self-remitted. ABNORMAL ACTIVITY: There are no focal epileptiform discharges noted. No clinical or subclinical seizures noted. IMPRESSION: This is a normal awake and drowsy electroencephalogram. Clinical correlation is required. Joshua Walton MD
--- NOTE | 2017-08-05 16:29 | PQF GENQUE ---
Dr. Bowden, Etiology of Syncope if known? OR: Unable to determine Neuro consult: Based on the history, labs, exam and imaging, the patient may be having neuro-cardiogenic syncope, or possibly seizures. This form is a permanent part of the medical record Clarification of your documentation is requested to better reflect the severity of illness and intensity of treatment of your patient. Indicators present [] Specify: [] [] Specify: [] [] Specify: [] [] Specify: [] Location in the medical record that reflects the above clinical findings: [] Treatment Provided: [] PHYSICIAN'S RESPONSE Based on your medical judgment of the clinical indicators outlined above please clarify the following: [] Practitioner response [] If unable to determine, please check the box, sign and date. Present On Admission (POA) Indicator: [] Present at the time of admission [] Not present at the time of admission [] Clinically Undetermined In responding to this query, please exercise your independent professional judgment. The fact that a question is asked does not imply that any particular answer is desired or expected. Thank you for your clarification on this documentation. If you have any questions please call. * Thank you, Helen Crenshaw RN ext. #[phone] MTDD
== END 2017-08-04 12:50 | disposition left against medical advice (07) | DRG 141 ==
LOC: H.ER 15:16 → H.ERHOLD 17:55 → H.TEL 23:50 → OBSVTOIN 08-03 19:21
PROVIDERS: ADMIT Family Medicine Geriatric Medicine; ATTEND Family Medicine Geriatric Medicine
DX: R55 Syncope and collapse (principal); J44.9 Chronic obstructive pulmonary disease, unspecified; N18.3 Chronic kidney disease, stage 3 (moderate); B19.20 Unspecified viral hepatitis C without hepatic coma; F11.10 Opioid abuse, uncomplicated; S20.211D Contusion of right front wall of thorax, subsequent encounter; Z82.49 Family history of ischemic heart disease and other diseases of the circulatory system; F17.200 Nicotine dependence, unspecified, uncomplicated; G44.229 Chronic tension-type headache, not intractable; H93.19 Tinnitus, unspecified ear; Z87.01 Personal history of pneumonia (recurrent); F45.9 Somatoform disorder, unspecified; K52.9 Noninfective gastroenteritis and colitis, unspecified; K64.9 Unspecified hemorrhoids; R29.6 Repeated falls; W18.30XD Fall on same level, unspecified, subsequent encounter; Y92.410 Unspecified street and highway as the place of occurrence of the external cause; Z79.899 Other long term (current) drug therapy; R40.0 Somnolence; R74.0 Nonspecific elevation of levels of transaminase and lactic acid dehydrogenase [LDH]

== ENCOUNTER 2017-08-30 01:27 | Emergency (ER) | payer MEDICAID ==
[2017-08-30 01:34] VITALS: BMI 23.3
[2017-08-30 01:35] VITALS: TEMP 97.8
--- NOTE | 2017-08-30 02:40 | ED PDOC ---
HPI: General Adult Time Seen by Provider: 08/30/17 01:42 Chief Complaint (Nursing): Abdominal Pain History Per: Patient Additional Complaint(s): Pt. states on Friday or Friday he was dc'd from a detox program and was informed that his "kidney numbers are bad." Pt. is uncertain of results. States he's also had atraumatic non-radiating lower back pain x 4 months. Also reports that today he was suppose to go to a 30 day rehab program but was told he could not go because of a rash on his face. Pt. states he's had facial rash for 1 week and is mildly pruritic. Denies dysuria, hematuria, abdominal pain, hx of kidney disease, incontinence, trauma, N/V, fever Past Medical History Reviewed: Historical Data, Nursing Documentation, Vital Signs Vital Signs: Last Vital Signs Temp 97.8 F 08/30/17 01:45 Pulse 80 08/30/17 06:33 Resp 15 08/30/17 06:33 BP 127/73 08/30/17 06:33 Pulse Ox 100 08/30/17 06:33 - Medical History PMH: Fractures (right hip), Hepatitis (C) Denies: Diabetes, HIV, HTN, Chronic Kidney Disease, Seizures, Sexually Transmitted Disease - Surgical History Surgical History: No Surg Hx, Hernia Repair - Family History Family History: States: No Known Family Hx - Immunization History Hx Tetanus Toxoid Vaccination: No Hx Influenza Vaccination: No Hx Pneumococcal Vaccination: No - Home Medications Home Medications: Ambulatory Orders Medication Instructions Recorded QUEtiapine [Seroquel] 100 mg PO HS #30 tab 07/09/17 Oxycodone HCl/Acetaminophen 1 each PO Q4 PRN #20 tablet 07/19/17 [Percocet 10-325 mg Tablet] Ibuprofen [Motrin Tab] 400 mg PO Q6H #20 tab 07/26/17 Sulfamethoxazole/Trimethoprim 2 tab PO BID #28 tab 08/30/17 [Bactrim DS 800 mg-160 mg] - Allergies Allergies/Adverse Reactions: Allergies Allergy/AdvReac Type Severity Reaction Status Date / Time No Known Allergies Allergy Verified 07/24/17 20:09 Review of Systems ROS Statement: Except As Marked, All Systems Reviewed And Found Negative Musculoskeletal: Positive for: Back Pain Physical Exam - Physical Exam Appears: Positive for: Well, Non-toxic, No Acute Distress Skin: Positive for: Normal Color, Warm, Rash (B/L malar area and on both eyebrows with erythema and yellow crusting noted without break in skin integrity ; honey crusted lesion on R cheek) Eye Exam: Positive for: Normal appearance, EOMI, PERRL. Negative for: Periorbital swelling, Periorbital tenderness, Conjunctival injection, Scleral icterus ENT: Positive for: Normal ENT Inspection Cardiovascular/Chest: Positive for: Regular Rate, Rhythm Respiratory: Positive for: CNT, Normal Breath Sounds Gastrointestinal/Abdominal: Positive for: Normal Exam, Soft. Negative for: Tenderness Back: Positive for: Normal Inspection. Negative for: L CVA Tenderness, R CVA Tenderness, Vertebral Tenderness Neurologic/Psych: Positive for: Alert, Oriented - Laboratory Results Result Diagrams: 08/30/17 03:07 08/30/17 03:07 - ECG O2 Sat by Pulse Oximetry: 96 - Progress ED Course And Treament: Labs, LS spine x-ray, UA ordered. Re-evaluation Time: 06:39 Condition: Re-examined, Improved Disposition - Clinical Impression Clinical Impression: Renal insufficiency, Back pain, Impetigo - Patient ED Disposition Is Patient to be Admitted: No - Disposition Referrals: [facility] [Outside] Disposition: Routine/Home Disposition Time: 04:15 Condition: IMPROVED Additional Instructions: Follow up with [facility] on 09/10/2017 as previously scheduled. Prescriptions: Sulfamethoxazole/Trimethoprim [Bactrim DS 800 mg-160 mg] 2 tab PO BID #28 tab Instructions: Seborrheic Dermatitis, Chronic Kidney Disease (DC), Low Back Pain in Adults, Impetigo (DC) Forms: [employer] (Italian)
[2017-08-30 03:36] LABS: BASO % 0.6 % (0.0-2.0); EOS # 0.1 K/uL (0.0-0.7); EOS % 1.5 % (0.0-4.0); HEMOGLOBIN 12.4 g/dL (12.0-18.0); LYMPH # 1.3 K/uL (1.0-4.3); LYMPH % 21.8 % (20.0-40.0); MEAN CELL VOLUME 89.3 fl (80.0-94.0); MEAN CORPUSCULAR HEMOGLOBIN 29.7 pg (27.0-31.0); MEAN CORPUSCULAR HGB CONC 33.3 g/dL (33.0-37.0); MEAN PLATELET VOLUME 8.1 fl (7.2-11.7); MONO # 0.7 K/uL (0.0-0.8); MONO % 12.2 % (0.0-10.0); NEUT # 3.8 K/uL (1.8-7.0); NEUT % 63.9 % (50.0-75.0); NRBC % 0.1 % (0.0-0.0); RBC 4.19 Mil/uL (4.40-5.90); RED CELL DISTRIBUTION WIDTH 15.3 % (11.5-14.5)
[2017-08-30 06:34] VITALS: BP 127/73; PULSE 80; RESP 15
[2017-08-30 06:38] VITALS: O2SAT 96
[2017-08-30 07:15] LABS: ALB/GLOB RATIO 0.9 (1.0-2.1); CALCIUM 9.3 mg/dL (8.4-10.2)
--- NOTE | 2017-08-30 10:19 | RAD ---
PROCEDURE: Radiographs of the Lumbar Spine. HISTORY: pain COMPARISON: No prior. FINDINGS: BONES: Frontal and lateral cross-table views of the spine were performed for back pain. Degenerative disc disease is noted. No malalignment is seen. No lytic process is noted. Posterior elements are intact. Degenerative facet changes are seen in the lower lumbar spine region. Mild scoliosis is noted. Sacroiliac joints are not widened. 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 DISC SPACES: See above OTHER FINDINGS: None. IMPRESSION: No evidence of fracture or malalignment. Degenerative disc disease.
== END 2017-08-30 06:55 | disposition home or self-care (01) ==
LOC: H.ER 01:27
DX: N18.9 Chronic kidney disease, unspecified (principal); M54.9 Dorsalgia, unspecified; L01.00 Impetigo, unspecified; M51.36 Other intervertebral disc degeneration, lumbar region; N28.9 Disorder of kidney and ureter, unspecified; B18.2 Chronic viral hepatitis C

== ENCOUNTER 2017-09-06 11:29 | Emergency (ER) | payer MEDICAID ==
[2017-09-06 11:36] VITALS: BP 124/79; PULSE 79; TEMP 97.7; O2SAT 98
[2017-09-06 11:37] VITALS: BMI 23.7
[2017-09-06 11:53] VITALS: RESP 18
--- NOTE | 2017-09-06 12:14 | ED PDOC ---
HPI: Back Time Seen by Provider: 09/06/17 11:54 Chief Complaint (Nursing): Back Pain Chief Complaint (Provider): back pain History Per: Patient Additional Complaint(s): 52-year-old male with history of chronic back pain presents to emergency department for worsening pain. Patient admits to using IV heroin earlier today and states this did not help the pain. Patient states he was in detox approximately 3 weeks ago and was told that he had a "problem with his kidneys. " He should states he came to ED today for further evaluation of her kidneys. Patient denies any dysuria, hematuria, urgency or frequency. He does have chronic bilateral flank pain. PMD: [facility] Past Medical History Reviewed: Historical Data, Nursing Documentation, Vital Signs Vital Signs: Last Vital Signs Temp 97.7 F 09/06/17 11:48 Pulse 79 09/06/17 11:48 Resp 18 09/06/17 11:48 BP 124/79 09/06/17 11:48 Pulse Ox 98 09/06/17 11:48 - Medical History PMH: Hepatitis (C) - Surgical History Surgical History: Hernia Repair Other surgeries: right hip surgery - Family History Family History: States: No Known Family Hx - Living Arrangements Living Arrangements: Alone - Social History Current smoker - smoking cessation education provided: Yes Alcohol: None Drugs: Opiates (IV heroin) - Home Medications Home Medications: Ambulatory Orders Medication Instructions Recorded QUEtiapine [Seroquel] 100 mg PO HS #30 tab 07/09/17 Oxycodone HCl/Acetaminophen 1 each PO Q4 PRN #20 tablet 07/19/17 [Percocet 10-325 mg Tablet] Ibuprofen [Motrin Tab] 400 mg PO Q6H #20 tab 07/26/17 Sulfamethoxazole/Trimethoprim 2 tab PO BID #28 tab 08/30/17 [Bactrim DS 800 mg-160 mg] - Allergies Allergies/Adverse Reactions: Allergies Allergy/AdvReac Type Severity Reaction Status Date / Time No Known Allergies Allergy Verified 07/24/17 20:09 Review of Systems ROS Statement: Except As Marked, All Systems Reviewed And Found Negative Constitutional: Negative for: Fever Cardiovascular: Negative for: Chest Pain Respiratory: Negative for: Cough Genitourinary Male: Negative for: Dysuria, Frequency, Incontinence, Hematuria, Penile Discharge, Scrotal Pain Musculoskeletal: Positive for: Back Pain Physical Exam - Reviewed Nursing Documentation Reviewed: Yes Vital Signs Reviewed: Yes - Physical Exam Appears: Positive for: Well, Non-toxic, No Acute Distress Skin: Negative for: Rash Eye Exam: Positive for: Normal appearance Cardiovascular/Chest: Positive for: Regular Rate, Rhythm Respiratory: Positive for: Normal Breath Sounds Gastrointestinal/Abdominal: Positive for: Soft. Negative for: Tenderness Back: Positive for: L CVA Tenderness, R CVA Tenderness, Vertebral Tenderness Extremity: Positive for: Normal ROM Neurologic/Psych: Positive for: Alert, Oriented - Laboratory Results Result Diagrams: 09/06/17 13:16 09/06/17 13:16 Urine dip results: Negative for: Leukocyte Esterase, Blood, Nitrate, Ketones, Glucose, Bilirubin, Protein - ECG O2 Sat by Pulse Oximetry: 98 Pulse Ox Interpretation: Normal Medical Decision Making Medical Decision Makin52 year old with back pain Plan: U dip CBC CMP PO tylenol and flexeril Patient is aware of all diagnostic testing results, all questions answered. Patient was referred to clinic for follow-up. Disposition - Clinical Impression Clinical Impression: Back pain, Heroin abuse - Patient ED Disposition Is Patient to be Admitted: No Counseled Patient/Family Regarding: Studies Performed, Diagnosis, Need For Followup - Disposition Referrals: [facility] [Outside] Disposition: Routine/Home Disposition Time: 14:10 Condition: STABLE Additional Instructions: FOLLOW UP WITH CLINIC Instructions: Low Back Pain (DC), Opioid Use Disorder Forms: [employer] (Lithuanian) Results - Lab Results Lab Results: 09/06/17 09/06/17 13:16 13:16 WBC 7.0 RBC 4.30 L Hgb 13.0 Hct 38.7 MCV 89.8 MCH 30.1 MCHC 33.5 RDW 14.9 H Plt Count 183 MPV 7.7 Neut % (Auto) 55.0 Lymph % (Auto) 31.4 [place] % (Auto) 10.8 H Eos % (Auto) 2.1 Baso % (Auto) 0.7 Neut # (Auto) 3.9 Lymph # (Auto) 2.2 [place] # (Auto) 0.8 Eos # (Auto) 0.1 Baso # (Auto) 0.1 Sodium 144 Potassium 4.1 Chloride 106 Carbon Dioxide 26 Anion Gap 16 BUN 36 H Creatinine 1.6 H Est GFR ( Amer) 55 Est GFR (Non-Af Amer) 45 Random Glucose 86 Calcium 9.1 Total Bilirubin 1.0 AST 66 H D ALT 121 H D Alkaline Phosphatase 89 Total Protein 8.3 H Albumin 3.9 Globulin 4.3 H Albumin/Globulin Ratio 0.9 L
[2017-09-06 13:23] LABS: BASO # 0.1 K/uL (0.0-0.2); BASO % 0.7 % (0.0-2.0); EOS # 0.1 K/uL (0.0-0.7); EOS % 2.1 % (0.0-4.0); LYMPH # 2.2 K/uL (1.0-4.3); LYMPH % 31.4 % (20.0-40.0); MEAN CELL VOLUME 89.8 fl (80.0-94.0); MEAN CORPUSCULAR HEMOGLOBIN 30.1 pg (27.0-31.0); MEAN CORPUSCULAR HGB CONC 33.5 g/dL (33.0-37.0); MEAN PLATELET VOLUME 7.7 fl (7.2-11.7); MONO # 0.8 K/uL (0.0-0.8); MONO % 10.8 % (0.0-10.0); NEUT # 3.9 K/uL (1.8-7.0); NRBC % 0.2 % (0.0-0.0); RBC 4.3 Mil/uL (4.40-5.90); RED CELL DISTRIBUTION WIDTH 14.9 % (11.5-14.5)
[2017-09-06 13:47] LABS: ALB/GLOB RATIO 0.9 (1.0-2.1); ALBUMIN 3.9 g/dL (3.5-5.0); CALCIUM 9.1 mg/dL (8.4-10.2)
== END 2017-09-06 14:46 | disposition home or self-care (01) ==
LOC: H.ER 11:29
DX: M54.9 Dorsalgia, unspecified (principal); F11.10 Opioid abuse, uncomplicated; G89.29 Other chronic pain

== ENCOUNTER 2017-09-07 02:45 | Emergency (ER) | payer MEDICAID ==
[2017-09-07 02:45] VITALS: BMI 23.7
[2017-09-07 03:02] VITALS: BP 135/83; PULSE 81; RESP 18; TEMP 96.5; O2SAT 96
--- NOTE | 2017-09-07 03:39 | ED PDOC ---
HPI: Back Time Seen by Provider: 09/07/17 03:17 Chief Complaint (Nursing): Back Pain Chief Complaint (Provider): Back Pain History Per: Patient History/Exam Limitations: no limitations Onset/Duration Of Symptoms: Mins (prior to arrival) Current Symptoms Are (Timing): Still Present Additional Complaint(s): Hernesto Mauricio is a 52 year old male, well known to the ER and provider with multiple visits and a history of theo pain and substance abuse, who is presenting to the ED with complaints of back pain, onset prior to arrival. Patient is exhibiting bed seeking behavior and states that the custodial would not allow him to sleep there. Patient denies any chest pain, shortness of breath, fevers, vomiting, or diarrhea. He offers no other medical complaints at this time. PMD: Marlys Zee Past Medical History Reviewed: Historical Data, Nursing Documentation, Vital Signs Vital Signs: Last Vital Signs Temp 96.5 F L 09/07/17 02:56 Pulse 81 09/07/17 02:56 Resp 18 09/07/17 02:56 BP 135/83 09/07/17 02:56 Pulse Ox 96 09/07/17 02:56 - Medical History PMH: Fractures (right hip), Hepatitis (C) Denies: Diabetes, HIV, HTN, Chronic Kidney Disease, Seizures, Sexually Transmitted Disease - Surgical History Surgical History: Hernia Repair - Family History Family History: States: Unknown Family Hx - Immunization History Hx Tetanus Toxoid Vaccination: No Hx Influenza Vaccination: No Hx Pneumococcal Vaccination: No - Home Medications Home Medications: Ambulatory Orders Medication Instructions Recorded QUEtiapine [Seroquel] 100 mg PO HS #30 tab 07/09/17 Oxycodone HCl/Acetaminophen 1 each PO Q4 PRN #20 tablet 07/19/17 [Percocet 10-325 mg Tablet] Ibuprofen [Motrin Tab] 400 mg PO Q6H #20 tab 07/26/17 Sulfamethoxazole/Trimethoprim 2 tab PO BID #28 tab 08/30/17 [Bactrim DS 800 mg-160 mg] - Allergies Allergies/Adverse Reactions: Allergies Allergy/AdvReac Type Severity Reaction Status Date / Time No Known Allergies Allergy Verified 09/07/17 02:58 Review of Systems ROS Statement: Except As Marked, All Systems Reviewed And Found Negative Constitutional: Negative for: Fever Cardiovascular: Negative for: Chest Pain Respiratory: Negative for: Shortness of Breath Gastrointestinal: Negative for: Vomiting, Diarrhea Musculoskeletal: Positive for: Back Pain (lower ) Physical Exam - Reviewed Nursing Documentation Reviewed: Yes Vital Signs Reviewed: Yes - Physical Exam Appears: Positive for: Non-toxic, No Acute Distress Head Exam: Positive for: ATRAUMATIC, NORMAL INSPECTION, NORMOCEPHALIC Skin: Positive for: Normal Color, Warm, Dry Eye Exam: Positive for: Normal appearance, EOMI, PERRL Neck: Positive for: Normal, Painless ROM, Supple Cardiovascular/Chest: Positive for: Regular Rate, Rhythm. Negative for: Murmur Respiratory: Positive for: Normal Breath Sounds. Negative for: Respiratory Distress Gastrointestinal/Abdominal: Positive for: Normal Exam, Soft. Negative for: Tenderness Back: Positive for: Normal Inspection. Negative for: L CVA Tenderness, R CVA Tenderness, Vertebral Tenderness Extremity: Positive for: Normal ROM. Negative for: Deformity, Swelling Neurologic/Psych: Positive for: Alert, Oriented. Negative for: Motor/Sensory Deficits - ECG O2 Sat by Pulse Oximetry: 96 (RA) Pulse Ox Interpretation: Normal Medical Decision Making Medical Decision Making: Time: 3:30 Impression: Malingering Behavior Plan: Patient is in stable condition and in no acute distress. He has offers no significant medical problems and is stable to be discharged. He no longer needs evaluation in the ED at this time. Scribe Attestation: Documented by Jennifer Lemus, acting as a scribe for Jad Hernández MD. Provider Scribe Attestation: All medical record entries made by the Scribe were at my direction and personally dictated by me. I have reviewed the chart and agree that the record accurately reflects my personal performance of the history, physical exam, medical decision making, and the department course for this patient. I have also personally directed, reviewed, and agree with the discharge instructions and disposition. Disposition - Clinical Impression Clinical Impression: Chronic back pain, Malingering - Patient ED Disposition Is Patient to be Admitted: No - Disposition Disposition: Routine/Home Disposition Time: 03:43 Condition: STABLE Instructions: Chronic Pain (DC) Forms: [employer] (Italian)
== END 2017-09-07 06:20 | disposition home or self-care (01) ==
LOC: H.ER 02:45
DX: M54.9 Dorsalgia, unspecified (principal); Z76.5 Malingerer [conscious simulation]; G89.29 Other chronic pain

== ENCOUNTER 2017-09-20 02:30 | Emergency (ER) | payer MEDICAID ==
[2017-09-20 02:31] VITALS: BMI 23.7
[2017-09-20 03:05] VITALS: O2SAT 98
--- NOTE | 2017-09-20 05:14 | ED PDOC ---
HPI: General Adult Time Seen by Provider: 09/20/17 04:36 Chief Complaint (Nursing): Lower Extremity Problem/Injury History Per: Patient Additional Complaint(s): Pt. states for the past 5 days he's had atraumatic R leg pain. States on 2017 he had a R inguinal hernia repair done. Denies hx of DVT or PE, chest pain , SOB, hemoptysis, recent prolonged immobilization of leg. Past Medical History Reviewed: Historical Data, Nursing Documentation, Vital Signs Vital Signs: Last Vital Signs Temp 97.8 F 09/20/17 03:02 Pulse 88 09/20/17 03:02 Resp 16 09/20/17 03:02 BP 136/83 09/20/17 03:02 Pulse Ox 98 09/20/17 05:17 - Medical History PMH: Fractures (right hip), Hepatitis (C) Denies: Diabetes, HIV, HTN, Chronic Kidney Disease, Seizures, Sexually Transmitted Disease - Surgical History Surgical History: Hernia Repair - Family History Family History: States: No Known Family Hx - Social History Current smoker - smoking cessation education provided: No Ex-Smoker (has not smoked in the last 12 months): No - Immunization History Hx Tetanus Toxoid Vaccination: No Hx Influenza Vaccination: No Hx Pneumococcal Vaccination: No - Home Medications Home Medications: Ambulatory Orders Medication Instructions Recorded QUEtiapine [Seroquel] 100 mg PO HS #30 tab 07/09/17 Oxycodone HCl/Acetaminophen 1 each PO Q4 PRN #20 tablet 07/19/17 [Percocet 10-325 mg Tablet] Ibuprofen [Motrin Tab] 400 mg PO Q6H #20 tab 07/26/17 Sulfamethoxazole/Trimethoprim 2 tab PO BID #28 tab 08/30/17 [Bactrim DS 800 mg-160 mg] - Allergies Allergies/Adverse Reactions: Allergies Allergy/AdvReac Type Severity Reaction Status Date / Time No Known Allergies Allergy Verified 09/07/17 02:58 Review of Systems ROS Statement: Except As Marked, All Systems Reviewed And Found Negative Physical Exam - Physical Exam Appears: Positive for: Well, Non-toxic, No Acute Distress Skin: Positive for: Normal Color, Warm. Negative for: Rash Eye Exam: Positive for: Normal appearance Cardiovascular/Chest: Positive for: Regular Rate, Rhythm Respiratory: Positive for: Normal Breath Sounds. Negative for: Respiratory Distress Pulses-Dorsalis Pedis (L): 2+ Pulses-Dorsalis Pedis (R): 2+ Extremity: Positive for: Calf Tenderness (R calf tenderness but no swelling), Other (R leg with scattered varicose veins; R leg without erythema, break in skin integrity, warmth) Neurologic/Psych: Positive for: Alert, Oriented - ECG O2 Sat by Pulse Oximetry: 98 - Progress ED Course And Treament: Duplex RLE vein ordered. Disposition - Clinical Impression Clinical Impression: Leg pain - Patient ED Disposition Is Patient to be Admitted: Transfer of Care (Pt will be signed out by Dr. Hernández to Dr. Callahan pending US) - Disposition Disposition Time: 06:00 Condition: STABLE Forms: [employer] (Lithuanian)
--- NOTE | 2017-09-20 10:46 | ED PDOC ---
- ECG O2 Sat by Pulse Oximetry: 98 Disposition - Clinical Impression Clinical Impression: Leg pain, Sprain of groin - POA Present On Arrival: None - Disposition Referrals: [facility] [Outside] Disposition: Routine/Home Disposition Time: 11:21 Condition: FAIR Prescriptions: Naproxen [Naprosyn] 500 mg PO Q12H #20 tab Instructions: Groin Strain Forms: [employer] (Puerto Rican)
--- NOTE | 2017-09-20 11:20 | US ---
PROCEDURE: Right lower extremity venous duplex Doppler. HISTORY: Leg pain COMPARISON: None available. TECHNIQUE: Common femoral, superficial femoral, popliteal and posterior tibial veins were evaluated. Flow was assessed with color Doppler, compressibility, assessment of phasic flow and augmentation response. FINDINGS: COMMON FEMORAL VEIN: Unremarkable. SUPERFICIAL FEMORAL VEIN: Unremarkable. POPLITEAL VEIN: Unremarkable. POSTERIOR TIBIAL VEIN: Unremarkable. OTHER FINDINGS: None. IMPRESSION: No evidence of deep venous thrombosis in the right lower extremity.
[2017-09-20 11:32] VITALS: PULSE 69
[2017-09-20 11:53] VITALS: BP 134/84; RESP 20; TEMP 98.1
== END 2017-09-20 11:48 | disposition home or self-care (01) ==
LOC: H.ER 02:30
DX: M79.604 Pain in right leg (principal)

== ENCOUNTER 2017-10-20 21:06 | Observation (INO) | payer MEDICAID ==
[2017-10-20 21:06] VITALS: BMI 23.7
[2017-10-20] MEDS ORDERED: Sodium Chloride 0.9% 1,000 ML IV STA (21:23)
--- NOTE | 2017-10-20 21:27 | ED PDOC ---
HPI: Psych/Substance Abuse Time Seen by Provider: 10/20/17 21:16 Chief Complaint (Nursing): Abdominal Pain Chief Complaint (Provider): substance abuse History Per: Patient, EMS Additional Complaint(s): 52 y/o male brought in by EMS for evaluation of substance abuse. As per EMS, patient was locked in a restaurant bathroom and when esl teacher were called and they opened the door they found bags of heroin and needles on patient. Patient admits to using today. Patient states he was told he has two options: to get arrested or to go to the hospital, so he decided to come here since has been vomiting for 2 days. Denies fever, chest pain, shortness of breath, palpitations, recent travel, sick contacts. Past Medical History Reviewed: Historical Data, Nursing Documentation, Vital Signs Vital Signs: Last Vital Signs Temp 98.6 F 10/20/17 21:12 Pulse 90 10/20/17 21:12 Resp 18 10/20/17 21:12 BP 128/84 10/20/17 21:12 Pulse Ox 98 10/20/17 21:12 - Medical History PMH: Fractures (right hip), Hepatitis (C) Denies: Diabetes, HIV, HTN, Chronic Kidney Disease, Seizures, Sexually Transmitted Disease - Surgical History Surgical History: Hernia Repair - Family History Family History: States: Unknown Family Hx - Immunization History Hx Tetanus Toxoid Vaccination: No Hx Influenza Vaccination: No Hx Pneumococcal Vaccination: No - Home Medications Home Medications: Ambulatory Orders Medication Instructions Recorded QUEtiapine [Seroquel] 100 mg PO HS #30 tab 07/09/17 Oxycodone HCl/Acetaminophen 1 each PO Q4 PRN #20 tablet 07/19/17 [Percocet 10-325 mg Tablet] Ibuprofen [Motrin Tab] 400 mg PO Q6H #20 tab 07/26/17 Sulfamethoxazole/Trimethoprim 2 tab PO BID #28 tab 08/30/17 [Bactrim DS Tab] Naproxen [Naprosyn] 500 mg PO Q12H #20 tab 09/20/17 Gabapentin [Neurontin] 300 mg PO TID 10/21/17 - Allergies Allergies/Adverse Reactions: Allergies Allergy/AdvReac Type Severity Reaction Status Date / Time No Known Allergies Allergy Verified 09/07/17 02:58 Review of Systems ROS Statement: Except As Marked, All Systems Reviewed And Found Negative Gastrointestinal: Positive for: Nausea, Vomiting, Abdominal Pain Physical Exam - Reviewed Nursing Documentation Reviewed: Yes Vital Signs Reviewed: Yes - Physical Exam Appears: Positive for: Well, Non-toxic, No Acute Distress Head Exam: Positive for: ATRAUMATIC, NORMAL INSPECTION, NORMOCEPHALIC Skin: Positive for: Normal Color Eye Exam: Positive for: EOMI. Negative for: PERRL (pinpoint) ENT: Positive for: Normal ENT Inspection Cardiovascular/Chest: Positive for: Regular Rate, Rhythm Respiratory: Positive for: Normal Breath Sounds Gastrointestinal/Abdominal: Positive for: Normal Exam, Bowel Sounds, Soft, Tenderness (epigastric). Negative for: Distended, Guarding, Rebound Back: Positive for: Normal Inspection Extremity: Positive for: Normal ROM Neurologic/Psych: Positive for: Alert, Oriented - Laboratory Results Result Diagrams: 10/21/17 06:00 10/21/17 06:00 - ECG ECG: Positive for: Viewed By Me (reviewed by ED attending) ECG Rhythm: Positive for: Sinus Rhythm O2 Sat by Pulse Oximetry: 98 - Radiology X-Ray: Viewed By Me X-Ray Interpretation: No Acute Disease - Progress ED Course And Treament: labs, urine, IV fluids, ODT zofran Lipase elevated in setting of abdominal pain and vomiting. Patient evaluated by FP resident on-call for placement in observation for IV hydration. Disposition - Clinical Impression Clinical Impression: Pancreatitis, Polysubstance abuse - Disposition Disposition Time: 23:45 Condition: FAIR
[2017-10-20 22:48] LABS: BASO # 0.1 K/uL (0.0-0.2); BASO % 0.7 % (0.0-2.0); EOS # 0.1 K/uL (0.0-0.7); EOS % 0.6 % (0.0-4.0); HEMOGLOBIN 12.5 g/dL (12.0-18.0); LYMPH # 1.5 K/uL (1.0-4.3); MEAN CELL VOLUME 90.5 fl (80.0-94.0); MEAN CORPUSCULAR HGB CONC 33.2 g/dL (33.0-37.0); MEAN PLATELET VOLUME 7.8 fl (7.2-11.7); MONO % 10.1 % (0.0-10.0); NEUT # 7.4 K/uL (1.8-7.0); NEUT % 73.6 % (50.0-75.0); RBC 4.15 Mil/uL (4.40-5.90); RED CELL DISTRIBUTION WIDTH 14.1 % (11.5-14.5)
[2017-10-20 23:00] LABS: ALB/GLOB RATIO 0.9 (1.0-2.1); ALBUMIN 3.7 g/dL (3.5-5.0); ALT/SGPT 75 U/L (21-72); AST/SGOT 54 U/L (17-59); BLOOD UREA NITROGEN 31 mg/dl (9-20); CALCIUM 8.9 mg/dL (8.4-10.2); GFR AFRICAN-AMERICAN > 60; GFR NON-AFRICAN AMERICAN 58; LIPASE 867 U/L (23-300)
[2017-10-20 23:23] LABS: BARBITURATES, UR NEGATIVE (NEGATIVE); BENZODIAZEPINES, UR NEGATIVE (NEGATIVE); OPIATES, UR POSITIVE (NEGATIVE); PHENCYCLIDINE, UR NEGATIVE (NEGATIVE)
[2017-10-20 23:32] LABS: AMYLASE 185 U/L (30-110)
--- NOTE | 2017-10-21 02:26 | CP.PCM.HP ---
History of Present Illness - History of Present Illness History of Present Illness: Hx taken from patient and medical records Full code PMD: NHC 52 y/o M, homeless, with PMhx of substance abuse, Hep C was brought to ED by EMS after found locked in a restroom with bags of heroin and needles. Patient states that he wasnt using drugs at the time and that he passed out. Patient admits using heroin today in the AM and Cocaine Yesterday. HE also c/o 2 episodes of NBNB vomiting today, diffuse abd pain for 2 days, cough for 2 days and congestion. Denies fever but admits chills. Denies diarrhea. [facility] and states his roommate there has been coughing a lot. The patient had R/inguinal hernia repair 3 months ago and R/hip Fx in December 2016. C/ O mild pain on both incisions at times. Also c/o fatigue increasingly for the past few months and lower back pain that radiates to LE at times. Admits frequent falls related and not related to drug overdose. ED course: VS WNL, CBC unremarkable, BUN 31, Creat and GFR WNL, ASL/ALT unremarkable, Lipase 867, Amylase 185 Urine positive for opioids and cocaine. IV Fluids 1L, Pepcid and Zofran IV once PMHx: Substance abuse, hip fx, inguinal hernia, Hep C Allergies: NKDA FamHx: mother 78 y/o has HTN, patient did not know father Surgical: right orchipexy, right hip closed reduction and internal fixation , Right inguinal hernia 07/17/2017 Social: heroin/cocaine use, tobacco use 1 PPD x 40 years, denies alcohol Present on Admission - Present on Admission Any Indicators Present on Admission: No Review of Systems - Review of Systems All systems: reviewed and no additional remarkable complaints except (Those noted on HPI) Past Patient History - Infectious Disease Hx of Infectious Diseases: None - Tetanus Immunizations Tetanus Immunization: Unknown - Past Medical History & Family History Past Medical History?: Yes - Past Social History Smoking Status: Light Smoker < 10 Cigarettes Daily Drugs: Cocaine, Opiates Home Situation {Lives}: Homeless - CARDIAC Hx Hypertension: No - PULMONARY Hx Respiratory Disorders: No - NEUROLOGICAL Hx Seizures: No - HEENT Hx HEENT Problems: No - RENAL Hx Chronic Kidney Disease: No - ENDOCRINE/METABOLIC Hx Endocrine Disorders: No - HEMATOLOGICAL/ONCOLOGICAL Hx Hepatitis C: Yes Hx Human Immunodeficiency Virus (HIV): No - INTEGUMENTARY Hx Dermatological Problems: No - MUSCULOSKELETAL/RHEUMATOLOGICAL Hx Fractures: Yes (right hip) - GASTROINTESTINAL Hx Gastrointestinal Disorders: Yes Hx Colitis: Yes Hx Hemorrhoids: Yes Other/Comment: HERNIA - GENITOURINARY/GYNECOLOGICAL Hx Sexually Transmitted Disorders: No - PSYCHIATRIC Hx Psychophysiologic Disorder: Yes Hx Substance Use: Yes - SURGICAL HISTORY Hx Surgeries: Yes Hx Herniorrhaphy: Yes (khushi inguinal hernia repair) Other/Comment: Right Hip (srews placed due to fracture s/p fall) -November 2016, right orchiopexy for undescended testicle. Hx of L ing. repair once and R ing hernia twice - ANESTHESIA Hx Anesthesia: Yes Hx Anesthesia Reactions: No Hx Malignant Hyperthermia: No Meds Allergies/Adverse Reactions: Allergies Allergy/AdvReac Type Severity Reaction Status Date / Time No Known Allergies Allergy Verified 09/07/17 02:58 Physical Exam - Constitutional Appears: Non-toxic - Head Exam Head Exam: ATRAUMATIC - Eye Exam Eye Exam: PERRL - Respiratory Exam Respiratory Exam: Rales, NORMAL BREATHING PATTERN. absent: Decreased Breath Sounds, Rhonchi, Wheezes - Cardiovascular Exam Cardiovascular Exam: REGULAR RHYTHM, +S1, +S2. absent: Gallop - GI/Abdominal Exam GI & Abdominal Exam: Normal Bowel Sounds, Soft, Tenderness (RLQ/Diffuse). absent: Distended, Guarding, Rebound, Rigid - Extremities Exam Extremities exam: Positive for: normal capillary refill, pedal pulses present. Negative for: calf tenderness, pedal edema - Back Exam Back exam: absent: CVA tenderness (L), CVA tenderness (R) - Neurological Exam Neurological exam: Alert, Normal Gait, Oriented x3 - Skin Skin Exam: Warm Results - Vital Signs Recent Vital Signs: Last Vital Signs Temp 98.6 F 10/20/17 21:12 Pulse 90 10/20/17 21:12 Resp 18 10/20/17 21:12 BP 128/84 10/20/17 21:12 Pulse Ox 98 10/21/17 00:17 - Labs Result Diagrams: 10/20/17 22:35 10/20/17 22:35 Labs: Laboratory Results - last 24 hr 10/20/17 10/20/17 10/20/17 22:35 22:35 22:55 WBC 10.0 RBC 4.15 L Hgb 12.5 Hct 37.6 MCV 90.5 MCH 30.0 MCHC 33.2 RDW 14.1 Plt Count 160 MPV 7.8 Neut % (Auto) 73.6 Lymph % (Auto) 15.0 L [place] % (Auto) 10.1 H Eos % (Auto) 0.6 Baso % (Auto) 0.7 Neut # (Auto) 7.4 H Lymph # (Auto) 1.5 [place] # (Auto) 1.0 H Eos # (Auto) 0.1 Baso # (Auto) 0.1 Sodium 140 Potassium 5.0 Chloride 103 Carbon Dioxide 21 L Anion Gap 21 H BUN 31 H Creatinine 1.3 Est GFR ( Amer) > 60 Est GFR (Non-Af Amer) 58 Random Glucose 106 Calcium 8.9 Total Bilirubin 0.4 AST 54 ALT 75 H D Alkaline Phosphatase 80 Lactate Dehydrogenase Total Protein 7.9 Albumin 3.7 Globulin 4.2 H Albumin/Globulin Ratio 0.9 L Amylase Lipase 867 H Urine Opiates Screen Positive H Urine Methadone Screen Negative Ur Barbiturates Screen Negative Ur Phencyclidine Scrn Negative Ur Amphetamines Screen Negative U Benzodiazepines Scrn Negative U Oth Cocaine Metabols Positive H U Cannabinoids Screen Negative Alcohol, Quantitative 10/20/17 23:15 WBC RBC Hgb Hct MCV MCH MCHC RDW Plt Count MPV Neut % (Auto) Lymph % (Auto) [place] % (Auto) Eos % (Auto) Baso % (Auto) Neut # (Auto) Lymph # (Auto) [place] # (Auto) Eos # (Auto) Baso # (Auto) Sodium Potassium Chloride Carbon Dioxide Anion Gap BUN Creatinine Est GFR ( Amer) Est GFR (Non-Af Amer) Random Glucose Calcium Total Bilirubin AST ALT Alkaline Phosphatase Lactate Dehydrogenase 600 Total Protein Albumin Globulin Albumin/Globulin Ratio Amylase 185 H Lipase Urine Opiates Screen Urine Methadone Screen Ur Barbiturates Screen Ur Phencyclidine Scrn Ur Amphetamines Screen U Benzodiazepines Scrn U Oth Cocaine Metabols U Cannabinoids Screen Alcohol, Quantitative < 10 Assessment & Plan - Assessment and Plan (Free Text) Assessment: 52 y/o M with Hx of substance abuse admitted for pancreatitis Acute vs chronic pancreatitis Poss due polysubstance abuse Lipase/Amylase elevated Abd pain diffuse more localized to RLQ VS WNL No fever or Leukocytosis IV fluids 1 L at ED Vomiting AM. Tolerating PO since Abd US ordered IV Fluids 200 mls Pain control Liquid diet Admits for Obs Cough/Congestion Acute Afebrile, No leukocytosis, no SOB Rales on PE CXR pending official report Fatigue Chronic. Poss substance abuse vs deconditioning R/O Cardiac disease ProBnp ordered Rales on PE Mg/Phosphorus ordered Substance abuse Risk for opioid withdrawal Percocet 10/325mg on home med list: Will start Percocet 5/325 mg q6h PRN for moderate pain for now Chronic pain C/W Gabapentin 100 TID started 1 M/A ambulatory Hx of compression lumbar Fx on previous Xray. MRI L/S ordered last clinic visit less than 1 M/A not done DVT prophylaxis Lovenox 40 mg daily
[2017-10-21 03:22] VITALS: PULSE 78
[2017-10-21] MEDS: Sodium Chloride 0.9% 1,000 ML IV SCH ×4 (03:28→12:49)
[2017-10-21] MEDS: Oxycodone/Acetaminophen 5/325 mg Tab PO PRN ×2 (03:32→11:17)
[2017-10-21 06:38] LABS: BASO % 0.4 % (0.0-2.0); EOS # 0.1 K/uL (0.0-0.7); EOS % 1.1 % (0.0-4.0); HEMOGLOBIN 11.5 g/dL (12.0-18.0); LYMPH # 2.1 K/uL (1.0-4.3); LYMPH % 26.7 % (20.0-40.0); MEAN CELL VOLUME 90.9 fl (80.0-94.0); MEAN CORPUSCULAR HEMOGLOBIN 30.4 pg (27.0-31.0); MEAN CORPUSCULAR HGB CONC 33.5 g/dL (33.0-37.0); MEAN PLATELET VOLUME 8.2 fl (7.2-11.7); MONO % 13.3 % (0.0-10.0); NEUT # 4.6 K/uL (1.8-7.0); NEUT % 58.5 % (50.0-75.0); RBC 3.76 Mil/uL (4.40-5.90); RED CELL DISTRIBUTION WIDTH 14.2 % (11.5-14.5); WHITE BLOOD COUNT 7.8 K/uL (4.8-10.8)
[2017-10-21 06:53] LABS: B-TYPE NATRIURETIC PEPTIDE 86.4 pg/ml (0-900)
[2017-10-21 06:54] LABS: ALB/GLOB RATIO 0.8 (1.0-2.1); ALT/SGPT 61 U/L (21-72); AST/SGOT 52 U/L (17-59); BLOOD UREA NITROGEN 25 mg/dl (9-20); CALCIUM 8.6 mg/dL (8.4-10.2); GFR AFRICAN-AMERICAN > 60; GFR NON-AFRICAN AMERICAN > 60
[2017-10-21 08:19] VITALS: BP 110/58; RESP 20; TEMP 98
--- NOTE | 2017-10-21 08:36 | CP.PCM.PN ---
Subjective - Date & Time of Evaluation Date of Evaluation: 10/21/17 Time of Evaluation: 08:34 - Subjective Subjective: 52 y/o M evaluated and examined by bedside. Pt c/o R sided abdominal and chest pain, constant, moderate intensity. Pt report not being able to get his home pain medication; hence, pt had to self medicate himself with Heroin. Pt afebrile , tolerating PO liquid diet. Objective - Vital Signs/Intake and Output Vital Signs (last 24 hours): Temp Pulse Resp BP Pulse Ox 98.0 F 78 20 110/58 L 94 L 10/21/17 08:18 10/21/17 08:18 10/21/17 08:18 10/21/17 08:18 10/21/17 08:18 - Medications Medications: Current Medications Enoxaparin Sodium (Lovenox) 40 mg SC QD6 ALYSE PRN Reason: Protocol Famotidine (Pepcid) 20 mg IVP DAILY ALYSE Gabapentin (Neurontin) 100 mg PO Q8H [facility], [facility]1983 Last Admin: 10/21/17 06:15 Dose: 100 mg Sodium Chloride (Sodium Chloride 0.9%) 1,000 mls @ 200 mls/hr IV .Q5H ALYSE Stop: 10/22/17 02:14 Last Admin: 10/21/17 04:15 Dose: Not Given Ondansetron HCl (Zofran Odt) 4 mg PO Q8H PRN PRN Reason: Nausea/Vomiting Oxycodone/Acetaminophen (Percocet 5/325 Mg Tab) 1 tab PO Q6 PRN PRN Reason: Pain, moderate (4-7) Stop: 10/24/17 01:23 Last Admin: 10/21/17 03:32 Dose: 1 tab Quetiapine Fumarate (Seroquel) 100 mg PO HS ALYSE - Labs Labs: 10/21/17 06:00 10/21/17 06:00
--- NOTE | 2017-10-21 09:11 | RAD ---
HISTORY: admit COMPARISON: Chest radiograph 08/02/2017. FINDINGS: LUNGS: No acute infiltrate bilaterally. Limited fibrotic changes stable left base laterally. PLEURA: No significant pleural effusion identified, no pneumothorax apparent. CARDIOVASCULAR: Normal. OSSEOUS STRUCTURES: No significant abnormalities. VISUALIZED UPPER ABDOMEN: Normal. OTHER FINDINGS: None. IMPRESSION: No interval acute cardiopulmonary disease appreciated. Limited left basilar fibrotic changes unchanged.
--- NOTE | 2017-10-21 11:41 | CP.PCM.DIS ---
Provider - Provider Date of Admission: 10/20/17 23:59 Attending physician: Arlene Bowden MD Primary care physician: Jason Luo MD Time Spent in preparation of Discharge (in minutes): 30 Diagnosis - Discharge Diagnosis (1) Polysubstance abuse Status: Chronic Comment: -Pt extensively educated on opioid side effects, addiction and overdosis danger. -Consider methadone clinic. Will f/u with pain management. Hospital Course - Lab Results Lab Results: Most Recent Lab Values WBC 7.8 K/uL (4.8-10.8) 10/21/17 06:00 RBC 3.76 Mil/uL (4.40-5.90) L 10/21/17 06:00 Hgb 11.5 g/dL (12.0-18.0) L 10/21/17 06:00 Hct 34.2 % (35.0-51.0) L 10/21/17 06:00 MCV 90.9 fl (80.0-94.0) 10/21/17 06:00 MCH 30.4 pg (27.0-31.0) 10/21/17 06:00 MCHC 33.5 g/dL (33.0-37.0) 10/21/17 06:00 RDW 14.2 % (11.5-14.5) 10/21/17 06:00 Plt Count 129 K/uL (130-400) L D 10/21/17 06:00 MPV 8.2 fl (7.2-11.7) 10/21/17 06:00 Neut % (Auto) 58.5 % (50.0-75.0) 10/21/17 06:00 Lymph % (Auto) 26.7 % (20.0-40.0) 10/21/17 06:00 [place] % (Auto) 13.3 % (0.0-10.0) H 10/21/17 06:00 Eos % (Auto) 1.1 % (0.0-4.0) 10/21/17 06:00 Baso % (Auto) 0.4 % (0.0-2.0) 10/21/17 06:00 Neut # (Auto) 4.6 K/uL (1.8-7.0) 10/21/17 06:00 Lymph # (Auto) 2.1 K/uL (1.0-4.3) 10/21/17 06:00 [place] # (Auto) 1.0 K/uL (0.0-0.8) H 10/21/17 06:00 Eos # (Auto) 0.1 K/uL (0.0-0.7) 10/21/17 06:00 Baso # (Auto) 0.0 K/uL (0.0-0.2) 10/21/17 06:00 Sodium 139 mmol/l (132-148) 10/21/17 06:00 Potassium 4.8 MMOL/L (3.6-5.0) 10/21/17 06:00 Chloride 103 mmol/L (98-107) 10/21/17 06:00 Carbon Dioxide 30 mmol/L (22-30) 10/21/17 06:00 Anion Gap 11 (10-20) 10/21/17 06:00 BUN 25 mg/dl (9-20) H 10/21/17 06:00 Creatinine 1.2 mg/dl (0.8-1.5) 10/21/17 06:00 Est GFR ( Amer) > 60 10/21/17 06:00 Est GFR (Non-Af Amer) > 60 10/21/17 06:00 Random Glucose 94 mg/dL (75-110) 10/21/17 06:00 Calcium 8.6 mg/dL (8.4-10.2) 10/21/17 06:00 Phosphorus 3.6 mg/dl (2.5-4.5) 10/21/17 06:00 Magnesium 1.9 MG/DL (1.6-2.3) 10/21/17 06:00 Total Bilirubin 0.3 mg/dl (0.2-1.3) 10/21/17 06:00 AST 52 U/L (17-59) 10/21/17 06:00 ALT 61 U/L (21-72) 10/21/17 06:00 Alkaline Phosphatase 68 U/L (38-126) 10/21/17 06:00 Lactate Dehydrogenase 600 U/L (313-618) 10/20/17 23:15 NT-Pro-B Natriuret Pep 86.4 pg/ml (0-900) 10/21/17 06:00 Total Protein 6.8 G/DL (6.3-8.2) 10/21/17 06:00 Albumin 3.0 g/dL (3.5-5.0) L 10/21/17 06:00 Globulin 3.8 gm/dL (2.2-3.9) 10/21/17 06:00 Albumin/Globulin Ratio 0.8 (1.0-2.1) L 10/21/17 06:00 Amylase 185 U/L (30-110) H 10/20/17 23:15 Lipase 867 U/L (23-300) H 10/20/17 22:35 Urine Opiates Screen Positive (NEGATIVE) H 10/20/17 22:55 Urine Methadone Screen Negative (NEGATIVE) 10/20/17 22:55 Ur Barbiturates Screen Negative (NEGATIVE) 10/20/17 22:55 Ur Phencyclidine Scrn Negative (NEGATIVE) 10/20/17 22:55 Ur Amphetamines Screen Negative (NEGATIVE) 10/20/17 22:55 U Benzodiazepines Scrn Negative (NEGATIVE) 10/20/17 22:55 U Oth Cocaine Metabols Positive (NEGATIVE) H 10/20/17 22:55 U Cannabinoids Screen Negative (NEGATIVE) 10/20/17 22:55 Alcohol, Quantitative < 10 mg/dl (0-10) 10/20/17 23:15 - Hospital Course Hospital Course: 52 y/o M with a PMHx of chronic pain and IV drug abuse brought to hospital due to altered mental status due to opioids and cocaine intoxication. Lipase was elevated and most probable due to chronic pancreatitis. Pt was properly IV hydrated, home meds were resume. Pt remained stable, afebrile, pain improved and tolerating PO today. --Pt extensively counseled on the option for methadone clinic and the need to be evaluated by house painter. --Pt discharge with recommendations to f/u with PMD within 7 days. - Date & Time of H&P Date of H&P: 10/21/17 Time of H&P: 02:24 Discharge Exam - Head Exam Head Exam: ATRAUMATIC - Eye Exam Eye Exam: EOMI - ENT Exam ENT Exam: Mucous Membranes Dry - Neck Exam Neck exam: Full Rom - Respiratory Exam Respiratory Exam: Clear to PA & Lateral, NORMAL BREATHING PATTERN, UNREMARKABLE - Cardiovascular Exam Cardiovascular Exam: REGULAR RHYTHM, +S1, +S2 - GI/Abdominal Exam GI & Abdominal Exam: Normal Bowel Sounds, Soft, Unremarkable. absent: Distended , Guarding, Mass, Rebound, Rigid, Tenderness - Extremities Exam Extremities exam: full ROM, normal capillary refill, normal inspection, pedal pulses present - Neurological Exam Neurological exam: Alert, Oriented x3 - Skin Skin Exam: Warm Discharge Plan - Follow Up Plan Condition: GOOD Disposition: HOME/ ROUTINE Instructions: Polysubstance Abuse (DC), Pancreatitis (DC) Additional Instructions: -Follow up with your primary md 7-10 days -Please f/u with pain management, -Please consider Methadone clinic for opioid detoxification before opioid prescription can be permitted. Referrals: Jason Luo MD [Primary Care Provider] -
--- NOTE | 2017-10-21 12:33 | US ---
HISTORY: Abdominal pain/Elevated Lipase COMPARISON: None. TECHNIQUE: Sonographic evaluation of the abdomen. FINDINGS: LIVER: Measures 17.9 cm. Normal echogenicity of the liver parenchyma. No mass. No intrahepatic bile duct dilatation. GALLBLADDER: Unremarkable. No gallstones. COMMON BILE DUCT: Measures 7.2 mm. No stones. No dilatation. PANCREAS: Unremarkable as visualized. No mass. No ductal dilatation. RIGHT KIDNEY: Measures 5.3 x 10.0cm. Dilated extra renal pelvis LEFT KIDNEY: Measures 5.1 x 12.8cm. Dilated extrarenal pelvis SPLEEN: Splenomegaly. Orthogonal measurements 5.6 x 13.2 cm AORTA: No aneurysmal dilatation. IVC: Unremarkable. OTHER FINDINGS: None. IMPRESSION: Unremarkable liver and pancreas. Mild splenomegaly. Mild fullness both collecting systems primarily extrarenal pelvis bilaterally.
[2017-10-21] MEDS ORDERED: Enoxaparin 40 mg Syringe SC SCH (18:00)
[2017-10-21 21:38] VITALS: O2SAT 98
== END 2017-10-21 14:06 | disposition home or self-care (01) ==
LOC: H.ER 21:06 → H.ERHOLD 23:59 → H.MEDSURG1 10-21 03:02
PROVIDERS: ADMIT Family Medicine Geriatric Medicine; ATTEND Family Medicine Geriatric Medicine
DX: K85.90 Acute pancreatitis without necrosis or infection, unspecified (principal); K86.1 Other chronic pancreatitis; G89.29 Other chronic pain; F14.129 Cocaine abuse with intoxication, unspecified; F11.129 Opioid abuse with intoxication, unspecified; B19.20 Unspecified viral hepatitis C without hepatic coma; F17.210 Nicotine dependence, cigarettes, uncomplicated; Z59.0 Homelessness
CPT/HCPCS: 36415; 71045; 76700; 80053; 80320; 80324; 80345; 80346; 80349; 80353; 80358; 80361; 82150; 83615; 83690; 83735; 83880; 83992; 84100; 85025; 96374; 96376; 99283; G0378; J7040

== ENCOUNTER 2017-10-27 12:41 | Observation (INO) | payer MEDICAID ==
[2017-10-27 12:41] VITALS: BMI 23.7
--- NOTE | 2017-10-27 13:29 | ED PDOC ---
HPI: Psych/Substance Abuse Time Seen by Provider: 10/27/17 12:48 Chief Complaint (Nursing): Substance Abuse Chief Complaint (Provider): Substance abuse History Per: EMS Modifying Factor(s): Narcotics Additional Complaint(s): 52yo male with history of substance abuse, is brought to ER by EMS after patient was noted to be unconscious and had two IV needles in his arms. At present, patient is awake and admits to heroin use today. He denies any fever, chills, chest pain, abdominal pain and offers no medical complaints. Past Medical History Reviewed: Historical Data, Nursing Documentation, Vital Signs Vital Signs: Last Vital Signs Temp 97 F L 10/27/17 12:48 Pulse 108 H 10/27/17 12:48 Resp 20 10/27/17 12:48 BP 153/90 H 10/27/17 12:48 Pulse Ox 98 10/27/17 12:48 - Medical History PMH: Fractures (right hip), Hepatitis (C) Denies: Diabetes, HIV, HTN, Chronic Kidney Disease, Seizures, Sexually Transmitted Disease - Surgical History Surgical History: Hernia Repair - Family History Family History: States: Unknown Family Hx - Social History Drugs: Opiates - Immunization History Hx Tetanus Toxoid Vaccination: No Hx Influenza Vaccination: No Hx Pneumococcal Vaccination: No - Home Medications Home Medications: Ambulatory Orders Medication Instructions Recorded Gabapentin [Neurontin] 100 mg PO Q8 10/27/17 - Allergies Allergies/Adverse Reactions: Allergies Allergy/AdvReac Type Severity Reaction Status Date / Time No Known Allergies Allergy Verified 10/27/17 12:48 Review of Systems ROS Statement: Except As Marked, All Systems Reviewed And Found Negative Constitutional: Negative for: Fever, Chills Cardiovascular: Negative for: Chest Pain Respiratory: Negative for: Shortness of Breath Gastrointestinal: Negative for: Abdominal Pain Psych: Positive for: Other (substance abuse) Physical Exam - Reviewed Nursing Documentation Reviewed: Yes Vital Signs Reviewed: Yes - Physical Exam Appears: Positive for: No Acute Distress Head Exam: Positive for: ATRAUMATIC, NORMAL INSPECTION, NORMOCEPHALIC Skin: Positive for: Normal Color Eye Exam: Positive for: Normal appearance Neck: Positive for: Supple Cardiovascular/Chest: Positive for: Regular Rate, Rhythm Respiratory: Positive for: Normal Breath Sounds Gastrointestinal/Abdominal: Positive for: Normal Exam, Soft. Negative for: Tenderness Extremity: Positive for: Normal ROM, Other (no track ballard noted to bilateral arms.). Negative for: Deformity Neurologic/Psych: Positive for: Alert, Oriented (x 3). Negative for: Motor/ Sensory Deficits - ECG ECG: Positive for: Interpreted By Me, Viewed By Me ECG Rhythm: Positive for: Sinus Rhythm. Negative for: ST/T Changes Rate: 81 O2 Sat by Pulse Oximetry: 98 (RA) Pulse Ox Interpretation: Normal Medical Decision Making Medical Decision Making: Impression: Substance abuse Plan: -- Serum alcohol level -- UDS Time: 1537 Patient remains awake, alert and oriented x 3 and is resting comfortably in ER. Time: 1625 Upon reevaluation, patient states he has right lower extremity pain. Patient asked to walk in order to gauge his gait and is noted to be using the talamantes of the room for support. Patient reports the numbness is present on his mid right lower leg to his foot, anteriorly. Case discussed with family practice resident, and patient to be admitted for observation under Dr. Wally Baker due to peripheral neuropathy. Scribe Attestation: Documented by Uzma Rod acting as a scribe for Marie Newsmoe MD. Provider Scribe Attestation: All medical record entries made by the Scribe were at my direction and personally dictated by me. I have reviewed the chart and agree that the record accurately reflects my personal performance of the history, physical exam, medical decision making, and the department course for this patient. I have also personally directed, reviewed, and agree with the discharge instructions and disposition. Disposition - Clinical Impression Clinical Impression: Heroin abuse - Disposition Referrals: [facility] [Outside] Condition: STABLE Instructions: Drug Abuse and Drug Addiction (DC) Forms: [employer] (Greek)
[2017-10-27 16:45] LABS: BASO # 0.1 K/uL (0.0-0.2); BASO % 1.1 % (0.0-2.0); EOS % 0.2 % (0.0-4.0); HEMOGLOBIN 12.9 g/dL (12.0-18.0); LYMPH # 1.7 K/uL (1.0-4.3); LYMPH % 12.7 % (20.0-40.0); MEAN CELL VOLUME 89.8 fl (80.0-94.0); MEAN CORPUSCULAR HEMOGLOBIN 29.4 pg (27.0-31.0); MEAN CORPUSCULAR HGB CONC 32.7 g/dL (33.0-37.0); MEAN PLATELET VOLUME 7.7 fl (7.2-11.7); MONO # 1.1 K/uL (0.0-0.8); MONO % 8.4 % (0.0-10.0); NEUT # 10.2 K/uL (1.8-7.0); NEUT % 77.6 % (50.0-75.0); RBC 4.38 Mil/uL (4.40-5.90); RED CELL DISTRIBUTION WIDTH 13.9 % (11.5-14.5); WHITE BLOOD COUNT 13.1 K/uL (4.8-10.8)
[2017-10-27 16:52] LABS: INR 1.1 (0.9-1.2); PARTIAL THROMBOPLASTIN TIME 31.1 Seconds (25.6-37.1); PROTHROMBIN TIME 11.7 Seconds (9.8-13.1)
[2017-10-27 17:16] LABS: ALB/GLOB RATIO 0.8 (1.0-2.1); ALBUMIN 3.8 g/dL (3.5-5.0); ALT/SGPT 59 U/L (21-72); AST/SGOT 48 U/L (17-59); BLOOD UREA NITROGEN 32 mg/dl (9-20); CALCIUM 8.9 mg/dL (8.4-10.2); GFR AFRICAN-AMERICAN > 60; GFR NON-AFRICAN AMERICAN 58
--- NOTE | 2017-10-27 17:18 | RAD ---
HISTORY: Admission COMPARISON: Chest radiograph 10/21/2017. FINDINGS: LUNGS: No active pulmonary disease. PLEURA: No significant pleural effusion identified, no pneumothorax apparent. CARDIOVASCULAR: Normal. Vascular overlap is stable at the medial right lung base. OSSEOUS STRUCTURES: No significant abnormalities. VISUALIZED UPPER ABDOMEN: Normal. OTHER FINDINGS: None. IMPRESSION: No interval acute cardiopulmonary disease appreciated.
--- NOTE | 2017-10-27 17:34 | CT ---
PROCEDURE: CT Lumbar Spine without contrast HISTORY: L anterior lower leg numbness COMPARISON: Lumbar spine x-ray series 08/30/[address] 08/03/2017. TECHNIQUE: Axial computed tomography images were obtained of the lumbar spine without the use of intravenous contrast. Coronal and sagittal reformatted images were created and reviewed. Radiation dose: Total exam DLP = 439.46 mGy-cm. This CT exam was performed using one or more of the following dose reduction techniques: Automated exposure control, adjustment of the mA and/or kV according to patient size, and/or use of iterative reconstruction technique. FINDINGS: VERTEBRAE: Stable normal lumbar curvature is appreciate without fracture or spondylolisthesis appreciated in the interval. Limited anterior wedging of L1 and L2 may reflect trace chronic fractures however. Multilevel spondylosis appears mild in severity and predominating anterior. No destructive bony lesion identified. Multilevel facet joint degenerative arthropathy is appreciated with unremarkable appearing prevertebral paraspinal soft tissues identified. Incidental note is made of prominent bilateral extrarenal pelves once again. On review of the prior chest, abdomen and pelvis CT examination from 07/24/2017, there is a transitional S1 which appears lumbarized. DISCS/SPINAL CANAL/NEURAL FORAMINA: L1-2: Unremarkable. L2-3: A mild to moderate central canal stenosis results from large is posterior disc osteophyte complex combined with limited facet joint degenerative arthropathy. Mild bilateral neural foraminal stenosis identified. L3-4: A mild degenerative central stenosis results from generalized disc bulging pattern with mild facet joint degenerative arthropathy without neural foraminal stenosis bilaterally. L4-5: A [id number] central stenosis results from limited disc osteophyte complex combining with moderate facet joint degenerative arthropathy. Mild bilateral neural foraminal stenosis identified on a degenerative basis. L5-S1: Limited disc bulging is appreciated encroaching the left greater than right lateral recesses with facet arthropathy appearing asymmetric as well. Mild right but no left neural foraminal stenosis appreciated on degenerative basis. OTHER FINDINGS: None. IMPRESSION: 1. [id number] multilevel degenerative spinal stenosis which may better characterized by MRI if clinically warranted. Degenerative bilateral neural foraminal stenoses are also rrhb-sj-erduhgiw severity at the inferior lumbar spine. No severe spinal stenosis appreciated. 2. Transitional S1 vertebral body appears lumbarized (see prior chest, abdomen and pelvis CT 08/03/2017).
[2017-10-27 17:36] LABS: BARBITURATES, UR NEGATIVE (NEGATIVE); BENZODIAZEPINES, UR NEGATIVE (NEGATIVE); OPIATES, UR POSITIVE (NEGATIVE); PHENCYCLIDINE, UR NEGATIVE (NEGATIVE)
--- NOTE | 2017-10-27 18:38 | CP.PCM.HP ---
History of Present Illness - History of Present Illness History of Present Illness: Hx taken from patient and medical records Full code PMD: NHC 52 y/o M, homeless, with PMhx of substance abuse, Hep C was brought to ED by EMS after found on the street with needles on both arms. Patient states that he only used 1 bag of heroin and passed out. Patient admits using heroin and cocaine almost on daily basis. Denies diarrhea, vomiting, CP, SOB or palpitations. The patient had R/inguinal hernia repair 3 months ago and R/hip Fx in December 2016. C/O R/lower ext pain radiating from lower back to foot almost on daily basis. Patient was recently started on Gabapentin 100 mg TID as outaptient but states is not working. Patient denies saddle anesthesia, urinary or feces incontinence, or urinary retention. ED course: VS WNL, CBC unremarkable, BUN 32, Creat WNL, GFR 58, AST/ALT unremarkable Urine positive for opioids and cocaine. Lumbar spine CT: Mild to moderate spinal stenosis. (please see full report) PMHx: Substance abuse, hip fx, inguinal hernia, Hep C Allergies: NKDA FamHx: mother 78 y/o has HTN, patient did not know father Surgical: right orchipexy, right hip closed reduction and internal fixation , Right inguinal hernia 07/17/2017 Social: heroin/cocaine use, tobacco use 1 PPD x 40 years, denies alcohol Present on Admission - Present on Admission Any Indicators Present on Admission: No Review of Systems - Review of Systems All systems: reviewed and no additional remarkable complaints except (Those noted on HPI) Past Patient History - Infectious Disease Hx of Infectious Diseases: None - Tetanus Immunizations Tetanus Immunization: Unknown - Past Medical History & Family History Past Medical History?: Yes - Past Social History Smoking Status: Former Smoker Alcohol: Occasional Drugs: Cocaine, Opiates - CARDIAC Hx Hypertension: No - PULMONARY Hx Respiratory Disorders: Yes Hx Pneumonia: Yes - NEUROLOGICAL Hx Seizures: No - HEENT Hx HEENT Problems: No - RENAL Hx Chronic Kidney Disease: No - ENDOCRINE/METABOLIC Hx Endocrine Disorders: No - HEMATOLOGICAL/ONCOLOGICAL Hx Hepatitis C: Yes Hx Human Immunodeficiency Virus (HIV): No - INTEGUMENTARY Hx Dermatological Problems: No - MUSCULOSKELETAL/RHEUMATOLOGICAL Hx Fractures: Yes (right hip) - GASTROINTESTINAL Hx Gastrointestinal Disorders: Yes Hx Colitis: Yes Hx Hemorrhoids: Yes Other/Comment: HERNIA - GENITOURINARY/GYNECOLOGICAL Hx Sexually Transmitted Disorders: No - PSYCHIATRIC Hx Psychophysiologic Disorder: No Hx Substance Use: Yes Other/Comment: etoh and heroin abuse - SURGICAL HISTORY Hx Surgeries: Yes Hx Herniorrhaphy: Yes (khushi inguinal hernia repair) Other/Comment: Right Hip (srews placed due to fracture s/p fall) -November 2016, right orchiopexy for undescended testicle. Hx of L ing. repair once and R ing hernia twice - ANESTHESIA Hx Anesthesia: Yes Hx Anesthesia Reactions: No Hx Malignant Hyperthermia: No Meds Allergies/Adverse Reactions: Allergies Allergy/AdvReac Type Severity Reaction Status Date / Time No Known Allergies Allergy Verified 10/27/17 12:48 Physical Exam - Constitutional Appears: Non-toxic, No Acute Distress - Eye Exam Eye Exam: EOMI, PERRL - ENT Exam ENT Exam: Mucous Membranes Moist - Respiratory Exam Respiratory Exam: Clear to Auscultation Bilateral, Rales (scant rales LLL), NORMAL BREATHING PATTERN - Cardiovascular Exam Cardiovascular Exam: REGULAR RHYTHM, +S1, +S2. absent: Gallop - GI/Abdominal Exam GI & Abdominal Exam: Normal Bowel Sounds, Soft. absent: Distended, Guarding, Rebound, Rigid, Tenderness - Extremities Exam Extremities exam: Positive for: normal capillary refill, pedal edema (trace. B/L ), pedal pulses present. Negative for: calf tenderness, joint swelling, tenderness Additional comments: some limited ROM due to pain of R/lower ext - Neurological Exam Neurological exam: Alert, Oriented x3 - Skin Skin Exam: Normal Color, Warm Results - Vital Signs Recent Vital Signs: Last Vital Signs Temp 97 F L 10/27/17 12:48 Pulse 81 10/27/17 16:57 Resp 20 10/27/17 12:48 BP 153/90 H 10/27/17 12:48 Pulse Ox 98 10/27/17 16:57 - Labs Result Diagrams: 10/27/17 16:40 10/27/17 16:40 Labs: Laboratory Results - last 24 hr 10/27/17 10/27/17 10/27/17 12:59 13:05 16:40 WBC 13.1 H D RBC 4.38 L Hgb 12.9 Hct 39.3 MCV 89.8 MCH 29.4 MCHC 32.7 L RDW 13.9 Plt Count 230 D MPV 7.7 Neut % (Auto) 77.6 H Lymph % (Auto) 12.7 L [place] % (Auto) 8.4 Eos % (Auto) 0.2 Baso % (Auto) 1.1 Neut # (Auto) 10.2 H Lymph # (Auto) 1.7 [place] # (Auto) 1.1 H Eos # (Auto) 0.0 Baso # (Auto) 0.1 PT INR APTT Sodium Potassium Chloride Carbon Dioxide Anion Gap BUN Creatinine Est GFR ( Amer) Est GFR (Non-Af Amer) POC Glucose (mg/dL) 96 Random Glucose Calcium Total Bilirubin AST ALT Alkaline Phosphatase Total Protein Albumin Globulin Albumin/Globulin Ratio Urine Opiates Screen Urine Methadone Screen Ur Barbiturates Screen Ur Phencyclidine Scrn Ur Amphetamines Screen U Benzodiazepines Scrn U Oth Cocaine Metabols U Cannabinoids Screen Alcohol, Quantitative < 10 10/27/17 10/27/17 10/27/17 16:40 16:40 16:45 WBC RBC Hgb Hct MCV MCH MCHC RDW Plt Count MPV Neut % (Auto) Lymph % (Auto) [place] % (Auto) Eos % (Auto) Baso % (Auto) Neut # (Auto) Lymph # (Auto) [place] # (Auto) Eos # (Auto) Baso # (Auto) PT 11.7 INR 1.1 APTT 31.1 Sodium 140 Potassium 4.9 Chloride 103 Carbon Dioxide 22 Anion Gap 20 BUN 32 H Creatinine 1.3 Est GFR ( Amer) > 60 Est GFR (Non-Af Amer) 58 POC Glucose (mg/dL) Random Glucose 107 Calcium 8.9 Total Bilirubin 0.4 AST 48 ALT 59 Alkaline Phosphatase 100 Total Protein 8.2 Albumin 3.8 Globulin 4.4 H Albumin/Globulin Ratio 0.8 L Urine Opiates Screen Positive H Urine Methadone Screen Negative Ur Barbiturates Screen Negative Ur Phencyclidine Scrn Negative Ur Amphetamines Screen Negative U Benzodiazepines Scrn Negative U Oth Cocaine Metabols Positive H U Cannabinoids Screen Negative Alcohol, Quantitative Assessment & Plan - Assessment and Plan (Free Text) Assessment: 52 y/o M with PMHx of polysubstance abuse and hep C admitted for neuropathic pain for observation Chronic pain/Neuropathic pain Increased Gabapentin to 300mg BID Lumbar spine CT shows multilevel mild to moderate stenosis which could explain chronic LE pain and back pain Patient needs MRI of the lower spine as outpatient for better eval. MRI was ordered as outpatient but he missed his appt. Advised to call to reschedule if DC home tomorrow Toradol IV for mild pain Percocet PRN for moderate F/U CPK Substance abuse Risk for opioid withdrawal Percocet 5/325mg mg q6h PRN for moderate pain for now SAMSON Mild Likely due to dehydration/substance abuse IV NS 1 L F/U BMP AM and U/A/UCx Elevated blood pressure Systolic/diastolic slightly elevated Not on home meds Monitor Revaluate AM. Patient likely candidate for poor compliance of any meds as outpatient Heart healthy diet DVT prophylaxis Lovenox 40 mg daily
[2017-10-27] MEDS: Sodium Chloride 0.9% 1,000 ML IV SCH (19:49)
[2017-10-27] MEDS ORDERED: Hydrogen Peroxide 3% Soln (480ml) TP ONE (19:52)
[2017-10-27 20:05] LABS: URINE BILIRUBIN NEGATIVE (NEGATIVE); URINE BLOOD NEGATIVE (NEGATIVE); URINE CLARITY CLEAR (Clear); URINE COLOR YELLOW (YELLOW); URINE GLUCOSE (UA) NEG (Normal); URINE LEUKOCYTE ESTERASE NEG Leu/uL (Negative); URINE PROTEIN NEGATIVE (NEGATIVE); URINE UROBILINOGEN 0.2-1.0 mg/dL (0.2-1.0)
[2017-10-28 00:52] VITALS: O2SAT 97
[2017-10-28] MEDS: Sodium Chloride 0.9% 1,000 ML IV SCH ×2 (02:17→10:48)
[2017-10-28] MEDS: Oxycodone/Acetaminophen 5/325 mg Tab PO PRN ×2 (06:33→12:39)
[2017-10-28 06:46] LABS: MEAN CORPUSCULAR HEMOGLOBIN 29.7 pg (27.0-31.0); MEAN CORPUSCULAR HGB CONC 32.7 g/dL (33.0-37.0); RBC 4.04 Mil/uL (4.40-5.90); RED CELL DISTRIBUTION WIDTH 13.8 % (11.5-14.5); WHITE BLOOD COUNT 6.6 K/uL (4.8-10.8)
[2017-10-28 07:00] LABS: BLOOD UREA NITROGEN 32 mg/dl (9-20); CALCIUM 8.6 mg/dL (8.4-10.2); GFR AFRICAN-AMERICAN > 60; GFR NON-AFRICAN AMERICAN > 60
[2017-10-28 08:31] VITALS: BP 129/77; PULSE 63; RESP 20; TEMP 98.1
[2017-10-28] MEDS ORDERED: Multivitamin With Minerals Tab PO SCH (09:00)
[2017-10-28] MEDS ORDERED: Enoxaparin 40 mg Syringe SC SCH ×2 (09:00→21:00)
--- NOTE | 2017-10-28 11:23 | CARD ---
APPROVED REPORT EKG Measurement Heart [id number] <Conclusion> Normal sinus rhythm Normal ECG
--- NOTE | 2017-10-28 12:48 | CP.PCM.DIS ---
Provider - Provider Date of Admission: 10/27/17 16:24 Attending physician: Arlene Bowden MD Primary care physician: [facility] Time Spent in preparation of Discharge (in minutes): 30 Diagnosis - Discharge Diagnosis (1) Heroin abuse Status: Acute Hospital Course - Lab Results Lab Results: Most Recent Lab Values WBC 6.6 K/uL (4.8-10.8) 10/28/17 06:10 RBC 4.04 Mil/uL (4.40-5.90) L 10/28/17 06:10 Hgb 12.0 g/dL (12.0-18.0) 10/28/17 06:10 Hct 36.8 % (35.0-51.0) 10/28/17 06:10 MCV 91.0 fl (80.0-94.0) 10/28/17 06:10 MCH 29.7 pg (27.0-31.0) 10/28/17 06:10 MCHC 32.7 g/dL (33.0-37.0) L 10/28/17 06:10 RDW 13.8 % (11.5-14.5) 10/28/17 06:10 Plt Count 177 K/uL (130-400) 10/28/17 06:10 MPV 7.7 fl (7.2-11.7) 10/27/17 16:40 Neut % (Auto) 77.6 % (50.0-75.0) H 10/27/17 16:40 Lymph % (Auto) 12.7 % (20.0-40.0) L 10/27/17 16:40 [place] % (Auto) 8.4 % (0.0-10.0) 10/27/17 16:40 Eos % (Auto) 0.2 % (0.0-4.0) 10/27/17 16:40 Baso % (Auto) 1.1 % (0.0-2.0) 10/27/17 16:40 Neut # (Auto) 10.2 K/uL (1.8-7.0) H 10/27/17 16:40 Lymph # (Auto) 1.7 K/uL (1.0-4.3) 10/27/17 16:40 [place] # (Auto) 1.1 K/uL (0.0-0.8) H 10/27/17 16:40 Eos # (Auto) 0.0 K/uL (0.0-0.7) 10/27/17 16:40 Baso # (Auto) 0.1 K/uL (0.0-0.2) 10/27/17 16:40 PT 11.7 Seconds (9.8-13.1) 10/27/17 16:40 INR 1.1 (0.9-1.2) 10/27/17 16:40 APTT 31.1 Seconds (25.6-37.1) 10/27/17 16:40 Sodium 140 mmol/l (132-148) 10/28/17 06:10 Potassium 4.4 MMOL/L (3.6-5.0) 10/28/17 06:10 Chloride 105 mmol/L (98-107) 10/28/17 06:10 Carbon Dioxide 26 mmol/L (22-30) 10/28/17 06:10 Anion Gap 13 (10-20) 10/28/17 06:10 BUN 32 mg/dl (9-20) H 10/28/17 06:10 Creatinine 1.2 mg/dl (0.8-1.5) 10/28/17 06:10 Est GFR ( Amer) > 60 10/28/17 06:10 Est GFR (Non-Af Amer) > 60 10/28/17 06:10 POC Glucose (mg/dL) 96 mg/dL (65-110) 10/27/17 12:59 Random Glucose 110 mg/dL (75-110) 10/28/17 06:10 Calcium 8.6 mg/dL (8.4-10.2) 10/28/17 06:10 Total Bilirubin 0.4 mg/dl (0.2-1.3) 10/27/17 16:40 AST 48 U/L (17-59) 10/27/17 16:40 ALT 59 U/L (21-72) 10/27/17 16:40 Alkaline Phosphatase 100 U/L (38-126) 10/27/17 16:40 Total Creatine Kinase 46 U/L (55-170) L 10/27/17 19:48 Total Protein 8.2 G/DL (6.3-8.2) 10/27/17 16:40 Albumin 3.8 g/dL (3.5-5.0) 10/27/17 16:40 Globulin 4.4 gm/dL (2.2-3.9) H 10/27/17 16:40 Albumin/Globulin Ratio 0.8 (1.0-2.1) L 10/27/17 16:40 Urine Color Yellow (YELLOW) 10/27/17 19:30 Urine Clarity Clear (Clear) 10/27/17 19:30 Urine pH 5.0 (5.0-8.0) 10/27/17 19:30 Ur Specific [place] 1.020 (1.003-1.030) 10/27/17 19:30 Urine Protein Negative mg/dL (NEGATIVE) 10/27/17 19:30 Urine Glucose (UA) Neg mg/dL (Normal) 10/27/17 19:30 Urine Ketones Negative mg/dL (NEGATIVE) 10/27/17 19:30 Urine Blood Negative (NEGATIVE) 10/27/17 19:30 Urine Nitrate Negative (NEGATIVE) 10/27/17 19:30 Urine Bilirubin Negative (NEGATIVE) 10/27/17 19:30 Urine Urobilinogen 0.2-1.0 mg/dL (0.2-1.0) 10/27/17 19:30 Ur Leukocyte Esterase Neg Day/uL (Negative) 10/27/17 19:30 Urine RBC (Auto) 2 /hpf (0-3) 10/27/17 19:30 Urine Microscopic WBC 1 /hpf (0-5) 10/27/17 19:30 Urine Opiates Screen Positive (NEGATIVE) H 10/27/17 16:45 Urine Methadone Screen Negative (NEGATIVE) 10/27/17 16:45 Ur Barbiturates Screen Negative (NEGATIVE) 10/27/17 16:45 Ur Phencyclidine Scrn Negative (NEGATIVE) 10/27/17 16:45 Ur Amphetamines Screen Negative (NEGATIVE) 10/27/17 16:45 U Benzodiazepines Scrn Negative (NEGATIVE) 10/27/17 16:45 U Oth Cocaine Metabols Positive (NEGATIVE) H 10/27/17 16:45 U Cannabinoids Screen Negative (NEGATIVE) 10/27/17 16:45 Alcohol, Quantitative < 10 mg/dl (0-10) 10/27/17 13:05 - Hospital Course Hospital Course: 52 y/o M with a PMHx of chronic pain and IV drug abuse brought to hospital after being on the floor of a bathroom, unconscious with 2 needles in his arm. Pt was properly IV hydrated, home meds were resume. Pt complained of acute low back pain and bilateral leg pain; therefore, admitted to hospital. CT scan of lumbar spine showed spinal stenosis. MRI was recommended. Pt remained stable, afebrile, pain improved and tolerating PO. --Pt has a script for MRI lumbar. Pt has not gone to pain management clinic as planned as outpatient. --Pt extensively counseled (again in this admission) on the option for methadone clinic and the need to be evaluated by painter spray. Pt informed he needs to be cleaned before initiating narcotics for his chronic pain. --Pt discharge with recommendations to f/u with PMD within 7 days and to schedule MRI of lumbar as planned when seen outpatient. - Date & Time of H&P Date of H&P: 10/27/17 Time of H&P: 18:38 Discharge Exam - Head Exam Head Exam: ATRAUMATIC, NORMAL INSPECTION, NORMOCEPHALIC - Eye Exam Eye Exam: EOMI, Normal appearance, PERRL - ENT Exam ENT Exam: Mucous Membranes Moist - Respiratory Exam Respiratory Exam: Clear to PA & Lateral, NORMAL BREATHING PATTERN, UNREMARKABLE - Cardiovascular Exam Cardiovascular Exam: +S1, +S2 - GI/Abdominal Exam GI & Abdominal Exam: Normal Bowel Sounds, Soft. absent: Distended, Guarding, Tenderness - Extremities Exam Extremities exam: full ROM - Neurological Exam Neurological exam: Alert, Oriented x3 Discharge Plan - Discharge Medications Prescriptions: Gabapentin [Neurontin] 300 mg PO TID #90 cap - Follow Up Plan Condition: STABLE Disposition: HOME/ ROUTINE Instructions: Drug Abuse and Drug Addiction (DC) Additional Instructions: -Please re-schedule MRI of lumbar. -Please f/u with pain management doctor for pain relievers. -Please stop IV drug intoxication. Pt needs to be clean in order to begin narcotic medication. -Please f/u with PMD within 7-10 days. Referrals: [facility] [Outside]
== END 2017-10-28 15:20 | disposition home or self-care (01) ==
LOC: H.ER 12:41 → H.ERHOLD 16:24 → H.MEDSURG1 20:24
PROVIDERS: ADMIT Family Medicine Geriatric Medicine; ATTEND Family Medicine Geriatric Medicine
DX: F11.10 Opioid abuse, uncomplicated (principal); G89.29 Other chronic pain; N17.9 Acute kidney failure, unspecified; M48.061 Spinal stenosis, lumbar region without neurogenic claudication; Z72.0 Tobacco use; R03.0 Elevated blood-pressure reading, without diagnosis of hypertension; Z59.0 Homelessness
CPT/HCPCS: 36415; 71045; 72131; 80048; 80053; 80320; 80324; 80345; 80346; 80349; 80353; 80358; 80361; 81003; 82550; 82948; 83992; 85025; 85027; 85610; 85730; 87086; 93005; 96374; 99283; G0378; J1885; J7040

== ENCOUNTER 2017-11-06 08:36 | Emergency (ER) | payer MEDICAID ==
[2017-11-06 08:40] VITALS: BMI 24.4
[2017-11-06 09:00] VITALS: O2SAT 100
[2017-11-06 09:46] LABS: BASO # 0.1 K/uL (0.0-0.2); EOS # 0.3 K/uL (0.0-0.7); EOS % 3.8 % (0.0-4.0); HEMOGLOBIN 12.2 g/dL (12.0-18.0); LYMPH # 1.7 K/uL (1.0-4.3); LYMPH % 23.2 % (20.0-40.0); MEAN CELL VOLUME 90.8 fl (80.0-94.0); MEAN CORPUSCULAR HEMOGLOBIN 30.2 pg (27.0-31.0); MEAN CORPUSCULAR HGB CONC 33.3 g/dL (33.0-37.0); MEAN PLATELET VOLUME 7.8 fl (7.2-11.7); MONO # 1.4 K/uL (0.0-0.8); MONO % 18.6 % (0.0-10.0); NEUT % 53.4 % (50.0-75.0); RBC 4.04 Mil/uL (4.40-5.90); RED CELL DISTRIBUTION WIDTH 14.2 % (11.5-14.5); WHITE BLOOD COUNT 7.4 K/uL (4.8-10.8)
--- NOTE | 2017-11-06 09:56 | CT ---
PROCEDURE: CT HEAD WITHOUT CONTRAST. HISTORY: r/o ICH COMPARISON: CT head dated 08/02/2017. TECHNIQUE: Axial computed tomography images were obtained through the head/brain without intravenous contrast. Radiation dose: Total exam DLP = 932.8 mGy-cm. This CT exam was performed using one or more of the following dose reduction techniques: Automated exposure control, adjustment of the mA and/or kV according to patient size, and/or use of iterative reconstruction technique. FINDINGS: HEMORRHAGE: No intracranial hemorrhage. BRAIN: No mass effect or edema. No atrophy or chronic microvascular ischemic changes. VENTRICLES: Unremarkable. No hydrocephalus. CALVARIUM: Unremarkable. PARANASAL SINUSES: Left maxillary sinus mucosal thickening. MASTOID AIR CELLS: Unremarkable as visualized. No inflammatory changes. OTHER FINDINGS: None. IMPRESSION: No acute intracranial pathology.
[2017-11-06 10:00] LABS: ALB/GLOB RATIO 0.8 (1.0-2.1); ALBUMIN 3.3 g/dL (3.5-5.0); ALT/SGPT 105 U/L (21-72); AST/SGOT 84 U/L (17-59); BLOOD UREA NITROGEN 41 mg/dl (9-20); CALCIUM 9.2 mg/dL (8.4-10.2); GFR AFRICAN-AMERICAN 59; GFR NON-AFRICAN AMERICAN 49
--- NOTE | 2017-11-06 10:10 | CARD ---
APPROVED REPORT EKG Measurement Heart [id number] <Conclusion> Sinus bradycardia with premature atrial complexes Otherwise normal ECG
--- NOTE | 2017-11-06 12:01 | ED PDOC ---
HPI: Psych/Substance Abuse Time Seen by Provider: 11/06/17 09:09 Chief Complaint (Nursing): Substance Abuse Chief Complaint (Provider): AMS ED Caveat: Altered Mental Status, Intoxicated History Per: EMS History/Exam Limitations: clinical condition, intoxication Onset/Duration Of Symptoms: Unknown Current Symptoms Are (Timing): Still Present Severity: Moderate Involuntary Hold By: Emergency Physician Additional Complaint(s): 52yo male arrives from detox clinic appearing drowsy. States he also fell but denies pain or injury. History limited due to possible intoxication/drug overdose. Past Medical History Reviewed: Historical Data, Nursing Documentation, Vital Signs Vital Signs: Last Vital Signs Temp 96.3 F L 11/06/17 08:40 Pulse 50 L 11/06/17 08:45 Resp 13 11/06/17 08:45 BP 107/63 11/06/17 08:45 Pulse Ox 100 11/06/17 08:45 - Medical History PMH: Fractures (right hip), Hepatitis (C), Pneumonia Denies: Diabetes, HIV, HTN, Chronic Kidney Disease, Seizures, Sexually Transmitted Disease - Surgical History Surgical History: Hernia Repair - Family History Family History: States: Unknown Family Hx - Living Arrangements Living Arrangements: Other - Immunization History Hx Tetanus Toxoid Vaccination: No Hx Influenza Vaccination: No Hx Pneumococcal Vaccination: No - Home Medications Home Medications: Ambulatory Orders Medication Instructions Recorded Docusate [Colace] 100 mg PO DAILY #30 cap 11/04/17 Gabapentin [Neurontin] 300 mg PO TID #90 cap 11/04/17 Naproxen [Anaprox] 275 mg PO BID tab 11/04/17 QUEtiapine [Seroquel] 100 mg PO HS #30 tab 11/04/17 cloNIDine [Catapres] 0.1 mg PO BID PRN #30 tab 11/04/17 hydrOXYzine HCl [Atarax] 50 mg PO BID PRN #60 tab 11/04/17 - Allergies Allergies/Adverse Reactions: Allergies Allergy/AdvReac Type Severity Reaction Status Date / Time No Known Allergies Allergy Verified 10/27/17 12:48 Review of Systems Review Of Systems: ROS cannot be obtained secondary to pt's inabilty to answer questions. Physical Exam - Reviewed Nursing Documentation Reviewed: Yes Vital Signs Reviewed: Yes - Physical Exam Appears: Positive for: Non-toxic (arousable to physical stimuli) Head Exam: Positive for: ATRAUMATIC, NORMAL INSPECTION, NORMOCEPHALIC Skin: Positive for: Normal Color, Warm, DRY Eye Exam: Positive for: Normal appearance, EOMI, PERRL (3mm sluggish b/l) ENT: Positive for: Normal ENT Inspection Neck: Positive for: Normal, Painless ROM Cardiovascular/Chest: Positive for: Regular Rate, Rhythm Respiratory: Positive for: Normal Breath Sounds. Negative for: Decreased Breath Sounds Gastrointestinal/Abdominal: Positive for: Normal Exam, Soft. Negative for: Tenderness Back: Positive for: Normal Inspection Extremity: Positive for: Normal ROM Neurologic/Psych: Positive for: Alert, Other (moves all extremities, arousable to sternal rub) - Laboratory Results Result Diagrams: 11/06/17 09:30 11/06/17 09:30 - ECG O2 Sat by Pulse Oximetry: 100 Medical Decision Making Medical Decision Making: workup for AMS/ possible intoxication or overdose initiated CT brain ordered for ?fall labs ordered and reviewed EKG sinus marian at 51bpm with QRS 114 and QTc 438 [id number] remains on site monitor, arousable to physical stimuli 150p awake, alert, ate lunch without difficulty. Ambulating. DC from ED. Disposition - Clinical Impression Clinical Impression: Substance abuse - Patient ED Disposition Is Patient to be Admitted: No Counseled Patient/Family Regarding: Studies Performed, Diagnosis, Need For Followup - Disposition Referrals: [facility] [Outside] Disposition: Routine/Home Disposition Time: 13:57 Condition: GOOD Instructions: Drug Abuse and Drug Addiction (DC) Forms: Altar (Latvian) Print Language: MICRONESIAN
[2017-11-06 13:14] VITALS: BP 108/63; PULSE 56; RESP 15; TEMP 97.6
[2017-11-06 13:14] LABS: BARBITURATES, UR NEGATIVE (NEGATIVE); BENZODIAZEPINES, UR POSITIVE (NEGATIVE); OPIATES, UR NEGATIVE (NEGATIVE); PHENCYCLIDINE, UR NEGATIVE (NEGATIVE)
== END 2017-11-06 13:55 | disposition home or self-care (01) ==
LOC: H.ER 08:36
DX: F19.10 Other psychoactive substance abuse, uncomplicated (principal)

== ENCOUNTER 2017-11-10 13:43 | Inpatient (IN) | payer MEDICAID ==
[2017-11-10 13:44] VITALS: BMI 24.4
--- NOTE | 2017-11-10 14:30 | ED PDOC ---
HPI: General Adult Time Seen by Provider: 11/10/17 14:20 Chief Complaint (Nursing): Syncope Chief Complaint (Provider): syncope History Per: Patient History/Exam Limitations: no limitations Onset/Duration Of Symptoms: Hrs (1; just prior to ED arrival) Additional Complaint(s): pt states he passed out while walking, just prior to ED arrival; pt states he last used heroin yesterday; pt states he felt like he was seeing lights before he passed out; pt denied fever/chills/sweats, NO cp/sob/palpitations, no abd pain, no n/v, no numbness/tingling, no urinary/bowel changes; pt denied incontinence pt denied bleeding/rashes pt states now he felt severe generalized weakness/fatigue pt feels sleepy pt is here for further eval pt's without other complaints. PCP: Dr Luo/family medicine pt lives at a homeless [facility] pt is right hand dominate pt usually use 1bag of heroin per episode Past Medical History Reviewed: Historical Data, Nursing Documentation, Vital Signs Vital Signs: Last Vital Signs Temp 98 F 11/10/17 13:47 Pulse 84 11/10/17 13:47 Resp 16 11/10/17 13:47 BP 125/76 11/10/17 13:47 Pulse Ox 97 11/10/17 16:45 - Medical History PMH: Fractures (right hip), Hepatitis (C), Pneumonia Denies: Diabetes, HIV, HTN, Chronic Kidney Disease, Seizures, Sexually Transmitted Disease - Surgical History Surgical History: Hernia Repair - Family History Family History: States: Unknown Family Hx - Living Arrangements Living Arrangements: Alone - Social History Current smoker - smoking cessation education provided: Yes Ex-Smoker (has not smoked in the last 12 months): No Alcohol: None Drugs: Opiates - Immunization History Hx Tetanus Toxoid Vaccination: No Hx Influenza Vaccination: No Hx Pneumococcal Vaccination: No - Home Medications Home Medications: Ambulatory Orders Medication Instructions Recorded Docusate [Colace] 100 mg PO DAILY #30 cap 11/04/17 Gabapentin [Neurontin] 300 mg PO TID #90 cap 11/04/17 Naproxen [Anaprox] 275 mg PO BID tab 11/04/17 QUEtiapine [Seroquel] 100 mg PO HS #30 tab 11/04/17 cloNIDine [Catapres] 0.1 mg PO BID PRN #30 tab 11/04/17 hydrOXYzine HCl [Atarax] 50 mg PO BID PRN #60 tab 11/04/17 - Allergies Allergies/Adverse Reactions: Allergies Allergy/AdvReac Type Severity Reaction Status Date / Time No Known Allergies Allergy Verified 11/10/17 13:45 Review of Systems ROS Statement: Except As Marked, All Systems Reviewed And Found Negative Constitutional: Positive for: Weakness, Malaise. Negative for: Fever, Chills, Sweats Eyes: Negative for: Pain ENT: Negative for: Ear Pain, Nose Pain Cardiovascular: Negative for: Chest Pain, Paroxysmal Noc. Dyspnea Respiratory: Negative for: Cough, Shortness of Breath, SOB with Exertion Gastrointestinal: Negative for: Nausea, Vomiting, Abdominal Pain, Constipation Genitourinary Male: Negative for: Dysuria, Hematuria, Penile Discharge Musculoskeletal: Negative for: Neck Pain, Back Pain Skin: Negative for: Rash Neurological: Positive for: Weakness. Negative for: Altered Mental Status, Headache, Dizziness Psych: Negative for: Anxiety, Depression, Psychosis Physical Exam - Reviewed Nursing Documentation Reviewed: Yes Vital Signs Reviewed: Yes (WNL) - Physical Exam Comments: General: alert/awake, GCS = 15, oriented x 2(not to date/time), resting in bed, uncomfortable, cooperative, interactive; NAD; unkempt/disheveled appearing Head: NC/AT EYE: PERRLA, EOMI, sclera anicteric, no nystagmus, no photophobia; visual field intact b/l Facial: WNL Oral: uvula/tongue are midline, no exudate/lesions, no drooling/stridor, no dysphonia; poor dentitions; dry oral mucosa NECK: intact ROM, no midline tenderness, no nuchal rigidity, no meningeal signs ; no step off Chest: CTA b/l, no w/r/r; no tachypenia, no accessory muscle use noted; coarse breath sounds noted bibasiliar Cardiac: +S1, +S2, no m/r/r, no tachycardia Abdominal: +BS, soft/nd/nt, well nourished patient; no masses/rebound/guarding/ rigidity; no mcdonald's sign, no mcburney's point tenderness Extremities: intact ROM, strength 5/5 grossly intact in all limbs, neurovasc intact b/l; + ambulatory; reflex +2/2 BACK: no step off, no midline tenderness, NO crepitus, no gross deformities noted; Intact ROM SKIN: cap refill ~ 1 sec, no ulcerations, no petechiae, no rashes NEURO: CNII-XII WNL, no facial asymmetries, no slurr speech, oriented x 2(not to date/time) NIH stroke scale ~ 0 Psych: normal insight, normal affect; follows command with ease - Laboratory Results Result Diagrams: 11/10/17 15:20 11/10/17 15:20 Interpretation Of Abnormal: multiple + Utox - ECG ECG: Positive for: Interpreted By Me, Viewed By Me Interpretation Of ECG: NSR at 65 bpm, nomral axis, no ectopy, no st-t changes, NORMAL EKG; unchanged compare with old ekg 10/2017 O2 Sat by Pulse Oximetry: 97 Pulse Ox Interpretation: Normal - Radiology X-Ray: Viewed By Me, Read By Radiologist - Progress ED Course And Treament: Time: 16:14 Spoke to family resident graphic production artist. Will evaluate patient at bedside and will continue to monitor. 1630 - family medicine will admit patient to their service pt is made aware of his medical results agrees with admission pt is currently comfortable pt is eating at bedside pt is not in any distress HISTORY: COMPARISON: 10/27/2017. TECHNIQUE: Chest PA and lateral FINDINGS: LINES AND TUBES: None. LUNG AND PLEURA: The lungs are well inflated and clear.No pleural effusion or pneumothorax. HEART AND MEDIASTINUM: The heart is not enlarged. The hilar and mediastinal contours are within normal limits. SKELETAL STRUCTURES: The bony structures are within normal limits for the patient's age. VISUALIZED UPPER ABDOMEN: Normal. OTHER FINDINGS: None. IMPRESSION: No active pulmonary disease. --- PROCEDURE: CT HEAD WITHOUT CONTRAST. HISTORY: syncope COMPARISON: 11/06/2017. TECHNIQUE: Axial computed tomography images were obtained through the head/brain without intravenous contrast. Radiation dose: Total exam DLP = 941.80 mGy-cm. This CT exam was performed using one or more of the following dose reduction techniques: Automated exposure control, adjustment of the mA and/or kV according to patient size, and/or use of iterative reconstruction technique. FINDINGS: HEMORRHAGE: No intracranial hemorrhage. BRAIN: Cantu-white matter differentiation is preserved. There is no mass, mass effect or abnormal extra-axial fluid collection. VENTRICLES: The ventricles are normal in size, shape and configuration. CALVARIUM: The skull base and calvarium are normal. PARANASAL SINUSES: Predominantly clear. MASTOID AIR CELLS: Predominantly clear. OTHER FINDINGS: None. IMPRESSION: No acute intracranial abnormality. --- Re-evaluation Time: 16:00 Condition: Improved - Physician Consult Information Time Consulting Physican Contacted: 16:00 Physician Contacted: [facility] Medical Decision Making Medical Decision Making: Impression: syncope/ams/drug use i have consider all the differential diagnosis regarding pt's chief medical complaints/clinical findings, including but are not limited to: syncope/drug use A/P: syncope/drug use, ams - labs - iv - xray - ct - supportive care - observe/reevaluation Disposition - Clinical Impression Clinical Impression: Syncope, Drug abuse, Weakness, Altered mental status - Patient ED Disposition Is Patient to be Admitted: Yes Counseled Patient/Family Regarding: Studies Performed, Diagnosis, Rx Given - Disposition Disposition Time: 16:30 Condition: STABLE Instructions: Weakness (ED) Forms: [employer] (Tamazight) Print Language: SAMMARINESE
--- NOTE | 2017-11-10 15:05 | RAD ---
HISTORY: COMPARISON: 10/27/2017. TECHNIQUE: Chest PA and lateral FINDINGS: LINES AND TUBES: None. LUNG AND PLEURA: The lungs are well inflated and clear.No pleural effusion or pneumothorax. HEART AND MEDIASTINUM: The heart is not enlarged. The hilar and mediastinal contours are within normal limits. SKELETAL STRUCTURES: The bony structures are within normal limits for the patient's age. VISUALIZED UPPER ABDOMEN: Normal. OTHER FINDINGS: None. IMPRESSION: No active pulmonary disease.
--- NOTE | 2017-11-10 15:17 | CT ---
PROCEDURE: CT HEAD WITHOUT CONTRAST. HISTORY: syncope COMPARISON: 11/06/2017. TECHNIQUE: Axial computed tomography images were obtained through the head/brain without intravenous contrast. Radiation dose: Total exam DLP = 941.80 mGy-cm. This CT exam was performed using one or more of the following dose reduction techniques: Automated exposure control, adjustment of the mA and/or kV according to patient size, and/or use of iterative reconstruction technique. FINDINGS: HEMORRHAGE: No intracranial hemorrhage. BRAIN: Cantu-white matter differentiation is preserved. There is no mass, mass effect or abnormal extra-axial fluid collection. VENTRICLES: The ventricles are normal in size, shape and configuration. CALVARIUM: The skull base and calvarium are normal. PARANASAL SINUSES: Predominantly clear. MASTOID AIR CELLS: Predominantly clear. OTHER FINDINGS: None. IMPRESSION: No acute intracranial abnormality.
[2017-11-10 15:26] LABS: BASO % 0.9 % (0.0-2.0); EOS # 0.1 K/uL (0.0-0.7); EOS % 1.8 % (0.0-4.0); HEMOGLOBIN 11.9 g/dL (12.0-18.0); LYMPH # 1.5 K/uL (1.0-4.3); LYMPH % 27.5 % (20.0-40.0); MEAN CELL VOLUME 89.8 fl (80.0-94.0); MEAN CORPUSCULAR HEMOGLOBIN 30.1 pg (27.0-31.0); MEAN CORPUSCULAR HGB CONC 33.6 g/dL (33.0-37.0); MEAN PLATELET VOLUME 7.5 fl (7.2-11.7); MONO # 0.6 K/uL (0.0-0.8); MONO % 10.6 % (0.0-10.0); NEUT # 3.3 K/uL (1.8-7.0); NEUT % 59.2 % (50.0-75.0); NRBC % 0.2 % (0.0-0.0); RBC 3.96 Mil/uL (4.40-5.90); RED CELL DISTRIBUTION WIDTH 14.5 % (11.5-14.5); WHITE BLOOD COUNT 5.5 K/uL (4.8-10.8)
[2017-11-10] MEDS: Sodium Chloride 0.9% 1,000 ML IV SCH ×2 (15:42→22:36)
[2017-11-10 15:46] LABS: URINE BILIRUBIN NEGATIVE (NEGATIVE); URINE BLOOD NEGATIVE (NEGATIVE); URINE CLARITY SLIGHTY-CLOUDY (Clear); URINE COLOR AMBER (YELLOW); URINE GLUCOSE (UA) NEG (Normal); URINE LEUKOCYTE ESTERASE NEG Leu/uL (Negative); URINE PROTEIN NEGATIVE (NEGATIVE)
[2017-11-10 15:50] LABS: ALB/GLOB RATIO 0.9 (1.0-2.1); ALBUMIN 3.3 g/dL (3.5-5.0); ALT/SGPT 82 U/L (21-72); AST/SGOT 51 U/L (17-59); BLOOD UREA NITROGEN 28 mg/dl (9-20); CALCIUM 8.7 mg/dL (8.4-10.2); GFR AFRICAN-AMERICAN > 60; GFR NON-AFRICAN AMERICAN 58
[2017-11-10 15:54] LABS: BARBITURATES, UR NEGATIVE (NEGATIVE)
[2017-11-10 16:15] LABS: BENZODIAZEPINES, UR POSITIVE (NEGATIVE); OPIATES, UR POSITIVE (NEGATIVE); PHENCYCLIDINE, UR NEGATIVE (NEGATIVE)
--- NOTE | 2017-11-10 17:14 | CP.PCM.HP ---
History of Present Illness - History of Present Illness History of Present Illness: 52 year old male, homeless, with PMhx of substance abuse, Hep C was brought to ED by EMS after found on the stoop sleeping. Patient states he was recently discharged from detox (1 week ago). Patient does admit to using 2 days ago though has not used since. Patient states has been passing out frequently in the past 2 weeks. Patient states today he remembers sitting on stoop, states he felt like he was seeing lights before he passed out. Patient denied fever/chills /sweats. Denies cp/sob/palpitations, no abd pain, no n/v, no numbness/tingling, no urinary/bowel changes. Patient does admit that last syncopal episode he had urinary/rectal incontinence. Patient states taking his medications that detox prescribed him. Denies diarrhea. PMD: [place] PMHx: Substance abuse, hip fx, inguinal hernia, Hep C Allergies: NKDA FamHx: mother 78 y/o has HTN, patient did not know father Surgical: right orchipexy, right hip closed reduction and internal fixation , Right inguinal hernia 07/17/2017 Social: heroin/cocaine use, tobacco use 1 PPD x 40 years, denies alcohol ED course: VS WNL, CBC/CMP unremarkable Urine positive for opioids, benzodiazepenes, and cocaine. EKG NSR, no acute changes CT head - unremarkable Present on Admission - Present on Admission Any Indicators Present on Admission: No Review of Systems - Review of Systems All systems: reviewed and no additional remarkable complaints except (mentioned in HPI) Past Patient History - Infectious Disease Hx of Infectious Diseases: None - Tetanus Immunizations Tetanus Immunization: Unknown - Past Medical History & Family History Past Medical History?: Yes - Past Social History Alcohol: None Drugs: Opiates - CARDIAC Hx Hypertension: No - PULMONARY Hx Pneumonia: Yes - NEUROLOGICAL Hx Seizures: No - HEENT Hx HEENT Problems: No - RENAL Hx Chronic Kidney Disease: No - ENDOCRINE/METABOLIC Hx Endocrine Disorders: No - HEMATOLOGICAL/ONCOLOGICAL Hx Human Immunodeficiency Virus (HIV): No - INTEGUMENTARY Hx Dermatological Problems: No - MUSCULOSKELETAL/RHEUMATOLOGICAL Hx Fractures: Yes (right hip) - GASTROINTESTINAL Hx Gastrointestinal Disorders: Yes Hx Colitis: Yes Hx Hemorrhoids: Yes Other/Comment: HERNIA - GENITOURINARY/GYNECOLOGICAL Hx Sexually Transmitted Disorders: No - PSYCHIATRIC Hx Psychophysiologic Disorder: No Hx Substance Use: No (Heroine) Other/Comment: etoh and heroin abuse - SURGICAL HISTORY Hx Surgeries: Yes Hx Herniorrhaphy: Yes (khushi inguinal hernia repair) Hx Orthopedic Surgery: Yes Other/Comment: Right Hip (srews placed due to fracture s/p fall) -November 2016, right orchiopexy for undescended testicle. Hx of L ing. repair once and R ing hernia twice - ANESTHESIA Hx Anesthesia: Yes Hx Anesthesia Reactions: No Hx Malignant Hyperthermia: No Meds Allergies/Adverse Reactions: Allergies Allergy/AdvReac Type Severity Reaction Status Date / Time No Known Allergies Allergy Verified 11/10/17 13:45 Physical Exam - Constitutional Appears: Non-toxic, No Acute Distress, Unkempt - Head Exam Head Exam: ATRAUMATIC, NORMAL INSPECTION, NORMOCEPHALIC - Eye Exam Eye Exam: EOMI, Normal appearance, PERRL. absent: Nystagmus - ENT Exam ENT Exam: Mucous Membranes Moist, Normal Exam Additional comments: poor dentition - Neck Exam Neck exam: Positive for: Normal Inspection - Respiratory Exam Respiratory Exam: Clear to Auscultation Bilateral, NORMAL BREATHING PATTERN. absent: Decreased Breath Sounds, Rales, Rhonchi, Wheezes, Respiratory Distress - Cardiovascular Exam Cardiovascular Exam: REGULAR RHYTHM, RRR, +S1, +S2. absent: Diastolic murmur, Gallop, Systolic Murmur - GI/Abdominal Exam GI & Abdominal Exam: Normal Bowel Sounds, Soft. absent: Tenderness - Extremities Exam Extremities exam: Positive for: normal inspection. Negative for: calf tenderness Additional comments: mild edema of right ankle, limited range of motion right ankle due to pain - Back Exam Back exam: NORMAL INSPECTION - Neurological Exam Neurological exam: Alert, CN II-XII Intact - Expanded Neurological Exam Expanded Patient oriented to: person, place Speech: Fluid Speech Cerebellar Function: Finger to Nose: Normal, Heel to Maher: Normal Neuro motor strength exam: Left Upper Extremity: 5, Right Upper Extremity: 5, Left Lower Extremity: 5, Right Lower Extremity: 5 Coma Scale Eye Opening: SPONTANEOUS Coma Scale Motor Response: OBEYS COMMANDS Coma Scale Verbal: Oriented Coma Scale Total: 15 - Psychiatric Exam Psychiatric exam: Normal Affect, Normal Mood - Skin Skin Exam: Dry, Intact, Normal Color, Warm Results - Vital Signs Recent Vital Signs: Last Vital Signs Temp 98 F 11/10/17 13:47 Pulse 84 11/10/17 13:47 Resp 16 11/10/17 13:47 BP 125/76 11/10/17 13:47 Pulse Ox 97 11/10/17 16:53 - Labs Result Diagrams: 11/10/17 15:20 11/10/17 15:20 Labs: Laboratory Results - last 24 hr 11/10/17 11/10/17 11/10/17 15:20 15:20 15:35 WBC 5.5 RBC 3.96 L Hgb 11.9 L Hct 35.5 MCV 89.8 MCH 30.1 MCHC 33.6 RDW 14.5 Plt Count 173 MPV 7.5 Neut % (Auto) 59.2 Lymph % (Auto) 27.5 Medina % (Auto) 10.6 H Eos % (Auto) 1.8 Baso % (Auto) 0.9 Neut # (Auto) 3.3 Lymph # (Auto) 1.5 [place]ina # (Auto) 0.6 Eos # (Auto) 0.1 Baso # (Auto) 0.0 Sodium 144 Potassium 4.6 Chloride 107 Carbon Dioxide 24 Anion Gap 18 BUN 28 H Creatinine 1.3 Est GFR ( Amer) > 60 Est GFR (Non-Af Amer) 58 Random Glucose 92 Calcium 8.7 Total Bilirubin 0.4 AST 51 ALT 82 H D Alkaline Phosphatase 72 Total Creatine Kinase 99 Troponin I < 0.0120 Total Protein 7.1 Albumin 3.3 L Globulin 3.8 Albumin/Globulin Ratio 0.9 L Urine Color Renetta Urine Clarity Slighty-cloudy Urine pH 6.0 Ur Specific Wittman 1.024 Urine Protein Negative Urine Glucose (UA) Neg Urine Ketones Negative Urine Blood Negative Urine Nitrate Negative Urine Bilirubin Negative Urine Urobilinogen 2.0 Ur Leukocyte Esterase Neg Urine RBC (Auto) 25 H Urine Microscopic WBC 1 Urine Opiates Screen Urine Methadone Screen Ur Barbiturates Screen Ur Phencyclidine Scrn Ur Amphetamines Screen U Benzodiazepines Scrn U Oth Cocaine Metabols U Cannabinoids Screen 11/10/17 15:35 WBC RBC Hgb Hct MCV MCH MCHC RDW Plt Count MPV Neut % (Auto) Lymph % (Auto) Medina % (Auto) Eos % (Auto) Baso % (Auto) Neut # (Auto) Lymph # (Auto) [place] # (Auto) Eos # (Auto) Baso # (Auto) Sodium Potassium Chloride Carbon Dioxide Anion Gap BUN Creatinine Est GFR ( Amer) Est GFR (Non-Af Amer) Random Glucose Calcium Total Bilirubin AST ALT Alkaline Phosphatase Total Creatine Kinase Troponin I Total Protein Albumin Globulin Albumin/Globulin Ratio Urine Color Urine Clarity Urine pH Ur Specific Wittman Urine Protein Urine Glucose (UA) Urine Ketones Urine Blood Urine Nitrate Urine Bilirubin Urine Urobilinogen Ur Leukocyte Esterase Urine RBC (Auto) Urine Microscopic WBC Urine Opiates Screen Positive H Urine Methadone Screen Negative Ur Barbiturates Screen Negative Ur Phencyclidine Scrn Negative Ur Amphetamines Screen Negative U Benzodiazepines Scrn Positive U Oth Cocaine Metabols Positive H U Cannabinoids Screen Negative - EKG Data EKG shows normal: Sinus rhythm Rate: Normal Assessment & Plan (1) Syncope Status: Acute (2) Drug abuse Status: Chronic (3) DVT prophylaxis Status: Acute - Assessment and Plan (Free Text) Assessment: 52 y/o M with PMHx of polysubstance abuse and hep C admitted for observation due to syncope Plan: (1) Syncope -recurrent, uncontrolled -possibly due to drug abuse however denies use today -labs/ekg/CT head unremarkable -will monitor in telemetry unit -will consult Neurology for further evaluation due to last syncopal episode with urinary/bowel incontinence and recurrent syncope -will obtain labs in the am (2) Drug abuse - c/w meds that patient was discharged from detox from - avoid narcotics for pain - avoid benzodiazepines unless suspected seizure (3) DVT prophylaxis - Lovenox 40mg qd - Date & Time Date: 11/10/17 Time: 17:20
[2017-11-11 05:41] LABS: HEMOGLOBIN 11.2 g/dL (12.0-18.0); MEAN CELL VOLUME 90.1 fl (80.0-94.0); MEAN CORPUSCULAR HEMOGLOBIN 30.1 pg (27.0-31.0); MEAN CORPUSCULAR HGB CONC 33.4 g/dL (33.0-37.0); RBC 3.71 Mil/uL (4.40-5.90); RED CELL DISTRIBUTION WIDTH 14.4 % (11.5-14.5)
[2017-11-11] MEDS: Sodium Chloride 0.9% 1,000 ML IV SCH (05:44)
[2017-11-11 05:53] LABS: INR 1.1 (0.9-1.2); PARTIAL THROMBOPLASTIN TIME 33.6 Seconds (25.6-37.1); PROTHROMBIN TIME 11.8 Seconds (9.8-13.1)
[2017-11-11 05:55] LABS: ALB/GLOB RATIO 0.7 (1.0-2.1); ALBUMIN 2.8 g/dL (3.5-5.0); ALT/SGPT 68 U/L (21-72); AST/SGOT 52 U/L (17-59); BLOOD UREA NITROGEN 26 mg/dl (9-20); CALCIUM 8.3 mg/dL (8.4-10.2); GFR AFRICAN-AMERICAN > 60; GFR NON-AFRICAN AMERICAN 58; HDL CHOLESTEROL 29 MG/DL (30-70)
[2017-11-11 06:06] LABS: LDL CHOLESTEROL 61 mg/dL (0-129)
--- NOTE | 2017-11-11 08:28 | CP.PCM.PN ---
Subjective - Date & Time of Evaluation Date of Evaluation: 11/11/17 Time of Evaluation: 07:50 - Subjective Subjective: Patient seen and examined at bedside this morning. No acute overnight events. Pt reports he felt dizzy when he ambulated to bathroom this morning. Denies any LOC, headache, blurry vision, nausea, vomiting, chest pain, dyspnea or focal weakness. Pt is tolerating PO. Voiding and regular BM. Objective - Vital Signs/Intake and Output Vital Signs (last 24 hours): Temp Pulse Resp BP Pulse Ox 97.6 F 52 L 18 112/68 99 11/11/17 07:50 11/11/17 07:50 11/11/17 07:50 11/11/17 07:50 11/11/17 07:50 - Medications Medications: Current Medications Clonidine HCl (Catapres) 0.1 mg PO BID PRN PRN Reason: severe anxiety Docusate Sodium (Colace) 100 mg PO DAILY [facility] Enoxaparin Sodium (Lovenox) 40 mg SC DAILY [facility] PRN Reason: Protocol Gabapentin (Neurontin) 300 mg PO TID [facility] Last Admin: 11/10/17 23:27 Dose: 300 mg Hydroxyzine HCl (Atarax) 50 mg PO BID PRN PRN Reason: Anxiety Sodium Chloride (Sodium Chloride 0.9%) 1,000 mls @ 150 mls/hr IV .[id number] [facility] Stop: 11/11/17 14:27 Last Admin: 11/11/17 05:44 Dose: 150 mls/hr Quetiapine Fumarate (Seroquel) 100 mg PO [facility] Last Admin: 11/10/17 23:27 Dose: 100 mg - Labs Labs: 11/11/17 05:00 11/11/17 05:00 PT 11.8 Seconds (9.8-13.1) 11/11/17 05:00 INR 1.1 (0.9-1.2) 11/11/17 05:00 APTT 33.6 Seconds (25.6-37.1) 11/11/17 05:00 - Constitutional Appears: Non-toxic, No Acute Distress, Unkempt - Head Exam Head Exam: ATRAUMATIC, NORMAL INSPECTION, NORMOCEPHALIC - Eye Exam Eye Exam: Normal appearance - ENT Exam ENT Exam: Mucous Membranes Moist, Normal Oropharynx - Neck Exam Neck Exam: Normal Inspection - Respiratory Exam Respiratory Exam: Clear to Ausculation Bilateral, NORMAL BREATHING PATTERN. absent: Rales, Rhonchi, Wheezes - Cardiovascular Exam Cardiovascular Exam: REGULAR RHYTHM, RRR, +S1, +S2 - GI/Abdominal Exam GI & Abdominal Exam: Soft, Normal Bowel Sounds. absent: Tenderness - Extremities Exam Extremities Exam: Normal Capillary Refill, Normal Inspection. absent: Calf Tenderness Additional comments: + edema of right ankle, limited range of motion right ankle due to pain. Neurovascular intact. - Neurological Exam Neurological Exam: Alert, Awake, Oriented x3 - Psychiatric Exam Psychiatric exam: Normal Affect, Normal Mood Assessment and Plan - Assessment and Plan (Free Text) Assessment: 52 y/o M with PMHx of substance use disorder and hep C admitted for syncopal episode Plan: (1) Syncope -recurrent, uncontrolled -possibly due to drug use -labs/ekg/CT head unremarkable in ED -will consult Neurology for further evaluation due to last syncopal episode with urinary/bowel incontinence and recurrent syncope (2) Substance use disorder - Utox on 11/10/17: Positive for cocaine, opiates and benzodiazepines - c/w meds that patient was discharged from detox unit - avoid narcotics for pain - avoid benzodiazepines unless suspected seizure (3) DVT prophylaxis - Lovenox 40mg qd (4) Code status -Full code
--- NOTE | 2017-11-11 08:41 | CARD ---
APPROVED REPORT EKG Measurement Heart [id number] <Conclusion> Normal sinus rhythm Normal ECG
[2017-11-11] MEDS: Enoxaparin 40 mg Syringe SC SCH (09:44)
--- NOTE | 2017-11-11 19:26 | CP.PCM.CON ---
History of Present Illness - History of Present Illness History of Present Illness: Mr. Mauricio is a 52-year-old man with a past medical history of multi- substance abuse, hypertension, who has had at least 4 episodes over the last two months of loss of consciousness after sudden syncope. The most recent event was associated with urinary/bowel incontinence and subsequent confusion. He says that he felt as though he was "high", but denied drug use. CT scan of the head did not show any acute findings. Urine toxicology was positive for cocaine, opiates and benzodiazepines. Review of Systems - Review of Systems All systems: reviewed and no additional remarkable complaints except Past Patient History - Infectious Disease Hx of Infectious Diseases: None - Tetanus Immunizations Tetanus Immunization: Unknown - Past Medical History & Family History Past Medical History?: Yes - Past Social History Smoking Status: Current Some Days Smoker - CARDIAC Hx Cardiac Disorders: No Hx Hypertension: No - PULMONARY Hx Respiratory Disorders: Yes Hx Pneumonia: Yes - NEUROLOGICAL Hx Neurological Disorder: Yes Hx Seizures: No Hx Syncope: Yes - HEENT Hx HEENT Problems: No - RENAL Hx Chronic Kidney Disease: No - ENDOCRINE/METABOLIC Hx Endocrine Disorders: No - HEMATOLOGICAL/ONCOLOGICAL Hx Blood Disorders: Yes Hx Human Immunodeficiency Virus (HIV): No - INTEGUMENTARY Hx Dermatological Problems: No - MUSCULOSKELETAL/RHEUMATOLOGICAL Hx Musculoskeletal Disorders: Yes Hx Falls: Yes Hx Fractures: Yes (right hip) - GASTROINTESTINAL Hx Gastrointestinal Disorders: Yes Hx Colitis: Yes Hx Hemorrhoids: Yes Other/Comment: HERNIA - GENITOURINARY/GYNECOLOGICAL Hx Genitourinary Disorders: No Hx Sexually Transmitted Disorders: No - PSYCHIATRIC Hx Psychophysiologic Disorder: Yes Hx Anxiety: Yes Hx Substance Use: Yes (Heroine) Other/Comment: etoh, cocaine and heroin abuse - SURGICAL HISTORY Hx Surgeries: Yes Hx Herniorrhaphy: Yes (khushi inguinal hernia repair) Hx Orthopedic Surgery: Yes Other/Comment: Right Hip (srews placed due to fracture s/p fall) -November 2016, right orchiopexy for undescended testicle. Hx of L ing. repair once and R ing hernia twice - ANESTHESIA Hx Anesthesia: Yes Hx Anesthesia Reactions: No Hx Malignant Hyperthermia: No Meds Allergies/Adverse Reactions: Allergies Allergy/AdvReac Type Severity Reaction Status Date / Time No Known Allergies Allergy Verified 11/10/17 13:45 - Medications Medications: Current Medications Clonidine HCl (Catapres) 0.1 mg PO BID PRN PRN Reason: severe anxiety Last Admin: 11/11/17 16:21 Dose: 0.1 mg Docusate Sodium (Colace) 100 mg PO DAILY [facility] Last Admin: 11/11/17 09:45 Dose: 100 mg Enoxaparin Sodium (Lovenox) 40 mg SC DAILY [facility] PRN Reason: Protocol Last Admin: 11/11/17 09:44 Dose: 40 mg Gabapentin (Neurontin) 300 mg PO TID [facility] Last Admin: 11/11/17 16:17 Dose: 300 mg Hydroxyzine HCl (Atarax) 50 mg PO BID PRN PRN Reason: Anxiety Nicotine (Nicoderm Cq) 1 patch TD DAILY [facility] Last Admin: 11/11/17 16:18 Dose: 1 patch Nicotine (Nicoderm Cq) 1 patch TD DAILY [facility] Quetiapine Fumarate (Seroquel) 100 mg PO HS [facility] Last Admin: 11/10/17 23:27 Dose: 100 mg Physical Exam - Constitutional Appears: Well - Head Exam Head Exam: ATRAUMATIC, NORMAL INSPECTION, NORMOCEPHALIC - Neurological Exam Neurological exam: Alert, CN II-XII Intact, Normal Gait, Oriented x3, Reflexes Normal Results - Vital Signs Recent Vital Signs: Last Vital Signs Temp 97.9 F 11/11/17 16:16 Pulse 64 11/11/17 16:21 Resp 18 11/11/17 16:16 BP 118/74 11/11/17 16:21 Pulse Ox 97 11/11/17 16:16 - Labs Result Diagrams: 11/11/17 05:00 11/11/17 05:00 Labs: Laboratory Results - last 24 hr 11/11/17 11/11/17 11/11/17 05:00 05:00 05:00 WBC RBC Hgb Hct MCV MCH MCHC RDW Plt Count PT 11.8 INR 1.1 APTT 33.6 Sodium 141 Potassium 4.1 Chloride 109 H Carbon Dioxide 26 Anion Gap 10 BUN 26 H Creatinine 1.3 Est GFR ( Amer) > 60 Est GFR (Non-Af Amer) 58 Random Glucose 92 Hemoglobin A1c 5.6 Calcium 8.3 L Total Bilirubin 0.4 AST 52 ALT 68 Alkaline Phosphatase 58 Total Protein 6.7 Albumin 2.8 L Globulin 3.9 Albumin/Globulin Ratio 0.7 L Triglycerides 62 Cholesterol 117 LDL Cholesterol Direct 61 HDL Cholesterol 29 L TSH 3rd Generation 0.86 11/11/17 05:00 WBC 4.0 L RBC 3.71 L Hgb 11.2 L Hct 33.5 L MCV 90.1 MCH 30.1 MCHC 33.4 RDW 14.4 Plt Count 144 PT INR APTT Sodium Potassium Chloride Carbon Dioxide Anion Gap BUN Creatinine Est GFR ( Amer) Est GFR (Non-Af Amer) Random Glucose Hemoglobin A1c Calcium Total Bilirubin AST ALT Alkaline Phosphatase Total Protein Albumin Globulin Albumin/Globulin Ratio Triglycerides Cholesterol LDL Cholesterol Direct HDL Cholesterol TSH 3rd Generation Assessment & Plan (1) Syncope Assessment and Plan: It is difficult to determine if this event was a seizure or simply syncope due to hypotension, dehydration, or drug use. Since he has had 4 episodes in a short period of time, I recommend obtaining an EEG for 1 hour and prolonged cardiac monitoring with a loop recorder. I recommend consulting Dr. Urbina for the placement of a Linq device. An MRI of the brain was recently performed and does not need to be done again at this time since CT head was normal. Status: Acute (2) Drug abuse Status: Chronic (3) Alcohol use disorder, severe, dependence Status: Acute
--- NOTE | 2017-11-12 08:46 | CP.PCM.PN ---
Subjective - Date & Time of Evaluation Date of Evaluation: 11/12/17 Time of Evaluation: 08:05 - Subjective Subjective: Patient seen and examined this morning. No acute overnight events. Pt continues to have dizziness with ambulation. Denies any LOC, headache, blurry vision, nausea, vomiting, chest pain, dyspnea or focal weakness. Pt is tolerating PO. Voiding and regular BM. Objective - Vital Signs/Intake and Output Vital Signs (last 24 hours): Temp Pulse Resp BP Pulse Ox 97.5 F L 55 L 18 115/75 98 11/12/17 08:03 11/12/17 08:03 11/12/17 08:03 11/12/17 08:03 11/12/17 08:03 - Medications Medications: Current Medications Clonidine HCl (Catapres) 0.1 mg PO BID PRN PRN Reason: severe anxiety Last Admin: 11/11/17 16:21 Dose: 0.1 mg Docusate Sodium (Colace) 100 mg PO DAILY [facility] Last Admin: 11/11/17 09:45 Dose: 100 mg Enoxaparin Sodium (Lovenox) 40 mg SC DAILY [facility] PRN Reason: Protocol Last Admin: 11/11/17 09:44 Dose: 40 mg Gabapentin (Neurontin) 300 mg PO TID [facility] Last Admin: 11/11/17 16:17 Dose: 300 mg Hydroxyzine HCl (Atarax) 50 mg PO BID PRN PRN Reason: Anxiety Nicotine (Nicoderm Cq) 1 patch TD DAILY [facility] Last Admin: 11/11/17 16:18 Dose: 1 patch Quetiapine Fumarate (Seroquel) 100 mg PO HS [facility] Last Admin: 11/11/17 21:43 Dose: 100 mg - Labs Labs: 11/11/17 05:00 11/11/17 05:00 PT 11.8 Seconds (9.8-13.1) 11/11/17 05:00 INR 1.1 (0.9-1.2) 11/11/17 05:00 APTT 33.6 Seconds (25.6-37.1) 11/11/17 05:00 - Additional Findings Additional findings: - Constitutional Appears: Non-toxic, No Acute Distress, Unkempt - Head Exam Head Exam: NORMAL INSPECTION, - Eye Exam Eye Exam: Normal appearance - ENT Exam ENT Exam: Mucous Membranes Moist - Neck Exam Neck Exam: Normal Inspection - Respiratory Exam Respiratory Exam: Clear to Ausculation Bilateral, NORMAL BREATHING PATTERN. absent: Rales, Rhonchi, Wheezes - Cardiovascular Exam Cardiovascular Exam: REGULAR RHYTHM, RRR, +S1, +S2 - GI/Abdominal Exam GI & Abdominal Exam: Soft, Normal Bowel Sounds. absent: Tenderness - Extremities Exam Extremities Exam: Normal Capillary Refill, Normal Inspection. absent: Calf Tenderness - Neurological Exam Neurological Exam: Alert, Awake, Oriented x3 - Psychiatric Exam Psychiatric exam: Normal Affect, Normal Mood Assessment and Plan - Assessment and Plan (Free Text) Assessment: 52 y/o M with PMHx of substance use disorder and hep C admitted for evaluation of multiple syncopal episodes Plan: (1) Syncope -recurrent, uncontrolled -possibly due to drug use -labs/ekg/CT head unremarkable in ED -Neuro consult appreciated -Cardio recommendation appreciated: will have loop recorder placement on 11/17/17 -f/u on EEG (2) Substance use disorder - Utox on 11/10/17: Positive for cocaine, opiates and benzodiazepines - c/w meds that patient was discharged from detox unit - avoid narcotics for pain - avoid benzodiazepines unless suspected seizure (3) DVT prophylaxis - Lovenox 40mg qd (4) Code status -Full code
[2017-11-12] MEDS: Enoxaparin 40 mg Syringe SC SCH (10:04)
[2017-11-12] MEDS: Lidocaine 5% Patch TD SCH (11:24)
--- NOTE | 2017-11-12 11:54 | CP.PCM.PN ---
Subjective - Date & Time of Evaluation Date of Evaluation: 11/12/17 Time of Evaluation: 11:51 - Subjective Subjective: Mr. Mauricio was seen and examined at the bedside. He is alert, oriented in all spheres. He denies any headache, dizziness, lightheadedness. He is able to state the last usage of drug use. He is able to follow simple commands. There was no untoward events overnight. Objective - Vital Signs/Intake and Output Vital Signs (last 24 hours): Temp Pulse Resp BP Pulse Ox 97.5 F L 55 L 18 115/75 98 11/12/17 08:03 11/12/17 08:03 11/12/17 08:03 11/12/17 08:03 11/12/17 08:03 - Medications Medications: Current Medications Clonidine HCl (Catapres) 0.1 mg PO BID PRN PRN Reason: severe anxiety Last Admin: 11/11/17 16:21 Dose: 0.1 mg Docusate Sodium (Colace) 100 mg PO DAILY [facility] Last Admin: 11/12/17 10:04 Dose: 100 mg Enoxaparin Sodium (Lovenox) 40 mg SC DAILY [facility] PRN Reason: Protocol Last Admin: 11/12/17 10:04 Dose: 40 mg Gabapentin (Neurontin) 300 mg PO TID [facility] Last Admin: 11/12/17 10:05 Dose: 300 mg Hydroxyzine HCl (Atarax) 50 mg PO BID PRN PRN Reason: Anxiety Last Admin: 11/12/17 10:09 Dose: 50 mg Lidocaine (Lidoderm) 1 ea TD DAILY [facility] Last Admin: 11/12/17 11:24 Dose: 1 ea Nicotine (Nicoderm Cq) 1 patch TD DAILY [facility] Last Admin: 11/12/17 10:05 Dose: 1 patch Quetiapine Fumarate (Seroquel) 100 mg PO HS [facility] Last Admin: 11/11/17 21:43 Dose: 100 mg - Labs Labs: 11/11/17 05:00 11/11/17 05:00 PT 11.8 Seconds (9.8-13.1) 11/11/17 05:00 INR 1.1 (0.9-1.2) 11/11/17 05:00 APTT 33.6 Seconds (25.6-37.1) 11/11/17 05:00 - Constitutional Appears: No Acute Distress - Head Exam Head Exam: NORMAL INSPECTION - Eye Exam Pupil Exam: PERRL - Neurological Exam Neurological Exam: Alert, Awake Neuro motor strength exam: Left Upper Extremity: 5, Right Upper Extremity: 5, Left Lower Extremity: 5, Right Lower Extremity: 5 Additional comments: alert, oriented, follows simple commands. Assessment and Plan - Assessment and Plan (Free Text) Assessment: Syncope Plan: Case discussed with Dr. Eisenberg. continue all current medical regimen. Pending EEG result and recommend any other orders from cardiology.
--- NOTE | 2017-11-12 11:59 | CP.PCM.CON ---
History of Present Illness - History of Present Illness History of Present Illness: Consultation for evaluation of Link monitoring for evaluation of syncope HPI: 52 year old male with hx of multisubstance abuse, HTN admittted after being found unresponsive on the street. He apparently had 4 recurrent episodes of syncope in the last 2 months with no prodromal symptoms. Recommended by neuro for possible loop recorder ( linq ) Review of Systems - Review of Systems Systems not reviewed;Unavailable: Acuity of Condition - Constitutional Constitutional: As Per HPI - EENT Eyes: As Per HPI Ears: As Per HPI Nose/Mouth/Throat: As Per HPI - Cardiovascular Cardiovascular: As Per HPI - Respiratory Respiratory: As Per HPI - Gastrointestinal Gastrointestinal: As Per HPI - Genitourinary Genitourinary: As Per HPI - Reproductive: Male Reproductive:Male: As Per HPI - Musculoskeletal Musculoskeletal: As Per HPI - Integumentary Integumentary: As Per HPI - Neurological Neurological: As Per HPI - Psychiatric Psychiatric: As Per HPI - Endocrine Endocrine: As Per HPI - Hematologic/Lymphatic Hematologic: As Per HPI Past Patient History - Infectious Disease Hx of Infectious Diseases: None - Tetanus Immunizations Tetanus Immunization: Unknown - Past Medical History & Family History Past Medical History?: Yes - Past Social History Smoking Status: Current Some Days Smoker - CARDIAC Hx Cardiac Disorders: No Hx Hypertension: No - PULMONARY Hx Respiratory Disorders: Yes Hx Pneumonia: Yes - NEUROLOGICAL Hx Neurological Disorder: Yes Hx Seizures: No Hx Syncope: Yes - HEENT Hx HEENT Problems: No - RENAL Hx Chronic Kidney Disease: No - ENDOCRINE/METABOLIC Hx Endocrine Disorders: No - HEMATOLOGICAL/ONCOLOGICAL Hx Blood Disorders: Yes Hx Human Immunodeficiency Virus (HIV): No - INTEGUMENTARY Hx Dermatological Problems: No - MUSCULOSKELETAL/RHEUMATOLOGICAL Hx Musculoskeletal Disorders: Yes Hx Falls: Yes Hx Fractures: Yes (right hip) - GASTROINTESTINAL Hx Gastrointestinal Disorders: Yes Hx Colitis: Yes Hx Hemorrhoids: Yes Other/Comment: HERNIA - GENITOURINARY/GYNECOLOGICAL Hx Genitourinary Disorders: No Hx Sexually Transmitted Disorders: No - PSYCHIATRIC Hx Psychophysiologic Disorder: Yes Hx Anxiety: Yes Hx Substance Use: Yes (Heroine) Other/Comment: etoh, cocaine and heroin abuse - SURGICAL HISTORY Hx Surgeries: Yes Hx Herniorrhaphy: Yes (khushi inguinal hernia repair) Hx Orthopedic Surgery: Yes Other/Comment: Right Hip (srews placed due to fracture s/p fall) -November 2016, right orchiopexy for undescended testicle. Hx of L ing. repair once and R ing hernia twice - ANESTHESIA Hx Anesthesia: Yes Hx Anesthesia Reactions: No Hx Malignant Hyperthermia: No Meds Allergies/Adverse Reactions: Allergies Allergy/AdvReac Type Severity Reaction Status Date / Time No Known Allergies Allergy Verified 11/10/17 13:45 - Medications Medications: Current Medications Clonidine HCl (Catapres) 0.1 mg PO BID PRN PRN Reason: severe anxiety Last Admin: 11/11/17 16:21 Dose: 0.1 mg Docusate Sodium (Colace) 100 mg PO DAILY [facility] Last Admin: 11/12/17 10:04 Dose: 100 mg Enoxaparin Sodium (Lovenox) 40 mg SC DAILY [facility] PRN Reason: Protocol Last Admin: 11/12/17 10:04 Dose: 40 mg Gabapentin (Neurontin) 300 mg PO TID [facility] Last Admin: 11/12/17 10:05 Dose: 300 mg Hydroxyzine HCl (Atarax) 50 mg PO BID PRN PRN Reason: Anxiety Last Admin: 11/12/17 10:09 Dose: 50 mg Lidocaine (Lidoderm) 1 ea TD DAILY [facility] Last Admin: 11/12/17 11:24 Dose: 1 ea Nicotine (Nicoderm Cq) 1 patch TD DAILY [facility] Last Admin: 11/12/17 10:05 Dose: 1 patch Quetiapine Fumarate (Seroquel) 100 mg PO HS [facility] Last Admin: 11/11/17 21:43 Dose: 100 mg Physical Exam - Constitutional Appears: Well - Head Exam Head Exam: ATRAUMATIC, NORMAL INSPECTION, NORMOCEPHALIC - Eye Exam Eye Exam: EOMI, Normal appearance, PERRL Pupil Exam: NORMAL ACCOMODATION, PERRL - ENT Exam ENT Exam: Mucous Membranes Moist, Normal Exam - Neck Exam Neck exam: Positive for: Normal Inspection - Respiratory Exam Respiratory Exam: Clear to Auscultation Bilateral, NORMAL BREATHING PATTERN - Cardiovascular Exam Cardiovascular Exam: REGULAR RHYTHM, +S1, +S2, Systolic Murmur - GI/Abdominal Exam GI & Abdominal Exam: Normal Bowel Sounds, Soft. absent: Tenderness - Extremities Exam Extremities exam: Positive for: normal inspection - Back Exam Back exam: NORMAL INSPECTION - Neurological Exam Neurological exam: Alert, CN II-XII Intact, Normal Gait, Oriented x3, Reflexes Normal - Psychiatric Exam Psychiatric exam: Normal Affect, Normal Mood - Skin Skin Exam: Dry, Intact, Normal Color, Warm Results - Vital Signs Recent Vital Signs: Last Vital Signs Temp 97.5 F L 11/12/17 08:03 Pulse 55 L 11/12/17 08:03 Resp 18 11/12/17 08:03 BP 115/75 11/12/17 08:03 Pulse Ox 98 11/12/17 08:03 - Labs Result Diagrams: 11/11/17 05:00 11/11/17 05:00 Assessment & Plan (1) Syncope Assessment and Plan: hx unclear of etiology of syncope agree with neuro will benefit with loop recorder echo done in 06/01 showed normal EF and normal valves Status: Acute
--- NOTE | 2017-11-13 08:11 | CP.PCM.PN ---
Subjective - Date & Time of Evaluation Date of Evaluation: 11/13/17 Time of Evaluation: 07:45 - Subjective Subjective: Patient seen and examined this morning. No acute overnight events. He continues to have dizziness with ambulation. Reports chronic lower back pain with numbness and tingling to right leg. Denies any LOC, headache, blurry vision , nausea, vomiting, chest pain, dyspnea or focal weakness. No bowel or bladder dysfunction. Pt is tolerating PO. Voiding and regular BM. Objective - Vital Signs/Intake and Output Vital Signs (last 24 hours): Temp Pulse Resp BP Pulse Ox 97.6 F 74 20 126/83 96 11/13/17 08:01 11/13/17 08:01 11/13/17 08:01 11/13/17 08:01 11/13/17 08:01 - Medications Medications: Current Medications Acetaminophen (Tylenol 325mg Tab) 650 mg PO Q4 PRN PRN Reason: Pain, moderate (4-7) Clonidine HCl (Catapres) 0.1 mg PO BID PRN PRN Reason: severe anxiety Last Admin: 11/11/17 16:21 Dose: 0.1 mg Docusate Sodium (Colace) 100 mg PO DAILY [facility] Last Admin: 11/12/17 10:04 Dose: 100 mg Enoxaparin Sodium (Lovenox) 40 mg SC DAILY [facility] PRN Reason: Protocol Last Admin: 11/12/17 10:04 Dose: 40 mg Gabapentin (Neurontin) 300 mg PO TID [facility] Last Admin: 11/12/17 17:57 Dose: 300 mg Hydroxyzine HCl (Atarax) 50 mg PO BID PRN PRN Reason: Anxiety Last Admin: 11/13/17 03:10 Dose: 50 mg Ibuprofen (Motrin Tab) 800 mg PO Q8 PRN PRN Reason: Pain, severe (8-10) Lidocaine (Lidoderm) 1 ea TD DAILY [facility] Last Admin: 11/12/17 11:24 Dose: 1 ea Nicotine (Nicoderm Cq) 1 patch TD DAILY [facility] Last Admin: 11/12/17 10:05 Dose: 1 patch Quetiapine Fumarate (Seroquel) 100 mg PO HS [facility] Last Admin: 11/12/17 21:41 Dose: 100 mg - Labs Labs: 11/11/17 05:00 11/11/17 05:00 PT 11.8 Seconds (9.8-13.1) 11/11/17 05:00 INR 1.1 (0.9-1.2) 11/11/17 05:00 APTT 33.6 Seconds (25.6-37.1) 11/11/17 05:00 - Additional Findings Additional findings: - Constitutional Appears: Non-toxic, No Acute Distress, Unkempt - Head Exam Head Exam: NORMAL INSPECTION, - Eye Exam Eye Exam: Normal appearance - ENT Exam ENT Exam: Mucous Membranes Moist - Neck Exam Neck Exam: Normal Inspection - Respiratory Exam Respiratory Exam: Clear to Ausculation Bilateral, NORMAL BREATHING PATTERN. absent: Rales, Rhonchi, Wheezes - Cardiovascular Exam Cardiovascular Exam: REGULAR RHYTHM, RRR, +S1, +S2 - GI/Abdominal Exam GI & Abdominal Exam: Soft, Normal Bowel Sounds. absent: Tenderness - Extremities Exam Extremities Exam: Normal Capillary Refill, Normal Inspection. absent: Calf Tenderness - Neurological Exam Neurological Exam: Alert, Awake, Oriented x3 - Psychiatric Exam Psychiatric exam: Normal Affect, Normal Mood Assessment and Plan - Assessment and Plan (Free Text) Assessment: 52 y/o M with PMHx of substance use disorder and hep C admitted for evaluation of multiple syncopal episodes Plan: (1) Syncope -recurrent, uncontrolled -possibly due to drug use -labs/ekg/CT head unremarkable in ED -Neuro consult appreciated -Cardio recommendation appreciated: will have loop recorder placement on 11/17/17 -f/u on EEG (2) Chronic lower back pain -Lumbar CT on 10/27/17: IMPRESSION: [id number] multilevel degenerative spinal stenosis which may better characterized by MRI if clinically warranted. Degenerative bilateral neural foraminal stenoses are also [id number] severity at the inferior lumbar spine. No severe spinal stenosis appreciated. -pain management with non-opioid -f/u lumbar MRI -f/u physiatry consult (3) Substance use disorder - Utox on 11/10/17: Positive for cocaine, opiates and benzodiazepines - c/w meds that patient was discharged from detox unit - avoid narcotics for pain - avoid benzodiazepines unless suspected seizure (4) DVT prophylaxis - Lovenox 40mg qd (5) Code status -Full code
[2017-11-13] MEDS: Lidocaine 5% Patch TD SCH (08:26)
[2017-11-13] MEDS: Enoxaparin 40 mg Syringe SC SCH (08:27)
[2017-11-13] MEDS ORDERED: Promethazine DM 6.25 mg-15 mg/5 ml Syrup PO PRN (09:33)
--- NOTE | 2017-11-13 11:08 | CP.PCM.PN ---
Subjective - Date & Time of Evaluation Date of Evaluation: 11/13/17 Time of Evaluation: 11:08 - Subjective Subjective: Mr. Mauricio was seen and examined at the bedside. He is alert, oriented in all spheres. He denies any headache, dizziness, lightheadedness. He is able to state events from previous days. He is able to follow simple commands. EEG showed normal. There was no untoward events overnight. Objective - Vital Signs/Intake and Output Vital Signs (last 24 hours): Temp Pulse Resp BP Pulse Ox 97.6 F 74 20 126/83 96 11/13/17 08:01 11/13/17 09:00 11/13/17 08:01 11/13/17 08:01 11/13/17 08:01 - Medications Medications: Current Medications Acetaminophen (Tylenol 325mg Tab) 650 mg PO Q4 PRN PRN Reason: Pain, moderate (4-7) Clonidine HCl (Catapres) 0.1 mg PO BID PRN PRN Reason: severe anxiety Last Admin: 11/11/17 16:21 Dose: 0.1 mg Docusate Sodium (Colace) 100 mg PO DAILY [facility] Last Admin: 11/13/17 08:27 Dose: 100 mg Enoxaparin Sodium (Lovenox) 40 mg SC DAILY [facility] PRN Reason: Protocol Last Admin: 11/13/17 08:27 Dose: 40 mg Gabapentin (Neurontin) 300 mg PO TID [facility] Last Admin: 11/13/17 08:27 Dose: 300 mg Hydroxyzine HCl (Atarax) 50 mg PO BID PRN PRN Reason: Anxiety Last Admin: 11/13/17 03:10 Dose: 50 mg Ibuprofen (Motrin Tab) 800 mg PO Q8 PRN PRN Reason: Pain, severe (8-10) Last Admin: 11/13/17 08:28 Dose: 800 mg Lidocaine (Lidoderm) 1 ea TD DAILY [facility] Last Admin: 11/13/17 08:26 Dose: 1 ea Nicotine (Nicoderm Cq) 1 patch TD DAILY [facility] Last Admin: 11/13/17 08:28 Dose: 1 patch Promethazine HCl/Dextromethorphan (Phenergan Dm Syrup) 5 ml PO Q6 PRN PRN Reason: Cough Quetiapine Fumarate (Seroquel) 100 mg PO HS [facility] Last Admin: 11/12/17 21:41 Dose: 100 mg - Labs Labs: 11/11/17 05:00 11/11/17 05:00 PT 11.8 Seconds (9.8-13.1) 11/11/17 05:00 INR 1.1 (0.9-1.2) 11/11/17 05:00 APTT 33.6 Seconds (25.6-37.1) 11/11/17 05:00 - Constitutional Appears: No Acute Distress - Head Exam Head Exam: NORMAL INSPECTION - Eye Exam Pupil Exam: PERRL - Neurological Exam Neurological Exam: Alert, Awake, Normal Gait, Oriented x3 Neuro motor strength exam: Left Upper Extremity: 5, Right Upper Extremity: 5, Left Lower Extremity: 5, Right Lower Extremity: 5 Additional comments: Neurological unchanged from previous examination Assessment and Plan (1) Syncope Assessment & Plan: Case discussed with Dr. Eisenberg, continue all current medical regimen. Recommend head of head elevated, hydration.Please follow any recommendations from cardiology.Since EEG is normal, neurology is signing off from this case. Please re-consult as needed. Status: Acute
[2017-11-14 05:35] LABS: HEMOGLOBIN 13.9 g/dL (12.0-18.0); MEAN CELL VOLUME 90.5 fl (80.0-94.0); MEAN CORPUSCULAR HGB CONC 33.2 g/dL (33.0-37.0); RBC 4.64 Mil/uL (4.40-5.90); RED CELL DISTRIBUTION WIDTH 14.9 % (11.5-14.5); WHITE BLOOD COUNT 6.7 K/uL (4.8-10.8)
[2017-11-14 05:37] LABS: BLOOD UREA NITROGEN 30 mg/dl (9-20); CALCIUM 9.1 mg/dL (8.4-10.2); GFR AFRICAN-AMERICAN > 60; GFR NON-AFRICAN AMERICAN 58
--- NOTE | 2017-11-14 09:35 | CP.PCM.PN ---
Subjective - Date & Time of Evaluation Date of Evaluation: 11/14/17 Time of Evaluation: 09:32 - Subjective Subjective: Patient seen and examined this morning, no acute event overnight. Patient is c/ o back pain and RLE numbness and tingling with out any voiding or BM issues. Patient reports feeling ok on bed but feels dizzy when ambulates. Patient denies any chest pain, SOB or urinary symptoms. Objective - Vital Signs/Intake and Output Vital Signs (last 24 hours): Temp Pulse Resp BP Pulse Ox 97.2 F L 68 20 111/67 97 11/14/17 08:08 11/14/17 08:08 11/14/17 08:08 11/14/17 08:08 11/14/17 08:08 - Medications Medications: Current Medications Acetaminophen (Tylenol 325mg Tab) 650 mg PO Q4 PRN PRN Reason: Pain, moderate (4-7) Clonidine HCl (Catapres) 0.1 mg PO BID PRN PRN Reason: severe anxiety Last Admin: 11/11/17 16:21 Dose: 0.1 mg Docusate Sodium (Colace) 100 mg PO DAILY [facility] Last Admin: 11/13/17 08:27 Dose: 100 mg Enoxaparin Sodium (Lovenox) 40 mg SC DAILY [facility] PRN Reason: Protocol Last Admin: 11/13/17 08:27 Dose: 40 mg Gabapentin (Neurontin) 300 mg PO TID [facility] Last Admin: 11/13/17 16:53 Dose: 300 mg Hydroxyzine HCl (Atarax) 50 mg PO BID PRN PRN Reason: Anxiety Last Admin: 11/13/17 20:35 Dose: 50 mg Ibuprofen (Motrin Tab) 800 mg PO Q8 PRN PRN Reason: Pain, severe (8-10) Last Admin: 11/14/17 01:00 Dose: 800 mg Lidocaine (Lidoderm) 1 ea TD DAILY [facility] Last Admin: 11/13/17 08:26 Dose: 1 ea Nicotine (Nicoderm Cq) 1 patch TD DAILY [facility] Last Admin: 11/13/17 08:28 Dose: 1 patch Promethazine HCl/Dextromethorphan (Phenergan Dm Syrup) 5 ml PO Q6 PRN PRN Reason: Cough Quetiapine Fumarate (Seroquel) 100 mg PO HS [facility] Last Admin: 11/13/17 21:33 Dose: 100 mg - Labs Labs: 11/14/17 04:50 11/14/17 04:50 PT 11.8 Seconds (9.8-13.1) 11/11/17 05:00 INR 1.1 (0.9-1.2) 11/11/17 05:00 APTT 33.6 Seconds (25.6-37.1) 11/11/17 05:00 - Constitutional Appears: No Acute Distress - Head Exam Head Exam: NORMAL INSPECTION - Eye Exam Eye Exam: Normal appearance Pupil Exam: NORMAL ACCOMODATION - ENT Exam ENT Exam: Mucous Membranes Moist - Neck Exam Neck Exam: Normal Inspection - Respiratory Exam Respiratory Exam: Clear to Ausculation Bilateral, NORMAL BREATHING PATTERN - Cardiovascular Exam Cardiovascular Exam: REGULAR RHYTHM - GI/Abdominal Exam GI & Abdominal Exam: Soft, Normal Bowel Sounds. absent: Tenderness - Extremities Exam Additional comments: LROM and strength b/l LEs, predominantly on right + straight leg test No LEs edema - Back Exam Additional comments: Lower back tenderness b/l - Neurological Exam Neurological Exam: Alert, Awake, Oriented x3 - Psychiatric Exam Psychiatric exam: Normal Affect - Skin Skin Exam: Dry, Intact, Normal Color Assessment and Plan - Assessment and Plan (Free Text) Assessment: A/P: 52 y/o M with PMHx of substance use disorder and hep C admitted for evaluation of recurrent episodes of loss of consciousness. Syncope -recurrent, uncontrolled -possibly due to drug use -CT head unremarkable -Neuro consult appreciated -Cardio recommendation appreciated: will have loop recorder placement on 11/17/17 -EEG unremarkable, no neuro interventions at this time Chronic lower back pain -Lumbar CT on 10/27/17: IMPRESSION: [id number] multilevel degenerative spinal stenosis which may better characterized by MRI if clinically warranted. Degenerative bilateral neural foraminal stenoses are also [id number] severity at the inferior lumbar spine. No severe spinal stenosis appreciated. -pain management with non-opioid -lumbar MRI 11/13: No Mod to severe spinal atenosis, + multilevel degenerative disc disease, seen worse at L2-3. Small L5-S1 central disc protrusion with annular tear. S1 vertebral body appears lumbarized. -Physiatry consult appreciated: patient will benefit TCU Substance use disorder - Utox on 11/10/17: Positive for cocaine, opiates and benzodiazepines - c/w meds that patient was discharged from detox unit - avoid narcotics for pain - avoid benzodiazepines unless suspected seizure DVT prophylaxis - Lovenox 40mg qd Code status -Full code
[2017-11-14] MEDS: Enoxaparin 40 mg Syringe SC SCH (09:57)
[2017-11-14] MEDS: Lidocaine 5% Patch TD SCH (09:58)
--- NOTE | 2017-11-14 10:33 | MRI ---
PROCEDURE: MR LUMBAR SPINE WITHOUT CONTRAST HISTORY: Lower back pain COMPARISON: Lumbar spine CT 10/27/2017. TECHNIQUE: Multiecho multiplanar sequences were performed through the lumbar spine without the use of intravenous contrast. FINDINGS: Normal lumbar lordosis. As per prior lumbar spine CT 10/27/2017, S1 is transitional and appears lumbarized (confirmed on chest abdomen and pelvis CT 08/03/2017). Vertebral body heights are preserved. Marrow signal unremarkable. Limited anterior wedging of L1 and L2 vertebral bodies is reiterated indicative of very mild chronic healed fractures with no additional fracture identified throughout. Marked disc desiccation affects L4-5 there is otherwise moderate and are at the remainder of the lumbar intervertebral discs. Conus medullaris unremarkable at the level of L1 superior endplate level. Prevertebral and paraspinal soft tissues are unremarkable. Bilateral extrarenal pelves are reiterated as seen in prior abdomen ultrasound examination 10/21/2017. T12-L1: No disc herniation, spinal canal stenosis or neural foraminal narrowing. L1-2: No disc herniation, spinal canal stenosis or neural foraminal narrowing. L2-3: A mildly large disc osteophyte complex is appreciated with an annular tear involving the posterior disc inverting the ventral thecal sac an somewhat encroaching lateral descending roots with mild central canal stenosis resulting. No neural foraminal stenosis bilaterally. L3-4: Minimal generalized disc bulge is appreciated with an annular tear posteriorly with bore with marginal inversion of the ventral thecal sac but no significant stenosis. No disc herniation. No significant neural foraminal stenosis. L4-5: No disc herniation however facet arthropathy is relatively prominent this level causing bilateral lateral recess stenosis without prominent generalized central stenosis evident. No significant neural foraminal stenosis. L5-S1: A posterior annular tear is appreciated with probable limited disc protrusion overlying a generalized disc bulge and moderate facet degenerative changes are appreciated encroaching the bilateral lateral recesses but no significant central stenosis otherwise evident. No neural foraminal stenosis bilaterally. OTHER FINDINGS: None. IMPRESSION: 1. No moderate or severe spinal stenosis appreciated with generally adequately patent central canal affected via multilevel degenerative disc disease, seen worst at L2-3 were mild central canal stenosis results from degenerative changes. No significant neural foraminal stenosis throughout the exam. 2. A small central disc protrusion appreciated L5-S1 overlying limited disc bulging. Annular tear also identified here. 3. Transitional S1 vertebral body appears lumbarized. 4. Mildly prominent bilateral extrarenal pelves reiterated as seen in prior abdomen ultrasound examination 10/21/2017.
--- NOTE | 2017-11-14 16:45 | CP.PCM.PN ---
Subjective - Date & Time of Evaluation Date of Evaluation: 11/13/17 Time of Evaluation: 15:00 - Subjective Subjective: rhythm stable Objective - Vital Signs/Intake and Output Vital Signs (last 24 hours): Temp Pulse Resp BP Pulse Ox 98.1 F 75 18 103/68 99 11/14/17 16:38 11/14/17 16:38 11/14/17 16:38 11/14/17 16:38 11/14/17 16:38 - Medications Medications: Current Medications Acetaminophen (Tylenol 325mg Tab) 650 mg PO Q4 PRN PRN Reason: Pain, moderate (4-7) Last Admin: 11/14/17 15:47 Dose: 650 mg Clonidine HCl (Catapres) 0.1 mg PO BID PRN PRN Reason: severe anxiety Last Admin: 11/14/17 10:02 Dose: 0.1 mg Docusate Sodium (Colace) 100 mg PO DAILY [facility] Last Admin: 11/14/17 09:57 Dose: Not Given Enoxaparin Sodium (Lovenox) 40 mg SC DAILY [facility] PRN Reason: Protocol Last Admin: 11/14/17 09:57 Dose: 40 mg Gabapentin (Neurontin) 300 mg PO TID [facility] Last Admin: 11/14/17 13:45 Dose: 300 mg Hydroxyzine HCl (Atarax) 50 mg PO BID PRN PRN Reason: Anxiety Last Admin: 11/14/17 09:59 Dose: 50 mg Ibuprofen (Motrin Tab) 800 mg PO Q8 PRN PRN Reason: Pain, severe (8-10) Last Admin: 11/14/17 11:43 Dose: 800 mg Lidocaine (Lidoderm) 1 ea TD DAILY [facility] Last Admin: 11/14/17 09:58 Dose: 1 ea Nicotine (Nicoderm Cq) 1 patch TD DAILY [facility] Last Admin: 11/14/17 09:58 Dose: 1 patch Promethazine HCl/Dextromethorphan (Phenergan Dm Syrup) 5 ml PO Q6 PRN PRN Reason: Cough Quetiapine Fumarate (Seroquel) 100 mg PO HS [facility] Last Admin: 11/13/17 21:33 Dose: 100 mg - Labs Labs: 11/14/17 04:50 11/14/17 04:50 PT 11.8 Seconds (9.8-13.1) 11/11/17 05:00 INR 1.1 (0.9-1.2) 11/11/17 05:00 APTT 33.6 Seconds (25.6-37.1) 11/11/17 05:00 - Constitutional Appears: Well - Head Exam Head Exam: ATRAUMATIC, NORMAL INSPECTION, NORMOCEPHALIC - Eye Exam Eye Exam: EOMI, Normal appearance, PERRL Pupil Exam: NORMAL ACCOMODATION, PERRL - ENT Exam ENT Exam: Mucous Membranes Moist, Normal Exam - Neck Exam Neck Exam: Full ROM, Normal Inspection. absent: Lymphadenopathy - Respiratory Exam Respiratory Exam: Clear to Ausculation Bilateral, NORMAL BREATHING PATTERN - Cardiovascular Exam Cardiovascular Exam: REGULAR RHYTHM, +S1, +S2. absent: Murmur - GI/Abdominal Exam GI & Abdominal Exam: Soft, Normal Bowel Sounds. absent: Tenderness - Extremities Exam Extremities Exam: Full ROM, Normal Capillary Refill, Normal Inspection. absent : Joint Swelling, Pedal Edema - Back Exam Back Exam: NORMAL INSPECTION - Neurological Exam Neurological Exam: Alert, Awake, CN II-XII Intact, Normal Gait, Oriented x3 - Psychiatric Exam Psychiatric exam: Normal Affect, Normal Mood - Skin Skin Exam: Dry, Intact, Normal Color, Warm Assessment and Plan (1) Syncope Assessment & Plan: plan for loop recorder as outpt Status: Acute
--- NOTE | 2017-11-14 16:48 | CP.PCM.PN ---
Subjective - Date & Time of Evaluation Date of Evaluation: 11/14/17 Time of Evaluation: 16:47 - Subjective Subjective: EEG -ve c/o backpain Objective - Vital Signs/Intake and Output Vital Signs (last 24 hours): Temp Pulse Resp BP Pulse Ox 98.1 F 75 18 103/68 99 11/14/17 16:38 11/14/17 16:38 11/14/17 16:38 11/14/17 16:38 11/14/17 16:38 - Medications Medications: Current Medications Acetaminophen (Tylenol 325mg Tab) 650 mg PO Q4 PRN PRN Reason: Pain, moderate (4-7) Last Admin: 11/14/17 15:47 Dose: 650 mg Clonidine HCl (Catapres) 0.1 mg PO BID PRN PRN Reason: severe anxiety Last Admin: 11/14/17 10:02 Dose: 0.1 mg Docusate Sodium (Colace) 100 mg PO DAILY [facility] Last Admin: 11/14/17 09:57 Dose: Not Given Enoxaparin Sodium (Lovenox) 40 mg SC DAILY [facility] PRN Reason: Protocol Last Admin: 11/14/17 09:57 Dose: 40 mg Gabapentin (Neurontin) 300 mg PO TID [facility] Last Admin: 11/14/17 13:45 Dose: 300 mg Hydroxyzine HCl (Atarax) 50 mg PO BID PRN PRN Reason: Anxiety Last Admin: 11/14/17 09:59 Dose: 50 mg Ibuprofen (Motrin Tab) 800 mg PO Q8 PRN PRN Reason: Pain, severe (8-10) Last Admin: 11/14/17 11:43 Dose: 800 mg Lidocaine (Lidoderm) 1 ea TD DAILY [facility] Last Admin: 11/14/17 09:58 Dose: 1 ea Nicotine (Nicoderm Cq) 1 patch TD DAILY [facility] Last Admin: 11/14/17 09:58 Dose: 1 patch Promethazine HCl/Dextromethorphan (Phenergan Dm Syrup) 5 ml PO Q6 PRN PRN Reason: Cough Quetiapine Fumarate (Seroquel) 100 mg PO HS [facility] Last Admin: 11/13/17 21:33 Dose: 100 mg - Labs Labs: 11/14/17 04:50 11/14/17 04:50 PT 11.8 Seconds (9.8-13.1) 11/11/17 05:00 INR 1.1 (0.9-1.2) 11/11/17 05:00 APTT 33.6 Seconds (25.6-37.1) 11/11/17 05:00 - Constitutional Appears: Well - Head Exam Head Exam: ATRAUMATIC, NORMAL INSPECTION, NORMOCEPHALIC - Eye Exam Eye Exam: EOMI, Normal appearance, PERRL Pupil Exam: NORMAL ACCOMODATION, PERRL - ENT Exam ENT Exam: Mucous Membranes Moist, Normal Exam - Neck Exam Neck Exam: Full ROM, Normal Inspection. absent: Lymphadenopathy - Respiratory Exam Respiratory Exam: Clear to Ausculation Bilateral, NORMAL BREATHING PATTERN - Cardiovascular Exam Cardiovascular Exam: REGULAR RHYTHM, +S1, +S2. absent: Murmur - GI/Abdominal Exam GI & Abdominal Exam: Soft, Normal Bowel Sounds. absent: Tenderness - Extremities Exam Extremities Exam: Full ROM, Normal Capillary Refill, Normal Inspection. absent : Joint Swelling, Pedal Edema - Back Exam Back Exam: NORMAL INSPECTION - Neurological Exam Neurological Exam: Alert, Awake, CN II-XII Intact, Normal Gait, Oriented x3 - Psychiatric Exam Psychiatric exam: Normal Affect, Normal Mood - Skin Skin Exam: Dry, Intact, Normal Color, Warm Assessment and Plan (1) Syncope Assessment & Plan: plan for loop recorder on Friday Status: Acute
[2017-11-14 17:50] LABS: OPIATES, UR NEGATIVE (NEGATIVE)
[2017-11-14 17:54] LABS: BARBITURATES, UR NEGATIVE (NEGATIVE); BENZODIAZEPINES, UR POSITIVE (NEGATIVE); PHENCYCLIDINE, UR NEGATIVE (NEGATIVE)
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
[2017-11-15] MEDS: Lidocaine 5% Patch TD SCH (08:36)
[2017-11-15] MEDS: Enoxaparin 40 mg Syringe SC SCH (08:36)
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
[2017-11-15] MEDS ORDERED: Lidocaine 5% Patch TD ONE (19:00)
[2017-11-16] MEDS: Lidocaine 5% Patch TD SCH (08:36)
[2017-11-16] MEDS: Enoxaparin 40 mg Syringe SC SCH (08:37)
--- NOTE | 2017-11-16 11:59 | CP.PCM.PN ---
Subjective - Date & Time of Evaluation Date of Evaluation: 11/16/17 Time of Evaluation: 09:25 - Subjective Subjective: Patient was seen and examined this morning at bed side. Patient is comfortable this morning, not complaining of any pain (patient was given Toradol last night) . Patient reports he was able to walk yesterday but reported intermittent dizziness. This morning, denies any dizziness, chest pain, SOB or any urinary symptoms. No acute event overnight. Continuing PT per physiatry and awaiting loop recorder 11/17/17. Objective - Vital Signs/Intake and Output Vital Signs (last 24 hours): Temp Pulse Resp BP Pulse Ox 97.3 F L 70 16 111/73 97 11/16/17 08:32 11/16/17 10:58 11/16/17 08:32 11/16/17 10:58 11/16/17 08:32 - Medications Medications: Current Medications Acetaminophen (Tylenol 325mg Tab) 650 mg PO Q4 PRN PRN Reason: Pain, moderate (4-7) Last Admin: 11/15/17 03:37 Dose: 650 mg Clonidine HCl (Catapres) 0.1 mg PO BID PRN PRN Reason: severe anxiety Last Admin: 11/16/17 10:58 Dose: 0.1 mg Docusate Sodium (Colace) 100 mg PO DAILY [facility] Last Admin: 11/16/17 08:37 Dose: 100 mg Enoxaparin Sodium (Lovenox) 40 mg SC DAILY [facility] PRN Reason: Protocol Last Admin: 11/16/17 08:37 Dose: 40 mg Gabapentin (Neurontin) 300 mg PO TID [facility] Last Admin: 11/16/17 08:37 Dose: 300 mg Hydroxyzine HCl (Atarax) 50 mg PO BID PRN PRN Reason: Anxiety Last Admin: 11/16/17 05:29 Dose: 50 mg Ibuprofen (Motrin Tab) 800 mg PO Q8 PRN PRN Reason: Pain, severe (8-10) Last Admin: 11/15/17 16:57 Dose: 800 mg Lidocaine (Lidoderm) 1 ea TD DAILY [facility] Last Admin: 11/16/17 08:36 Dose: 1 ea Nicotine (Nicoderm Cq) 1 patch TD DAILY [facility] Last Admin: 11/16/17 08:37 Dose: 1 patch Promethazine HCl/Dextromethorphan (Phenergan Dm Syrup) 5 ml PO Q6 PRN PRN Reason: Cough Quetiapine Fumarate (Seroquel) 100 mg PO HS [facility] Last Admin: 11/15/17 21:43 Dose: 100 mg - Labs Labs: 11/14/17 04:50 11/14/17 04:50 PT 11.8 Seconds (9.8-13.1) 11/11/17 05:00 INR 1.1 (0.9-1.2) 11/11/17 05:00 APTT 33.6 Seconds (25.6-37.1) 11/11/17 05:00 - Constitutional Appears: No Acute Distress - Head Exam Head Exam: NORMAL INSPECTION - Eye Exam Eye Exam: Normal appearance - ENT Exam ENT Exam: Mucous Membranes Moist - Respiratory Exam Respiratory Exam: Clear to Ausculation Bilateral, NORMAL BREATHING PATTERN - Cardiovascular Exam Cardiovascular Exam: REGULAR RHYTHM - GI/Abdominal Exam GI & Abdominal Exam: Soft, Normal Bowel Sounds - Extremities Exam Additional comments: LROM and strength b/l LEs, predominantly on right + straight leg test No LEs edema - Back Exam Back Exam: absent: CVA tenderness (L), CVA tenderness (R) - Neurological Exam Neurological Exam: Alert, Awake, Oriented x3 - Psychiatric Exam Psychiatric exam: Normal Affect - Skin Skin Exam: Normal Color Assessment and Plan - Assessment and Plan (Free Text) Assessment: A/P: 52 y/o M with PMHx of substance use disorder and hep C admitted for evaluation of recurrent episodes of syncope. Syncope -recurrent, uncontrolled -possibly due to drug use -CT head unremarkable -Neuro consult appreciated -Cardio recommendation appreciated: will have loop recorder placement on 11/17/17 -EEG unremarkable, no neuro interventions at this time -Intermittent dizziness: B12 666, Folate pending; f/u -Continue PT Chronic lower back pain -Lumbar CT on 10/27/17: IMPRESSION: [id number] multilevel degenerative spinal stenosis which may better characterized by MRI if clinically warranted. Degenerative bilateral neural foraminal stenoses are also [id number] severity at the inferior lumbar spine. No severe spinal stenosis appreciated. -pain management with non-opioid -lumbar MRI 11/13: No Mod to severe spinal atenosis, + multilevel degenerative disc disease, seen worse at L2-3. Small L5-S1 central disc protrusion with annular tear. S1 vertebral body appears lumbarized. -Physiatry consult appreciated: patient will benefit TCU but patient not qualified, Continue PT -Continue pain management and Gabapentin Substance use disorder -Utox on 11/10/17: Positive for cocaine, opiates and benzodiazepines -c/w meds that patient was discharged from detox unit -avoid narcotics for pain -avoid benzodiazepines unless suspected seizure -Nicotine patches HTN -Controlled -Clonidine 0.1 BID DVT prophylaxis -Lovenox 40mg qd Code status -Full code
--- NOTE | 2017-11-16 16:11 | CP.PCM.PN ---
Subjective - Date & Time of Evaluation Date of Evaluation: 11/15/17 Time of Evaluation: 13:00 - Subjective Subjective: patient is feeling fine although complains of problems with balance Objective - Vital Signs/Intake and Output Vital Signs (last 24 hours): Temp Pulse Resp BP Pulse Ox 97.7 F 72 18 103/67 96 11/16/17 12:36 11/16/17 12:36 11/16/17 12:36 11/16/17 12:36 11/16/17 12:36 - Medications Medications: Current Medications Acetaminophen (Tylenol 325mg Tab) 650 mg PO Q4 PRN PRN Reason: Pain, moderate (4-7) Last Admin: 11/15/17 03:37 Dose: 650 mg Clonidine HCl (Catapres) 0.1 mg PO BID PRN PRN Reason: severe anxiety Last Admin: 11/16/17 10:58 Dose: 0.1 mg Docusate Sodium (Colace) 100 mg PO DAILY [facility] Last Admin: 11/16/17 08:37 Dose: 100 mg Enoxaparin Sodium (Lovenox) 40 mg SC DAILY [facility] PRN Reason: Protocol Last Admin: 11/16/17 08:37 Dose: 40 mg Gabapentin (Neurontin) 300 mg PO TID [facility] Last Admin: 11/16/17 12:01 Dose: 300 mg Hydroxyzine HCl (Atarax) 50 mg PO BID PRN PRN Reason: Anxiety Last Admin: 11/16/17 05:29 Dose: 50 mg Ibuprofen (Motrin Tab) 800 mg PO Q8 PRN PRN Reason: Pain, severe (8-10) Last Admin: 11/16/17 15:34 Dose: 800 mg Lidocaine (Lidoderm) 1 ea TD DAILY [facility] Last Admin: 11/16/17 08:36 Dose: 1 ea Nicotine (Nicoderm Cq) 1 patch TD DAILY [facility] Last Admin: 11/16/17 08:37 Dose: 1 patch Promethazine HCl/Dextromethorphan (Phenergan Dm Syrup) 5 ml PO Q6 PRN PRN Reason: Cough Quetiapine Fumarate (Seroquel) 100 mg PO HS [facility] Last Admin: 11/15/17 21:43 Dose: 100 mg - Labs Labs: 11/14/17 04:50 11/14/17 04:50 PT 11.8 Seconds (9.8-13.1) 11/11/17 05:00 INR 1.1 (0.9-1.2) 11/11/17 05:00 APTT 33.6 Seconds (25.6-37.1) 11/11/17 05:00 - Head Exam Head Exam: ATRAUMATIC, NORMAL INSPECTION, NORMOCEPHALIC - Eye Exam Eye Exam: EOMI, Normal appearance, PERRL Pupil Exam: NORMAL ACCOMODATION, PERRL - ENT Exam ENT Exam: Mucous Membranes Moist, Normal Exam - Neck Exam Neck Exam: Full ROM - Respiratory Exam Respiratory Exam: Clear to Ausculation Bilateral, NORMAL BREATHING PATTERN - Cardiovascular Exam Cardiovascular Exam: REGULAR RHYTHM - GI/Abdominal Exam GI & Abdominal Exam: Normal Bowel Sounds - Rectal Exam Rectal Exam: NORMAL INSPECTION - Exam External exam: NORMAL EXTERNAL EXAM - Extremities Exam Extremities Exam: Full ROM, Normal Capillary Refill, Normal Inspection - Back Exam Back Exam: NORMAL INSPECTION - Neurological Exam Neurological Exam: Alert, Awake Neuro motor strength exam: Left Upper Extremity: 4, Right Upper Extremity: 4, Left Lower Extremity: 3, Right Lower Extremity: 3 Additional comments: decreased sensation, balance problems with dysmetria - Psychiatric Exam Psychiatric exam: Normal Affect, Normal Mood - Skin Skin Exam: Normal Color Assessment and Plan (1) Altered mental status Status: Acute (2) Syncope Assessment & Plan: plan to continue with range of motion, strengthening, transfers and gait training, work on balance and coordination. For loop recorder, status post Ct and MRI Consider TCU for inpatient rehab once medically stable Status: Acute (3) Weakness Status: Acute (4) Drug abuse Status: Chronic (5) Abdominal discomfort Status: Acute (6) Abdominal pain Status: Acute (7) Accident due to mechanical fall without injury Status: Acute
[2017-11-16] MEDS ORDERED: Lidocaine 5% Patch TD ONE (18:45)
[2017-11-17 00:16] VITALS: RESP 18
--- NOTE | 2017-11-17 09:20 | CP.PCM.PN ---
Subjective - Date & Time of Evaluation Date of Evaluation: 11/17/17 Time of Evaluation: 07:20 - Subjective Subjective: Patient seen and examined at bedside this morning. Objective - Vital Signs/Intake and Output Vital Signs (last 24 hours): Temp Pulse Resp BP Pulse Ox 97.6 F 66 18 109/58 L 97 11/17/17 08:00 11/17/17 08:00 11/17/17 08:00 11/17/17 08:00 11/17/17 08:00 - Medications Medications: Current Medications Acetaminophen (Tylenol 325mg Tab) 650 mg PO Q4 PRN PRN Reason: Pain, moderate (4-7) Last Admin: 11/15/17 03:37 Dose: 650 mg Clonidine HCl (Catapres) 0.1 mg PO BID PRN PRN Reason: severe anxiety Last Admin: 11/16/17 10:58 Dose: 0.1 mg Docusate Sodium (Colace) 100 mg PO DAILY [facility] Last Admin: 11/16/17 08:37 Dose: 100 mg Enoxaparin Sodium (Lovenox) 40 mg SC DAILY [facility] PRN Reason: Protocol Last Admin: 11/16/17 08:37 Dose: 40 mg Gabapentin (Neurontin) 300 mg PO TID [facility] Last Admin: 11/16/17 16:39 Dose: 300 mg Hydroxyzine HCl (Atarax) 50 mg PO BID PRN PRN Reason: Anxiety Last Admin: 11/16/17 05:29 Dose: 50 mg Ibuprofen (Motrin Tab) 800 mg PO Q8 PRN PRN Reason: Pain, severe (8-10) Last Admin: 11/16/17 15:34 Dose: 800 mg Lidocaine (Lidoderm) 1 ea TD DAILY [facility] Last Admin: 11/16/17 08:36 Dose: 1 ea Nicotine (Nicoderm Cq) 1 patch TD DAILY [facility] Last Admin: 11/16/17 08:37 Dose: 1 patch Promethazine HCl/Dextromethorphan (Phenergan Dm Syrup) 5 ml PO Q6 PRN PRN Reason: Cough Quetiapine Fumarate (Seroquel) 100 mg PO HS [facility] Last Admin: 11/16/17 21:52 Dose: 100 mg - Labs Labs: 11/14/17 04:50 11/14/17 04:50 PT 11.8 Seconds (9.8-13.1) 11/11/17 05:00 INR 1.1 (0.9-1.2) 11/11/17 05:00 APTT 33.6 Seconds (25.6-37.1) 11/11/17 05:00
[2017-11-17] MEDS: Lidocaine 5% Patch TD SCH (09:29)
[2017-11-17 11:48] VITALS: BP 113/69; PULSE 64; TEMP 98; O2SAT 99
[2017-11-17 12:42] LABS: FOLATE 18.3 ng/mL
--- NOTE | 2017-11-17 15:39 | CP.PCM.DIS ---
Provider - Provider Date of Admission: 11/12/17 13:42 Attending physician: Arlene Bowden MD Primary care physician: [facility] Consults: Neurology, Dr. Eisenberg Cardiology, Dr. Urbina PT SW Time Spent in preparation of Discharge (in minutes): 40 Diagnosis - Discharge Diagnosis (1) Syncope and collapse Status: Acute Comment: 4 episodes in last 2 months (2) Chronic lower back pain Status: Chronic (3) Substance use disorder Status: Chronic (4) Hypertension Status: Chronic Hospital Course - Lab Results Lab Results: Most Recent Lab Values WBC 6.7 K/uL (4.8-10.8) D 11/14/17 04:50 RBC 4.64 Mil/uL (4.40-5.90) 11/14/17 04:50 Hgb 13.9 g/dL (12.0-18.0) D 11/14/17 04:50 Hct 41.9 % (35.0-51.0) 11/14/17 04:50 MCV 90.5 fl (80.0-94.0) 11/14/17 04:50 MCH 30.0 pg (27.0-31.0) 11/14/17 04:50 MCHC 33.2 g/dL (33.0-37.0) 11/14/17 04:50 RDW 14.9 % (11.5-14.5) H 11/14/17 04:50 Plt Count 166 K/uL (130-400) 11/14/17 04:50 MPV 7.5 fl (7.2-11.7) 11/10/17 15:20 Neut % (Auto) 59.2 % (50.0-75.0) 11/10/17 15:20 Lymph % (Auto) 27.5 % (20.0-40.0) 11/10/17 15:20 Swisher % (Auto) 10.6 % (0.0-10.0) H 11/10/17 15:20 Eos % (Auto) 1.8 % (0.0-4.0) 11/10/17 15:20 Baso % (Auto) 0.9 % (0.0-2.0) 11/10/17 15:20 Neut # (Auto) 3.3 K/uL (1.8-7.0) 11/10/17 15:20 Lymph # (Auto) 1.5 K/uL (1.0-4.3) 11/10/17 15:20 Swisher # (Auto) 0.6 K/uL (0.0-0.8) 11/10/17 15:20 Eos # (Auto) 0.1 K/uL (0.0-0.7) 11/10/17 15:20 Baso # (Auto) 0.0 K/uL (0.0-0.2) 11/10/17 15:20 PT 11.8 Seconds (9.8-13.1) 11/11/17 05:00 INR 1.1 (0.9-1.2) 11/11/17 05:00 APTT 33.6 Seconds (25.6-37.1) 11/11/17 05:00 Sodium 144 mmol/l (132-148) 11/14/17 04:50 Potassium 4.4 MMOL/L (3.6-5.0) 11/14/17 04:50 Chloride 111 mmol/L (98-107) H 11/14/17 04:50 Carbon Dioxide 23 mmol/L (22-30) 11/14/17 04:50 Anion Gap 14 (10-20) 11/14/17 04:50 BUN 30 mg/dl (9-20) H 11/14/17 04:50 Creatinine 1.3 mg/dl (0.8-1.5) 11/14/17 04:50 Est GFR ( Amer) > 60 11/14/17 04:50 Est GFR (Non-Af Amer) 58 11/14/17 04:50 Random Glucose 92 mg/dL (75-110) 11/14/17 04:50 Hemoglobin A1c 5.6 % (4.2-6.5) 11/11/17 05:00 Calcium 9.1 mg/dL (8.4-10.2) 11/14/17 04:50 Total Bilirubin 0.4 mg/dl (0.2-1.3) 11/11/17 05:00 AST 52 U/L (17-59) 11/11/17 05:00 ALT 68 U/L (21-72) 11/11/17 05:00 Alkaline Phosphatase 58 U/L (38-126) 11/11/17 05:00 Total Creatine Kinase 99 U/L (55-170) 11/10/17 15:20 Troponin I < 0.0120 ng/mL (0.00-0.120) 11/10/17 15:20 Total Protein 6.7 G/DL (6.3-8.2) 11/11/17 05:00 Albumin 2.8 g/dL (3.5-5.0) L 11/11/17 05:00 Globulin 3.9 gm/dL (2.2-3.9) 11/11/17 05:00 Albumin/Globulin Ratio 0.7 (1.0-2.1) L 11/11/17 05:00 Triglycerides 62 mg/DL (0-149) 11/11/17 05:00 Cholesterol 117 mg/dL (0-199) 11/11/17 05:00 LDL Cholesterol Direct 61 mg/dL (0-129) 11/11/17 05:00 HDL Cholesterol 29 MG/DL (30-70) L 11/11/17 05:00 Vitamin B12 666 pg/mL (239-931) 11/16/17 05:01 Folate 18.3 ng/mL 11/16/17 05:01 TSH 3rd Generation 0.86 mIU/ML (0.46-4.68) 11/11/17 05:00 Urine Color Renetta (YELLOW) 11/10/17 15:35 Urine Clarity Slighty-cloudy (Clear) 11/10/17 15:35 Urine pH 6.0 (5.0-8.0) 11/10/17 15:35 Ur Specific [place] 1.024 (1.003-1.030) 11/10/17 15:35 Urine Protein Negative mg/dL (NEGATIVE) 11/10/17 15:35 Urine Glucose (UA) Neg mg/dL (Normal) 11/10/17 15:35 Urine Ketones Negative mg/dL (NEGATIVE) 11/10/17 15:35 Urine Blood Negative (NEGATIVE) 11/10/17 15:35 Urine Nitrate Negative (NEGATIVE) 11/10/17 15:35 Urine Bilirubin Negative (NEGATIVE) 11/10/17 15:35 Urine Urobilinogen 2.0 mg/dL (0.2-1.0) 11/10/17 15:35 Ur Leukocyte Esterase Neg Day/uL (Negative) 11/10/17 15:35 Urine RBC (Auto) 25 /hpf (0-3) H 11/10/17 15:35 Urine Microscopic WBC 1 /hpf (0-5) 11/10/17 15:35 Urine Opiates Screen Negative (NEGATIVE) 11/14/17 17:23 Urine Methadone Screen Negative (NEGATIVE) 11/14/17 17:23 Ur Barbiturates Screen Negative (NEGATIVE) 11/14/17 17:23 Ur Phencyclidine Scrn Negative (NEGATIVE) 11/14/17 17:23 Ur Amphetamines Screen Negative (NEGATIVE) 11/14/17 17:23 U Benzodiazepines Scrn Positive (NEGATIVE) 11/14/17 17:23 U Oth Cocaine Metabols Positive (NEGATIVE) H 11/14/17 17:23 U Cannabinoids Screen Negative (NEGATIVE) 11/14/17 17:23 - Hospital Course Hospital Course: 52 y/o M, homeless, with PMhx of substance abuse, Hep C, chronic back pain, and hypertension admitted to [facility] for evaluation and treatment of 4 episodes of syncope in last 2 months. Urine drug positive for opioids, benzodiazepenes, and cocaine. Neurologist and [employer] consulted, EKG: NSR, CT head negative for any acute changes, EEG normal, B12 666 and folate 18.3. lumbar MRI: No Mod to severe spinal atenosis, + multilevel degenerative disc disease, seen worse at L2 -3, Small L5-S1 central disc protrusion with annular tear, S1 vertebral body appears lumbarized. Patient was discharged home today, will get Loop Recorder placement tomorrow by materials mgmt tech. Discharge Exam - Head Exam Head Exam: ATRAUMATIC, NORMAL INSPECTION, NORMOCEPHALIC Discharge Plan - Follow Up Plan Condition: STABLE Disposition: HOME/ ROUTINE Instructions: Syncope (Fainting) (DC) Additional Instructions: follow up with on friday at 11:20am Referrals: [facility] [place] [Outside] Falguni Rey MD [Family Provider] -
--- NOTE | 2017-11-18 09:54 | EEG ---
DATE: TECHNICAL INFORMATION: Electrodes were placed according to the 10-20 [employer] electrode system by medical office technologist. Total of 23 electrodes (21 EEG and 2 EKG) were placed. EEG activity was digitally recorded referentially to P1/P2 or A1/A2 electrodes. Continuous monitoring with EEG was performed using digital analysis for spike detection. The [employer] spike and seizure detection algorithms were used for digital EEG analysis throughout the monitoring period to screen the EEG in real-time and yulisa the data file with pointers to electrographic seizures and interictal discharges. EEG was screened for electrographic seizures and interictal discharges by a technologist. Physician, epileptologist reviewed detections as well as extensive random samples and whole EEG study in detail. Digital EEG Analysis: Was carried out including FFT (Fast Fourier Transform), R2D2 (Rhythmicity Run Detection and Display), Relative Asymmetry Spectrogram, and voltage plot by the [employer]. The qualitative EEG analysis and the voltage plot mapping were used for detection of foci of paroxysmal and abnormal electrical cortical activity. GENERAL DESCRIPTION: Background Rhythm: There is a well-formed, 8-10 Hz posterior dominant rhythm that is reactive, symmetric, and attenuates with eye opening. There was a normal amount of frontal beta noted bilaterally. There is no sleep recorded. ACTIVATION PROCEDURES: Photic stimulation: There is no driving noted. Hyperventilation: There is slowing noted that is self-remitted. ABNORMAL ACTIVITY: There are no focal epileptiform discharges noted. No clinical or subclinical seizures noted. IMPRESSION: This is a normal awake and drowsy electroencephalogram. Clinical correlation is required. There is increased beta due to medication effect. Joshua Walton MD
== END 2017-11-17 14:12 | disposition home or self-care (01) | DRG 141 ==
LOC: H.ER 13:43 → H.ERHOLD 16:44 → H.TEL 21:30 → OBSVTOIN 11-12 13:42
PROVIDERS: ADMIT Family Medicine Geriatric Medicine; ATTEND Family Medicine Geriatric Medicine
DX: R55 Syncope and collapse (principal); B19.20 Unspecified viral hepatitis C without hepatic coma; F11.10 Opioid abuse, uncomplicated; F13.10 Sedative, hypnotic or anxiolytic abuse, uncomplicated; F14.10 Cocaine abuse, uncomplicated; G89.29 Other chronic pain; F10.20 Alcohol dependence, uncomplicated; Z59.0 Homelessness; I10 Essential (primary) hypertension; M51.36 Other intervertebral disc degeneration, lumbar region; F17.200 Nicotine dependence, unspecified, uncomplicated; B35.1 Tinea unguium; G62.9 Polyneuropathy, unspecified; R53.1 Weakness

== ENCOUNTER 2018-09-09 02:22 | Emergency (ER) | payer MEDICAID ==
[2018-09-09 02:23] VITALS: BMI 29.8
[2018-09-09 02:34] VITALS: BP 118/61; PULSE 91; RESP 16; TEMP 97.6; O2SAT 96
[2018-09-09] MEDS ORDERED: Naproxen 500 MG TAB PO ONE ×2 (02:43→02:49)
--- NOTE | 2018-09-09 02:45 | ED PDOC ---
Lower Extremity Pain/Injury Time Seen by Provider: 09/09/18 02:30 Chief Complaint (Nursing): Lower Extremity Problem/Injury Chief Complaint (Provider): leg pain/swelling History Per: Patient History/Exam Limitations: no limitations Onset/Duration Of Symptoms: Days (years) Current Symptoms Are (Timing): Still Present Additional Complaint(s): 53 y/o male presents for evaluation of bilateral leg pain/swelling x 1 year. Denies fever, chest pain, shortness of breath, palpitations, numbness/weakness lower extremities, recent travel. Past Medical History Reviewed: Historical Data, Nursing Documentation, Vital Signs Vital Signs: Last Vital Signs Temp 97.6 F 09/09/18 02:29 Pulse 91 H 09/09/18 02:29 Resp 16 09/09/18 02:29 BP 118/61 09/09/18 02:29 Pulse Ox 96 09/09/18 02:29 - Medical History PMH: Anxiety, Fractures (right hip), Hepatitis (C), Hiatal Hernia, HTN, Pneumonia, Chronic Pain (back) Denies: Diabetes, HIV, Chronic Kidney Disease, Seizures, Sexually Transmitted Disease - Surgical History Surgical History: Hernia Repair - Family History Family History: States: Unknown Family Hx - Immunization History Hx Tetanus Toxoid Vaccination: No Hx Influenza Vaccination: No Hx Pneumococcal Vaccination: No - Home Medications Home Medications: Ambulatory Orders Medication Instructions Recorded Methadone HCl [Methadose] 100 mg PO DAILY 01/27/18 Gabapentin [Neurontin] 300 mg PO BID #60 cap 02/03/18 QUEtiapine [Seroquel] 100 mg PO HS #30 tab 02/03/18 Sertraline [Zoloft] 100 mg PO DAILY #30 tab 02/03/18 traZODone [Desyrel] 50 mg PO HS #30 tab 02/03/18 Nicotine 14 mg/24 hr [Nicoderm CQ] 1 each TD DAILY #14 patch 04/16/18 QUEtiapine [SEROquel] 100 mg PO Q12 #30 tab 04/16/18 Sertraline [Zoloft] 50 mg PO DAILY #14 tab 04/16/18 Topiramate 25 mg PO BID #28 tablet 04/16/18 traZODone [Desyrel] 50 mg PO HS #14 tab 04/16/18 Ferrous Sulfate 325 mg PO BID #60 tablet 04/27/18 Ondansetron ODT [Zofran ODT] 1 odt PO Q6 PRN #20 odt 06/10/18 - Allergies Allergies/Adverse Reactions: Allergies Allergy/AdvReac Type Severity Reaction Status Date / Time No Known Allergies Allergy Verified 06/10/18 16:18 Review of Systems ROS Statement: Except As Marked, All Systems Reviewed And Found Negative Musculoskeletal: Positive for: Leg Pain Physical Exam - Reviewed Nursing Documentation Reviewed: Yes Vital Signs Reviewed: Yes - Physical Exam Appears: Positive for: Well, Non-toxic, No Acute Distress Head Exam: Positive for: ATRAUMATIC, NORMAL INSPECTION, NORMOCEPHALIC Skin: Positive for: Normal Color Eye Exam: Positive for: Normal appearance ENT: Positive for: Normal ENT Inspection Cardiovascular/Chest: Positive for: Regular Rate, Rhythm Respiratory: Positive for: Normal Breath Sounds Extremity: Positive for: Normal ROM, Swelling (2+ lower extremithy nonpitting edema bilaterally). Negative for: Calf Tenderness Neurological/Psych: Positive for: Awake, Alert, Oriented (x3) - ECG O2 Sat by Pulse Oximetry: 96 - Progress ED Course And Treament: -naproxen PO -leg elevation Patient was advised to follow up PMD within 2-3 days Advised rest, leg elevation, compression stockings Return precautions given Disposition - Clinical Impression Clinical Impression: Leg swelling - Patient ED Disposition Is Patient to be Admitted: No Counseled Patient/Family Regarding: Studies Performed, Diagnosis, Need For Followup - Disposition Referrals: [facility] [Outside] Disposition: Routine/Home Disposition Time: 04:34 Condition: IMPROVED Instructions: Dependent Edema (DC) Forms: [employer] ([place])
== END 2018-09-09 06:07 | disposition home or self-care (01) ==
LOC: H.ER 02:22
DX: M79.89 Other specified soft tissue disorders (principal); I10 Essential (primary) hypertension; G89.29 Other chronic pain